=== PATIENT | female | born 1950 | race Caucasian/White ===

== ENCOUNTER → 2018-02-14 07:05 | Outpatient (CLI) | payer MEDICARE, SELFPAY ==
[2018-02-14 10:25] LABS: Absolute Lymphocyte Count 2.58 X10^3/ul (0.83-4.51); Absolute Neutrophil Count 3.9 X10^3/uL (2.0-7.7); Basophil# 0.02 X10^3/uL; Basophil% 0.3 % (0-1); Eosinophil# 0.13 X10^3/uL; Eosinophils% 1.8 % (0-5); Hematocrit 45.1 % (37-47); Hemoglobin 15.4 g/dl (12.0-15.0); Lymphocyte # 2.58 X10^3/ul (4.0); Lymphocyte % 35.7 % (19-41); Mean Corp Hgb Conc 34.1 g/gl (32-36); Mean Corpuscular Hgb 30.9 pg (27.0-32.0); Mean Corpuscular Volume 90.6 fL (81-99); Mean Platelet Vol. 9.5 fl (6.2-12.0); Monocyte# 0.58 X10^3/uL; Neutrophil % 53.9 % (47-70); Platelet Count 217 K/mm3 (150-450); RBC Distribution Width CV 13.2 % (11.6-14.6); RBC Distribution Width SD 43.3 fl (35.1-43.9); Red Blood Count 4.98 M/mm3 (4.2-5.4); White Blood Count 7.2 K/mm3 (4.4-11.0)
[2018-02-14 10:27] LABS: POSITIVE COUNT NO; POSITIVE DIFFERENTIAL NO; POSITIVE MORPHOLOGY NO
[2018-02-14 10:41] LABS: ALB/GLOB Ratio 0.8 RATIO (0.9-2.4); AST(SGOT) 38 U/L (15-37); Alanine Aminotransfer ALT/SGPT 53 U/L (13-56); Albumin, Serum 3.3 g/dL (3.2-5.0); Alkaline Phosphatase 101 U/L (45-117); Anion Gap 10 (5-15); BUN 21 mg/dL (7-18); BUN/Creat Ratio 25.7 RATIO (10-20); Calcium,Total 9.1 mg/dL (8.5-10.1); Chloride 106 mmol/L (98-107); Cholesterol 154 mg/dL (200); Creatinine, Serum 0.82 mg/dL (0.55-1.02); EST Glomerular Filtration Rate 75 mL/min (>60); Est Glom Filt Rate - Afr Amer 90 mL/min (>60); Glucose 81 mg/dL (74-106); High Density Lipoprotein 60 mg/dL; Potassium 3.8 mmol/L (3.5-5.1); Protein, Total 7.3 g/dL (6.4-8.2); Sodium Level 144 mmol/L (136-145); Triglycerides 97 mg/dL; Very Low Density Lipoprotein 19 mg/dL (5-40)
== END ==
PROVIDERS: Family Provider Family Medicine; PCP Family Medicine; Visit Provider Family Medicine
DX: E78.5 Hyperlipidemia, unspecified (principal); I10 Essential (primary) hypertension
CPT/HCPCS: 36415; 80053; 80061; 85025

== ENCOUNTER → 2018-04-05 10:58 | Outpatient (CLI) | payer MEDICARE, OTHER, SELFPAY ==
--- NOTE | 2018-04-05 11:06 | RAD_ITS ---
STUDY: X-RAY CHEST REASON FOR EXAM: Female, 67 years old. Productive cough. TECHNIQUE: PA and lateral chest. COMPARISON: July 04, 2016. FINDINGS: The lungs are clear and expanded. There is no demonstrated pleural abnormality. Normal size heart. Normal mediastinum and umu. Normal visualized pulmonary arteries. Normal visualized aortic arch and descending thoracic aorta. Degenerative changes of the thoracic spine. Normal visualized ribs, clavicles, and shoulders. There is no demonstrated abnormality of the visualized soft tissue structures of the upper abdomen. RAD/Chest PA and Lateral IMPRESSION: No acute cardiopulmonary disease. Electronically Signed: Won Campbell MD at 7:53 EDT , Service support ,
== END ==
PROVIDERS: Family Provider Family Medicine; PCP Family Medicine; Referring Provider Family Medicine; Visit Provider Family Medicine
DX: R05 Cough (principal)
CPT/HCPCS: 71046

== ENCOUNTER → 2018-06-04 09:44 | Outpatient (CLI) | payer MEDICARE, SELFPAY ==
[2017-05-09 21:02] VITALS: BMI 38.2
--- NOTE | 2018-06-04 09:50 | BI_ITS ---
MAMMOGRAPHY - BILATERAL SCREENING REASON FOR EXAM: Female, 67 years old. Routine annual screening examination. PERTINENT HISTORY: Mother with breast cancer. Grandmother with breast cancer. TECHNIQUE: Digital bilateral breast chuyita (3D mammographic acquisition) in the CC and MLO projections. 2-D mediolateral oblique (MLO) and craniocaudad (CC) views of both breasts were obtained. CAD: Full Field Digital Mammography with Computer Added Detection was performed. COMPARISON: Comparison is made with prior study dated June 03, 2017 and May 31, 2016. FINDINGS: Breast Composition: There are scattered areas of fibroglandular density. There are no dominant masses or suspicious calcifications. Stable asymmetry of breast tissue while breast tissues in the upper outer quadrant of the left breast as compared to the right side. This is unchanged. No other significant abnormalities are identified. Stable small benign-appearing bilateral axillary lymph nodes. BI/SCREENING MAMM (CAD), BILAT IMPRESSION: Stable bilateral screening mammogram. Yearly follow-up mammogram recommended. (A) ASSESSMENT CATEGORY: BIRADS Category 2: Benign. A letter regarding these results will be sent to the patient by the facility within 30 days. Approximately 10% of breast cancers are not detected by mammography. A normal mammogram should not delay biopsy of a clinically suspicious abnormality. [id number] Electronically Signed: Shiv Majano MD at 11:06 EST Tel [phone], Service support ,
--- OUTSIDE RECORDS SUMMARY | 2018-07-21 08:22 | XMS RPT_ITS ---
:1950 Author Organization [facility] Care Team Providers Name Role Phone TI VASQUEZ Admitting Unavailable TI VASQUEZ Attending Unavailable TI VASQUEZ Primary Care Unavailable Kraig Christopher Attending Unavailable Malys, Estefani Primary Care Unavailable Malys, Estefani Attending Unavailable Malys, Estefani Referring Unavailable Malys, Estefani Primary Care Unavailable Malys, Estefani Primary Care Unavailable Krzysztof Fisher Attending Unavailable Malys, Estefani Attending Unavailable Malys, Estefani Referring Unavailable Malys, Estefani Primary Care Unavailable PROBLEMS PROBLEMS DATE TYPE CONDITION / CODE ATTENDING STATUS SOURCE 04/05/2018 Unknown R05 - Cough / Malys, Estefani [facility] 03/13/2018 Unknown E78.5 - Estefani Gee Active [facility] Hyperlipidemia, Community unspecified / Hospital E78.5(ICD-10) Repository PROCEDURES PROCEDURES No Procedure Records FoundRESULTS RESULTS DISCHARGE INSTRUCTION Observed: 06/16/2018 Status: F Source: [place] 12:15 AM [facility] REPOSITORY [facility] Medical Records Department [address] [place] [address] Discharge Instruction 06/15/18 1859 MR#: [id number] Acct: [id number] Name: PRINCESS MEZA Rep #: [id number] : 1950 67 From: Krzysztof Fisher MD PCP: Estefani Gee DO Status: DEP ER ED Disposition - Plan for ED Patient: Disposition: Home or Assisted Living Chief Complaint: Ear Problem Instructions: ED Cerumen Impaction Treated Referrals: Estefani Gee DO [Primary Care Provider] - As Needed Additional Instructions: Today. 2-4 drops of Debrox to your right ear daily or the other day to help prevent buildup of earwax. What to do if you have Problems For any increased pain, shortness of breath, bleeding, nausea or vomiting, chest pain, or any unexpected problems, contact your Primary Care Provider. Call [facility] ([phone]) or report to the closest Emergency Room. Call 911 if necessary. 06/16/18 0015 <Electronically signed by Krzysztof Fisher MD> Date Krzysztof Fisher MD Cosigner Signature (If Indicated): Date CC: Estefani Gee DO EMERGENCY DEPARTMENT Observed: 06/16/2018 Status: F Source: [place] SUMMARY 12:15 AM [facility] REPOSITORY [facility] Medical Records Department [address] [place] [address] Emergency Department Summary 06/15/18 1729 MR#: [id number] Acct: [id number] Name: PRINCESS MEZA Rep #: [id number] : 1950 67 From: Krzysztof Fisher MD PCP: Estefani Gee DO Status: DEP ER - ER Visit Summary Date of Service: 06/15/18 Chief Complaint: Right earwax History of Present Illness: The patient is a 67 F plenty of obstruction of her right ear canal with wax and simvastatin 10 years ago. She denies any pain. No trauma. No bleeding. Otherwise no complaints. Physical Examination: Well-appearing older female. Patient would not allow the nurses to take her vital signs. Stated I do not want to be here all night HEENT exam left TM normal. Pupils round reactive light. Normal posterior pharynx. No facial droop. Right ear canal is completely obstructed by wax. No blood. Neck nontender. No lymphadenopathy. Lungs clear to auscultation bilaterally. Heart regular rhythm no murmur. Abdomen is soft and nontender. Patient is moving all 4 extremities. Neurologically she is awake alert with no focal motor deficits. Test Results: None Emergency Department Course and Treatment: Debrox placed in the right ear and nurses. RN then irrigated her right ear and get a large amount of wax out. Patient states she feels a lot better can hear much better out of her right ear. I re-eval the right ear and the vast majority of the wax has been removed. Treatment Plan: Discharge home with Debrox eardrops. Disposition: Discharge Impression: Acute right ear cerumen impaction This note was generated with [employer] dictation software. It may contain incorrect words, spelling, and punctuation that were not noted in review of the chart prior to signing ED Disposition - Plan for ED Patient: Chief Complaint: Ear Problem Referrals: Estefani Gee DO [Primary Care Provider] - What to do if you have Problems For any increased pain, shortness of breath, bleeding, nausea or vomiting, chest pain, or any unexpected problems, contact your Primary Care Provider. Call [facility] ([phone]) or report to the closest Emergency Room. Call 911 if necessary. 06/16/18 0015 <Electronically signed by Krzysztof Fisher MD> Date Krzysztof Hermosilloignkvng Signature (If Indicated): Date CC: Estefani Gee DO SCREENING MAMM (CAD), Observed: 06/04/2018 Status: F Source: [place] BIL[place] 9:50 AM [facility] REPOSITORY [facility] Imaging Services [address] [place] [address] SCREENING MAMM (CAD), BILAT MR#: [id number] Acct: [id number] Name: PRINCESS MEZA Rep #: [id number] : 1950 F 67 From: Shiv Majano MD PCP: Estefani Gee DO Status: REG CLI Study: SCREENING MAMM (CAD), BILAT Date of Exam: 06/04/18 Exam# [id number] Ordering Dr: Kraig Christopher MD MAMMOGRAPHY - BILATERAL SCREENING REASON FOR EXAM: Female, 67 years old. Routine annual screening examination. PERTINENT HISTORY: Mother with breast cancer. Grandmother with breast cancer. TECHNIQUE: Digital bilateral breast chuyita (3D mammographic acquisition) in the CC and MLO projections. 2-D mediolateral oblique (MLO) and craniocaudad (CC) views of both breasts were obtained. CAD: Full Field Digital Mammography with Computer Added Detection was performed. COMPARISON: Comparison is made with prior study dated June 03, 2017 and May 31, 2016. FINDINGS: Breast Composition: There are scattered areas of fibroglandular density. There are no dominant masses or suspicious calcifications. Stable asymmetry of breast tissue while breast tissues in the upper outer quadrant of the left breast as compared to the right side. This is unchanged. No other significant abnormalities are identified. Stable small benign-appearing bilateral axillary lymph nodes. BI/SCREENING MAMM (CAD), BILAT IMPRESSION: Stable bilateral screening mammogram. Yearly follow-up mammogram recommended. (A) ASSESSMENT CATEGORY: BIRADS Category 2: Benign. A letter regarding these results will be sent to the patient by the facility within 30 days. Approximately 10% of breast cancers are not detected by mammography. A normal mammogram should not delay biopsy of a clinically suspicious abnormality. [id number] Electronically Signed: Shiv Majano MD at 11:06 EST Tel [phone], Service support , CC: Kraig Christopher MD; Estefani Gee DO Pedodontist: Signed CHEST PA AND LATERAL Observed: 04/05/2018 Status: F Source: [place] 11:06 AM [facility] REPOSITORY [facility] Imaging Services [address] [place] [address] Chest PA and Lateral MR#: [id number] Acct: [id number] Name: PRINCESS MEZA Rep #: [id number] : 1950 F 67 From: Won Campbell PCP: Estefani Gee DO Status: REG CLI Study: Chest PA and Lateral Date of Exam: 04/05/18 Exam# [id number] Ordering Dr: Estefani Gee DO STUDY: X-RAY CHEST REASON FOR EXAM: Female, 67 years old. Productive cough. TECHNIQUE: PA and lateral chest. COMPARISON: July 04, 2016. FINDINGS: The lungs are clear and expanded. There is no demonstrated pleural abnormality. Normal size heart. Normal mediastinum and umu. Normal visualized pulmonary arteries. Normal visualized aortic arch and descending thoracic aorta. Degenerative changes of the thoracic spine. Normal visualized ribs, clavicles, and shoulders. There is no demonstrated abnormality of the visualized soft tissue structures of the upper abdomen. RAD/Chest PA and Lateral IMPRESSION: No acute cardiopulmonary disease. Electronically Signed: Won Campbell MD at 7:53 EDT , Service support , CC: Estefani Gee DO Pedodontist: Signed CBC W/DIFF, AUTOMATED Collected: 02/14/2018 Status: F Source: [place] 7:11 AM [facility] REPOSITORY TYPE CODE TESTS RESULT OUT OF RANGE REFERENCE UNITS LAB L100.1000 4.4-11.0 K/mm3 Normal WBC 7.2 LAB L100.1200 4.2-5.4 M/mm3 Normal RBC 4.98 LAB L100.1300 12.0-15.0 g/dl High HGB 15.4 LAB L100.1400 37-47 % Normal HCT 45.1 LAB L100.1500 81-99 fL Normal MCV 90.6 LAB L100.1600 27.0-32.0 pg Normal MCH 30.9 LAB L100.1700 32-36 g/gl Normal MCHC 34.1 LAB L100.1810 11.6-14.6 % Normal RDW CV 13.2 LAB L100.1820 35.1-43.9 fl Normal RDW SD 43.3 LAB L100.1900 150-450 K/mm3 Normal PLT 217 LAB L100.2000 6.2-12.0 fl Normal MPV 9.5 LAB L100.2100 47-70 % Normal NEUT% 53.9 LAB L100.2200 19-41 % Normal LY% 35.7 LAB L100.2300 0-10 % Normal MONO% 8.0 LAB L100.2400 0-5 % Normal EO% 1.8 LAB L100.2500 0-1 % Normal BASO% 0.3 LAB L100.2550 0.0-0.9 % Normal IM GRAN % 0.300 Result Comment: IG% - Immature Granulocytes (promyelocytes, myelocytes and metamyelocytes) > 1% indicates that a LEFT SHIFT is Present. LAB L100.2620 2.0-7.7 X10 3/uL Normal Absolute Neut 3.9 LAB L100.2720 0.83-4.51 X10 3/ul Normal Absolute Lymph 2.58 Performed By: #### L100.0100 #### [facility] [address] [place], [place], [address] COMPREHENSIVE METABOLIC Collected: 02/14/2018 Status: F Source: [place] 7:11 AM [facility] REPOSITORY TYPE CODE TESTS RESULT OUT OF RANGE REFERENCE UNITS LAB L501.0100 74-106 mg/dL Normal GLU 81 Result Comment: Please note revised GLUCOSE reference range effective 2017. LAB L501.1000 7-18 mg/dL High BUN 21 LAB L501.1100 0.55-1.02 mg/dL Normal CREAT,SERUM 0.82 Result Comment: The validity of the calculated GFR AND GFRAA in patients over 70 years has not been determined. Clinical correlation is essential. LAB L501.1110 >60 mL/min Normal EST GFR 75 Result Comment: Non- GFR Calc LAB L501.1115 >60 mL/min Normal EST GFR - AA 90 Result Comment: GFR Calc LAB L501.1300 10-20 RATIO High BUN/CRE 25.7 LAB L501.1500 6.4-8.2 g/dL T Normal PROT 7.3 LAB L501.1800 3.2-5.0 g/dL Normal ALB 3.3 LAB L501.1950 2.2-4.2 g/dL Normal GLOB 4.0 LAB L501.2000 0.9-2.4 RATIO Low A/G 0.8 LAB L501.2200 8.5-10.1 mg/dL CA Normal 9.1 LAB L501.4100 15-37 U/L High AST 38 LAB L501.4305 45-117 U/L Normal ALK P 101 LAB L501.4405 13-56 U/L Normal ALT 53 LAB L501.4600 0.20-1.00 mg/dL T Normal BILI 0.70 LAB L501.5300 136-145 mmol/L NA Normal 144 LAB L501.5600 3.5-5.1 mmol/L K Normal 3.8 LAB L501.5900 98-107 mmol/L CL Normal 106 LAB L501.6100 21.0-32.0 mmol/L Normal CO2 28.0 LAB L501.6200 5-15 Normal GAP 10 Performed By: #### L500.4050, L500.4100 #### [facility] [address] [place], [address] LIPID PROFILE Collected: 02/14/2018 Status: F Source: [place] 7:11 AM [facility] REPOSITORY TYPE CODE TESTS RESULT OUT OF RANGE REFERENCE UNITS LAB L501.4900 200 mg/dL Normal CHOL 154 Result Comment: <200 mg/dL Desirable 200-240 mg/dL Borderline >240 mg/dL High Risk LAB L501.5000 mg/dL Normal TRIG 97 Result Comment: The drugs N-Acetylcysteine and Metamizole may falsely depress this assay. Serum Triglycerides Reference Interval Normal <150 mg/dL Borderline high 150 - 199 mg/dL High 200 - 499 mg/dL Very High > or = 500 mg/dL LAB L501.6400 mg/dL Normal HDL 60 Result Comment: The drugs N-Acetylcysteine and Metamizole may falsely depress this assay. Reference Range HDL <40 mg/dL Low HDL Cholesterol HDL >or= 60 mg/dL High HDL Cholesterol LAB L501.6500 0-130 mg/dL Normal LDL 75 LAB L501.6600 5-40 mg/dL Normal VLDL 19 Performed By: #### L500.4050, L500.4100 #### [facility] [address] [place], [address] ALLERGIES ALLERGIES DATE TYPE / CODE NAME / CODE REACTION SEVERITY SOURCE 06/15/2018 Drug Penicillins/ Rash Unknown [facility] Allergy/4160 [id number]([facility] [address](SNOMED XNORM) Repository CT) 06/15/2018 Drug tetracycline Nausea/Vom/Diarr Unknown [facility] Allergy/4160 /[id number]( [facility] [address](SNOMED RXNORM) Repository CT) ENCOUNTERS ENCOUNTERS ADMIT/DISCHARGE ACCOUNT ADMITTING ENCOUNTER LOCATION SOURCE NUMBER CLASS 06/15/2018/ [id number] Emergency [address] ing:ED Repository 06/04/2018 [id number] Ambulatory [address] ing:OPBI Repository 04/05/2018 [id number] Ambulatory [address] ing:RAD.FUTUR Repository E 03/04/2018 [id number] TI VASQUEZ Ambulatory [facility] Repository 02/14/2018 [id number] Ambulatory [place] [facility] ing:MTLAB Repository PAYERS PAYERS ENCOUNTER GUARANTOR PAYER SUBSCRIBER SOURCE 06/15/2018 PRINCESS Wylie Primary PRINCESS Toth [id number] Insurance:MEDICARE ULRICHDOB: Community [place] PART A BPolicy [place]: [id number] [id number] Repository [address]Edj: (330) Date:2018-06-15 [phone] () 06/15/2018 Secondary MAHAMED [place] Insurance:COLONIAL ULRICHDOB: Community NAIF LIFE INS COPolicy [id number] Hospital Number: Repository [id number] Date:9151-03-89[address] [place] [address]KC: 06/15/2018 Tertiary NOT GIVENUNK Chris Insurance:SELF PAY [facility] Number: Effective Repository Date:2018-06-15 06/04/2018 MAHAMED Primary PRINCESS Wylie [place] [id number] Insurance:MEDICARE ULRICHDOB: Community [place] PART A BPolicy Number: [id number] [id number] Repository [address]Ldy: (330) Date:2017-12-02 [phone] (HP) 06/04/2018 Secondary NOT GIVENUNK Chris Insurance:SELF PAY [facility] Number: Effective Repository Date:2017-12-02 04/05/2018 MAHAMED Primary MAHAMED [place] [id number] Insurance:MEDICARE ULRICHDOB: Community [place] PART A BPolicy Number: [id number] [id number] Repository [address]Uge: (330) Date:2018-04-04 [phone] (HP) 04/05/2018 Secondary MAHAMED [place] Insurance:COLONIAL ULRICHDOB: Community NAIF LIFE INS COPolicy [id number] Hospital Number: Repository [id number] Date:[id number] [address] [place] [address], [place] [address]HR: 04/05/2018 Tertiary NOT GIVENUNK [place] Insurance:SELF PAY [facility] Number: Effective Repository Date:2018-04-04 03/04/2018 PRINCESS Wylie Primary PRINCESS Black KEYADOB: Insurance:MEDICARE ULRICKDOB: [facility] [id number] [facility] [id number] Hospital [place] Number: [place] Repository [place] [id number], [place] [address]Unm: (330) Date:Plan Name: [id number] [phone] () 02/14/2018 PRINCESS Wylie Primary PRINCESS Toth [id number] Insurance:[facility] Critical access hospitalARD PART A BPolicy Number: [id number] [id number] Repository [address]Jtm: (330) Date:2018-02-14 [phone] () 02/14/2018 Secondary NOT GIVENUNK Chris Insurance:SELF PAY [facility] Number: Effective Repository Date:2018-02-14
== END ==
PROVIDERS: Family Provider Family Medicine; PCP Family Medicine; Visit Provider Obstetrics & Gynecology
DX: Z12.31 Encounter for screening mammogram for malignant neoplasm of breast (principal)
CPT/HCPCS: 77063; 77067

== ENCOUNTER 2018-06-15 16:34 | Emergency (ER) | payer MEDICARE, OTHER, SELFPAY ==
[2018-06-15 16:35] VITALS: TEMP 37.1; BMI 40.3
--- NOTE | 2018-06-15 17:30 | ED.DCSUM_ITS ---
- ER Visit Summary Date of Service: 06/15/18 Chief Complaint: Right earwax History of Present Illness: The patient is a 67 F plenty of obstruction of her right ear canal with wax and simvastatin 10 years ago. She denies any pain. No trauma. No bleeding. Otherwise no complaints. Physical Examination: Well-appearing older female. Patient would not allow the nurses to take her vital signs. Stated I do not want to be here all night HEENT exam left TM normal. Pupils round reactive light. Normal posterior pharynx. No facial droop. Right ear canal is completely obstructed by wax. No blood. Neck nontender. No lymphadenopathy. Lungs clear to auscultation bilaterally. Heart regular rhythm no murmur. Abdomen is soft and nontender. Patient is moving all 4 extremities. Neurologically she is awake alert with no focal motor deficits. Test Results: None Emergency Department Course and Treatment: Debrox placed in the right ear and nurses. RN then irrigated her right ear and get a large amount of wax out. Patient states she feels a lot better can hear much better out of her right ear. I re-eval the right ear and the vast majority of the wax has been removed. Treatment Plan: Discharge home with Debrox eardrops. Disposition: Discharge Impression: Acute right ear cerumen impaction This note was generated with [employer] dictation software. It may contain incorrect words, spelling, and punctuation that were not noted in review of the chart prior to signing ED Disposition - Plan for ED Patient: Chief Complaint: Ear Problem Referrals: Estefani Gee DO [Primary Care Provider] -
[2018-06-15] MEDS: Carbamide Peroxide 15 ML Bottle 5 DRP OTIC (17:43)
--- NOTE | 2018-06-15 18:59 | ED.DEP ---
ED Disposition - Plan for ED Patient: Disposition: Home or Assisted Living Chief Complaint: Ear Problem Instructions: ED Cerumen Impaction Treated Referrals: Estefani Gee DO [Primary Care Provider] - As Needed Additional Instructions: Today. 2-4 drops of Debrox to your right ear daily or the other day to help prevent buildup of earwax.
[2018-06-15 19:03] VITALS: PULSE 69; RESP 15; O2SAT 95
== END 2018-06-15 19:04 | disposition home or self-care (01) ==
PROVIDERS: Emergency Provider Emergency Medicine; Family Provider Family Medicine; PCP Family Medicine
DX: H61.21 Impacted cerumen, right ear (principal); I10 Essential (primary) hypertension; E78.00 Pure hypercholesterolemia, unspecified; Z79.82 Long term (current) use of aspirin; Z79.899 Other long term (current) drug therapy
CPT/HCPCS: 99283

== ENCOUNTER → 2019-01-14 | Outpatient (CLI) | payer MEDICARE, OTHER, SELFPAY | END | disposition home or self-care (01) | LOC: SL 23:20 | PROVIDERS: Family Provider Family Medicine; PCP Family Medicine; Referring Provider Family Medicine; Visit Provider Family Medicine | DX: G47.10 Hypersomnia, unspecified (principal) | CPT/HCPCS: 95810 ==

== ENCOUNTER → 2019-02-02 | Outpatient (CLI) | payer MEDICARE, OTHER, SELFPAY | END | disposition home or self-care (01) | PROVIDERS: Family Provider Family Medicine; PCP Family Medicine; Referring Provider Family Medicine; Visit Provider Family Medicine | DX: G47.33 Obstructive sleep apnea (adult) (pediatric) (principal) | CPT/HCPCS: 95811 ==

== ENCOUNTER → 2019-02-24 | Outpatient (CLI) | payer MEDICARE, OTHER, SELFPAY ==
[2019-02-24 10:38] LABS: ALB/GLOB Ratio 0.8 RATIO (0.9-2.4); AST(SGOT) 32 U/L (15-37); Alanine Aminotransfer ALT/SGPT 45 U/L (13-56); Albumin, Serum 3.1 g/dL (3.2-5.0); Alkaline Phosphatase 100 U/L (45-117); Anion Gap 6 (5-15); BUN 20 mg/dL (7-18); BUN/Creat Ratio 27.9 RATIO (10-20); Chloride 106 mmol/L (98-107); Cholesterol 169 mg/dL (200); Creatinine, Serum 0.72 mg/dL (0.55-1.02); EST Glomerular Filtration Rate 86 mL/min (>60); Est Glom Filt Rate - Afr Amer 105 mL/min (>60); Glucose 92 mg/dL (74-106); High Density Lipoprotein 59 mg/dL; Potassium 3.6 mmol/L (3.5-5.1); Protein, Total 7.1 g/dL (6.4-8.2); Sodium Level 142 mmol/L (136-145); Triglycerides 135 mg/dL; Very Low Density Lipoprotein 27 mg/dL (5-40)
[2019-02-24 12:35] LABS: Absolute Lymphocyte Count 2.39 X10^3/uL (0.83-4.51); Absolute Neutrophil Count 4.1 X10^3/uL (2.0-7.7); Basophil# 0.03 X10^3/uL; Basophil% 0.4 % (0-1); Eosinophil# 0.09 X10^3/uL; Eosinophils% 1.3 % (0-5); Hematocrit 44.9 % (37-47); Hemoglobin 14.6 g/dL (12.0-15.0); Lymphocyte # 2.39 X10^3/ul (4.0); Lymphocyte % 33.4 % (19-41); Mean Corp Hgb Conc 32.5 g/dL (32-36); Mean Corpuscular Hgb 29.9 pg (27.0-32.0); Mean Platelet Vol. 9.7 fl (6.2-12.0); Monocyte# 0.52 X10^3/uL; Monocyte% 7.3 % (0-10); NRBC Flagged by Analyzer 0 % (0-5); Neutrophil # 4.09 X10^3/uL (2.7-7.7); Neutrophil % 57.2 % (47-70); Platelet Count 215 K/mm3 (150-450); RBC Distribution Width CV 12.8 % (11.6-14.6); RBC Distribution Width SD 43.3 fl (35.1-43.9); Red Blood Count 4.88 M/mm3 (4.2-5.4); White Blood Count 7.2 K/mm3 (4.4-11.0)
== END | disposition home or self-care (01) ==
LOC: MTLAB 07:58
PROVIDERS: Family Provider Family Medicine; PCP Family Medicine; Referring Provider Family Medicine; Visit Provider Family Medicine
DX: E78.5 Hyperlipidemia, unspecified (principal); I10 Essential (primary) hypertension; K44.9 Diaphragmatic hernia without obstruction or gangrene
CPT/HCPCS: 36415; 80053; 80061; 85025

== ENCOUNTER 2019-04-15 16:19 | Emergency (ER) | payer MEDICARE, OTHER, SELFPAY ==
[2019-04-15 16:20] VITALS: PULSE 98; RESP 16; TEMP 37.4; O2SAT 99
[2019-04-15 16:58] VITALS: BP 130/72
--- NOTE | 2019-04-15 17:10 | RAD_ITS ---
STUDY: X-RAY CHEST REASON FOR EXAM: Female, 68 years old. Cough TECHNIQUE: PA and lateral views of the chest COMPARISON: X-ray chest April 05, 2018 FINDINGS: The lungs are clear. There are no pleural effusions. There is no pneumothorax. The heart is normal in size. The visualized osseous structures are within normal limits. RAD/Chest PA and Lateral IMPRESSION: No acute thoracic pathology. Electronically Signed: Krzysztof Garza, at 18:16 EDT Tel , Service support ,
--- NOTE | 2019-04-15 17:11 | ED.DCSUM_ITS ---
History of Present Illness Chief Complaint: Back Detail of Chief Complaint: Back spasms, cough, sore throat, fever Informant: Patient Onset: Days Current Severity: Moderate Maximum Severity: Moderate Narrative: Patient presents with multiple complaints. She states she started getting back spasms in the lower thoracic area on Saturday and Saturday. Saturday she woke up with sore throat, cough, body aches, subjective fever. This morning she called her primary care office. Physician there called in a prescription for azithromycin. She picked it up on her way to the emergency room but felt so weak and miserable she wanted to be seen. She does report the back spasms have improved. Past Medical History - Allergies and Home Meds Allergies/Adverse Reactions: Allergies Penicillins Allergy (Verified 06/15/18 16:36) Rash tetracycline Adverse Reaction (Verified 06/15/18 16:36) Nausea/Vom/Diarrhea Primary Care Physician: Alba Eldridge MD [Primary Care Provider] - 1 Week if not improving Prior records reviewed: Yes Past Medical History: - - Reviewed Lives: Spouse/ Significant Other Smoking Status: Former smoker - Family History Maternal Family History: Reports: - - No stroke Paternal Family History: Reports: - - No stroke Review of Systems General: Reports: Chills, Fever, Subjective Eyes: Denies: Visual changes - bilaterally ENT: Reports: Right ear pain, Sore throat Cardiovascular: Denies: Chest pain, Palpitations Respiratory: Reports: Cough, Sputum - Clear to yellow. Denies: Dyspnea Gastrointestinal: Reports: Nausea, Diarrhea. Denies: Abdominal pain Genitourinary: Denies: Dysuria Musculoskeletal: Reports: Back pain. Denies: Extremity Pain Skin: Denies: Rash Neurological: Denies: Headache, Weakness Hematologic: Denies: Easy bruising, Easy bleeding Allergy: Denies: Uticaria Physical Exam Vital Signs/Narrative: Vital Signs Temp Pulse Resp BP Pulse Ox 04/15/19 16:58 130/72 H 04/15/19 16:20 99.3 F H 98 16 99 Inital Vital Signs reviewed: Yes General: Well nourished, Well developed Head: Normocephalic ENT: Moist mucous membranes Neck: Supple Cardiovascular: Regular rate, Regular rhythm Respiratory: No distress, CTA bilaterally Abdomen: Soft, Nontender Back: Nontender Extremities: Nontender, No edema Skin: Normal color Neurological: Alert, Oriented x3 Psychological: Normal affect Diagnostic/Tx/Re-eval Impressions Chest X-Ray 04/15/19 17:10 IMPRESSION: No acute thoracic pathology. Electronically Signed: Krzysztof Garza, at 18:16 EDT Tel , Service support , 04/15/19 17:10 Chest PA and Lateral [RAD] Stat 04/15/19 17:20 Mucosa - Nose Influenza Types A,B Direct FA ([facility]) - Final - Presumptive NEGATIVE Laboratory Results 04/15/19 04/15/19 17:20 17:20 WBC 12.7 H RBC 5.03 Hgb 15.4 H Hct 45.9 MCV 91.3 MCH 30.6 MCHC 33.6 RDW Std Deviation 41.4 RDW Coeff of Faizan 12.4 Plt Count 210 MPV 9.0 Immature Gran % (Auto) 0.500 Neut % (Auto) 79.0 H Lymph % (Auto) 12.9 L [place] % (Auto) 7.1 Eos % (Auto) 0.3 Baso % (Auto) 0.2 Absolute Neuts (auto) 10.0 H Absolute Lymphs (auto) 1.64 Nucleated RBC % 0 Sodium 136 Potassium 3.0 L Chloride 102 Carbon Dioxide 28.0 Anion Gap 6 BUN 14 Creatinine 0.64 Estim Creat Clear Calc 93.39 Est GFR (MDRD) Af Amer 118 Est GFR (MDRD) Non-Af 98 BUN/Creatinine Ratio 21.7 H Glucose 101 Calcium 9.4 - Medical Decision Making Patient was given IV fluids and Zofran here. Upon return of her labs she was given oral potassium. On repeat evaluation patient is sitting upright in wheelchair in hallway bed. She is in no acute distress. Test results are discussed with her. I advised her that I believe her symptoms are viral in nature. She will be given 4 additional days of potassium replacement. ED Disposition - Plan for ED Patient: Disposition: Home or Assisted Living Diagnosis: Viral syndrome, Hypokalemia Instructions: Hypokalemia, VIRAL SYNDROME (Adult) Prescriptions: Potassium Chloride [K-Dur] 20 meq PO BID #8 tab Prescription Printed Referrals: Alba Eldridge MD [Primary Care Provider] - 1 Week if not improving
[2019-04-15] MEDS: Ketorolac 15 MG/ML Vial IV (17:25)
[2019-04-15 17:40] LABS: Absolute Lymphocyte Count 1.64 X10^3/uL (0.83-4.51); Basophil# 0.03 X10^3/uL; Basophil% 0.2 % (0-1); Eosinophil# 0.04 X10^3/uL; Eosinophils% 0.3 % (0-5); Hematocrit 45.9 % (37-47); Hemoglobin 15.4 g/dL (12.0-15.0); Lymphocyte # 1.64 X10^3/ul (4.0); Lymphocyte % 12.9 % (19-41); Mean Corp Hgb Conc 33.6 g/dL (32-36); Mean Corpuscular Hgb 30.6 pg (27.0-32.0); Mean Corpuscular Volume 91.3 fL (81-99); Monocyte% 7.1 % (0-10); NRBC Flagged by Analyzer 0 % (0-5); Neutrophil # 10.01 X10^3/uL (2.7-7.7); Platelet Count 210 K/mm3 (150-450); RBC Distribution Width CV 12.4 % (11.6-14.6); RBC Distribution Width SD 41.4 fl (35.1-43.9); Red Blood Count 5.03 M/mm3 (4.2-5.4); White Blood Count 12.7 K/mm3 (4.4-11.0)
[2019-04-15 17:51] LABS: Anion Gap 6 (5-15); BUN 14 mg/dL (7-18); BUN/Creat Ratio 21.7 RATIO (10-20); Calcium,Total 9.4 mg/dL (8.5-10.1); Chloride 102 mmol/L (98-107); Creatinine, Serum 0.64 mg/dL (0.55-1.02); EST Glomerular Filtration Rate 98 mL/min (>60); Est Glom Filt Rate - Afr Amer 118 mL/min (>60); Estimated Creatinine Clearance 93.39 ml/min; Glucose 101 mg/dL (74-106); Sodium Level 136 mmol/L (136-145)
[2019-04-15] MEDS: Ondansetron 4 MG/2 ML Vial IV (18:18)
[2019-04-15 19:10] VITALS: BP 136/80; PULSE 67; RESP 15; O2SAT 92
== END 2019-04-15 19:32 | disposition home or self-care (01) ==
PROVIDERS: Emergency Provider Emergency Medicine; Family Provider Family Medicine; PCP Family Medicine
DX: B34.9 Viral infection, unspecified (principal); E87.6 Hypokalemia; H92.01 Otalgia, right ear; J02.9 Acute pharyngitis, unspecified; R05 Cough; Z87.891 Personal history of nicotine dependence
CPT/HCPCS: 71046; 80048; 85025; 87804; 96361; 96374; 96375; 99284; J7040; J2405

== ENCOUNTER → 2019-06-05 09:31 | Outpatient (CLI) | payer MEDICARE, OTHER, SELFPAY ==
--- NOTE | 2019-06-05 09:34 | BI_ITS ---
MAMMOGRAPHY - BILATERAL SCREENING REASON FOR EXAM: Female, 68 years old. Routine annual screening examination. PERTINENT HISTORY: Mother with breast cancer. Aunt with breast cancer. TECHNIQUE: Digital bilateral breast fahad (3D mammographic acquisition) in the CC and MLO projections. 2-D mediolateral oblique (MLO) and craniocaudad (CC) views of both breasts were obtained. CAD: Full Field Digital Mammography with Computer Added Detection was performed. COMPARISON: Comparison is made with prior examination dated June 04, 2018 and June 03, 2017. FINDINGS: Breast Composition: There are scattered areas of fibroglandular density. There are no dominant masses or suspicious calcifications. Stable asymmetry of breast tissue where more breast tissue is seen in the upper-outer quadrant in the left breast as compared to the right side. Stable benign-appearing bilateral axillary lymph nodes. No other significant abnormalities are identified. There has been no significant change since the prior study. BI/SCREEN MAMM (CAD) W/FAHAD BILAT IMPRESSION: Stable bilateral screening mammogram. Yearly follow-up mammogram recommended. (A) ASSESSMENT CATEGORY: BIRADS Category 2: Benign. A letter regarding these results will be sent to the patient by the facility within 30 days. Approximately 10% of breast cancers are not detected by mammography. A normal mammogram should not delay biopsy of a clinically suspicious abnormality. [id number] Electronically Signed: Shiv Majano, at 12:37 EST , Service support ,
== END ==
PROVIDERS: Family Provider Family Medicine; PCP Family Medicine; Referring Provider Obstetrics & Gynecology; Visit Provider Obstetrics & Gynecology
DX: Z12.31 Encounter for screening mammogram for malignant neoplasm of breast (principal)
CPT/HCPCS: 77063; 77067

== ENCOUNTER → 2019-07-16 11:16 | Outpatient (CLI) | payer MEDICARE, OTHER, SELFPAY ==
--- NOTE | 2019-07-16 11:19 | RAD_ITS ---
STUDY: X-RAY - LEFT SHOULDER REASON FOR EXAM: Female, 68 years old. ARTHRITIS -- LEFT ARM NUMBNESS TECHNIQUE: 4 view(s) of the shoulder. COMPARISON: 12/10/2012 FINDINGS: Normal glenohumeral articulation. There is degenerative arthrosis of the acromioclavicular joint with inferior osseous spur formation. Inferior acromial osteophyte. Normal humeral head and visualized proximal humerus. The soft tissue structures are unremarkable. Normal visualized pulmonary apex. RAD/Shoulder min 2 Views IMPRESSION: There is degenerative arthrosis of the acromioclavicular joint with inferior osseous spur formation. Inferior acromial osteophyte. Electronically Signed: Memo Yadav MD at 0:42 EST Tel , Service support ,
--- NOTE | 2019-07-16 11:19 | RAD_ITS ---
STUDY: X-RAY - RIGHT SHOULDER REASON FOR EXAM: Female, 68 years old. ARTHRITIS TECHNIQUE: 4 view(s) of the shoulder. COMPARISON: 12/10/2012 FINDINGS: Normal glenohumeral articulation. Normal acromioclavicular joint. Normal acromion. Normal humeral head and visualized proximal humerus. There is periarticular soft tissue calcification consistent with a calcific tendinitis. Normal visualized pulmonary apex. RAD/Shoulder min 2 Views IMPRESSION: Calcific tendinitis. No significant osseous abnormality. Electronically Signed: Memo Yadav MD at 0:46 EST Tel , Service support ,
--- NOTE | 2019-07-16 11:25 | RAD_ITS ---
STUDY: X-RAY - CERVICAL SPINE REASON FOR EXAM: Female, 68 years old. ARTHRITIS -- LEFT ARM NUMBNESS TECHNIQUE: 5 view(s) of the cervical spine were obtained. COMPARISON: CT 07/05/2016 FINDINGS: Degenerative disc disease at the C5-6 and C6-7 levels. Diffuse facet disease. Normal alignment. Moderate osseous foraminal stenosis on the left at the C3-4 level. Prevertebral soft tissues and base of dens are intact. Carotid calcifications. RAD/Cerv Spine 4 or 5 Views IMPRESSION: Multilevel degenerative disease as described. Moderate osseous foraminal stenosis on the left at the C3-4 level. Electronically Signed: Memo Yadav MD at 0:42 EST Tel , Service support ,
== END ==
PROVIDERS: PCP Family Medicine; Referring Provider Family Medicine; Visit Provider Family Medicine
DX: M48.02 Spinal stenosis, cervical region (principal); M19.011 Primary osteoarthritis, right shoulder; M19.012 Primary osteoarthritis, left shoulder
CPT/HCPCS: 72050; 73030

== ENCOUNTER 2019-11-08 01:24 | Emergency (ER) | payer MEDICARE, OTHER, SELFPAY ==
[2019-11-08 01:25] VITALS: PULSE 86; RESP 15; TEMP 37.2; O2SAT 98; BMI 39.1
[2019-11-08 01:32] VITALS: BP 169/98
--- NOTE | 2019-11-08 01:40 | CT_ITS ---
STUDY: CT ABDOMEN AND PELVIS WITHOUT CONTRAST REASON FOR EXAM: Female, 68 years old. PT STATED NAUSEA THIS EVENING RADIATION DOSAGE (If Supplied By Facility): CTDIvol = ( 23.38 ) mGy, DLP = ( 1214.97 ) mGycm TECHNIQUE: Transaxial images were obtained from the dome of the diaphragm to the symphysis pubis without oral contrast, and without intravenous contrast. Sagittal and coronal images were reconstructed. Individualized dose optimization techniques were used for this CT. COMPARISON: None. FINDINGS: The visualized lung bases are unremarkable. The visualized portions of the heart are within normal limits. There is a left liver lobe subcapsular low-attenuation structure measuring 3.5 x 2.4 cm consistent with a cyst by Hounsfield units. There is a low-attenuation structure within the right liver lobe, image 18, series 2 measuring 1.5 x 1.5 cm indeterminate if this represents a soft tissue lesion or cyst. The remainder of the liver is normal. Normal gallbladder and extrahepatic biliary system. Normal spleen. Normal pancreas. Normal bilateral adrenal glands. Small right lower renal pole parapelvic cyst measuring 1.1 cm otherwise normal right kidney. Normal left kidney. Normal visualized stomach. Normal small intestine. There are multiple colonic diverticula consistent with diverticulosis. The appendix is visualized and appears normal. There is diffuse atherosclerotic calcification of the abdominal aorta, without a demonstrated aneurysm. Normal inferior vena cava. Normal retroperitoneum. Normal urinary bladder. There is absence of the uterus consistent with a prior hysterectomy. Normal abdominal wall. There are diffuse degenerative changes of the visualized lumbar spine. CT/Abdomen/Pelvis without Cont IMPRESSION: Diverticulosis with no signs of diverticulitis. Left liver lobe cyst as described. Questionable second low-attenuation structure within the liver, incompletely characterized indeterminate solid versus cyst. Follow-up recommended with liver ultrasound for further characterization. Electronically Signed: Isabelle Cuenca MD at 2:37 EDT , Service support ,
--- NOTE | 2019-11-08 01:41 | EKG12_ITS ---
Test Reason : ABDOMINAL PAIN Blood Pressure : / mmHG Vent. Rate : 073 BPM Atrial Rate : 073 BPM P-R Int : 194 ms QRS Dur : 102 ms QT Int : 424 ms P-R-T Axes : 035 017 036 degrees QTc Int : 467 ms Normal sinus rhythm Normal ECG Confirmed by CASSANDRA COOPER, SUHAS ([id number]), food editor MANUEL SANTOS ([id number]) on 11/10/2019 3:26:07 PM Referred By: NUSRAT Confirmed By:SUHAS TRUJILLO MD
--- NOTE | 2019-11-08 01:43 | ED.VIS.GEN ---
History of Present Illness Chief Complaint: Abd Pain Informant: Patient Onset: Today Current Severity: Mild Maximum Severity: Moderate Narrative: Presents with 1 day history of epigastric pain, nausea but no vomiting. She has no diarrhea or constipation. She denies any chest pain or shortness of breath she has no back pain or tearing sensation other than her chronic lumbar back pain. She has no dysuria or hematuria. Her abdominal pain has subsided and she tells me right now she has no abdominal pain but it comes and goes. No recent fever chills cough or congestion. Past Medical History - Allergies and Home Meds Allergies/Adverse Reactions: Allergies Penicillins Allergy (Verified 11/08/19 01:29) Rash tetracycline Adverse Reaction (Verified 11/08/19 01:29) Nausea/Vom/Diarrhea Primary Care Physician: Alba Eldridge MD [Primary Care Provider] - Past Medical History: - - Past medical history reviewed by me, it is noncontributory to the patient's complaint. Smoking Status: Former smoker - Family History Maternal Family History: Reports: - - No stroke Paternal Family History: Reports: - - No stroke Review of Systems All systems negative except as indicated General: Denies: Fever ENT: Denies: Rhinorrhea, Sore throat Cardiovascular: Denies: Chest pain Respiratory: Denies: Dyspnea, Cough Gastrointestinal: Reports: Abdominal pain, Nausea. Denies: Vomiting, Diarrhea, Constipation Genitourinary: Denies: Dysuria Musculoskeletal: Reports: - - Chronic lumbar back pain no change Skin: Denies: Rash Neurological: Denies: Weakness, Parasthesia Hematologic: Denies: Easy bruising Physical Exam Vital Signs/Narrative: Vital Signs Temp Pulse Resp BP Pulse Ox 11/08/19 01:32 169/98 H 11/08/19 01:25 98.9 F 86 15 98 General: Well nourished, Well developed, No Acute Distress Head: Normocephalic ENT: Moist mucous membranes Neck: Supple Cardiovascular: Regular rate, Regular rhythm Respiratory: No distress, CTA bilaterally Abdomen: Soft, - - There is no tenderness in all quadrants. There is no guarding or rebound. Back: Nontender, Normal Inspection Extremities: Nontender, No edema Skin: Normal color, No rash Neurological: Alert, Oriented x3 Diagnostic/Tx/Re-eval - Rhythm Strip Rhythm Strip: Sinus Rhythm Rate: 73 Ectopy: None - EKG Initial EKG Interpretation: Sinus Rhythm, - - Rate 73. Normal MA and QTc intervals. No ischemic changes. Interpreted by emergency doctor - Medical Decision Making Patient has a normal cardiac work-up as well as CT of the abdomen and pelvis and blood work. She significantly improved. I reevaluated again she has been asymptomatic and she has no current abdominal pain although she did tell me her initial pain was on the epigastrium. She is now asymptomatic and wants to be discharged I believe this is quite reasonable I did tell her if she has any further symptoms concerns or anything gets worse to return. ED Disposition - Plan for ED Patient: Diagnosis: Epigastric pain Instructions: ED Abdominal Pain Unkn Cause Fem Prescriptions: Ondansetron [Zofran Odt] 4 mg PO Q8H PRN PRN #10 tab PRN Reason: Nausea Transmission Status: Pending to [id number] Referrals: Alba Eldridge MD [Primary Care Provider] - 3-5 Days
[2019-11-08 01:52] LABS: Absolute Neutrophil Count 3.8 X10^3/uL (2.0-7.7); Basophil# 0.03 X10^3/uL; Basophil% 0.4 % (0-1); Eosinophil# 0.08 X10^3/uL; Hematocrit 42.8 % (37-47); Hemoglobin 14.4 g/dL (12.0-15.0); Lymphocyte % 42.9 % (19-41); Mean Corp Hgb Conc 33.6 g/dL (32-36); Mean Corpuscular Hgb 31.1 pg (27.0-32.0); Mean Corpuscular Volume 92.4 fL (81-99); Monocyte# 0.56 X10^3/uL; Monocyte% 7.1 % (0-10); NRBC Flagged by Analyzer 0 % (0-5); Neutrophil # 3.83 X10^3/uL (2.7-7.7); Neutrophil % 48.2 % (47-70); Platelet Count 194 K/mm3 (150-450); RBC Distribution Width CV 12.4 % (11.6-14.6); RBC Distribution Width SD 41.5 fl (35.1-43.9); Red Blood Count 4.63 M/mm3 (4.2-5.4); White Blood Count 7.9 K/mm3 (4.4-11.0)
[2019-11-08] MEDS: 0.9% Normal Saline 1,000 ML 1000 ML IV (01:54)
[2019-11-08] MEDS: Ondansetron 4 MG/2 ML Vial IV (01:56)
[2019-11-08 02:13] LABS: ALB/GLOB Ratio 0.9 RATIO (0.9-2.4); AST(SGOT) 30 U/L (15-37); Alanine Aminotransfer ALT/SGPT 36 U/L (13-56); Albumin, Serum 3.4 g/dL (3.2-5.0); Alkaline Phosphatase 94 U/L (45-117); Anion Gap 6 (5-15); BUN 30 mg/dL (7-18); BUN/Creat Ratio 32.7 RATIO (10-20); Calcium,Total 8.9 mg/dL (8.5-10.1); Chloride 106 mmol/L (98-107); Creatinine, Serum 0.92 mg/dL (0.55-1.02); EST Glomerular Filtration Rate 65 mL/min (>60); Est Glom Filt Rate - Afr Amer 79 mL/min (>60); Estimated Creatinine Clearance 55.55 ml/min; Globulin 3.9 g/dL (2.2-4.2); Glucose 115 mg/dL (74-106); Lipase 68 U/L (73-393); Potassium 3.1 mmol/L (3.5-5.1); Protein, Total 7.3 g/dL (6.4-8.2); Sodium Level 139 mmol/L (136-145)
[2019-11-08 03:00] VITALS: BP 142/82; PULSE 74; RESP 16; O2SAT 96
== END 2019-11-08 03:17 | disposition home or self-care (01) ==
PROVIDERS: Emergency Provider Emergency Medicine; PCP Family Medicine
DX: R10.13 Epigastric pain (principal); R11.0 Nausea; M54.5 Low back pain; G89.29 Other chronic pain; Z87.891 Personal history of nicotine dependence
CPT/HCPCS: 74176; 80053; 83690; 84484; 85025; 93005; 96361; 96374; 99283; J7030; A4216; J2405

== ENCOUNTER → 2019-11-18 07:40 | Outpatient (CLI) | payer MEDICARE, OTHER, SELFPAY ==
[2019-11-08 01:25] VITALS: BMI 39.1
--- NOTE | 2019-11-18 07:47 | US_ITS ---
STUDY: ABDOMINAL ULTRASOUND - RIGHT UPPER QUADRANT REASON FOR VISIT: Female, 69 years old F/U ABN CT DONE 11/08/19 TECHNIQUE: Ultrasound evaluation of the right upper quadrant was performed with real-time and static boggs-scale imaging. TECHNICAL QUALITY: Adequate. COMPARISON: None. FINDINGS: Liver: The liver measures 17.2 cm. There is normal echogenicity of the liver. The bile ducts are within normal limits. There is hepatic color flow. The direction of portal flow is hepatopetal. There is a 4.3 cm x 3.5 cm x 2.3 cm septated cyst in the left lobe of the liver. There is also evidence of a 1.8 cm x 1.6 cm x 1.4 cm cyst in the right lobe of the liver. Gallbladder: Normal distended gallbladder. The gallbladder wall measures 2.5 mm. There is a negative sonographic Foster''s sign. There is no pericholecystic fluid. There are no gallstones. Common Bile Duct (C.B.D.): The common bile duct measures 4.4 mm. Pancreas: Normal size of the head, body and tail of the pancreas. There is increased echogenicity of the pancreas. There is no demonstrated pancreatic mass or cyst. Right Kidney: Normal size of the right kidney. The right kidney measures 11.5 cm x 6.5 cm x 5.3 cm. There is a 1.3 cm x 1.4 cm x 1.1 cm cyst in the right kidney. The right cortex measures 1.2 cm. There is no demonstrated renal mass or cyst. There is no right hydronephrosis. US/Liver IMPRESSION: Septated cyst in the left lobe of the liver. Simple cyst in the right lobe of the liver. Right renal cyst. Electronically Signed: Shiv Majano, at 9:46 EDT , Service support ,
== END ==
PROVIDERS: PCP Family Medicine; Referring Provider Family Medicine; Visit Provider Family Medicine
DX: R93.2 Abnormal findings on diagnostic imaging of liver and biliary tract (principal)
CPT/HCPCS: 76705

== ENCOUNTER → 2020-04-15 08:57 | Outpatient (CLI) | payer MEDICARE, OTHER, SELFPAY ==
[2020-04-04 10:42] VITALS: BMI 39.1
[2020-04-15 10:07] LABS: Absolute Lymphocyte Count 2.36 X10^3/uL (0.83-4.51); Basophil# 0.02 X10^3/uL; Basophil% 0.3 % (0-1); Eosinophil# 0.07 X10^3/uL; Eosinophils% 1.2 % (0-5); Hematocrit 42.9 % (37-47); Hemoglobin 13.9 g/dL (12.0-15.0); Lymphocyte # 2.36 X10^3/ul (4.0); Lymphocyte % 40.1 % (19-41); Mean Corp Hgb Conc 32.4 g/dL (32-36); Mean Corpuscular Hgb 30.5 pg (27.0-32.0); Mean Corpuscular Volume 94.1 fL (81-99); Mean Platelet Vol. 9.1 fl (6.2-12.0); Monocyte# 0.45 X10^3/uL; Monocyte% 7.7 % (0-10); NRBC Flagged by Analyzer 0 % (0-5); Neutrophil # 2.97 X10^3/uL (2.7-7.7); Neutrophil % 50.5 % (47-70); Platelet Count 227 K/mm3 (150-450); RBC Distribution Width CV 12.6 % (11.6-14.6); RBC Distribution Width SD 43.2 fl (35.1-43.9); Red Blood Count 4.56 M/mm3 (4.2-5.4); White Blood Count 5.9 K/mm3 (4.4-11.0)
[2020-04-15 10:29] LABS: ALB/GLOB Ratio 0.9 RATIO (0.9-2.4); AST(SGOT) 21 U/L (15-37); Alanine Aminotransfer ALT/SGPT 27 U/L (13-56); Albumin, Serum 3.3 g/dL (3.2-5.0); Alkaline Phosphatase 91 U/L (45-117); Anion Gap 5 (5-15); BUN 16 mg/dL (7-18); BUN/Creat Ratio 23.7 RATIO (10-20); Calcium,Total 8.8 mg/dL (8.5-10.1); Chloride 104 mmol/L (98-107); Cholesterol 209 mg/dL (200); Creatinine, Serum 0.68 mg/dL (0.55-1.02); EST Glomerular Filtration Rate 92 mL/min (>60); Est Glom Filt Rate - Afr Amer 112 mL/min (>60); Globulin 3.7 g/dL (2.2-4.2); Glucose 92 mg/dL (74-106); High Density Lipoprotein 63 mg/dL; Potassium 3.5 mmol/L (3.5-5.1); Sodium Level 139 mmol/L (136-145); Triglycerides 161 mg/dL; Very Low Density Lipoprotein 32 mg/dL (5-40)
== END ==
PROVIDERS: PCP Family Medicine; Referring Provider Family Medicine; Visit Provider Family Medicine
DX: I10 Essential (primary) hypertension (principal); E78.5 Hyperlipidemia, unspecified
CPT/HCPCS: 36415; 80053; 80061; 85025

== ENCOUNTER → 2020-04-21 14:57 | Outpatient (CLI) | payer MEDICARE, OTHER, SELFPAY ==
[2020-04-04 10:42] VITALS: BMI 39.1
--- NOTE | 2020-04-21 14:59 | RAD_ITS ---
STUDY: X-RAY - LUMBAR SPINE REASON FOR EXAM: Female, 69 years old. point tenderness over L1 TECHNIQUE: 5 view(s) of the lumbar spine were obtained. COMPARISON: None FINDINGS: Normal lumbar lordosis. There is no substantial scoliosis. There are moderate diffuse degenerative changes with chronic loss of height of L3 with mild anterior wedging deformity. There is a normal alignment of the vertebrae. There are no osseous destructive lesions. Mineralization is normal. The soft tissue structures are unremarkable. RAD/L/S Spine Min 4 Views IMPRESSION: Moderate degenerative changes in the lumbar spine. Electronically Signed: Emperatriz Burt, at 14:05 EDT Tel , Service support ,
== END ==
PROVIDERS: PCP Family Medicine; Referring Provider Family Medicine; Visit Provider Family Medicine
DX: M54.5 Low back pain (principal)
CPT/HCPCS: 72110

== ENCOUNTER → 2020-05-02 10:00 | Outpatient (CLI) | payer MEDICARE, OTHER, SELFPAY ==
[2020-04-04 10:42] VITALS: BMI 39.1
[2020-04-20 10:39] LABS: Magnesium 1.8 mg/dL (1.6-2.6)
== END ==
PROVIDERS: Anesthesiology; PCP Family Medicine; Visit Provider Orthopaedic Surgery
DX: Z01.812 Encounter for preprocedural laboratory examination (principal)
CPT/HCPCS: 83735

== ENCOUNTER → 2020-07-01 10:44 | Outpatient (CLI) | payer MEDICARE, OTHER, SELFPAY ==
--- NOTE | 2020-07-01 10:48 | VDLE_ITS ---
Reason For Study: Pain Procedure LEFT This is a venous duplex using B-mode, color GSV is normal. flow and spectral Doppler. CFV is compressible, spontaneous, phasic, Exam performed in department. competent, and demonstrates normal Technically difficult study due to immense augmentation. pain, unable to tolerate compression in FV. FV visualized with color only and appears A preliminary report was called and/or faxed patent. Normal venous flow noted within. Pt to Wayt. unable to tolerate compression. POP V is compressible, spontaneous, phasic, competent and demonstrates normal augmentation. T/P Trunk is compressible. PTV is compressible. LT PerV is compressible. Interpretation Summary There is no evidence of left lower extremity deep vein thrombosis. Left great saphenous vein appears patent and compressible segmentally. Please note the technical limitations of the exam due to significant left leg pain and inability to compress the left femoral vein. Ordering Physician: Oliver Hook Referring Physician: Alba Eldridge Performed By: Jessica Leach RVT
== END ==
PROVIDERS: PCP Family Medicine; Referring Provider Physician Assistant; Visit Provider Physician Assistant
DX: M79.662 Pain in left lower leg (principal); R60.9 Edema, unspecified
CPT/HCPCS: 93971

== ENCOUNTER → 2020-07-05 10:20 | Outpatient (CLI) | payer MEDICARE, OTHER, SELFPAY | PROVIDERS: PCP Family Medicine; Referring Provider Orthopaedic Surgery; Visit Provider Orthopaedic Surgery | DX: Z01.812 Encounter for preprocedural laboratory examination (principal) ==

== ENCOUNTER 2020-07-12 05:10 | Day surgery (SDC) | payer MEDICARE, OTHER, SELFPAY ==
[2020-04-04 10:42] VITALS: BMI 39.1
[2020-07-05 15:49] LABS: Absolute Lymphocyte Count 1.99 X10^3/uL (0.83-4.51); Absolute Neutrophil Count 3.7 X10^3/uL (2.0-7.7); Basophil# 0.02 X10^3/uL; Basophil% 0.3 % (0-1); Eosinophil# 0.04 X10^3/uL; Eosinophils% 0.6 % (0-5); Hematocrit 45.9 % (37-47); Hemoglobin 15.1 g/dL (12.0-15.0); Lymphocyte # 1.99 X10^3/ul (4.0); Lymphocyte % 32.1 % (19-41); Mean Corp Hgb Conc 32.9 g/dL (32-36); Mean Corpuscular Hgb 30.4 pg (27.0-32.0); Mean Corpuscular Volume 92.4 fL (81-99); Mean Platelet Vol. 9.2 fl (6.2-12.0); Monocyte# 0.38 X10^3/uL; Monocyte% 6.1 % (0-10); NRBC Flagged by Analyzer 0 % (0-5); Neutrophil # 3.73 X10^3/uL (2.7-7.7); Neutrophil % 60.4 % (47-70); Platelet Count 243 K/mm3 (150-450); RBC Distribution Width CV 12.4 % (11.6-14.6); Red Blood Count 4.97 M/mm3 (4.2-5.4); White Blood Count 6.2 K/mm3 (4.4-11.0)
[2020-07-05 16:01] LABS: Prothrombin Time (Protime)PT. 12.9 SECONDS (11.7-14.9)
[2020-07-05 16:02] LABS: Partial Thromboplast Time 28.2 Seconds (24.1-36.2)
[2020-07-05 16:26] LABS: Anion Gap 5 (5-15); BUN 23 mg/dL (7-18); BUN/Creat Ratio 32.3 RATIO (10-20); Calcium,Total 9.7 mg/dL (8.5-10.1); Chloride 105 mmol/L (98-107); Creatinine, Serum 0.71 mg/dL (0.55-1.02); EST Glomerular Filtration Rate 87 mL/min (>60); Est Glom Filt Rate - Afr Amer 105 mL/min (>60); Glucose 91 mg/dL (74-106); Potassium 3.4 mmol/L (3.5-5.1); Sodium Level 140 mmol/L (136-145)
[2020-07-12] VITALS (13 sets, daily range): BP systolic 111–180; BP diastolic 53–90; PULSE 60–98; RESP 16; TEMP 35.9–36.7; O2SAT 90–100; BMI 35.7
[2020-07-12 06:11] LABS: Bedside Glucose 69 mg/dL (70-110)
[2020-07-12] MEDS: Celecoxib 200 MG Capsule 400 MG PO (06:24)
[2020-07-12] MEDS: Acetaminophen 500 MG Tablet 1000 MG PO ×2 (06:25→13:50)
[2020-07-12] MEDS: Scopolamine 1mg/72hr Patch 1 PATCH TD (06:25)
[2020-07-12] MEDS: Gabapentin 600 MG Tablet PO (06:25)
--- NOTE | 2020-07-12 07:05 | HP.PCM_ITS ---
History and Physical Date of Admission: 07/12/20 Intake Intake Visit Reasons: knee pain Is patient in pain?: Yes Allergies latex Allergy (Verified 06/27/20 14:41) Rash Penicillins Allergy (Verified 06/27/20 14:41) Rash tetracycline Adverse Reaction (Verified 06/27/20 14:41) Nausea/Vom/Diarrhea Medications Aspirin [Aspirin, Baby] 81 mg PO DAILY@0800 04/15/19 [History Confirmed 04/20/20] Atorvastatin Calcium [Lipitor] 80 mg PO QHS 04/15/19 [History Confirmed 04/20/20] Diclofenac [Voltaren] 50 mg PO BIDCM 04/15/19 [History Confirmed 04/20/20] Estradiol 0.5 tab PO QODAY 04/15/19 [History Confirmed 04/20/20] Lisinopril/Hydrochlorothiazide [Lisinopril-Hctz 20-25 mg Tab] 2 tab PO DAILY 04/15/19 [History Confirmed 04/20/20] Multivit-Min/FA/Lycopen/Lutein [Centrum Silver Tablet] 1 ea PO DAILY 04/15/19 [History Confirmed 04/20/20] [place]-3 Fatty Acids/Fish Oil [Fish Oil 1,000 mg Capsule] 1 ea PO DAILY 04/15/19 [History Confirmed 04/20/20] Ascorbic Acid [Vitamin C] 1,000 mg PO DAILY 04/20/20 [History Confirmed 04/20/20] Ascorbic Acid/Elderberry Fruit [Elderberry-Vit C 50-100 mg Chw] 1 ea PO DAILY 04/20/20 [History Confirmed 04/20/20] meloxicam 15 mg tablet 15 mg PO DAILY #30 tab 06/27/20 [Rx Confirmed 06/27/20] PFSH Medical History (Updated 04/04/20 @ 10:41 by Stacia Mcgraw) Hiatal hernia (Acute) HTN (hypertension) (Chronic) Surgical History (Updated 04/04/20 @ 10:41 by Stacia Mcgraw) H/O: hysterectomy (Acute) Hx of foot surgery (Acute) Family History (Updated 04/04/20 @ 10:42 by Stacia Mcgraw) Mother Cancer Hypertension Grandmother Cancer Father Hypertension Sister Rheumatoid arthritis Social History (Updated 06/27/20 @ 15:[address] Walter Singh DO) Smoking Status: Former smoker HPI knee pain: Details: Parts of this documentation were recorded by a scribe, this documentation accurately reflects the service provided and the decisions made by me, Dr. Walter Singh, DO 06/27/20 0758. PRINCESS MEZA is a 69 year old F here today for left knee pain. Patient notes that she continues to have left knee pain. Patient was scheduled for a TKA but had to cancel due to a high number of covid cases in the area. She notes that she has pain over her medial knee. Patient complains of popping and clicking and grinding. Patient complains of tingling which started about a month ago. She had tingling over her moseley. Her PCP recommended she do her HEP. She notes that she has tingling every 3 days, over her moseley and quad. Patient has a known sciatica issue which flares up at times. Patient complains of calf muscle spasms. Patient has had xrays of her lumbar spine by her PCP. She denies any recent injections into her knee. ROS Musc Reports joint pain, Reports tingling Skin/Breast Reports system reviewed and no additional complaints, except as docu Neuro Yes system reviewed and no additional complaints, except as docu, Yes tingling Ortho Exam Left Knee Skin/Wound: Yes CDI, No ecchymosis, No erythema, Yes swelling (into left leg) Supplemental Info 04/04/2020 x-ray left knee: Advanced knee arthrosis with varus deformity Assessment & Plan Problems 1. Primary osteoarthritis of left knee M17.12 2. Lumbar disc disease with radiculopathy M51.16 Plan Personally reviewed the patients lumbar spine xrays with the patient. Explained her radicular symptoms are from the degeneration of her lumbar spine. She might have increased symptoms of her tingling into her leg due to swelling from her total knee replacement. Risks, benefits and alternatives of surgery reviewed including but not limited to bleeding, infection, nerve, artery and/or tissue damage, fracture, VTE, mechanical feel of the knee, continued pain, stiffness and expected post- operative course. Spoke with the patient about the benefits of Iovera. She should not take any anti-inflammatory 7 days prior to surgery or 2 weeks after her surgery. She should elevate her leg following surgery to help prevent the risk of blood cl ots. Her pain medications and prescriptions will be sent to [facility] pharmacy following her surgery. Patient will be able to go home the same day. Explained the surgery procedure and recovery. Patient prefers to have a surgery without the robot. Follow up for Iovera and 2 weeks post op or sooner if pain, swelling, numbness or associated symptoms, or concerns develop. All questions answered. Patient in agreement of plan. Medications New: meloxicam (Mobic) do not take with other NSAIDs including diclofenac. stop 7 days prior to surgery. 15 mg PO DAILY 30 tabs 0RF Coding Level of Care Code Off vis,est,level 3 Diagnoses Primary osteoarthritis of left knee M17.12 ??Osteoarthritis type: primary Lumbar disc disease with radiculopathy M51.16 I have re-examined the patient. There are no clinical changes since date of exam Procedure Criteria Procedure Type: Elective COVID Risk Discussion: The surgeon/proceduralist and patient have discussed in detail the risk of exposure to and/or potential harm posed by the COVID-19 virus with having a surgery/procedure at this time versus the risk of delaying the surgery/procedure. It is not possible to know either the risk of delaying the surgery or procedure or chance of getting an infection with perfect accuracy, but a joint decision was made between the patient and the surgeon/proceduralist to proceed at this time with the scheduled surgery/procedure as indicated on the consent form.
[2020-07-12] MEDS: Cefazolin 2 GM in 0.9% Normal Saline 100 ML IV (07:37)
[2020-07-12] MEDS: dexAMETHasone 10 MG/ML Vial IV (08:05)
[2020-07-12 08:25] LABS: Bedside Glucose 83 mg/dL (70-110)
[2020-07-12] MEDS: Betamethasone/Betamethasone 30 MG/5 ML Vial (08:56)
[2020-07-12] MEDS: 0.9% Normal Saline (Pres. free 10 ML Vial (08:56)
[2020-07-12] MEDS: Epinephrine (1 mg/ml) 1 MG/ML VIAL (08:56)
[2020-07-12] MEDS: Bupivacaine 0.5% PF 10 ML VIAL (08:56)
[2020-07-12] MEDS: Lactated Ringers 1,000 ML 125 ML IV (09:00)
--- NOTE | 2020-07-12 09:29 | RAD_ITS ---
STUDY: X-RAY - LEFT KNEE REASON FOR EXAM: Postop left total knee arthroplasty. TECHNIQUE: 2 view(s) of the knee. COMPARISON: Radiographs 04/04/2020. FINDINGS: There is a left total knee arthroplasty without evidence of complication. There is postoperative gas in the soft tissues and overlying skin gina. RAD/Knee 1 or 2 Views IMPRESSION: Uncomplicated left total knee arthroplasty. Electronically Signed: Jimbo Self MD at 14:06 EST Tel , Service support ,
--- NOTE | 2020-07-12 09:34 | DCINST_ITS ---
Discharge Diet: No Restrictions Weight Bearing Status: Weight bearing as tolerated Call your doctor if you observe: Shortness of breath, Chest pain Additional Instructions: Ice and elevate one week while not ambulating. Ambulation is encouraged. Weightbearing as tolerated. Use assistive devise for stability. Encourage FULL knee extension and flexion 1 time EVERY time you get up and down and MULTIPLE times per day. No showering 72 hours after surgery. Begin showering postop day #3. Remove the dressing prior to shower and gently wash with warm water and antibacterial soap then pat dry and place abdominal pad (or plain gauze) and AURA hose over top. This is to be done daily. Do not submerge for 3 weeks. If not showering daily after the initial 72 hours then you must clean incision and change dressing daily. Do not allow animals near the incision area. Keep clean. Follow anticoagulation recommendations as prescribed. Do not take any NSAIDs while on blood thinner. Do not take any additional narcotic pain medication other than what was prescribed on you surgery day without discussing with physician. Start physical therapy. If you are not currently scheduled for physical therapy or you are unsure of appointment time please call office [facility] to arrange. Call Dr. Singh with any concerns. Allergies/Adverse Reactions: Allergies latex Allergy (Verified 07/12/20 05:38) Rash Penicillins Allergy (Verified 07/12/20 05:38) Rash tetracycline Adverse Reaction (Verified 07/12/20 05:38) Nausea/Vom/Diarrhea Medications to take at Discharge Aspirin [Aspirin, Baby] 81 mg PO DAILY@0800 04/15/19 Atorvastatin Calcium [Lipitor] 80 mg PO QHS 04/15/19 Diclofenac [Voltaren] 50 mg PO BIDCM 04/15/19 Estradiol 0.5 tab PO DAILY 04/15/19 Lisinopril/Hydrochlorothiazide [Lisinopril-Hctz 20-25 mg Tab] 2 tab PO DAILY 04/15/19 Multivit-Min/FA/Lycopen/Lutein [Centrum Silver Tablet] 1 ea PO DAILY 04/15/19 [place]-3 Fatty Acids/Fish Oil [Fish Oil 1,000 mg Capsule] 1 ea PO DAILY 04/15/19 Ascorbic Acid [Vitamin C] 1,000 mg PO DAILY 04/20/20 Ascorbic Acid/Elderberry Fruit [Elderberry-Vit C 50-100 mg Chw] 1 ea PO DAILY 04/20/20 Acetaminophen [Tylenol Extra Strength] 1,000 mg PO Q6H PRN PRN 07/01/20 Acetaminophen [Tylenol Extra Strength] 1,000 mg PO Q6H PRN #100 tab 07/12/20 Apixaban [Eliquis] 2.5 mg PO BID #30 tab 07/12/20 Cephalexin [Keflex] 1,000 mg PO Q8 #4 cap 07/12/20 Ondansetron HCl [Zofran] 4 mg PO Q6H PRN PRN 5 Days #10 tab 07/12/20 Oxycodone [Oxyir] 5 mg PO Q4H PRN PRN #60 tablet 07/12/20 Pantoprazole Sodium [Protonix] 40 mg PO DAILY 07/12/20 The following prescriptions were given: Apixaban [Eliquis] 2.5 mg PO BID #30 tab Transmission Status: Pending to [facility] Cephalexin [Keflex] 1,000 mg PO Q8 #4 cap Transmission Status: Pending to [facility] Oxycodone [Oxyir] 5 mg PO Q4H PRN PRN #60 tablet PRN Reason: Pain Score 6-10 Transmission Status: Sent to [facility] Acetaminophen [Tylenol Extra Strength] 1,000 mg PO Q6H PRN #100 tab Transmission Status: Pending to [facility] Ondansetron HCl [Zofran] 4 mg PO Q6H PRN PRN 5 Days #10 tab PRN Reason: Nausea Transmission Status: Pending to [facility] Orders to be completed after discharge: 12 Lead EKG [[facility]] Time Frame: 07/05/20, Location: None Selected Primary Care Physician: Alba Eldridge MD [Primary Care Provider] - Test Results: Test results from this visit will be discussed in further detail at your follow- up appointment, if applicable. Please Follow Up With: Walter Singh DO - 2 weeks
--- NOTE | 2020-07-12 09:35 | OP.PCM_ITS ---
Report of Operation Date of Procedure: 07/12/20 Description of Surgical Findings:: Preoperative diagnosis: Left knee DJD Postoperative diagnosis: Same Procedure: Left total knee arthroplasty CT guided Robotic Assisted Implant: Serena triathlon press fit femoral component size3, press-fit tibial baseplate size 4, press fit asymmetric patella size 29, polyethylene X3 size 9 CS Anesthesia: General with adductor canal block Tourniquet time: 11 minutes at 300 mmHg Complications: None Condition: Stable to PACU Estimated blood loss: 150 cc Indication for procedure: This is a 9-year-old female with long standing degenerative joint disease of the knee who has failed conservative treatment and wished to proceed with elective total knee arthroplasty. Risk benefits and alternatives were reviewed including; risk of bleeding, infection, nerve artery and tissue damage, continued pain, postoperative stiffness, venous thromboembolism, need for postoperative rehabilitation, mechanical feel to the knee, and expected postoperative course. The operative CT and templating was performed with component sizing Procedure: The patient was met in the preoperative holding area. The operative extremity was identified by both patient and physician and was marked. Patient was met by anesthesia. An adductor canal block was placed by anesthesia postoperatively the patient was brought back to the operating room on a wheeled cart and transferred to the operating table in the supine position. Anesthesia was started. A well-padded tourniquet was placed on the operative extremity. The patient was prepped and draped in the usual sterile fashion. A timeout was called to ensure the proper patient procedure and extremity were being contemplated. An Esmarch was used to exsanguinate the extremity. The tourniquet was inflated. A 10 blade scalpel was used to make a midline incision down through the skin and subcutaneous tissue. Skin retractors placed. Bovie was used to perform meticulous hemostasis. full-thickness flaps were elevated medial and lateral along the joint capsule. A deep blade scalpel was used to perform a medial parapatellar arthrotomy. The knee was brought to full extension. A Bovie was used to release the soft tissues off the most proximal aspect of the medial tibial plateau, a three-quarter inch curved osteotome was also used for this process. The infrapatellar fat pad was excised. The superior fat pad was excised partially anteriorolateraly and portion the anterioromedial pad was elevated from the femur. At this point our intra- articular femoral array was placed of a 45 degree angle proximal and posterior to the medial epicondyle. Our tibial array was placed greater than 1 hands breath below the incision at a 20 degree angle stab incisions were used for this case were attached and checked with the robotic software. Tourniquet was let down. At this point registration berman were taken throughout the knee as well as checkpoints placed in the femur and tibia once the knee was registered then tensioned the medial and lateral ligaments in extension and 90 degrees of flexion. We then used these numbers to adjust our components within parameters to balance the knee in both flexion and extension once this was done on our monitor we then proceeded with using the robotic arm to make our tibial plateau cut and anterior posterior and chamfer cuts and distal on the femur we then trialed and achieved the desired plan with a well-balanced knee. Lug holes were drilled in the femur the tibia preparation was completed with a fin punch and the patella was prepared by first using a caliper to ensure sufficient bone stock and a patellar reamer to remove the desired amount of bone locals were drilled for an asymmetric poly-. We then brought the knee through range of motion with excellent patellar tracking. We thoroughly irrigated the knee with a trial components were removed a posterior capsular injection with her standard cocktail was performed the aqua Mantis was also used to aid in hemostasis. Betadine rinse was allowed to sit and washed out components were press-fit into place. Aricept rinse was then used followed by several more rate liters of irrigation after it was allowed to sit. Joint capsule was closed with #1 Ethibond [id number]'s followed by Vicryl in the subcutaneous tissues staple in the skin arrays and checkpoints were removed prior to closure all counts were correct stab incisions were closed with a stable standard dressing in the form of Mepilex for the main incision Xeroform 4 x 4 and Tegaderm over pin site holes. Thigh-high AURA hose applied over top of dressing. Patient tolerated the procedure well and was directed to PACU in stable condition no intraoperative complications
--- NOTE | 2020-07-12 10:28 | PCM.OPRPT ---
Report of Operation Date of Procedure: 07/12/20 Description of Surgical Findings:: Preoperative diagnosis: Left knee DJD Postoperative diagnosis: Same Procedure: Left total knee arthroplasty Implant: [employer] triathlon cemented femoral component size3, cemented tibial baseplate size 4, cemented asymmetric patella size 29, polyethylene X3 size 9 CS Anesthesia: General with adductor canal block Tourniquet time: 11 minutes at 300 mmHg Complications: None Condition: Stable to PACU Estimated blood loss: 150 cc Indication for procedure: This is a 69-year-old female with long standing degenerative joint disease of the knee who has failed conservative treatment and wished to proceed with elective total knee arthroplasty. Risk benefits and alternatives were reviewed including; risk of bleeding, infection, nerve artery and tissue damage, continued pain, postoperative stiffness, venous thromboembolism, need for postoperative rehabilitation, mechanical feel to the knee, and expected postoperative course. Procedure: The patient was met in the preoperative holding area. The operative extremity was identified by both patient and physician and was marked. Patient was met by anesthesia. An adductor canal block was placed by anesthesia postoperatively the patient was brought back to the operating room on a wheeled cart and transferred to the operating table in the supine position. Anesthesia was started. A well-padded tourniquet was placed on the operative extremity. The patient was prepped and draped in the usual sterile fashion. A timeout was called to ensure the proper patient procedure and extremity were being contemplated. An Esmarch was used to exsanguinate the extremity. The tourniquet was inflated. A 10 blade scalpel was used to make a midline incision down through the skin and subcutaneous tissue. Skin retractors placed. Bovie was used to perform meticulous hemostasis. full-thickness flaps were elevated medial and lateral along the joint capsule. A deep blade scalpel was used to perform a medial parapatellar arthrotomy. The knee was brought to full extension. A Bovie was used to release the soft tissues off the most proximal aspect of the medial tibial plateau a three-quarter inch curved osteotome was also used for this process. The infrapatellar fat pad was excised. The fat pad was excised partially anterior lateral portion the anterior medial was elevated from the femur. the patella was everted. The knee was brought into flexion. An intramedullary drill was used followed by flexible intramedullary guide rj. The distal femoral cutting block was placed and set to remove 8 mm of bone and 5 degrees of valgus. The block was secured with pins and an oscillating saw was used to complete the distal femoral cut. During this, and all bony cuts retractors were used to protect the collateral ligaments. At this point a femoral sizer was used to measure the AP dimension of the femur. The sizer block was pinned parallel to the epicondylar access for external rotation. The sizing block was removed and the appropriately sized 4-in-1 cutting block was placed over the previously made pinholes. It was checked with an oriana wing and the block was secured with pins. An oscillating saw was used to complete the anterior cut followed by the posterior cut followed by the posterior chamfer cut followed by the anterior chamfer cut. The block was removed as well as the fragments. A ronguer was used to remove excess osteophytes. The medial and lateral meniscus were excised as well as the ACL. At this point a PCL retractor was placed and an intramedullary drill was passed down the tibial canal followed by a solid intramedullary guide rj. The tibial cutting block was attached and set to remove 9 mm of bone from the high side. This was checked with an external alignment drop rj for slope and tilt. It was pinned into place. An oscillating saw was used to complete the tibial plateau cut and the block was removed. A large osteotome was used to elevate the fragment and a Amilcar and a Bovie were used to free the fragment from the surrounding soft tissue. A rongeur was once again used to remove osteophytes a lamina supervisor personnel clerks was used to evaluate the posterior capsular structures. A three-quarter inch curved osteotome was used to remove posterior osteophytes. A spacer block was inserted in both extension and flexion to ensure adequate spacing. Trials were inserted full extension and flexion were achieved in varus and valgus stability throughout range of motion were seen, balancing techniques were performed. At this point the attention was turned towards the patella. A caliper was used to ensure sufficient bone stock to remove 10 mm of bone. A reamer was used to perform this task. Lug holes were made for the appropriate-sized patella. The patella trial was inserted and there was good patellar tracking with knee range of motion. The tibial baseplate was allowed to float into rotation and was marked on the tibial plateau with a Bovie. Lug holes were made in the femur and trials were removed. The tibial baseplate was then sized and its preparation was completed with a fin punch. The knee was thoroughly irrigated. A posterior capsular injection was performed with our standard cocktail. The knee was brought into flexion and irrigated again. The tibial baseplate was cemented. Excess cement was removed with curettes. The polyethylene component was inserted. The femoral component was cemented. The knee was brought into full extension and placed on a bump. The patellar component was cemented. At this point a Betadine rinse was placed and thoroughly irrigated after a few minutes. This was followed by an Iricept rinse which was allowed to sit for 1 minute and then thoroughly irrigated.At this point all gloves were changed. The knee was thoroughly irrigated the joint capsule was closed with #1 Ethibond. Tourniquet was let down followed by 0 Vicryl and 2-0 Vicryl in the subcutaneous tissues. followed by gina in the skin. Dressing was applied in the form of Mepilex silver dressing web roll and an Suman wrap from the foot to the groin. The patient tolerated the procedure well, all counts were correct patient was brought back to the PACU in stable condition.
[2020-07-12] MEDS: Cefazolin 1 GM/50 ML BAG IV (13:50)
== END 2020-07-12 17:28 | disposition home or self-care (01) ==
LOC: SDC 05:10 → AC 05:15
PROVIDERS: PCP Family Medicine; Referring Provider Orthopaedic Surgery; Visit Provider Orthopaedic Surgery
PROC: (CPT 27447; principal; 2020-07-12 07:05)
DX: M17.12 Unilateral primary osteoarthritis, left knee (principal); Z20.822 Contact with and (suspected) exposure to COVID-19; I10 Essential (primary) hypertension; M51.16 Intervertebral disc disorders with radiculopathy, lumbar region; G47.30 Sleep apnea, unspecified; K21.9 Gastro-esophageal reflux disease without esophagitis; E78.00 Pure hypercholesterolemia, unspecified; Z78.0 Asymptomatic menopausal state; Z79.82 Long term (current) use of aspirin; Z79.899 Other long term (current) drug therapy; Z87.891 Personal history of nicotine dependence
CPT/HCPCS: 01402; 27447; 36415; 73560; 80048; 82962; 85025; 85610; 85730; 86850; 86900; 86901; 87081; 87426; 97162; C1776; C9803; J7120; J0702; J2405; J3490

== ENCOUNTER 2020-09-09 14:32 | Outpatient (RCR) | payer MEDICARE, OTHER, SELFPAY ==
[2020-09-09] MEDS: COVID-19 VACC, MRNA(PFIZER)/PF 30 MCG/0.3 ML SYRINGE IM (13:07)
[2020-09-30] MEDS: COVID-19 VACC, MRNA(PFIZER)/PF 30 MCG/0.3 ML SYRINGE IM (12:44)
== END 2020-09-09 23:59 ==
LOC: IMMUN 14:32
PROVIDERS: PCP Family Medicine; Visit Provider Family Medicine
DX: Z23 Encounter for immunization (principal)
CPT/HCPCS: 0001A; 0002A; 91300

== ENCOUNTER → 2020-11-02 10:14 | Outpatient (CLI) | payer MEDICARE, OTHER, SELFPAY ==
--- NOTE | 2020-11-02 10:17 | BI_ITS ---
MAMMOGRAPHY - BILATERAL SCREENING REASON FOR EXAM: Female, 69 years old. Routine annual screening examination. PERTINENT HISTORY: Mother with breast cancer. Grandmother with breast cancer. TECHNIQUE: Digital bilateral breast fahad (3D mammographic acquisition) in the CC and MLO projections. 2-D mediolateral oblique (MLO) and craniocaudad (CC) views of both breasts were obtained. CAD: Full Field Digital Mammography with Computer Added Detection was performed. COMPARISON: Comparison is made with prior study dated 06/05/2019 and 06/04/2018. FINDINGS: Breast Composition: The breasts are heterogeneously dense, which may obscure small masses. There are no dominant masses or suspicious calcifications. There is stable asymmetry of breast tissue with more breast tissue is seen in the upper outer quadrant of the left breast as compared to the right side. Stable small benign-appearing bilateral axillary lymph nodes. No other significant abnormalities are identified. There has been no significant change since the prior study. BI/SCRN MAMM (CAD)W/FAHAD BILAT IMPRESSION: Stable bilateral screening mammogram. Yearly follow-up mammogram recommended. (A) ASSESSMENT CATEGORY: BIRADS Category 2: Benign. A letter regarding these results will be sent to the patient by the facility within 30 days. Approximately 10% of breast cancers are not detected by mammography. A normal mammogram should not delay biopsy of a clinically suspicious abnormality. [id number] Electronically Signed: Shiv Majano MD at 12:16 EDT , Service support ,
== END ==
PROVIDERS: PCP Family Medicine; Referring Provider Obstetrics & Gynecology; Visit Provider Obstetrics & Gynecology
DX: Z12.31 Encounter for screening mammogram for malignant neoplasm of breast (principal)
CPT/HCPCS: 77063; 77067

== ENCOUNTER → 2021-03-14 | Outpatient (CLI) | payer MEDICARE, OTHER, SELFPAY | END | disposition home or self-care (01) | LOC: LABSPEC 03-15 08:04 | PROVIDERS: Visit Provider Family Medicine | DX: Z20.828 Contact with and (suspected) exposure to other viral communicable diseases (principal) | CPT/HCPCS: 87635; U0005; U0003 ==

== ENCOUNTER → 2021-05-31 | Outpatient (CLI) | payer MEDICARE, OTHER, SELFPAY | END | disposition home or self-care (01) | LOC: LABSPEC 11:37 | PROVIDERS: Visit Provider Obstetrics & Gynecology | DX: R30.0 Dysuria (principal) | CPT/HCPCS: 87086; 87088 ==

== ENCOUNTER 2021-07-20 13:45 | Outpatient (CLI) | payer MEDICARE, OTHER, SELFPAY ==
--- NOTE | 2021-07-20 13:50 | CT_ITS ---
STUDY: CT ABDOMEN AND PELVIS WITH CONTRAST REASON FOR EXAM: Female, 70 years old. Left lower quadrant and pelvic pain. RADIATION DOSAGE (If Supplied By Facility): CTDIvol = ( 21.77 ) mGy, DLP = ( 1191.80 ) mGycm TECHNIQUE: Transaxial images were obtained from the dome of the diaphragm to the symphysis pubis with oral contrast. Oral and amp; IV Readi-CAT and amp; 100mL Isovue-300 was administered. Sagittal and coronal images were reconstructed. Individualized dose optimization techniques were used for this CT. COMPARISON: Comparison is made with prior examination dated 11/08/2019. FINDINGS: The visualized lung bases are unremarkable. The visualized portions of the heart are within normal limits. Scattered cysts are once again seen in the liver within the right and left lobes. The largest cyst is in the medial aspect of the left lobe of the liver measuring 3.5 cm x 2.7 cm. Mild degree of fatty infiltration of the liver. Normal gallbladder and extrahepatic biliary system. Normal spleen. Normal pancreas. Normal bilateral adrenal glands. Normal right kidney. Normal left kidney. Normal visualized stomach. Normal small intestine. There are multiple colonic diverticula consistent with diverticulosis. The appendix is visualized and appears normal. There is diffuse atherosclerotic calcification of the abdominal aorta, without a demonstrated aneurysm. Normal inferior vena cava. Normal retroperitoneum. Normal urinary bladder. There is absence of the uterus consistent with a prior hysterectomy. Normal abdominal wall. There are diffuse degenerative changes of the visualized lumbar spine. Straightening of the normal lumbar lordosis. CT/Abdomen/Pelvis WITH Contrast IMPRESSION: Stable scattered hepatic cysts. Sigmoid diverticulosis with no radiographic signs of diverticulitis at this time. Electronically Signed: Shiv Majano MD at 14:57 EST ,
[2021-07-20 14:11] LABS: CREATININE FINGERSTICK 0.6 mg/dL (0.55-1.02); EGFR FINGERSTICK > 60.0000 mL/min (>60)
== END 2021-07-20 23:59 | disposition short-term general hospital (02) ==
LOC: CT 13:47
PROVIDERS: PCP Family Medicine; Referring Provider Family Medicine; Visit Provider Family Medicine
DX: R10.32 Left lower quadrant pain (principal)
CPT/HCPCS: 74177; Q9967

== ENCOUNTER → 2021-11-03 | Outpatient (CLI) | payer MEDICARE, OTHER, SELFPAY ==
--- NOTE | 2021-11-03 10:43 | BI_ITS ---
MAMMOGRAPHY - BILATERAL SCREENING REASON FOR EXAM: Female, 70 years old. Routine annual screening examination. PERTINENT HISTORY: Mother with breast cancer. Grandmother with breast cancer. TECHNIQUE: Digital bilateral breast fahad (3D mammographic acquisition) in the CC and MLO projections. 2-D mediolateral oblique (MLO) and craniocaudad (CC) views of both breasts were obtained. CAD: Full Field Digital Mammography with Computer Added Detection was performed. COMPARISON: Comparison is made with prior study 11/02/2020 06/05/2019. FINDINGS: Breast Composition: The breasts are heterogeneously dense, which may obscure small masses. There are no dominant masses or suspicious calcifications. Stable small benign-appearing bilateral axillary lymph nodes. No other significant abnormalities are identified. There has been no significant change since the prior study. BI/SCRN MAMM (CAD)W/FAHAD BILAT IMPRESSION: Stable bilateral screening mammogram. Yearly follow-up mammogram recommended. (A) ASSESSMENT CATEGORY: BIRADS Category 2: Benign. A letter regarding these results will be sent to the patient by the facility within 30 days. Approximately 10% of breast cancers are not detected by mammography. A normal mammogram should not delay biopsy of a clinically suspicious abnormality. [id number] Electronically Signed: Shiv Majano MD at 12:06 EDT ,
== END | disposition home or self-care (01) ==
LOC: OPBI 10:41
PROVIDERS: PCP Family Medicine; Visit Provider Obstetrics & Gynecology
DX: Z12.31 Encounter for screening mammogram for malignant neoplasm of breast (principal)
CPT/HCPCS: 77063; 77067

== ENCOUNTER 2022-03-01 18:51 | Emergency (ER) | payer MEDICARE, OTHER, SELFPAY ==
[2022-03-01 18:52] VITALS: PULSE 57; RESP 18; TEMP 36.4; O2SAT 96; BMI 38.3
[2022-03-01 19:09] VITALS: BP 138/82
--- NOTE | 2022-03-01 19:18 | EKG12_ITS ---
Test Reason : CP Blood Pressure : / mmHG Vent. Rate : 058 BPM Atrial Rate : 058 BPM P-R Int : 196 ms QRS Dur : 092 ms QT Int : 430 ms P-R-T Axes : 033 019 057 degrees QTc Int : 422 ms Sinus bradycardia Otherwise normal ECG Confirmed by YOHANA COOPER, CAROL ([id number]), food editor RACHAEL MERINO ([id number]) on 03/05/2022 10:47:15 AM Referred By: PL Confirmed By:CAROL MULLER MD
--- NOTE | 2022-03-01 19:19 | ED.VIS.CHEST ---
HPI History of Present Illness Chief Complaint: Chest Pain Detail of Chief Complaint: Chest pain that started last evening Informant: patient and spouse/S.O. Onset/Context/Timing Current Severity: 10/31 Narrative Narrative: Patient presents to the emergency department complaint of chest pain that started last evening. Patient took some extra pantoprazole which seemed to help her discomfort. Patient woke up this morning and noted the pain again. Patient states the pain radiates through to her back between her shoulder blades. She denies pain into the arm or neck or jaw. She denies shortness of breath. She denies nausea or vomiting. Patient does have history of a hiatal hernia and thinks that may be the cause of her symptoms as she has been to the ER before for that. Patient states the pain comes and goes and can last up to a half an hour before it resolves. Does not seem to be exertional. She has no heart history. [facility] Medical History (Updated 03/01/22 @ 20:[address] Maki Lentz, ) Hiatal hernia HTN (hypertension) Home Medications atorvastatin 80 mg tablet 80 mg PO QHS cholesterol 04/15/19 [History Last Taken Unknown] lisinopril 20 mg-hydrochlorothiazide 25 mg tablet 2 tab PO DAILY htn 04/15/19 [History Last Taken Unknown] gmjooery-iqh-rlvng acid 0.4 mg-lycopene 300 mcg-lutein 250 mcg tablet 1 ea PO DAILY supplement 04/15/19 [History Last Taken Unknown] omega-3 fatty acids-fish oil 340 mg-1,000 mg capsule 1 ea PO DAILY supplement 04/15/19 [History Last Taken Unknown] acetaminophen 500 mg tablet 1,000 mg PO Q6H PRN #100 tabs 07/12/20 [Rx Last Taken Unknown] metoprolol succinate 50 mg tablet,extended release 24 hr 1 ea PO DAILY 07/12/21 [History Last Taken Unknown] estradiol 0.5 mg tablet 0.25 mg PO .qod hormone 12/04/21 [History Last Taken Unknown] pantoprazole 20 mg tablet,delayed release 20 mg PO DAILY 12/04/21 [History Last Taken Unknown] sucralfate 1 gram tablet (Carafate) 1 g PO BID PRN GERD #10 tabs 03/01/22 [Rx Last Taken Unknown] Allergy/AdvReac Type Severity Reaction Status Date / Time latex Allergy Rash Verified 03/01/22 18:59 Penicillins Allergy Rash Verified 03/01/22 18:59 tetracycline AdvReac Nausea/Vom/ Verified 03/01/22 18:59 Diarrhea Family History Mother Cancer Hypertension Grandmother Cancer Father Hypertension Sister Rheumatoid arthritis Surgical History (Updated 12/04/21 @ 10:23 by Lia Zafar) H/O: hysterectomy History of total knee arthroplasty (~07/12/20) Hx of foot surgery Social History Smoking Status: Former smoker ROS ROS ED Review of Systems ROS Unobtainable: other Constitutional Constitutional ED: Reports lethargy; Denies chills, fever(s), sweats or weight loss Eyes Eyes: Denies blurry vision, change in vision or diplopia ENT ENT ED: Denies rhinorrhea or sore throat Cardiovascular Cardiovascular: Reports chest pain; Denies orthopnea or racing heartbeat Respiratory/Chest Respiratory/Chest: Denies cough, dyspnea, dyspnea on exertion, orthopnea or sputum Gastrointestinal Gastrointestinal: Denies abdominal pain, diarrhea, nausea or vomiting Genitourinary Genitourinary ED: Denies dysuria, hematuria or urinary frequency Musculoskeletal Musculoskeletal: Denies arthralgias, back pain, myalgias or neck pain Integumentary Denies abscess, Abrasions or rash Neurologic Neurologic: Denies headache(s) or weakness Psychiatric Psychiatric: Denies anxiety, depression or suicidal thoughts Endocrine Endocrinology: Denies polydipsia, polyphagia or polyuria Hematologic/Lymphatic Hematologic/Lymphatic: Denies easy bleeding, easy bruising or lymphadenopathy Allergic/Immunologic Allergic/Immunologic ED: Denies mouth swelling, tongue swelling or urticaria EXAM Physical Exam Const Vital Signs: 03/01/22 18:52 03/01/22 19:00 03/01/22 19:09 Temperature 97.5 F L Temperature Source Temporal Pulse Rate 57 L Respiratory Rate 18 Respiratory Effort Normal Non-Labored Blood Pressure 138/82 H Blood Pressure Mean 100 Pulse Ox 96 Oxygen Delivery Method Room Air Positive well nourished and well developed General Appearance ED: well developed and NAD HEENT Reports TM's clear and moist mucous membranes normocephalic and atraumatic; Negative for trauma or tenderness Tympanic Membrane ED: Yes TM's clear Eyes PERRL and EOMs intact bilaterally General Eye ED: Negative for pale conjunctiva or scleral icterus Neck no lymphadenopathy, supple and no JVD General: Negative for tenderness Chest Wall inspection of chest normal Chest Narrative: Patient has tenderness palpation over the retrosternal portion of the chest that seems to reproduce her pain. Chest: Negative for tenderness Resp normal respiratory effort and clear to auscultation bilaterally Effort and Inspection: Negative for respiratory distress or pain with movement Auscultation: Negative for rhonchi, wheezes or diminished lung sounds Cardio regular rate, regular rhythm, S1 normal heart sound, S2 normal heart sound and no murmurs Peripheral Pulses: pulses 2+ throughout GI normal to inspection, nondistended, normoactive bowel sounds, soft to palpation, non-tender, non-distended and no masses Back/Spine no CVA tenderness and no thoracic nor lumbar tenderness Extremity normal to inspection General Extremety ED: Negative for edema General Extremity: Negative for edema Neuro oriented x3, CN's II-XII intact bilaterally, no sensory deficits noted and gait normal Sensorium / Orientation: awake, alert, oriented to person, oriented to place and oriented to time Motor Exam: strength 5/5 throughout and strength abnormal Psych mental status grossly normal Skin no rashes or lesions noted and no wounds Heart Score History: Slightly/Non-Suspicious ECG: Normal Age: >/= 65 years Risk Factors: 1 or 2 Risk Factors Score: 3 MDM MDM MDM Narrative Medical decision making narrative: IV line established on arrival. Patient placed on a front desk monitor. I did give patient a GI cocktail and she tells me that her pain resolved with that. Patient had lab work including CBC that was unremarkable. Her D-dimer was 0.64 and is considered normal when corrected for age. Patient's troponin was normal. Chest x-ray unremarkable. At this point suspicion for cardiac etiology for her discomfort is low. 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 I will give patient prescription for Carafate as needed for continued pain. Patient advised to return if exertional dyspnea, worsening pain, or condition should worsen anyway. Lab Data Attestation: I reviewed the patient's lab results. Labs: Laboratory Results - last 24 hr 03/01/22 03/01/22 03/01/22 19:28 19:28 19:28 WBC 6.8 RBC 4.48 Hgb 14.2 Hct 41.2 MCV 92.0 MCH 31.7 MCHC 34.5 RDW Std Deviation 42.5 RDW Coeff of Faizan 12.7 Plt Count 196 MPV 9.1 Immature Gran % (Auto) 0.300 Neut % (Auto) 56.0 Lymph % (Auto) 35.4 Twiggs % (Auto) 7.0 Eos % (Auto) 1.0 Baso % (Auto) 0.3 Absolute Neuts (auto) 3.8 Absolute Lymphs (auto) 2.39 Nucleated RBC % 0 D-Dimer Quant (PE/DVT) 0.64 H* Sodium 142 Potassium 3.3 L Chloride 105 Carbon Dioxide 29.0 Anion Gap 8 BUN 19 H Creatinine 0.83 Estim Creat Clear Calc 64.53 Est GFR (MDRD) Af Amer 88 Est GFR (MDRD) Non-Af 73 BUN/Creatinine Ratio 23.0 H Glucose 150 H Calcium 9.4 Troponin I High Sens 9 Radiography Chest X-Ray - ED: 1 View Diagnostic Testin view chest x-ray obtained interpreted by myself no acute disease process. Radiology in agreement. EKG Initial EKG: Attestation: I personally reviewed and interpreted this EKG as follows: Comments: Sinus rhythm with a ventricular rate of 58 bpm with no acute ST segment changes Discharge Plan Triage Chief Complaint: Chest Pain ED Provider: Maki Lentz Dx/Rx/DC Orders Clinical Impression: Chest pain, Hernia, hiatal Instructions: What Is a Hiatal Hernia?, ED Chest Pain, Uncertain Cause Prescriptions: New sucralfate [Carafate] 1 gram tablet 1 g PO BID PRN (Reason: GERD) Qty: 10 0RF No Action metoprolol succinate 50 mg tablet extended release 24 hr 1 ea PO DAILY pantoprazole 20 mg tablet,delayed release (DR/EC) 20 mg PO DAILY atorvastatin 80 MG tablet 80 mg PO QHS lisinopril-hydrochlorothiazide 1 EACH tablet 2 tab PO DAILY disfcvup-ccq-JH-lycopen-lutein 1 EACH tablet 1 ea PO DAILY omega-3 fatty acids-fish oil 1 EACH capsule 1 ea PO DAILY estradiol 0.5 mg tablet 0.25 mg PO .qod Label Comments: ask about stopping acetaminophen 500 MG tablet 1,000 mg PO Q6H PRN Qty: 100 0RF Primary Care Provider: Alba Eldridge Referrals: Alba Eldridge MD [Primary Care Provider] - Leo Reina MD [Non-Staff] - 3-5 Days Disposition Disposition: Home, Self Care
--- NOTE | 2022-03-01 19:25 | RAD_ITS ---
STUDY: X-RAY CHEST REASON FOR EXAM: Female, 71 years old. chest pain TECHNIQUE: Single frontal view of the chest. COMPARISON: 04/15/2019 FINDINGS: Surgical clips left upper quadrant abdomen. The lungs are clear and expanded. There is no demonstrated pleural abnormality. Normal size heart. Normal mediastinum and umu. Normal visualized pulmonary arteries. Normal visualized aortic arch and descending thoracic aorta. Normal visualized thoracic spine. Normal visualized ribs, clavicles, and shoulders. Moderate hiatal hernia. RAD/Chest 1 View (Portable) IMPRESSION: Moderate hiatal hernia Electronically Signed: Leonard Corrales MD at 21:05 EDT ,
[2022-03-01] MEDS: Mag Hydrox/Al Hydrox/Simeth 30 ML UDC PO (19:35)
[2022-03-01] MEDS: Aspirin 81 MG TAB.CHEW 324 MG PO (19:35)
[2022-03-01] MEDS: 0.9% Normal Saline 1,000 ML 150 ML IV (19:36)
[2022-03-01 19:41] LABS: Absolute Lymphocyte Count 2.39 X10^3/uL (0.83-4.51); Absolute Neutrophil Count 3.8 X10^3/uL (2.0-7.7); Basophil# 0.02 X10^3/uL; Basophil% 0.3 % (0-1); Eosinophil# 0.07 X10^3/uL; Hematocrit 41.2 % (37-47); Hemoglobin 14.2 g/dL (12.0-15.0); Lymphocyte # 2.39 X10^3/ul (0.83-4.51); Lymphocyte % 35.4 % (19-41); Mean Corp Hgb Conc 34.5 g/dL (32-36); Mean Corpuscular Hgb 31.7 pg (27.0-32.0); Mean Platelet Vol. 9.1 fl (6.2-12.0); Monocyte# 0.47 X10^3/uL; NRBC Flagged by Analyzer 0 % (0-5); Neutrophil # 3.78 X10^3/uL (2.7-7.7); Platelet Count 196 K/mm3 (150-450); RBC Distribution Width CV 12.7 % (11.6-14.6); RBC Distribution Width SD 42.5 fl (35.1-43.9); Red Blood Count 4.48 M/mm3 (4.2-5.4); White Blood Count 6.8 K/mm3 (4.4-11.0)
[2022-03-01 19:57] LABS: Anion Gap 8 (5-15); BUN 19 mg/dL (7-18); Calcium,Total 9.4 mg/dL (8.5-10.1); Chloride 105 mmol/L (98-107); Creatinine, Serum 0.83 mg/dL (0.55-1.02); EST Glomerular Filtration Rate 73 mL/min (>60); Est Glom Filt Rate - Afr Amer 88 mL/min (>60); Estimated Creatinine Clearance 64.53 ml/min; Glucose 150 mg/dL (74-106); Potassium 3.3 mmol/L (3.5-5.1); Sodium Level 142 mmol/L (136-145); Troponin-I HS (w/2H Reflex) 9 pg/mL (3.0-54.0)
[2022-03-01 20:00] VITALS: BP 134/78; PULSE 53; RESP 16; O2SAT 95
[2022-03-01 20:06] LABS: D-Dimer Quantitative (DVT/PE) 0.64 FEU/ug/m (0.27-0.49)
[2022-03-01 20:17] VITALS: RESP 16
[2022-03-01 21:35] LABS: Reflex Troponin-HS? (from REC) Y
== END 2022-03-01 20:28 | disposition home or self-care (01) ==
PROVIDERS: Emergency Provider Emergency Medicine; PCP Family Medicine; Visit Provider Emergency Medicine
DX: K44.9 Diaphragmatic hernia without obstruction or gangrene (principal); R07.9 Chest pain, unspecified; I10 Essential (primary) hypertension; Z87.891 Personal history of nicotine dependence; Z79.899 Other long term (current) drug therapy
CPT/HCPCS: 71045; 80048; 84484; 85025; 85379; 93005; 96360; 99284; J7030; A4216

== ENCOUNTER → 2022-06-22 | Outpatient (CLI) | payer MEDICARE, OTHER, SELFPAY ==
--- NOTE | 2022-06-22 15:51 | RAD_ITS ---
INDICATION: FOOT / ANKLE PAIN EXAMINATION/TECHNIQUE: X-RAY - RIGHT XR Foot Min 3 Views: Weightbearing views COMPARISON: None. FINDINGS: SOFT TISSUES: No significant soft tissue swelling. There are few punctate metallic foreign bodies within plantar soft tissues of forefoot at level of medial metatarsal heads. BONES/JOINTS: No acute fracture or subluxation. Adequate alignment. Preservation of the joint space(s). Small posterior and plantar calcaneal enthesophytes. Mild degenerative spurring dorsum of midfoot. RAD/Foot min 3 Views IMPRESSION: 1. Mild calcaneal spurring and mild midfoot spurring. 2. Punctate metallic foreign bodies within plantar forefoot. Electronically Signed: Alexys Miller MD at 0:09 EST ,
== END | disposition home or self-care (01) ==
LOC: MTRAD 15:50
PROVIDERS: PCP Family Medicine; Referring Provider Podiatrist; Visit Provider Podiatrist
DX: M19.071 Primary osteoarthritis, right ankle and foot (principal); M77.30 Calcaneal spur, unspecified foot
CPT/HCPCS: 73630

== ENCOUNTER → 2022-11-06 | Outpatient (CLI) | payer MEDICARE, OTHER, SELFPAY ==
--- NOTE | 2022-11-06 12:24 | BI_ITS ---
MAMMOGRAPHY - BILATERAL SCREENING REASON FOR EXAM: Female, 71 years old. Routine annual screening examination. PERTINENT HISTORY: Mother with breast cancer. Grandmother with breast cancer. TECHNIQUE: Digital bilateral breast fahad (3D mammographic acquisition) in the CC and MLO projections. 2-D mediolateral oblique (MLO) and craniocaudad (CC) views of both breasts were obtained. CAD: Full Field Digital Mammography with Computer Added Detection was performed. COMPARISON: Comparison is made with prior study dated November 03, 2021 and November 02, 2020. FINDINGS: Breast Composition: The breasts are heterogeneously dense, which may obscure small masses. There are no dominant masses or suspicious calcifications. Stable small benign appearing bilateral axillary lymph nodes nodes. No other significant abnormalities are identified. There has been no significant change since the prior study. BI/SCRN MAMM (CAD)W/FAHAD BILAT IMPRESSION: Stable bilateral screening mammogram. Yearly follow-up mammogram recommended. (A) ASSESSMENT CATEGORY: BIRADS Category 2: Benign. A letter regarding these results will be sent to the patient by the facility within 30 days. Approximately 10% of breast cancers are not detected by mammography. A normal mammogram should not delay biopsy of a clinically suspicious abnormality. [id number] Electronically Signed: Shiv Majano MD at 13:54 EDT ,
== END | disposition home or self-care (01) ==
LOC: OPBI 12:22
PROVIDERS: PCP Family Medicine; Referring Provider Family Medicine; Visit Provider Family Medicine
DX: Z12.31 Encounter for screening mammogram for malignant neoplasm of breast (principal); Z80.3 Family history of malignant neoplasm of breast
CPT/HCPCS: 77063; 77067

== ENCOUNTER → 2023-01-16 | Outpatient (CLI) | payer MEDICARE, OTHER, SELFPAY ==
[2023-01-16 10:43] LABS: Absolute Lymphocyte Count 1.92 X10^3/uL (0.83-4.51); Basophil# 0.02 X10^3/uL; Basophil% 0.4 % (0-1); Eosinophil# 0.05 X10^3/uL; Eosinophils% 0.9 % (0-5); Hemoglobin 14.4 g/dL (12.0-15.0); Lymphocyte # 1.92 X10^3/ul (0.83-4.51); Lymphocyte % 34.7 % (19-41); Mean Corp Hgb Conc 33.5 g/dL (32-36); Mean Corpuscular Hgb 31.4 pg (27.0-32.0); Mean Corpuscular Volume 93.7 fL (81-99); Mean Platelet Vol. 9.3 fl (6.2-12.0); Monocyte# 0.48 X10^3/uL; Monocyte% 8.7 % (0-10); NRBC Flagged by Analyzer 0 % (0-5); Neutrophil # 3.04 X10^3/uL (2.7-7.7); Neutrophil % 54.9 % (47-70); Platelet Count 185 K/mm3 (150-450); RBC Distribution Width CV 12.7 % (11.6-14.6); Red Blood Count 4.59 M/mm3 (4.2-5.4); White Blood Count 5.5 K/mm3 (4.4-11.0)
[2023-01-16 11:39] LABS: ALB/GLOB Ratio 0.9 RATIO (0.9-2.4); AST(SGOT) 27 U/L (15-37); Alanine Aminotransfer ALT/SGPT 33 U/L (13-56); Albumin, Serum 3.4 g/dL (3.2-5.0); Alkaline Phosphatase 99 U/L (45-117); Anion Gap 4 (5-15); BUN 21 mg/dL (7-18); BUN/Creat Ratio 24.5 RATIO (10-20); Calcium,Total 9.5 mg/dL (8.5-10.1); Chloride 107 mmol/L (98-107); Cholesterol 171 mg/dL (200); Creatinine, Serum 0.86 mg/dL (0.55-1.02); EST Glomerular Filtration Rate 70 mL/min (>60); Est Glom Filt Rate - Afr Amer 84 mL/min (>60); Globulin 3.7 g/dL (2.2-4.2); Glucose 110 mg/dL (74-106); High Density Lipoprotein 55 mg/dL; Potassium 3.4 mmol/L (3.5-5.1); Protein, Total 7.1 g/dL (6.4-8.2); Sodium Level 141 mmol/L (136-145); Triglycerides 112 mg/dL; Very Low Density Lipoprotein 22 mg/dL (5-40)
== END | disposition home or self-care (01) ==
PROVIDERS: PCP Family Medicine; Referring Provider Family Medicine; Visit Provider Family Medicine
DX: I10 Essential (primary) hypertension (principal); E78.5 Hyperlipidemia, unspecified
CPT/HCPCS: 36415; 80053; 80061; 85025

== ENCOUNTER 2023-04-22 11:55 | Emergency (ER) | payer MEDICARE, OTHER, SELFPAY ==
[2023-04-22 11:57] VITALS: BP 179/83; PULSE 78; RESP 17; TEMP 36.3; O2SAT 95
--- NOTE | 2023-04-22 12:27 | ED.RN ---
Patient up and ambulatory to bathroom, gait steady.
--- NOTE | 2023-04-22 12:57 | EKG12_ITS ---
Test Reason : Blood Pressure : / mmHG Vent. Rate : 074 BPM Atrial Rate : 074 BPM P-R Int : 164 ms QRS Dur : 090 ms QT Int : 384 ms P-R-T Axes : 028 013 062 degrees QTc Int : 426 ms Normal sinus rhythm Nonspecific ST abnormality Abnormal ECG Confirmed by YOHANA COOPER, CAROL ([id number]), editor index JENA LLOYD ([id number]) on 04/24/2023 6:47:43 AM Referred By: AYANA/RADHIKA Confirmed By:CAROL MULLER MD
[2023-04-22 13:13] VITALS: BP 172/64; PULSE 61; RESP 16; TEMP 36.6; O2SAT 99; BMI 38.3
[2023-04-22 13:19] LABS: Basophil# 0.01 X10^3/uL; Basophil% 0.1 % (0-1); Hematocrit 43.2 % (37-47); Hemoglobin 14.4 g/dL (12.0-15.0); Lymphocyte % 16.1 % (19-41); Mean Corp Hgb Conc 33.3 g/dL (32-36); Mean Corpuscular Hgb 30.2 pg (27.0-32.0); Mean Corpuscular Volume 90.6 fL (81-99); Mean Platelet Vol. 9.3 fl (6.2-12.0); Monocyte# 0.24 X10^3/uL; Monocyte% 3.2 % (0-10); NRBC Flagged by Analyzer 0 % (0-5); Neutrophil # 5.96 X10^3/uL (2.7-7.7); Neutrophil % 80.1 % (47-70); Platelet Count 204 K/mm3 (150-450); RBC Distribution Width CV 12.7 % (11.6-14.6); RBC Distribution Width SD 41.3 fl (35.1-43.9); Red Blood Count 4.77 M/mm3 (4.2-5.4); White Blood Count 7.5 K/mm3 (4.4-11.0)
--- NOTE | 2023-04-22 13:20 | RAD_ITS ---
STUDY: X-RAY CHEST REASON FOR EXAM: Female, 72 years old. Chest pain TECHNIQUE: Single AP portable view of the chest. COMPARISON: Comparison is made with prior study dated April 15, 2019. FINDINGS: EKG electrodes are seen. The lungs are clear and expanded. There is no demonstrated pleural abnormality. There is borderline cardiomegaly. Normal mediastinum and umu. Normal visualized pulmonary arteries. There is atherosclerotic calcification of the aortic arch with tortuosity. There are degenerative changes of the visualized thoracic spine. 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 There is no demonstrated abnormality of the visualized soft tissue structures of the upper abdomen. RAD/Chest 1 View (Portable) IMPRESSION: Borderline cardiomegaly. No acute abnormality is seen. Electronically Signed: Shiv Majano MD at 13:35 EDT ,
[2023-04-22 13:44] LABS: Anion Gap 5 (5-15); BUN 28 mg/dL (7-18); BUN/Creat Ratio 29.8 RATIO (10-20); Calcium,Total 9.3 mg/dL (8.5-10.1); Chloride 107 mmol/L (98-107); Creatinine, Serum 0.94 mg/dL (0.55-1.02); EST Glomerular Filtration Rate 63 mL/min (>60); Est Glom Filt Rate - Afr Amer 76 mL/min (>60); Estimated Creatinine Clearance 54.15 ml/min; Glucose 228 mg/dL (74-106); Potassium 3.1 mmol/L (3.5-5.1); Sodium Level 142 mmol/L (136-145); Troponin-I HS 32 pg/mL (3.0-54.0)
--- NOTE | 2023-04-22 14:07 | EDS_ITS ---
HPI History of Present Illness Chief Complaint: Palpitations Informant: patient Narrative Narrative: Patient presents with palpitations. Patient states that she had an episode of palpitations today and she has been getting them for the last few days. She has had them in the past. But she has no history of heart disease including no dysrhythmias. She states she does not get chest pain short of breath nauseated or lightheaded with them. She just feels as though there is a fluttering in her chest. She has been told that this may be due to her hiatal hernia. However, the patient also was just placed on prednisone a few days ago. She had some sciatica going down the left leg. She states that is already doing better. But since she has been on the prednisone she feels the fluttering. Her sleep has been less. Her appetite is increased. She is urinating more. She just does not feel well on this. [facility] Medical History Hiatal hernia HTN (hypertension) Home Medications atorvastatin 80 mg tablet 80 mg PO QHS cholesterol 04/15/19 [History Last Taken Unknown] lisinopril 20 mg-hydrochlorothiazide 25 mg tablet 2 tab PO DAILY htn 04/15/19 [History Last Taken Unknown] ctetecjr-yvw-ynoni acid 0.4 mg-lycopene 300 mcg-lutein 250 mcg tablet 1 ea PO DAILY supplement 04/15/19 [History Last Taken Unknown] omega-3 fatty acids-fish oil 340 mg-1,000 mg capsule 1 ea PO DAILY supplement 04/15/19 [History Last Taken Unknown] acetaminophen 500 mg tablet 1,000 mg (2 x 500 mg) PO Q6H PRN #100 tabs 07/12/20 [Rx Last Taken Unknown] metoprolol succinate 50 mg tablet,extended release 24 hr 1 ea PO DAILY 07/12/21 [History Last Taken Unknown] pantoprazole 20 mg tablet,delayed release 20 mg PO DAILY 12/04/21 [History Last Taken Unknown] estradiol 0.5 mg tablet 0.25 mg PO .twice a week hormone 02/28/23 [History Last Taken Unknown] Allergy/AdvReac Type Severity Reaction Status Date / Time latex Allergy Rash Verified 02/28/23 09:52 Penicillins Allergy Rash Verified 02/28/23 09:52 tetracycline AdvReac Nausea/Vom/ Verified 02/28/23 09:52 Diarrhea Family History Mother Cancer Hypertension Grandmother Cancer Father Hypertension Sister Rheumatoid arthritis Surgical History H/O: hysterectomy History of total knee arthroplasty (~07/12/20) Hx of foot surgery Social History Smoking Status: Former smoker ROS ROS ED ROS Narrative A complete review of systems was performed and is negative except as documented in the history of present illness. Some specific details below. Constitutional: No recent fevers or chills. No malaise. EYE: No discharge, visual complaints, or pain. No halos or blurring of vision. ENT: No difficulty swallowing. No swelling. No pain. No reflux symptoms. CV: See history of present illness. Respiratory: No dyspnea or coughing. GI: No abdominal pain. No nausea vomiting diarrhea. No blood in stool. : No dysuria or hematuria. However, she has had some frequency Musculoskeletal: No recent trauma. No pains. No swelling. Skin: No rash. Nondiaphoretic. Neuro: No weakness or numbness. Endocrine: Polyuria but no polydipsia. EXAM Physical Exam Narrative Exam Narrative: CONSTITUTIONAL: Patient is nontoxic in appearance. The patient looks comfortable. Work of breathing looks normal. HEENT: No notable trauma. Mucous membranes moist. No sinus tenderness. No indication of pain with swallowing. EYES: No conjunctival injection. No proptosis. NECK:No JVD. No stridor. CARDIOVASCULAR: Regular rate. Regular rhythm. No notable murmur. No JVD. On the monitor she appears to be in a normal sinus rhythm with a rate of about 60-70. Peripheral pulses are also normal. Tones are not muffled. RESPIRATORY: No respiratory distress. Breathing is unlabored. No wheezes. No rhonchi. No rales. No pain with a deep breath. No chest wall tenderness. GASTROINTESTINAL: Not distended. Bowel sounds are normal. No tenderness. No guarding. No rebound. No palpable mass. No bruit is heard. GENITOURINARY: No tenderness over the bladder. No CVA tenderness. MUSCULOSKELETAL: Atraumatic. No peripheral edema. No cord. No tenderness along the deep venous system. No asymmetry. No distended veins. NEUROLOGICAL: Patient is alert and appropriate. No focal deficit noted. SKIN: No noted rashes. No diaphoresis. PSYCHIATRIC: Patient is calm. Mood is appropriate. Const Vital Signs: 04/22/23 11:57 04/22/23 13:13 04/22/23 13:13 Temperature 97.4 F L 97.9 F Temperature Source Temporal Oral Pulse Rate 78 61 Respiratory Rate 17 16 Respiratory Effort Respiratory Depth Respiratory Pattern Blood Pressure 179/83 H 172/64 H Blood Pressure Mean 115 100 Pulse Ox 95 99 Oxygen Delivery Method Room Air Room Air Room Air 04/22/23 13:13 04/22/23 13:17 Temperature Temperature Source Pulse Rate Respiratory Rate Respiratory Effort Normal Respiratory Depth Normal Respiratory Pattern Normal Normal Blood Pressure Blood Pressure Mean Pulse Ox Oxygen Delivery Method Room Air MDM MDM MDM Narrative Medical decision making narrative: My independent interpretation of the patient's single view AP chest x-ray shows no acute process. Final reading does mention borderline cardiomegaly but no acute abnormality. Patient CBC is normal. Patient's electrolytes are normal other than her glucose is increased to 28. She has no history of diabetes. But this is likely due to prednisone. Rather than initiating therapy for this I think this needs to be rechecked off the prednisone and we did discuss this. It is certainly possible she may have some borderline diabetes but I think we have to check her when she is not on the steroids. Troponin is negative at 32. And she has been having palpitations off and on for days. I think her symptoms of increased appetite poor sleep polyuria palpitations and mild GI upset are all due to the steroids. She states the back is better so she is just going to stop the steroids. I think this is a reasonable option. We discussed reasons to return. She should follow-up for repeat check of the glucose. Lab Data Attestation: I reviewed the patient's lab results. Labs: Laboratory Results - last 24 hr 04/22/23 13:10 WBC 7.5 RBC 4.77 Hgb 14.4 Hct 43.2 MCV 90.6 MCH 30.2 MCHC 33.3 RDW Std Deviation 41.3 RDW Coeff of Faizan 12.7 Plt Count 204 MPV 9.3 Immature Gran % (Auto) 0.500 Neut % (Auto) 80.1 H Lymph % (Auto) 16.1 L Crisp % (Auto) 3.2 Eos % (Auto) 0.0 Baso % (Auto) 0.1 Absolute Neuts (auto) 6.0 Absolute Lymphs (auto) 1.20 Nucleated RBC % 0 Sodium 142 Potassium 3.1 L Chloride 107 Carbon Dioxide 30.0 Anion Gap 5 BUN 28 H Creatinine 0.94 Estim Creat Clear Calc 54.15 Est GFR (MDRD) Af Amer 76 Est GFR (MDRD) Non-Af 63 BUN/Creatinine Ratio 29.8 H Glucose 228 H Calcium 9.3 Troponin I High Sens 32 Radiography Diagnostic Testing: Clinical Impression(s) from Imaging Studies Chest X-Ray 04/22/23 13:20 IMPRESSION: Borderline cardiomegaly. No acute abnormality is seen. Electronically Signed: Shiv Majano MD at 13:35 EDT , EKG Initial EKG: Comments: My independent interpretation of the patient's EKG done for palpitation shows normal sinus rhythm with overall rate of 74. No ventricular ectopy. No acute ST elevation or depression but there are some diffuse nonspecific ST and T wave changes. ID interval, QRS duration and QTc are normal Discharge Plan Triage Chief Complaint: Palpitations Other Complaint: Shortness of Breath ED Provider: Dalton Baez Dx/Rx/DC Orders Clinical Impression: Hx of hiatal hernia, Heart palpitations, Hyperglycemia, Medication adverse effect Instructions: ED Palpitations Prescriptions: No Action metoprolol succinate 50 mg tablet extended release 24 hr 1 ea PO DAILY pantoprazole 20 mg tablet,delayed release (DR/EC) 20 mg PO DAILY atorvastatin 80 MG tablet 80 mg PO QHS lisinopril-hydrochlorothiazide 1 EACH tablet 2 tab PO DAILY tvnozmwx-ebe-WB-lycopen-lutein 1 EACH tablet 1 ea PO DAILY omega-3 fatty acids-fish oil 1 EACH capsule 1 ea PO DAILY estradiol 0.5 mg tablet 0.25 mg PO .twice a week Patient Comments: ask about stopping acetaminophen 500 MG tablet 1,000 mg PO Q6H PRN Qty: 100 0RF Primary Care Provider: Alba Eldridge Referrals: Alba Eldridge MD [Primary Care Provider] - 3-5 Days Disposition Disposition: Home, Self Care
[2023-04-22 14:32] VITALS: BP 198/88; PULSE 88; RESP 16
== END 2023-04-22 14:34 | disposition home or self-care (01) ==
PROVIDERS: Emergency Provider Emergency Medicine; PCP Family Medicine; Visit Provider Emergency Medicine
DX: R00.2 Palpitations (principal); R06.02 Shortness of breath; Z87.891 Personal history of nicotine dependence; I10 Essential (primary) hypertension; Z79.899 Other long term (current) drug therapy; Z90.710 Acquired absence of both cervix and uterus
CPT/HCPCS: 71045; 80048; 84484; 85025; 93005; 99285; A4216

== ENCOUNTER → 2023-04-26 | Outpatient (CLI) | payer MEDICARE, OTHER, SELFPAY ==
--- NOTE | 2023-04-26 10:42 | RAD_ITS ---
STUDY: X-RAY - PELVIS AND LEFT HIP REASON FOR EXAM: Female, 72 years old. HIP PAIN TECHNIQUE: 3 views of the pelvis and hip. COMPARISON: None. FINDINGS: There is a non-specific bowel gas pattern. Normal visualized soft tissue structures. Normal bilateral iliac wings, sacroiliac joints and visualized sacrum. Normal bilateral superior and inferior pubic rami. Normal pubic symphysis. Normal bilateral ischial tuberosities. Normal visualized femoral head. Normal acetabulum. Normal hip joint. RAD/HIP, UNI W/ Pelvis 2-3 Views IMPRESSION: Normal x-ray examination of the pelvis and hip. Electronically Signed: Emerson Contreras MD at 17:42 EDT ,
== END | disposition home or self-care (01) ==
LOC: MTRAD 10:42
PROVIDERS: PCP Family Medicine; Referring Provider Family Medicine; Visit Provider Family Medicine
DX: M25.552 Pain in left hip (principal)
CPT/HCPCS: 73502

== ENCOUNTER → 2023-05-03 | Outpatient (CLI) | payer MEDICARE, OTHER, SELFPAY | END | disposition home or self-care (01) | LOC: RAD.FUTURE 07:24 | PROVIDERS: PCP Family Medicine; Visit Provider Family Medicine | DX: M54.50 Low back pain, unspecified (principal) ==

== ENCOUNTER → 2023-05-10 | Outpatient (CLI) | payer MEDICARE, OTHER, SELFPAY ==
--- NOTE | 2023-05-10 10:14 | RAD_ITS ---
STUDY: X-RAY - LUMBAR SPINE REASON FOR EXAM: Female, 72 years old. LUMBAR PAIN, R BUTTOCK PAIN TECHNIQUE: 5 view(s) of the lumbar spine were obtained. COMPARISON: Lumbar spine radiograph April 21, 2020 FINDINGS: Normal lumbar lordosis. Mild dextroconvex scoliosis. Retrolisthesis L3-4, L2-3 and L1-2. Slight anterior wedging T12, L1 and L2. There is multilevel endplate spondylosis of the lumbar vertebrae. There is multi-level degenerative disc disease with multi-level disc space narrowing. The soft tissue structures are unremarkable. RAD/L/S Spine Min 4 Views IMPRESSION: Multiple mild compression fractures unchanged, spondylosis, degenerative disc disease and scoliosis Electronically Signed: Leonard Corrales MD at 16:32 EST ,
== END | disposition home or self-care (01) ==
LOC: MTRAD 10:13
PROVIDERS: PCP Family Medicine; Referring Provider Family Medicine; Visit Provider Family Medicine
DX: M54.9 Dorsalgia, unspecified (principal)
CPT/HCPCS: 72110

== ENCOUNTER 2023-06-04 13:00 | Outpatient (RCR) | payer MEDICARE, OTHER, SELFPAY ==
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
--- NOTE | 2023-06-04 13:23 | HP.PTDCSUM ---
Discharge Summary D/C summary: It has been my pleasure to treat PRINCESS MEZA referred by Dr. Alba Eldridge MD, with the diagnosis of LUMBAGO AND SCIATICA for a total of 7 visit(s). Discharge Date: Please see the following information for a summary of their discharge status. Subjective Subjective: PATIENT REPORTS THE SORE SPOT SHE HAD LAST WEEK WENT AWAY BUT THERE IS SOME SORENESS THAT STILL COMES AND GOES. HASN'T TAKEN ANY PAIN MEDICINE SINCE SATURDAY. Pain L LB/BUTTOCK: Pain Intensity (Out of 10): 0 Overall Improvement % Improvement: 90 Objective Objective/Function: PATIENT WAS SEEN TODAY FOR RE-ASSESSMENT OF PROGRESS TOWARD THE SET PT GOALS AND THE NEED FOR FURTHER PHYSICAL THERAPY VS READINESS FOR DISCHARGE. PATIENT HAS DONE REALLY WELL WITH PT AND IS INDEP WITH A HEP NOW. SHE STILL HAS SOME INTERMITTENT LBP BUT IS APPROPRIATE FOR AND AGREEABLE TO DISCHARGE. UPON EXAM TODAY: Motor deficit: R HIP 4/5, KNEE 5/5, ANKLE 5/5. L HIP 4/5, KNEE 5/5, ANKLE 5/5. PATIENT DENIES INCREASED PAIN WITH TESTING. Dural Signs: NEGATIVE DEBBY LE'S. Lumbar mvmt loss: flex - NIL ext - MOD R SG - MOD L SG - MOD PATIENT DENIES PAIN WITH LUMBAR ROM TESTING ALL PLANES. Palpation: PATIENT IS NOT TENDER WITH PALPATION OF THE LUMBAR, RIB OR HIP REGIONS TODAY. Goals Goal 1:: DECREASE C/O LBP BY 25% WITH STANDING AND WALKING TO EASE ADL'S. Goal Progress: Goal Met Goal 2:: IMPROVE BACK OSWESTY SCORE BY 5 POINTS TO INDICATE PROGRESS TOWARD RETURN TO PLOF. Goal Progress: Goal Met Goal 3:: Patient will have increased BLE and core strength increased by 1/2 grade of all effected musculature. Goal Progress: Goal Met Goal 4:: INDEP HEP Goal Progress: Goal Met Plan Plan: D/C TO INDEP EX. D/C Information d/c sentence: If there are questions or concerns regarding this patient's physical therapy, please feel free to call me at [phone]. Thank you for the referral of this patient. Sincerely, Meenakshi Hrae, PT, Cert MDT Balance/Gait/Functional tests Balance/Special Test Scores Oswestry Low Back Score: 5 Improvement % Improvement: 90
== END 2023-06-04 19:00 | disposition home or self-care (01) ==
LOC: PT 13:00
PROVIDERS: PCP Family Medicine; Referring Provider Family Medicine; Visit Provider Family Medicine
DX: M54.40 Lumbago with sciatica, unspecified side (principal)
CPT/HCPCS: 97112; 97162; 97530

== ENCOUNTER 2023-07-26 04:44 | Emergency (ER) | payer MEDICARE, OTHER, SELFPAY ==
[2023-07-26 04:46] VITALS: PULSE 67; RESP 18; TEMP 36.2; O2SAT 98; BMI 41.8
[2023-07-26 04:49] VITALS: BP 210/107; PULSE 64; RESP 18; TEMP 36.2; O2SAT 98
--- NOTE | 2023-07-26 05:02 | CT_ITS ---
STUDY: CT ABDOMEN AND PELVIS WITH CONTRAST REASON FOR EXAM: Female, 72 years old. Right flank pain RADIATION DOSAGE (If Supplied By Facility): CTDIvol = ( 23.27 ) mGy, DLP = ( 1220.53 ) mGycm TECHNIQUE: IV 100mL Isovue-370 was administered. Transaxial images were obtained from the dome of the diaphragm to the symphysis pubis in the portal venous phase. Multiplanar coronal and sagittal images were reformatted. Individualized Dose Optimization Techniques Were Used For This CT. COMPARISON: 07/20/2021 FINDINGS: LOWER CHEST: Lung bases are clear. No cardiomegaly or pericardial effusion. LIVER: The liver is normal in size, shape, and attenuation. Scattered hepatic cysts are unchanged. No suspicious liver lesions. GALLBLADDER AND BILIARY TREE: The gallbladder is normally distended. No gallstones. No gallbladder wall thickening or edema. No pericholecystic fluid. No intra- or extrahepatic biliary ductal dilation. PANCREAS: No focal cystic or solid mass. SPLEEN: Normal size without focal cystic or solid mass. ADRENAL GLANDS: No nodules. KIDNEYS AND URETERS: Normal renal size and position, with symmetric enhancement bilaterally. No hydronephrosis or nephrolithiasis. Bilateral renal cortical and parapelvic cysts are benign. No follow-up imaging recommended. PERITONEUM: No ascites or free air. No other fluid collection. BOWEL: Stomach and small bowel unremarkable. Pancolonic diverticulosis, most concentrated within the sigmoid colon. There is diffuse homogeneous wall thickening of the sigmoid colon related to underdistention, possibly chronic diverticular disease (intramural fibrosis). No evidence of active diverticulitis. Normal appendix. LYMPH NODES: No enlarged mesenteric or retroperitoneal lymph nodes. VESSELS: Aorta is atherosclerotic but normal caliber. URINARY BLADDER: Unremarkable. REPRODUCTIVE ORGANS: Hysterectomy. No adnexal abnormalities. ABDOMINAL WALL: No discrete abdominal or pelvic wall hernia. BONES: No acute or suspicious osseous abnormalities. CT/Abdomen/Pelvis W IV Cont ONLY IMPRESSION: * No acute findings to explain the patient''s symptomatology. * Pancolonic diverticulosis with chronic diverticular disease of the sigmoid colon. No evidence of acute diverticulitis. Electronically Signed: Ian Santana MD at 6:21 EST ,
--- NOTE | 2023-07-26 05:03 | EX.ED.DYSGE1 ---
HPI History of Present Illness Chief Complaint: Flank Pain Informant: patient, spouse/S.O. and EMS Narrative Narrative: 72-year-old female presenting to the emergency room with right flank pain. Patient states symptoms began a couple days ago and she has been taking Tylenol and using a heating pad. Tonight she woke up and went to use the bathroom but could not get out of bed because the pain was so excruciating. She points to the right flank as the area that hurts. She states is not hip but does not leg but if she tries to move it hurts. She denies any abdominal pain, urinary symptoms, change in bowel habits, fever, chest pain, or dyspnea. Patient denies any rashes. She states she has not had a thing like this before. She states she sees Dr. Eldridge for primary care. She states she does not see any other doctors. [facility] Medical History Hiatal hernia HTN (hypertension) Home Medications atorvastatin 80 mg tablet 80 mg PO QHS cholesterol 04/15/19 [History Last Taken Unknown] lisinopril 20 mg-hydrochlorothiazide 25 mg tablet 2 tab PO DAILY htn 04/15/19 [History Last Taken Unknown] jqdadboz-cws-ovjbe acid 0.4 mg-lycopene 300 mcg-lutein 250 mcg tablet 1 ea PO DAILY supplement 04/15/19 [History Last Taken Unknown] omega-3 fatty acids-fish oil 340 mg-1,000 mg capsule 1 ea PO DAILY supplement 04/15/19 [History Last Taken Unknown] acetaminophen 500 mg tablet 1,000 mg (2 x 500 mg) PO Q6H PRN #100 tabs 07/12/20 [Rx Last Taken Unknown] metoprolol succinate 50 mg tablet,extended release 24 hr 1 ea PO DAILY 07/12/21 [History Last Taken Unknown] pantoprazole 20 mg tablet,delayed release 20 mg PO DAILY 12/04/21 [History Last Taken Unknown] estradiol 0.5 mg tablet 0.25 mg PO .twice a week hormone 02/28/23 [History Last Taken Unknown] oxycodone 10 mg tablet 10 mg PO Q8H PRN pain 3 days #12 tabs 07/26/23 [Rx Last Taken Unknown] Allergy/AdvReac Type Severity Reaction Status Date / Time latex Allergy Rash Verified 07/15/23 09:53 Penicillins Allergy Rash Verified 07/15/23 09:53 tetracycline AdvReac Nausea/Vom/ Verified 07/15/23 09:53 Diarrhea Family History Mother Cancer Hypertension Grandmother Cancer Father Hypertension Sister Rheumatoid arthritis Surgical History H/O: hysterectomy History of total knee arthroplasty (~07/12/20) Hx of foot surgery Social History Smoking Status: Former smoker ROS ROS ED Constitutional Constitutional ED: Denies chills, fever(s) or weight loss Eyes Eyes: Denies change in vision or diplopia ENT ENT ED: Denies ear pain, rhinorrhea or sore throat Cardiovascular Cardiovascular: Denies chest pain, orthopnea, palpitations or racing heartbeat Respiratory/Chest Respiratory/Chest: Denies cough, dyspnea or orthopnea Gastrointestinal Gastrointestinal: Denies abdominal pain, diarrhea, nausea or vomiting Genitourinary Genitourinary ED: Denies dysuria, hematuria or urinary frequency Musculoskeletal Musculoskeletal: Reports other Details: Right flank pain ; Denies arthralgias or myalgias Integumentary Denies abscess or rash Neurologic Neurologic: Denies headache(s) or weakness Psychiatric Psychiatric: Denies anxiety, depression, suicidal ideation or suicidal thoughts Endocrine Endocrinology: Denies polydipsia, polyphagia or polyuria Allergic/Immunologic Allergic/Immunologic ED: Denies mouth swelling, tongue swelling or urticaria EXAM Physical Exam Const Vital Signs: 07/26/23 04:46 07/26/23 04:49 Temperature 97.1 F L 97.1 F L Temperature Source Temporal Temporal Pulse Rate 67 64 Respiratory Rate 18 18 Blood Pressure 210/107 H Blood Pressure Mean 141 Pulse Ox 98 98 Oxygen Delivery Method Room Air Room Air Positive well nourished, well developed and obese General Appearance ED: well developed Nutritional Appearance: obese HEENT Reports normocephalic, head/scalp atraumatic and moist mucous membranes Eyes PERRL and EOMs intact bilaterally Neck no lymphadenopathy, supple and no JVD Resp normal respiratory effort and clear to auscultation bilaterally Cardio regular rate, regular rhythm and no murmurs GI GI Narrative: I go to move the patient's gown and she starts wincing and moaning with pain. I ask if moving the gown hurts and she tells me no. I lightly touch the skin and then into the subcutaneous tissue (adipose) and the patient again winces and moans with pain. I asked if that is what is hurting she states yes. I informed her I am not palpating down to muscle or bone yet. After abdomen palpating patient has several more episodes where she winces and moans. The abdomen itself is benign. Normal bowel sounds Inspection: Negative for abdominal distention Auscultation: normoactive bowel sounds Palpation: soft Back/Spine Back/Spine Narrative: Patient does not seem to be able to move from the recumbent position. If any effort including movement of arms or legs she lets out a loud moan or winces in agony Extremity normal to inspection General Extremety ED: Negative for edema General Extremity: Negative for edema Neuro oriented x3 and CN's II-XII intact bilaterally Sensorium / Orientation: alert Motor Exam: strength 5/5 throughout Psych mental status grossly normal Mood & Affect: Negative for depressed or tearful Skin no rashes or lesions noted and no wounds MDM MDM MDM Narrative Medical decision making narrative: Patient received Toradol and oxycodone. This seemed to help her pain and she was able to get up with assist to the CT table but still very painful for her. CBC CMP essentially negative glucose 123. Normal liver enzymes. Urinalysis shows no overt infection CT of the ab pelvis demonstrates some diverticulosis but no diverticular colitis. I do not see anything in the soft tissue that would explain her pain. Patient was given a dose of morphine and Zofran. Plan will be that if she is able to get up and move will be a send her home with some oxycodone. At this point I really cannot say what is causing her pain. I do not see anything intra-abdominal on the CT and it would make sense clinically with her abdominal exam being benign. Her skin and soft tissue is very sensitive but I do not see any rashes. At this point I can write her some pain medication continued heat follow-up with primary care return if worsening. History & Record Review Discussion w/independent historian: Patient and Significant other Lab Data Attestation: I reviewed the patient's lab results. Labs: Laboratory Results - last 24 hr 07/26/23 07/26/23 05:23 05:55 WBC 6.0 RBC 4.72 Hgb 14.4 Hct 42.2 MCV 89.4 MCH 30.5 MCHC 34.1 RDW Std Deviation 41.1 RDW Coeff of Faizan 12.6 Plt Count 184 MPV 9.2 Immature Gran % (Auto) 0.300 Neut % (Auto) 57.3 Lymph % (Auto) 32.3 [place] % (Auto) 8.3 Eos % (Auto) 1.3 Baso % (Auto) 0.5 Absolute Neuts (auto) 3.5 Absolute Lymphs (auto) 1.95 Nucleated RBC % 0 Sodium 138 Potassium 3.7 Chloride 108 H Carbon Dioxide 27.0 Anion Gap 3 L BUN 21 H Creatinine 0.73 Estim Creat Clear Calc 82.51 Est GFR (MDRD) Af Amer 101 Est GFR (MDRD) Non-Af 83 BUN/Creatinine Ratio 28.7 H Glucose 123 H Calcium 9.7 Total Bilirubin 0.70 Direct Bilirubin 0.18 AST 22 ALT 31 Alkaline Phosphatase 90 Total Protein 7.0 Albumin 3.3 Globulin 3.7 Urine Color Yellow Urine Clarity Clear Urine pH 6.5 Ur Specific Stoddard 1.010 Urine Protein Negative Urine Glucose (UA) Normal Urine Ketones Negative Urine Occult Blood Negative Urine Nitrite Negative Urine Bilirubin Negative Urine Urobilinogen Normal Ur Leukocyte Esterase Negative Urine RBC 0 SEEN Urine WBC 0 SEEN Ur Squamous Epith Cells 0-5 SEEN Urine Bacteria 1+ Urine Mucus 0 SEEN Radiography Diagnostic Testing: Clinical Impression(s) from Imaging Studies Abdomen/Pelvis CT 07/26/23 05:02 IMPRESSION: * No acute findings to explain the patient''s symptomatology. * Pancolonic diverticulosis with chronic diverticular disease of the sigmoid colon. No evidence of acute diverticulitis. Electronically Signed: Ian Santana MD at 6:21 EST Reading Location ID and State: [facility] / [place] Tel , Service support , Discharge Plan Triage Chief Complaint: Flank Pain ED Provider: Tye Montiel Dx/Rx/DC Orders Clinical Impression: Acute flank pain Instructions: ED Flank Pain, Uncertain Cause Prescriptions: New oxycodone 10 mg tablet 10 mg PO Q8H PRN (Reason: pain) 3 Days Qty: 12 0RF No Action metoprolol succinate 50 mg tablet extended release 24 hr 1 ea PO DAILY pantoprazole 20 mg tablet,delayed release (DR/EC) 20 mg PO DAILY atorvastatin 80 MG tablet 80 mg PO QHS lisinopril-hydrochlorothiazide 1 EACH tablet 2 tab PO DAILY vterddmv-tfj-IB-lycopen-lutein 1 EACH tablet 1 ea PO DAILY omega-3 fatty acids-fish oil 1 EACH capsule 1 ea PO DAILY estradiol 0.5 mg tablet 0.25 mg PO .twice a week Patient Comments: ask about stopping acetaminophen 500 MG tablet 1,000 mg PO Q6H PRN Qty: 100 0RF Primary Care Provider: Alba Eldridge Referrals: Alba Eldridge MD [Primary Care Provider] - 3-5 Days if not improving
[2023-07-26 05:29] LABS: Absolute Lymphocyte Count 1.95 X10^3/uL (0.83-4.51); Absolute Neutrophil Count 3.5 X10^3/uL (2.0-7.7); Basophil# 0.03 X10^3/uL; Basophil% 0.5 % (0-1); Eosinophil# 0.08 X10^3/uL; Eosinophils% 1.3 % (0-5); Hematocrit 42.2 % (37-47); Hemoglobin 14.4 g/dL (12.0-15.0); Lymphocyte # 1.95 X10^3/ul (0.83-4.51); Lymphocyte % 32.3 % (19-41); Mean Corp Hgb Conc 34.1 g/dL (32-36); Mean Corpuscular Hgb 30.5 pg (27.0-32.0); Mean Corpuscular Volume 89.4 fL (81-99); Mean Platelet Vol. 9.2 fl (6.2-12.0); Monocyte% 8.3 % (0-10); NRBC Flagged by Analyzer 0 % (0-5); Neutrophil # 3.46 X10^3/uL (2.7-7.7); Neutrophil % 57.3 % (47-70); Platelet Count 184 K/mm3 (150-450); RBC Distribution Width CV 12.6 % (11.6-14.6); RBC Distribution Width SD 41.1 fl (35.1-43.9); Red Blood Count 4.72 M/mm3 (4.2-5.4)
[2023-07-26] MEDS: Ketorolac 15 MG/ML Vial IV (05:35)
[2023-07-26] MEDS: Ondansetron 4 MG/2 ML Vial IV (05:35)
[2023-07-26] MEDS: oxyCODONE 5 MG Tablet 10 MG PO (05:35)
[2023-07-26 05:46] LABS: AST(SGOT) 22 U/L (15-37); Alanine Aminotransfer ALT/SGPT 31 U/L (13-56); Albumin, Serum 3.3 g/dL (3.2-5.0); Alkaline Phosphatase 90 U/L (45-117); Anion Gap 3 (5-15); BUN 21 mg/dL (7-18); BUN/Creat Ratio 28.7 RATIO (10-20); Bilirubin, Direct 0.18 mg/dL (0.00-0.30); Calcium,Total 9.7 mg/dL (8.5-10.1); Chloride 108 mmol/L (98-107); Creatinine, Serum 0.73 mg/dL (0.55-1.02); EST Glomerular Filtration Rate 83 mL/min (>60); Est Glom Filt Rate - Afr Amer 101 mL/min (>60); Estimated Creatinine Clearance 82.51 ml/min; Globulin 3.7 g/dL (2.2-4.2); Glucose 123 mg/dL (74-106); Potassium 3.7 mmol/L (3.5-5.1); Sodium Level 138 mmol/L (136-145)
[2023-07-26 06:02] LABS: Mucous, Urine 0 SEEN /hpf (<or=2+); Red Blood Cells-Urine 0 SEEN /hpf (0-5); White Blood Cells 0 SEEN /hpf (0-5)
[2023-07-26 06:35] LABS: Glucose, Dipstick Normal (Normal); Ketone-Dipstick Negative (Negative); Leukocyte Esterase-Dipstick Negative /ul (Negative); Nitrite-Dipstick Negative (Negative); Occult Blood-Urine Negative /ul (Negative); Protein-Dipstick Negative (Negative); Urine Bilirubin Dipstick Negative (Negative); Urine Urobilinogen Normal (Normal); Urine pH 6.5 (5.0 - 8.0)
[2023-07-26] MEDS: Morphine 4 MG/ML Syringe IV (06:40)
[2023-07-26 06:47] LABS: Color, Urine Yellow (Yellow); Urine Clarity Clear (Clear)
[2023-07-26 06:57] LABS: Bacteria 1+ /hpf (None Seen); Squamous Epithelial Cells - UA 0-5 SEEN /hpf (5-10)
[2023-07-26 08:00] VITALS: BP 213/81; PULSE 64; RESP 18; O2SAT 95
--- NOTE | 2023-07-26 08:06 | ED.RN ---
ATTEMPTED TO AMBULATE PT. PT WITH DIFFICULTY SITTING UP AN DOWN. CAN POINT TO PAINFUL AREA. PT CAN WALK WITH ASSISTANCE. PT MOANING WHEN ATTEMPTING TO MOVE
[2023-07-26 08:35] VITALS: BP 190/68; PULSE 57; RESP 20; O2SAT 96
== END 2023-07-26 08:53 | disposition home or self-care (01) ==
PROVIDERS: Emergency Provider Emergency Medicine; PCP Family Medicine; Visit Provider Emergency Medicine
DX: R10.9 Unspecified abdominal pain (principal); Z87.891 Personal history of nicotine dependence; I10 Essential (primary) hypertension; Z79.899 Other long term (current) drug therapy; Z90.710 Acquired absence of both cervix and uterus; Z96.659 Presence of unspecified artificial knee joint
CPT/HCPCS: 74177; 80048; 80076; 81001; 85025; 96374; 96375; 99284; Q9967; A4216; J2405

== ENCOUNTER → 2023-11-13 | Outpatient (CLI) | payer MEDICARE, OTHER, SELFPAY ==
--- NOTE | 2023-11-13 08:50 | BI_ITS ---
MAMMOGRAPHY - BILATERAL SCREENING 3-D TOMOSYNTHESIS REASON FOR EXAM: Female, 73 years old. SCREENING PERTINENT HISTORY: No significant family history. TECHNIQUE: 2-D mammograms and 3-D Tomosynthesis of the breast (s) were performed. CAD was performed. COMPARISON: 11/06/2022 FINDINGS: The breast composition is heterogeneously dense that can obscure small breast masses. Scattered benign calcifications are seen. No dense spiculated masses or suspicious microcalcifications are identified. No architectural distortion is identified. There is no skin thickening or retraction. There has been no significant change since the prior study. BI/SCRN MAMM (CAD)W/FAHAD BILAT IMPRESSION: No mammographic signs of malignancy. Routine yearly mammograms recommended. ASSESSMENT CATEGORY: BIRADS Category 1: Negative. A letter regarding these results will be sent to the patient by the facility within 30 days. FOLLOW UP RECOMMENDATION: Yearly follow up mammogram recommended. (A) Approximately 10% of breast cancers are not detected by mammography. A normal mammogram should not delay biopsy of a clinically suspicious abnormality. Electronically Signed: Rob Nye MD at 10:46 EDT ,
== END | disposition home or self-care (01) ==
LOC: OPBI 08:49
PROVIDERS: PCP Family Medicine; Referring Provider Family Medicine; Visit Provider Family Medicine
DX: Z12.31 Encounter for screening mammogram for malignant neoplasm of breast (principal)
CPT/HCPCS: 77063; 77067

== ENCOUNTER → 2024-01-31 | Outpatient (CLI) | payer MEDICARE, OTHER, SELFPAY ==
[2024-01-31 10:18] LABS: Cholesterol 172 mg/dL (200); High Density Lipoprotein 55 mg/dL; Triglycerides 121 mg/dL; Very Low Density Lipoprotein 24 mg/dL (5-40)
== END | disposition home or self-care (01) ==
LOC: MTLAB 07:46
PROVIDERS: PCP Family Medicine; Referring Provider Family Medicine; Visit Provider Family Medicine
DX: E78.5 Hyperlipidemia, unspecified (principal)
CPT/HCPCS: 36415; 80061

== ENCOUNTER → 2024-03-23 | Outpatient (CLI) | payer MEDICARE, OTHER, SELFPAY ==
[2024-03-23 17:47] LABS: Color, Urine Yellow (Yellow); Glucose, Dipstick Normal (Normal); Ketone-Dipstick Negative (Negative); Leukocyte Esterase-Dipstick Negative /ul (Negative); Nitrite-Dipstick Negative (Negative); Occult Blood-Urine 10 /ul (Negative); Protein-Dipstick Negative (Negative); Specific Gravity, Urine 1.015 (1.002-1.030); Urine Bilirubin Dipstick Negative (Negative); Urine Clarity Sl. Cloudy (Clear); Urine Urobilinogen Normal (Normal)
== END | disposition home or self-care (01) ==
PROVIDERS: PCP Family Medicine; Referring Provider Obstetrics & Gynecology; Visit Provider Obstetrics & Gynecology
DX: R39.15 Urgency of urination (principal)
CPT/HCPCS: 81002; 87086; 87088

== ENCOUNTER 2024-05-11 14:50 | Emergency (ER) | payer MEDICARE, OTHER, SELFPAY ==
[2024-05-11 14:52] VITALS: BP 240/100; PULSE 79; RESP 18; TEMP 35.8; O2SAT 97; BMI 40.6
--- NOTE | 2024-05-11 15:15 | EKG12_ITS ---
Test Reason : Blood Pressure : */* mmHG Vent. Rate : 74 BPM Atrial Rate : 74 BPM P-R Int : 194 ms QRS Dur : 92 ms QT Int : 388 ms P-R-T Axes : 24 16 56 degrees QTcB Int : 430 ms Sinus rhythm with Premature atrial complexes with Aberrant conduction Otherwise normal ECG Confirmed by YOHANA COOPER, CAROL ([id number]), greeting card editor RACHAEL MERINO ([id number]) on 05/12/2024 1:51:39 PM Referred By: Confirmed By: CAROL MULLER MD
--- NOTE | 2024-05-11 15:20 | EX.ED.DYSGE1 ---
HPI History of Present Illness Chief Complaint: Chest Other Narrative Narrative: Patient is a 73-year-old female with past medical hiatal hernia, hypertension who presented to the emergency department with a chief complaint of chest discomfort. Patient states that she believes that her hiatal hernia is flaring up. States this morning after she ate her breakfast she noted that she had this discomfort states has been pretty persistent but is waxing waning. States that she wanted to come in and make sure her heart was okay. Patient's states that she has been compliant with her blood pressure medication but notes that she can only use a manual blood pressure cuff to have her blood pressure checked as when she uses the machine it is always very high. Patient states that she drank a bunch of milk and this did help her symptoms which normally helps her hiatal hernia. States that nothing makes her pain worse PFSH PFSH Medical History Degenerative disc disease Scoliosis Arthritis Hiatal hernia HTN (hypertension) Home Medications ?Medication ?Instructions ?Recorded ?Last Taken ?Type atorvastatin 80 mg tablet 80 mg PO QHS cholesterol 04/15/19 Unknown History lisinopril 20 2 tab PO DAILY htn 04/15/19 Unknown History mg-hydrochlorothiazide 25 mg tablet exzuhmia-yvt-hvorq acid 0.4 1 ea PO DAILY supplement 04/15/19 Unknown History mg-lycopene 300 mcg-lutein 250 mcg tablet omega-3 fatty acids-fish oil 340 1 ea PO DAILY supplement 04/15/19 Unknown History mg-1,000 mg capsule acetaminophen 500 mg tablet 1,000 mg (2 x 500 mg) PO Q6H PRN 07/12/20 Unknown Rx #100 tabs metoprolol succinate 50 mg 1 ea PO DAILY 07/12/21 Unknown History tablet,extended release 24 hr pantoprazole 20 mg tablet,delayed 20 mg PO DAILY 12/04/21 Unknown History release cholecalciferol (vitamin D3) 25 50 mcg PO QDAY 03/23/24 Unknown History mcg (1,000 unit) capsule Allergy/AdvReac Type Severity Reaction Status Date / Time latex Allergy Rash Verified 05/11/24 14:52 Penicillins Allergy Rash Verified 05/11/24 14:52 tetracycline AdvReac Nausea/Vom/ Verified 05/11/24 14:52 Diarrhea Family History Mother Cancer Hypertension Grandmother Cancer Father Hypertension Sister Rheumatoid arthritis Surgical History History of total knee arthroplasty (~07/12/20) H/O: hysterectomy Hx of foot surgery Social History household members: spouse housing: house number of children: 2 Smoking Status: Former smoker alcohol intake: never seatbelt use: always do you feel safe at home: Yes additional social history: Rob HOLM ROS ED ROS Narrative Constitutional: Denies any fevers, chills, headaches, lightness, dizziness Eyes: Denies any changes double vision blurry vision Cardiovascular: Complains of chest comfort as noted above denies palpitations Respiratory: Denies coughing wheezing shortness of breath Abdomen: Denies abdominal pain nausea vomit diarrhea : Denies any urinary symptoms Neurological: Denies any numbness, weakness, tingling Musculoskeletal: Denies back pain Skin: Denies rashes or lesions EXAM Physical Exam Narrative Exam Narrative: General: Patient lying in bed rest comfortably did not appear to be in acute distress Head: Atraumatic, normocephalic Eyes: PERRL bilateral, EOMI bilateral, no conjunctival injection noted Neck: Soft, supple, trachea midline Cardiovascular: Regular in rhythm no murmurs gallops rubs noted Respiratory: Clear to auscultation bilaterally no rales rhonchi or wheeze noted Abdomen: Soft, nondistended, nontender to palpation, bowel sounds present x 4 Extremities: +5/5 strength noted in the bilateral upper and lower extremities, radial pulses +2/4 in the bilateral per extremities Neurological: Patient is following commands knew that she was at [facility] years 2023 Skin: Warm, dry, intact Const Vital Signs: 05/11/24 14:51 05/11/24 14:52 05/11/24 15:15 Temperature 96.5 F L Temperature Source Temporal Pulse Rate 79 Respiratory Rate 18 Respiratory Effort Normal Non-Labored Blood Pressure 240/100 H Blood Pressure Mean 146 Pulse Ox 97 Oxygen Delivery Method Room Air Room Air 05/11/24 16:51 Temperature Temperature Source Pulse Rate Respiratory Rate Respiratory Effort Blood Pressure 180/83 H Blood Pressure Mean 115 Pulse Ox Oxygen Delivery Method MDM MDM MDM Narrative Medical decision making narrative: Patient is a 73-year-old female who presents to the emergency department with a chief complaint of feeling that her hiatal hernia is acting up and concerned that this may be her heart as well. Patient will have a workup performed here on the differential diagnose includes but not limited to GERD, ACS. Once workup is obtained reviewed she will be reevaluated. Patient's CBC reviewed and showed no evidence leukocytosis white blood count normal at 6.9, hemoglobin 15.3, plate count normal at 202. Patient sodium normal at 142, potassium normal at 3.5, creatinine normal at 0.76. Patient's troponin was noted be 10, proBNP was noted to be 30. Patient's chest x-ray reviewed by myself and by radiology which showed no acute cardiopulmonary processes. Patient's EKG reviewed and independently interpreted by myself which showed sinus rhythm with a rate of 74 bpm. Patient delta troponin pending she states that she wants to leave AGAINST MEDICAL ADVICE and does not want another blood draw. Patient is requesting a GI cocktail for her reflux. She was advised to follow-up with her primary care physician in the outpatient setting and return with worsening symptoms or any concerns. She is agreeable this plan all question concerns answered Lab Data Labs: Laboratory Results - last 24 hr 05/11/24 15:28 WBC 6.9 RBC 4.93 Hgb 15.3 H Hct 44.6 MCV 90.5 MCH 31.0 MCHC 34.3 RDW Std Deviation 41.5 RDW Coeff of Faizan 12.6 Plt Count 202 MPV 9.3 Immature Gran % (Auto) 0.300 Neut % (Auto) 61.0 Lymph % (Auto) 29.4 Thurston % (Auto) 8.0 Eos % (Auto) 1.0 Baso % (Auto) 0.3 Absolute Neuts (auto) 4.2 Absolute Lymphs (auto) 2.03 Nucleated RBC % 0 Sodium 142 Potassium 3.5 Chloride 105 Carbon Dioxide 31.0 Anion Gap 6 BUN 23 H Creatinine 0.76 Estim Creat Clear Calc 82.73 Est GFR (MDRD) Af Amer 96 Est GFR (MDRD) Non-Af 80 BUN/Creatinine Ratio 30.3 H Glucose 111 H Calcium 10.8 H Troponin I High Sens 10 B-Natriuretic Peptide 30.0 Radiography Diagnostic Testing: Clinical Impression(s) from Imaging Studies Chest X-Ray 05/11/24 15:35 IMPRESSION: No radiographic evidence of acute cardiopulmonary disease. Electronically Signed: Honorio ThorpeDO at 16:47 EST Reading Location ID and State: [facility] / [place] Tel [phone], Service support , Discharge Plan Triage Chief Complaint: Chest Other ED Provider: Kulwinder Espinosa Dx/Rx/DC Orders Clinical Impression: Chest pain Prescriptions: No Action metoprolol succinate 50 mg tablet extended release 24 hr 1 ea PO DAILY pantoprazole 20 mg tablet,delayed release (DR/EC) 20 mg PO DAILY cholecalciferol (vitamin D3) 25 mcg (1,000 unit) capsule 50 mcg PO QDAY atorvastatin 80 MG tablet 80 mg PO QHS lisinopril-hydrochlorothiazide 1 EACH tablet 2 tab PO DAILY yjuhvxem-edd-GT-lycopen-lutein 1 EACH tablet 1 ea PO DAILY omega-3 fatty acids-fish oil 1 EACH capsule 1 ea PO DAILY acetaminophen 500 MG tablet 1,000 mg PO Q6H PRN Qty: 100 0RF Primary Care Provider: Alba Eldridge Referrals: Alba Eldridge MD [Primary Care Provider] - Activity Restrictions/Additional Instructions: Follow-up with your primary care physician outpatient setting. Take your blood pressure medication as prescribed. Return with worsening symptoms or any other concerns. Print Language: French Disposition Disposition: Against Medical Advice
--- NOTE | 2024-05-11 15:35 | RAD_ITS ---
INDICATION: chest pain EXAMINATION/TECHNIQUE: X-RAY - XR Chest 2 Views COMPARISON: April 22, 2023 FINDINGS: LINES/DEVICES: None. LUNGS: No consolidation, edema or effusion. No pneumothorax. MEDIASTINUM AND CARDIOVASCULAR STRUCTURES: Cardiac silhouette not enlarged. Central airways and mediastinal contour are unremarkable. BONES AND SOFT TISSUES: Degenerative vertebral changes. RAD/Chest PA and Lateral IMPRESSION: No radiographic evidence of acute cardiopulmonary disease. Electronically Signed: Honorio Thorpe DO at 16:47 EST ,
[2024-05-11 15:36] LABS: Absolute Lymphocyte Count 2.03 X10^3/uL (0.83-4.51); Absolute Neutrophil Count 4.2 X10^3/uL (2.0-7.7); Basophil# 0.02 X10^3/uL; Basophil% 0.3 % (0-1); Eosinophil# 0.07 X10^3/uL; Hematocrit 44.6 % (37-47); Hemoglobin 15.3 g/dL (12.0-15.0); Lymphocyte # 2.03 X10^3/ul (0.83-4.51); Lymphocyte % 29.4 % (19-41); Mean Corp Hgb Conc 34.3 g/dL (32-36); Mean Corpuscular Volume 90.5 fL (81-99); Mean Platelet Vol. 9.3 fl (6.2-12.0); Monocyte# 0.55 X10^3/uL; NRBC Flagged by Analyzer 0 % (0-5); Neutrophil # 4.22 X10^3/uL (2.7-7.7); Platelet Count 202 K/mm3 (150-450); RBC Distribution Width CV 12.6 % (11.6-14.6); RBC Distribution Width SD 41.5 fl (35.1-43.9); Red Blood Count 4.93 M/mm3 (4.2-5.4); White Blood Count 6.9 K/mm3 (4.4-11.0)
[2024-05-11 15:54] LABS: Anion Gap 6 (5-15); BUN 23 mg/dL (7-18); BUN/Creat Ratio 30.3 RATIO (10-20); Calcium,Total 10.8 mg/dL (8.5-10.1); Chloride 105 mmol/L (98-107); Creatinine, Serum 0.76 mg/dL (0.55-1.02); EST Glomerular Filtration Rate 80 mL/min (>60); Est Glom Filt Rate - Afr Amer 96 mL/min (>60); Estimated Creatinine Clearance 82.73 ml/min; Glucose 111 mg/dL (74-106); Potassium 3.5 mmol/L (3.5-5.1); Sodium Level 142 mmol/L (136-145); Troponin-I HS (w/2H Reflex) 10 pg/mL (3.0-54.0)
[2024-05-11] MEDS: cloNIDine HCl 0.2 MG Tablet PO (16:14)
[2024-05-11 16:51] VITALS: BP 180/83
[2024-05-11 17:34] LABS: Reflex Troponin-HS? (from REC) Y
--- NOTE | 2024-05-11 17:41 | ED.RN ---
PT STATES SHE DOES NOT WANT TO STAY FOR HER SECOND TROPONIN. PT STATES YOU SAID THAT YOU WOULD DO IT IN AN HOUR! THIS RN EXPLAINS TO PT THAT WHEN THE INITIAL BLOOD WAS DRAWN, THERE WOULD BE A SECOND ONE DRAWN 2 HOURS AFTER THE INITIAL TO RE-EVAL CARDIAC ENZYMES. PT PROCEEDS TO ARGUE WITH THIS RN UNTIL ALSO STATES HE HEARD 2 HOURS. THIS RN EXPLAINS TO PT THAT WE CANNOT FORCE HER TO STAY AND BE EVALUATED. DR GIRARD NOTIFIED AND TALKED TO PT. PT SIGNS AMA FORM.
[2024-05-11] MEDS: Lidocaine 2% Viscous15 ML UDC 15 ML PO (17:49)
[2024-05-11] MEDS: Mag Hydrox/Al Hydrox/Simeth 30 ML UDC PO (17:49)
[2024-05-11 17:51] VITALS: BP 180/83; PULSE 71; RESP 18; TEMP 36.8; O2SAT 99
== END 2024-05-11 17:51 | disposition left against medical advice (07) ==
PROVIDERS: Emergency Provider Emergency Medicine; PCP Family Medicine; Visit Provider Emergency Medicine
DX: R07.9 Chest pain, unspecified (principal); I10 Essential (primary) hypertension; Z87.891 Personal history of nicotine dependence; Z79.899 Other long term (current) drug therapy; Z90.710 Acquired absence of both cervix and uterus; Z96.659 Presence of unspecified artificial knee joint
CPT/HCPCS: 71046; 80048; 83880; 84484; 85025; 93005; 99284; A4216

== ENCOUNTER → 2024-06-26 | Outpatient (CLI) | payer MEDICARE, OTHER, SELFPAY ==
--- NOTE | 2024-06-26 13:13 | RAD_ITS ---
STUDY: XR Foot Min 3 Views CLINICAL: Female, 73 years old. PAIN TECHNIQUE: XR Foot 3 ViewsLEFT COMPARISON: None. FINDINGS: There is a plantar calcaneal spur. Achilles spur. Paraspinous deformity foot. Normal visualized subtalar, talonavicular, calcaneocuboid, tarsal and tarsometatarsal articulations. Normal metatarsi. Normal metatarsophalangeal joint of the great toe. Normal tibial and fibular sesamoid bones. Normal interphalangeal joint of the great toe. Normal phalanges of the great toe. Normal second through fifth metatarsophalangeal joints. Normal interphalangeal joints and phalanges of the lesser toes. The soft tissue structures are unremarkable. RAD/Foot min 3 Views IMPRESSION: There are no acute findings of the foot. There is a plantar calcaneal spur. Achilles spur. Paraspinous deformity foot. Electronically Signed: Quoc Freitas MD at 14:20 EST Reading Location ID and State: [facility] / [place] , Service support ,
== END | disposition home or self-care (01) ==
LOC: MTRAD 12:50
PROVIDERS: PCP Family Medicine; Referring Provider Podiatrist; Visit Provider Podiatrist
DX: M72.2 Plantar fascial fibromatosis (principal)
CPT/HCPCS: 73630

== ENCOUNTER → 2024-07-03 | Outpatient (CLI) | payer MEDICARE, OTHER, SELFPAY ==
--- NOTE | 2024-07-03 14:25 | RAD_ITS ---
INDICATION: Radiculopathy, lumbar region EXAMINATION/TECHNIQUE: X-RAY - XR Spine Lumbar 2 or 3 Views COMPARISON: 01/09/2008 FINDINGS: VERTEBRAE: Vertebral body height is maintained, there is a dextroscoliotic curvature and multilevel cervical spondylosis with moderate worsening. Marginal osteophyte formation and endplate sclerosis noted. No acute fractures or subluxation. Normal appearance of visualized sacrum, and the cingulate joints. Multilevel facet arthropathy from L3 to S1. DISCS: Significant disc changes with disc space narrowing endplate sclerosis and marginal osteophyte formation throughout the lumbar spine INCLUDED ABDOMEN: Included bowel gas pattern is non-obstructive. RAD/Lumbar Spine 2 or 3 Views IMPRESSION: 1. No fractures or acute destructive process is or subluxation. 2. Progressive worsening diffuse multilevel lumbar spondylosis with marginal osteophyte formation and extensive facet arthropathy. 3. Mild worsening of a dextroscoliotic curvature. Electronically Signed: Rob Leal MD at 23:06 EST ,
== END | disposition home or self-care (01) ==
PROVIDERS: PCP Family Medicine; Referring Provider Anesthesiology Pain Medicine; Visit Provider Anesthesiology Pain Medicine
DX: M54.16 Radiculopathy, lumbar region (principal)
CPT/HCPCS: 72100

== ENCOUNTER 2024-08-06 20:50 | Emergency (ER) | payer MEDICARE, OTHER, SELFPAY ==
[2024-08-06 20:51] VITALS: BP 209/97; PULSE 89; RESP 18; TEMP 37.2; O2SAT 93; BMI 36.0
[2024-08-06 20:55] VITALS: BP 209/97; PULSE 83; RESP 17; TEMP 37.2; O2SAT 93; O2SAT 96
[2024-08-06] MEDS: 0.9% Normal Saline (1000mL) 1,000 ML 1000 ML IV (21:12)
[2024-08-06] MEDS: Ondansetron 4 MG/2 ML Vial IV (21:12)
--- NOTE | 2024-08-06 21:20 | RAD_ITS ---
PROCEDURE: CHEST PA AND LATERAL REASON FOR EXAM: Cough, fever TECHNIQUE: Two views of the chest COMPARISON: 05/11/2024 FINDINGS: Cardiomediastinal silhouette is within normal limits. No focal consolidation, pleural effusion or sizable pneumothorax.
[2024-08-06 21:22] LABS: Absolute Lymphocyte Count 0.56 X10^3/uL (0.83-4.51); Absolute Neutrophil Count 4.7 X10^3/uL (2.0-7.7); Basophil# 0.02 X10^3/uL; Basophil% 0.3 % (0-1); Eosinophil# 0.01 X10^3/uL; Eosinophils% 0.2 % (0-5); Hematocrit 43.3 % (37-47); Hemoglobin 14.9 g/dL (12.0-15.0); Lymphocyte # 0.56 X10^3/ul (0.83-4.51); Lymphocyte % 9.4 % (19-41); Mean Corp Hgb Conc 34.4 g/dL (32-36); Mean Corpuscular Hgb 31.1 pg (27.0-32.0); Mean Corpuscular Volume 90.4 fL (81-99); Monocyte# 0.59 X10^3/uL; Monocyte% 9.9 % (0-10); NRBC Flagged by Analyzer 0 % (0-5); Neutrophil # 4.72 X10^3/uL (2.7-7.7); Neutrophil % 79.7 % (47-70); POSITIVE DIFFERENTIAL YES; Platelet Count 154 K/mm3 (150-450); RBC Distribution Width CV 12.7 % (11.6-14.6); RBC Distribution Width SD 41.6 fl (35.1-43.9); Red Blood Count 4.79 M/mm3 (4.2-5.4); White Blood Count 5.9 K/mm3 (4.4-11.0)
--- NOTE | 2024-08-06 21:27 | EDS_ITS ---
HPI History of Present Illness Chief Complaint: Shortness of Breath Detail of Chief Complaint: Systemic viral like symptoms/flulike Informant: patient Onset/Context/Timing Onset: Days (Onset August 03) Context: Sudden Onset Timing: Continuous Quality: Headache, upper respiratory tract infectious symptoms, myalgias arthralgias Location: Respiratory Current Severity: Mild Maximum Severity: Moderate Worsened by: Nothing Relieved by: Nothing Associated Symptoms Associated Symptoms: Decreased p.o. intake, decreased urine output, thirst and dry mouth Narrative Narrative: Patient is a 73-year-old woman. She has no stomach past medical history. She does have history based on meds of hypertension. She complains of headache. Denies double vision blurred vision loss of vision. Nuys ringing or ears decreased hearing. She does endorse rhinorrhea, congestion, postnasal drainage sore throat. She does endorse hoarse voice. She denies productive cough. She does not have history of asthma or COPD. She has not had a cigarette in 20 years. She did smoke for approximately 30 years. She does endorse nausea without vomiting or diarrhea. She informing that her on Saturday was diagnosed with influenza A and COVID. She states she feels terrible . Prior similar symptoms: No Recent Illness/Hospitalization: No [facility] Medical History Degenerative disc disease Scoliosis Arthritis Hiatal hernia HTN (hypertension) Home Medications ?Medication ?Instructions ?Recorded ?Last Taken ?Type lisinopril 20 2 tab PO DAILY htn 04/15/19 Unknown History mg-hydrochlorothiazide 25 mg tablet leoniqqy-lyu-gzqcq acid 0.4 1 ea PO DAILY supplement 1 Unknown History mg-lycopene 300 mcg-lutein 250 mcg tablet omega-3 fatty acids-fish oil 340 1 ea PO DAILY supplem ent 04/15/19 Unknown History mg-1,000 mg capsule acetaminophen 500 mg tablet 1,000 mg (2 x 500 mg) PO Q 6H PRN 07/12/20 Unknown Rx #100 tabs metoprolol succinate 50 mg 1 ea PO DAILY 07/12/21 Unkn own History tablet,extended release 24 hr pantoprazole 20 mg tablet,delayed 20 mg PO DAILY 12/04 Unknown History release cholecalciferol (vitamin D3) 25 50 mcg PO QDAY 03/23/ 4 Unknown History mcg (1,000 unit) capsule albuterol sulfate 90 mcg/actuation 2 puff inhalation Q 4H PRN PRN 08/06/24 Unknown Rx aerosol inhaler (Ventolin HFA) Wheezing #1 device clonidine HCl 0.1 mg tablet 0.1 mg PO BID #60 tabs Unknown Rx inhalational spacing device #1 ea 08/06/24 Unknown Rx (Aerochamber MV spacer) Allergy/AdvReac Type Severity Reaction Status Date / Time latex Allergy Rash Verified 08/06/24 20:51 Penicillins Allergy Rash Verified 08/06/24 20:51 tetracycline AdvReac Nausea/Vom/ Verified 08/06/24 20:51 Diarrhea Family History Mother Cancer Hypertension Grandmother Cancer Father Hypertension Sister Rheumatoid arthritis Surgical History History of total knee arthroplasty (~07/12/20) H/O: hysterectomy Hx of foot surgery Social History household members: spouse housing: house number of children: 2 Smoking Status: Former smoker alcohol intake: never seatbelt use: always do you feel safe at home: Yes additional social history: Rob HOLM ED Constitutional Constitutional ED: Reports chills, fever(s), subjective and sweats; Denies weight loss Eyes Eyes: Denies blurry vision, change in vision or diplopia ENT ENT ED: Reports rhinorrhea and sore throat; Denies ear pain Cardiovascular Cardiovascular: Denies chest pain, orthopnea, palpitations or paroxysmal nocturnal dyspnea Respiratory/Chest Respiratory/Chest: Reports cough and dyspnea; Denies dyspnea on exertion, orthopnea, paroxysmal nocturnal dyspnea or sputum Gastrointestinal Gastrointestinal: Reports nausea; Denies abdominal pain, constipation, diarrhea, melena or vomiting Genitourinary Genitourinary ED: Denies dysuria, hematuria or urinary frequency Musculoskeletal Musculoskeletal: Reports arthralgias and myalgias Integumentary Denies rash Neurologic Neurologic: Reports headache(s) and weakness; Denies paresthesias Psychiatric Psychiatric: Denies anxiety Endocrine Endocrinology: Denies cold intolerance or heat intolerance Hematologic/Lymphatic Hematologic/Lymphatic: Reports systems reviewed and no addt'l complaints, except as documented EXAM Physical Exam Narrative Exam Narrative: Vital signs are remarkable elevated blood pressure. Patient states she did take her blood pressure medication this morning which is lisinopril hydrochlorothiazide and metoprolol. Const Vital Signs: 08/06/24 20:51 08/06/24 20:55 08/06/24 20:55 Temperature 99 F 99 F Temperature Source Oral Oral Pulse Rate 89 83 Respiratory Rate 18 17 Respiratory Effort Short of Breath Respiratory Depth Shallow Respiratory Pattern Tachypnea Blood Pressure 209/97 H 209/97 H Blood Pressure Mean 134 134 Pulse Ox 93 96 Oxygen Delivery Method Room Air Room Air Room Air 08/06/24 21:45 08/06/24 22:10 08/06/24 23:00 Temperature Temperature Source Pulse Rate 91 93 97 Respiratory Rate 19 H 22 H 22 H Respiratory Effort Respiratory Depth Respiratory Pattern Normal Tachypnea Blood Pressure 201/77 H Blood Pressure Mean 118 Pulse Ox 90 Oxygen Delivery Method Room Air Positive well nourished Constitutional Narrative: BMI is 36.0. Patient appears ill. General Appearance ED: NAD; Negative for cyanotic, diaphoretic or pallor HEENT Reports TM's clear and dry mucous membranes Negative for trauma or tenderness Tympanic Membrane ED: Yes TM's clear Mouth ED: Yes dry mucous membranes Mouth: dry mucous membranes Eyes PERRL and EOMs intact bilaterally General Eye ED: Negative for pale conjunctiva or scleral icterus Neck no lymphadenopathy, supple and no JVD Chest Wall inspection of chest normal and palpation of chest normal Resp normal respiratory effort and No clear to auscultation bilaterally Auscultation: wheezes expiratory wheezes, scattered wheezes and throughout Cardio regular rate, regular rhythm, S1 normal heart sound, S2 normal heart sound and no murmurs GI normal to inspection, nondistended, normoactive bowel sounds, non-tender, non- distended and no masses; Negative for hepatosplenomegaly Back/Spine no CVA tenderness Extremity normal to inspection General Extremety ED: Negative for edema or tenderness General Extremity: Negative for edema Neuro oriented x3 and CN's II-XII intact bilaterally Sensorium / Orientation: alert Psych mental status grossly normal Skin no rashes or lesions noted, no wounds and No skin turgor normal General Skin Exam: Negative for jaundice or pallor MDM MDM MDM Narrative Medical decision making narrative: Clinically patient appears dehydrated. Patient's symptoms are consistent with flulike illness. Because she is wheezing she was treated with albuterol. Because of her age and medical problems CBC was obtained as well as BMP. This was obtained to assess white count differential and H&H and she appears pale. BMP was obtained to assess glucose, CO2 anion gap and renal function. Rapid antigen for flu, COVID and RSV was obtained as well. Lab Data Attestation: I reviewed the patient's lab results. Lab results narrative: CBC is normal. Comprehensive metabolic panel reveals slight elevation of glucose of 128 with a normal CO2 anion gap. Rapid antigen for COVID, influenza and RSV is positive for COVID. Labs: Laboratory Results - last 24 hr 08/06/24 21:12 WBC 5.9 RBC 4.79 Hgb 14.9 Hct 43.3 MCV 90.4 MCH 31.1 MCHC 34.4 RDW Std Deviation 41.6 RDW Coeff of Faizan 12.7 Plt Count 154 MPV 9.0 Immature Gran % (Auto) 0.500 Neut % (Auto) 79.7 H Lymph % (Auto) 9.4 L Brewster % (Auto) 9.9 Eos % (Auto) 0.2 Baso % (Auto) 0.3 Absolute Neuts (auto) 4.7 Absolute Lymphs (auto) 0.56 L Nucleated RBC % 0 Sodium 137 Potassium 3.2 L Chloride 101 Carbon Dioxide 29.0 Anion Gap 7 BUN 10 Creatinine 0.67 Estim Creat Clear Calc 77.49 Est GFR (MDRD) Af Amer 112 Est GFR (MDRD) Non-Af 93 BUN/Creatinine Ratio 15.0 Glucose 128 H Calcium 10.0 Total Bilirubin 0.70 AST 18 ALT 21 Alkaline Phosphatase 83 Total Protein 7.3 Albumin 3.4 Globulin 3.9 Albumin/Globulin Ratio 0.9 Radiography Chest X-Ray - ED: 2 View, Read by ED Physician, Normal, Heart, Mediastinum, Bony Structures and No Acute Disease (The film is slightly underpenetrated and patient's has a BMI of 36 which probably is led to this as well.) Diagnostic Testing: Clinical Impression(s) from Imaging Studies Chest X-Ray 08/06/24 21:20 IMPRESSION: No acute airspace abnormality. Reading Location: [facility] Treatment and Re-Evaluation :: Patient is improved after aerosol treatments and IV fluids. She and her family were informed that she is positive for COVID. Comments:: Since patient systolic is 210 will treat her blood pressure with clonidine even though she is asymptomatic. She states she has had difficulty controlling her blood pressure recently. Patient has used inhaler in the past. Patient was written for an inhaler with spacer she also was prescribed clonidine. Discharge Plan Triage Chief Complaint: Shortness of Breath ED Provider: Gray Wray Dx/Rx/DC Orders Clinical Impression: COVID-19 virus infection, Acute bronchospasm, Acute dehydration, Accelerated essential hypertension Instructions: Coronavirus Disease 2019 (COVID-19): Caring for Yourself or Others, ED Hypertension, Established Prescriptions: New clonidine HCl 0.1 mg tablet 0.1 mg PO BID Qty: 60 0RF (DME) Aerochamber MV Spacer See Rx Instructions .Route Qty: 1 0RF Rx Instructions: As directed albuterol sulfate [Ventolin HFA] 90 mcg/actuation HFA aerosol inhaler 2 puff inhalation Q4H PRN PRN (Reason: Wheezing) Qty: 1 0RF No Action metoprolol succinate 50 mg tablet extended release 24 hr 1 ea PO DAILY pantoprazole 20 mg tablet,delayed release (DR/EC) 20 mg PO DAILY cholecalciferol (vitamin D3) 25 mcg (1,000 unit) capsule 50 mcg PO QDAY lisinopril-hydrochlorothiazide 1 EACH tablet 2 tab PO DAILY nqsmcaer-ken-EX-lycopen-lutein 1 EACH tablet 1 ea PO DAILY omega-3 fatty acids-fish oil 1 EACH capsule 1 ea PO DAILY acetaminophen 500 MG tablet 1,000 mg PO Q6H PRN Qty: 100 0RF Primary Care Provider: Alba Eldridge Referrals: Alba Eldridge MD [Primary Care Provider] - 1-2 Weeks Activity Restrictions/Additional Instructions: You will be sick for another 5 to 7 days. Use spacer with inhaler. 2 puffs every 2-4 hours while awake for the next 3 to 5 days then every 4-6 hours as needed for wheezing Take new blood pressure med as prescribed. You will need to follow-up with your doctor to have this continued because you cannot stop it abruptly. Recommend make an appointment to be seen in 1 to 2 weeks. Print Language: Khmer Disposition Disposition: Home, Self Care
[2024-08-06 21:39] LABS: ALB/GLOB Ratio 0.9 RATIO (0.9-2.4); AST(SGOT) 18 U/L (15-37); Alanine Aminotransfer ALT/SGPT 21 U/L (13-56); Albumin, Serum 3.4 g/dL (3.2-5.0); Alkaline Phosphatase 83 U/L (45-117); Anion Gap 7 (5-15); BUN 10 mg/dL (7-18); Chloride 101 mmol/L (98-107); Creatinine, Serum 0.67 mg/dL (0.55-1.02); EST Glomerular Filtration Rate 93 mL/min (>60); Est Glom Filt Rate - Afr Amer 112 mL/min (>60); Estimated Creatinine Clearance 77.49 ml/min; Globulin 3.9 g/dL (2.2-4.2); Glucose 128 mg/dL (74-106); Potassium 3.2 mmol/L (3.5-5.1); Protein, Total 7.3 g/dL (6.4-8.2); Sodium Level 137 mmol/L (136-145)
[2024-08-06 21:45] VITALS: PULSE 91; RESP 19
[2024-08-06] MEDS: Albuterol 2.5 MG/3 ML VIAL.NEB. INHALATION ×2 (21:45→22:10)
[2024-08-06 22:10] VITALS: PULSE 93; RESP 22
[2024-08-06] MEDS: cloNIDine HCl 0.2 MG Tablet PO (22:58)
[2024-08-06] MEDS: Acetaminophen 500 MG Tablet 1000 MG PO (22:58)
[2024-08-06 23:00] VITALS: BP 201/77; PULSE 97; RESP 22; O2SAT 90
[2024-08-06] MEDS: dexAMETHasone 4 MG Tablet 6 MG PO (23:23)
[2024-08-06 23:34] VITALS: BP 180/85; PULSE 93; RESP 22; TEMP 36.7; O2SAT 92
== END 2024-08-06 23:52 | disposition home or self-care (01) ==
PROVIDERS: Emergency Provider Emergency Medicine; PCP Family Medicine; Referring Provider Emergency Medicine; Visit Provider Emergency Medicine
DX: U07.1 COVID-19 (principal); Z90.710 Acquired absence of both cervix and uterus; J98.01 Acute bronchospasm; E86.0 Dehydration; Z87.891 Personal history of nicotine dependence; I10 Essential (primary) hypertension; R06.02 Shortness of breath; Z79.899 Other long term (current) drug therapy
CPT/HCPCS: 71046; 80053; 85025; 87631; 94640; 96361; 96374; 99285; A4216; J2405

== ENCOUNTER → 2024-11-09 | Outpatient (CLI) | payer MEDICARE, OTHER, SELFPAY ==
--- NOTE | 2024-11-09 12:13 | BI_ITS ---
EXAM: SCRN MAMM (CAD)W/FAHAD BILAT DATE: 11/09/2024 CLINICAL HISTORY: F, Age 74 y/o , SCREENING BREAST CANCER RISK ASSESSMENT: Has not been calculated. TECHNIQUE: Bilateral screening digital breast tomosynthesis with 2D and 3D images. Computer aided detection. COMPARISON: Prior exam(s) dated 11/13/2023 and 11/06/2022. FINDINGS: TISSUE DENSITY: The breast tissue is almost entirely fatty. Bilateral Breast Mammographic Findings: There are no suspicious masses, suspicious cluster of microcalcifications, architectural distortion or secondary signs of malignancy identified in either breast. Benign-appearing round microcalcifications are seen in both breast. BI/SCRN MAMM (CAD)W/FAHAD BILAT IMPRESSION: OVERALL FINAL ASSESSMENT: BIRADS 2 BENIGN FINDING RECOMMENDATION: Routine annual follow-up in 1 Year A letter with findings and recommendations will be mailed to the patient. Reading Location: [id number]
== END | disposition home or self-care (01) ==
LOC: OPBI 12:12
PROVIDERS: PCP Family Medicine; Referring Provider Family Medicine; Visit Provider Family Medicine
DX: Z12.31 Encounter for screening mammogram for malignant neoplasm of breast (principal)
CPT/HCPCS: 77063; 77067

== ENCOUNTER → 2024-11-13 | Outpatient (CLI) | payer MEDICARE, OTHER, SELFPAY ==
--- NOTE | 2024-11-13 09:00 | RAD_ITS ---
EXAM: XR Left Knee, 3 Views CLINICAL INDICATION: PAIN AFTER HISTORY OF TOTAL KNEE TECHNIQUE: Three views of the left knee. COMPARISON: No relevant prior studies available. FINDINGS: BONES/JOINTS: Total knee replacement. Intact hardware. No acute fracture. No dislocation. SOFT TISSUES: Soft tissue emphysema and swelling. RAD/Knee 3 Views IMPRESSION: 1. Status post total knee replacement in anatomic position. 2. Postoperative changes as above. Reading Location: [facility]
== END | disposition home or self-care (01) ==
LOC: MTRAD 08:28
PROVIDERS: PCP Family Medicine; Referring Provider Orthopaedic Surgery; Visit Provider Orthopaedic Surgery
DX: Z96.652 Presence of left artificial knee joint (principal)
CPT/HCPCS: 73562

== ENCOUNTER 2024-12-19 19:31 | Emergency (ER) | payer MEDICARE, OTHER, SELFPAY ==
[2024-12-19 19:32] VITALS: BP 233/82; PULSE 64; RESP 16; TEMP 36.8; O2SAT 98; BMI 40.4
--- NOTE | 2024-12-19 19:52 | RAD_ITS ---
PROCEDURE: LUMBAR SPINE 2 OR 3 VIEWS 12/19/2024 REASON FOR EXAM: INJURY/PAIN TECHNIQUE: LUMBAR SPINE 2 OR 3 VIEWS COMPARISON: L-spine radiographs 07/06/2024. FINDINGS: Vertebrae: No acute fracture. Mild, chronic multilevel vertebral body height loss. Discs: Advanced multilevel disc space narrowing with endplate osteophytes. Facet arthropathy throughout the lumbar spine. Alignment: Unchanged mild dextroscoliotic curvature with multilevel degenerative spondylosis. No traumatic listhesis. Other: Vascular calcifications. RAD/Lumbar Spine 2 or 3 Views IMPRESSION: ADVANCED DEGENERATIVE CHANGES OF THE LUMBAR SPINE. NO ACUTE OSSEOUS FRACTURE. Reading Location: [id number]
--- OUTSIDE RECORDS SUMMARY | 2024-12-19 19:57 | XMS RPT_ITS | CCD ---
Author Organization [facility] Care Team Providers Care Rn Utilization Management Um Name Role Phone TI VASQUEZ Unavailable Unavailable TI VASQUEZ Unavailable Unavailable TI VASQUEZ Unavailable Unavailable Dr. Alba Eldridge Referring Provider [phone] Walter Singh Attending Provider [phone] Dr. Paras Palafox Attending Provider [phone] Walter Singh Referring Provider [phone] Dr. Alba Eldridge Primary Care Provider [phone] Dr. Alba Eldridge Referring Provider GENAN Diamond Attending Provider [phone] Dr. Paras Palafox Attending Provider [phone] Dr. Alba Eldridge Primary Care Provider [phone] Dr. Alba Eldridge Referring Provider Miladys VAIL PA Oliver Attending Provider [phone] Dr. Paras Palafox Attending Provider [phone] Dr. Alba Eldridge Primary Care Provider [phone] Dr. Alba Eldridge Referring Provider [phone] Miladys VAIL PA Oliver Attending Provider [phone] Dr. Paras Palafox Attending Provider [phone] Alba Eldridge Primary Care Provider [phone] Dr. Alba Eldridge Referring Provider [phone] Walter Singh Attending Provider [phone] Dr. Paras Palafox Attending Provider Dr. Alba Eldridge Primary Care Provider [phone] Dr. Alba Eldridge Referring Provider Dr. Walter Singh Attending Provider Dr. Paras Palafox Attending Provider [phone] Jazmyn COOPER, Dr. Willis Primary Care Provider Nils COOPER, Dr. Castellano Attending Provider Nils COOPER, Dr. Castellano Referring Provider Nils COOPER, Dr. Castellano Emergency Provider Jazmyn COOPER, Dr. Willis Referring Provider [phone] Dr. Walter Singh DO Attending Provider Javy COOPER, Dr. Crain Attending Provider Jazmyn COOPER, Dr. Willis Attending Provider [phone] Dr. Walter Singh DO Referring Provider Miedel, Alba Primary Care Unavailable Shireen Calvert Attending Unavailable Miedel, Alba Referring Unavailable Miedel, Alba Primary Care Unavailable Miedel, Alba Attending Unavailable Miedel, Alba Referring Unavailable Shireen Calvert Attending Unavailable Shireen Calvert Referring Unavailable Miedel, Alba Primary Care Unavailable Kulwinder Espinosa Attending Unavailable Miedel, Alba Primary Care Unavailable Miedel, Alba Primary Care Unavailable Beltran Bernabe Attending Unavailable Miedel, Alba Referring Unavailable HornCandida Attending Unavailable Horn, Candida Referring Unavailable Miedel, Alba Primary Care Unavailable Blanca Brown Attending Unavailable Blanca Brown Referring Unavailable Miedel, Alba Primary Care Unavailable Gray Wray Attending Unavailable Gray Wray Referring Unavailable Miedel, Alba Primary Care Unavailable Miedel, Alba Attending Unavailable Miedel, Alba Referring Unavailable Angeedel, Alba Primary Care Unavailable Walter Singh Attending Unavailable Walter Singh Referring Unavailable Miedel, Alba Primary Care Unavailable Walter Singh Attending Unavailable [facility] Referring Unavailable [facility] Primary Care Unavailable Paras Palafox Attending Unavailable [facility] Primary Care Unavailable Walter Singh Attending Unavailable [facility] Referring Unavailable [facility] Primary Care Unavailable [facility] Primary Care Unavailable Neftali Justin Attending Unavailable [facility] Referring Unavailable Allergies Allergy Classification Reported Allergen(s) Allergy Type Date of Onset Reaction(s) Facility (11 sources) Latex Allergy to substance 1 [facility] (12 sources) Penicillins; Translations: [Penicillins] Allergy to substance 1 [facility] (11 sources) Tetracycline Drug Allergy 1 Nausea/Vom/Diar rob [facility] (1 source) Latex Drug allergy (disorder) 5 [facility] (1 source) Tetracycline Drug Allergy 5 [facility] Medications Current Medications Medication Drug Class(es) Dates Sig (Normalized) Sig (Original) acetaminophen 500 mg oral tablet (20 sources) Start: 07-01-2020 End: 10-03-2020 take 2 tablets by mouth every six hours as needed Acetaminophen 500 MG tablet Active 1000 mg PO EVERY 6 HOURS NEEDED July 12, 2020 1:00am Start: 07-01-2020 End: 10-03-2020 take 1000 mg by mouth every six hours as needed Acetaminophen Active 1000 MG PO EVERY 6 HOURS NEEDED July 12, 2020 1:00am [id number] actuat albuterol 0.09 mg/actuat metered dose inhaler (2 sources) beta2-Adrenergic Agonist Start: 08-06-2024 Albuterol Sulfate (Ventolin Hfa) 90 mcg/actuation HFA aerosol inhaler Active 2 NMA INHALATION EVERY 4 HOURS NEEDED as needed for Wheezing August 06, 2024 1:00am cholecalciferol 0.025 mg oral capsule (2 sources) Vitamin D Start: 03-23-2024 take 1 capsule by mouth once daily Cholecalciferol (Vitamin D3) 25 mcg (1,000 unit) capsule Active 50 ug PO daily Eneida 30th, 2024 12:00am cloNIDine hydrochloride 0.1 mg oral tablet (2 sources) Central alpha-2 Adrenergic Agonist Start: 08-06-2024 take 1 tablet by mouth twice daily Clonidine Hcl 0.1 mg tablet Active 0.1 mg PO TWICE A DAY August 06, 2024 1:00am hydroCHLOROthiazide 25 mg / lisinopril 20 mg oral tablet (11 sources) Thiazide Diuretic, Angiotensin Converting Enzyme Inhibitor Start: 04-15-2019 Lisinopril-Hydroch lorothiazide 1 EACH tablet Active 2 {tbl} PO DAILY April 15, 2019 12:00am Start: 04-15-2019 take 2 tablets by mouth once daily Lisinopril-Hydrochlorothiazide Active 2 TABLET PO DAILY April 15, 2019 12:00am Inhalational Spacing Device (Aerochamber Mv) spacer (2 sources) Start: 08-06-2024 Inhalational Spacing Device (Aerochamber Mv) spacer Active 0 .Route 1 August 06, 2024 1:00am As directed methylPREDNISolone 4 mg oral tablet (1 source) Corticosteroid Start: 11-13-2024 take 1 tablet by mouth once Methylprednisolone (Medrol (Branden)) 4 mg tablets,dose pack Active 0 PO per package directions November 13, 2024 12:00am Take as directed 24 hr metoprolol succinate 50 mg extended release oral tablet (11 sources) beta-Adrenergic Jeaneth Start: 07-12-2021 take 1 tablet by mouth once daily Metoprolol Succinate 50 mg tablet extended release 24 hr Active 1 NMA PO DAILY July 12, 2021 1:00am Twiuguiz-Hio-Ny-Lycope n-Lutein (9 sources) Start: 04-15-2019 Gtzvnnhh-Mig-Mv-Lycop en-Lutein Active 1 EACH PO DAILY April 15, 2019 4:50pm Start: 04-15-2019 Slnlrlhp-Ctd-T l-Oqahdet-Fuwayx Active 1 EACH PO DAILY April 14, 2019 11:00pm Start: 04-15-2019 Cjivnqhi-Qgk-R r-Zmtbqrk-Vmgakk Active 1 EACH PO DAILY April 15, 2019 12:00am Fpxbtoqt-Xrb-Ra-Lycopen-Lute in 1 EACH tablet (2 sources) Start: 04-15-2019 Quncqilg-Usq-Na-Lycopen-Lute in 1 EACH tablet Active 1 NMA PO DAILY April 15, 2019 12:00am Hustle-3 Fatty Acids-Fish Oil (9 sources) Start: 04-15-2019 Hustle-3 Fatty Acids-Fish Oil Active 1 EACH PO DAILY April 15, 2019 4:50pm Start: 04-15-2019 Hustle-3 Fatty Acids-Fish Oil Active 1 EACH PO DAILY April 14, 2019 11:00pm Start: 04-15-2019 Hustle-3 Fatty Acids-Fish Oil Active 1 EACH PO DAILY April 15, 2019 12:00am Hustle-3 Fatty Acids-Fish Oil 1 EACH capsule (2 sources) Start: 04-15-2019 Hustle-3 Fatty Acids-Fish Oil 1 EACH capsule Active 1 NMA PO DAILY April 15, 2019 12:00am pantoprazole 20 mg delayed release oral tablet (20 sources) Proton Pump Inhibitor Start: 12-04-2021 take 1 tablet by mouth once daily Pantoprazole 20 mg tablet,delayed release (DR/EC) Active 20 mg PO DAILY December 04, 2021 12:00am Start: 07-12-2020 End: 07-12-2021 take 2 tablets by mouth once daily Pantoprazole 20 MG tablet Discontinued 40 mg PO DAILY July 12, 2020 1:00am July 12, 2021 11:22am Start: 07-12-2020 End: 07-12-2021 take 40 mg by mouth once daily Pantoprazole Discontinu ed 40 MG PO DAILY July 12, 2020 1:00am July 12, 2021 11:22am Start: 04-15-2019 End: 06-27-2020 Pantoprazole 40 MG tablet Discontinued 20 mg PO TWICE A DAY April 15, 2019 12:00am June 27, 2020 3:42pm Start: 04-15-2019 End: 06-27-2020 take 20 mg by mouth twice daily Pantoprazole Discontin ued 20 MG PO TWICE A DAY April 15, 2019 12:00am June 27, 2020 3:42pm Completed/Discontinued Medications Medication Drug Class(es) Dates Sig (Normalized) Sig (Original) apixaban 2.5 mg oral tablet (11 sources) Factor Xa Inhibitor Start: 07-12-2020 End: 10-03-2020 take 1 tablet by mouth twice daily in the morning Apixaban 2.5 MG tablet Discontinued 2.5 mg PO TWICE A DAY July 12, 2020 1:00am October 03, 2020 10:28am begin the morning after surgery ascorbic acid 1000 mg oral tablet (11 sources) Vitamin C Start: 04-20-2020 End: 07-12-2021 take 1 tablet by mouth once daily Ascorbic Acid (Vitamin C) 1,000 MG tablet Discontinued 1000 mg PO DAILY April 20, 2020 12:00am July 12, 2021 11:21am Ascorbic Acid-Elderberry Fruit (9 sources) Start: 04-20-2020 End: 07-12-2021 Ascorbic Acid-Elderberry Fruit Discontinued 1 EACH PO DAILY April 20, 2020 8:48am July 12, 2021 11:21am Start: 04-20-2020 End: 07-12-2021 Ascorbic Acid-Elderberry Fru it Discontinued 1 EACH PO DAILY April 19, 2020 11:00pm July 12, 2021 10:21am Start: 04-20-2020 End: 07-12-2021 Ascorbic Acid-Elderberry Fru it Discontinued 1 EACH PO DAILY April 20, 2020 12:00am July 12, 2021 11:21am Ascorbic Acid-Elderberry Fruit 1 EACH tablet,chewable (2 sources) Start: 04-20-2020 End: 07-12-2021 take 1 tablet by mouth once daily Ascorbic Acid-Elderberry Fruit 1 EACH tablet,chewable Discontinued 1 NMA PO DAILY April 20, 2020 12:00am July 12, 2021 11:21am aspirin 81 mg chewable tablet (11 sources) Platelet Aggregation Inhibitor, Nonsteroidal Anti-inflammatory Drug Start: 04-15-2019 End: 07-12-2021 take 1 tablet by mouth once daily Aspirin 81 MG tablet,chewable Discontinued 81 mg PO DAILY@0800 April 15, 2019 12:00am July 12, 2021 11:21am atorvastatin 80 mg oral tablet (11 sources) HMG-CoA Reductase Inhibitor Start: 04-15-2019 End: 08-06-2024 take 1 tablet by mouth at bedtime Atorvastatin 80 MG tablet Discontinued 80 mg PO AT BEDTIME April 15, 2019 12:00am August 06, 2024 9:57pm cephalexin 500 mg oral capsule (19 sources) Cephalosporin Antibacterial Start: 07-05-2023 End: 07-26-2023 take 4 tablets by mouth every hour Cephalexin Discontinued 2000 MG PO ONCE 4 July 05, 2023 1:00am July 26, 2023 6:41am Take 4 tabs within 1 hour prior to dental procedure Start: 05-29-2023 End: 07-26-2023 take 4 tablets by mouth every hour Cephalexin 500 mg capsule Discontinued 2000 mg PO ONCE 4 July 05, 2023 1:00am July 26, 2023 6:41am Take 4 tabs within 1 hour prior to dental procedure Start: 07-12-2020 End: 07-25-2020 Cephalexin 500 MG capsule Discontinued 1000 mg PO EVERY 8 HOURS 4 July 12, 2020 1:00am July 25, 2020 11:42am take 2 tabs at 9:00 pm and 2 tabs after 5 am when you wake up Start: 07-12-2020 End: 07-25-2020 Cephalexin Discontinued 1000 MG PO EVERY 8 HOURS 4 July 12, 2020 1:00am July 25, 2020 11:42am take 2 tabs at 9:00 pm and 2 tabs after 5 am when you wake up clindamycin 300 mg oral capsule (3 sources) Lincosamide Antibacterial Start: 08-12-2023 End: 01-31-2024 take 2 capsules by mouth every hour Clindamycin Hcl 300 mg capsule Discontinued 600 mg PO ONCE 2 August 12, 2023 1:00am January 31, 2024 8:14am Take 2 capsules within 1 hour prior to dental procedure. Start: 08-12-2023 take 2 capsules by m outh every hour Clindamycin Hcl Active 600 MG PO ONCE 2 August 12, 2023 1:00am Take 2 capsules within 1 hour prior to dental procedure. diclofenac sodium 50 mg delayed release oral tablet (11 sources) Nonsteroidal Anti-inflammatory Drug Start: 04-15-2019 End: 07-12-2021 take 1 tablet by mouth twice daily at mealtime Diclofenac Sodium 50 MG tablet Discontinued 50 mg PO TWICE DAILY WITH MEALS April 15, 2019 12:00am July 12, 2021 11:21am docusate sodium 100 mg oral capsule (11 sources) Start: 07-18-2020 End: 03-06-2021 take 1 capsule by mouth twice daily Docusate Sodium (Colace) 100 mg capsule Discontinued 100 mg PO TWICE A DAY July 18, 2020 1:00am March 06, 2021 10:28am estradiol 0.5 mg oral tablet (20 sources) Estrogen Start: 03-23-2024 End: 03-25-2024 take 0.25 mg by mouth every other day Estradiol 0.5 mg tablet Discontinued 0.25 mg PO .every other day March 23, 2024 3:24pm March 25, 2024 11:04am Start: 02-28-2023 End: 03-23-2024 take 0.25 mg by mouth two times weekly Estradiol 0.5 mg tablet Discontinued 0.25 mg PO .twice a week February 28, 2023 9:53am March 23, 2024 3:26pm Start: 02-28-2023 take 0.25 mg by mout h two times weekly Estradiol Active 0.25 MG PO .twice a week February 28, 2023 9:53am Start: 12-04-2021 End: 02-28-2023 take 0.25 mg by mouth every other day Estradiol 0.5 mg tablet Discontinued 0.25 mg PO .qod December 04, 2021 10:21am February 28, 2023 9:54am Start: 12-04-2021 End: 02-28-2023 take 0.25 mg by mouth every other day Estradiol Discontinued 0.25 MG PO .qod December 04, 2021 10:21am February 28, 2023 9:54am Start: 04-15-2019 End: 12-04-2021 Estradiol 0.5 MG tablet Disc ontinued 0.5 {tbl} PO DAILY April 15, 2019 12:00am December 04, 2021 10:22am Start: 07-04-2016 End: 07-06-2016 Estradiol (Estrace) 1 MG tab let Discontinued 1 mg PO MOWEFR July 04, 2016 1:00am July 06, 2016 11:47am lansoprazole 15 mg delayed release oral capsule (11 sources) Proton Pump Inhibitor Start: 07-01-2020 End: 07-04-2020 Lansoprazole 15 MG capsule,delayed release(DR/EC) Discontinued 15 mg NG THREE TIMES A DAY July 01, 2020 1:00am July 04, 2020 4:13pm lovastatin 20 mg oral tablet (11 sources) HMG-CoA Reductase Inhibitor Start: 07-04-2016 End: 07-06-2016 take 3 tablets by mouth at bedtime Lovastatin 20 MG tablet Discontinued 60 mg PO AT BEDTIME July 04, 2016 1:00am July 06, 2016 11:46am Start: 07-04-2016 End: 07-06-2016 take 60 mg by mouth at bedtime Lovastatin Discontinued 60 MG PO AT BEDTIME July 04, 2016 1:00am July 06, 2016 11:46am nitrofurantoin, macrocrystals 25 mg / nitrofurantoin, monohydrate 75 mg oral capsule (2 sources) Nitrofuran Antibacterial Start: 03-25-2024 End: 04-01-2024 take 1 capsule by mouth every twelve hours at mealtime Nitrofurantoin Monohyd/M-Cryst (Macrobid) 100 mg capsule Discontinued 100 mg PO Q12H 14 7 March 25, 2024 12:00am March 31, 2024 12:00am April 01, 2024 12:08am administer with a meal/food; swallow whole; do not open, crush, dissolve , or chew ondansetron 4 mg oral tablet (11 sources) Serotonin-3 Receptor Antagonist Start: 07-12-2020 End: 07-17-2020 take 1 tablet by mouth every six hours as needed for nausea Ondansetron Hcl 4 MG tablet Discontinued 4 mg PO EVERY 6 HOURS NEEDED as needed for Nausea 10 5 July 12, 2020 1:00am July 16, 2020 1:00am July 17, 2020 1:03am oxyCODONE hydrochloride 10 mg oral tablet (20 sources) Opioid Agonist Start: 07-26-2023 End: 01-31-2024 take 1 tablet by mouth every eight hours as needed for pain Oxycodone 10 mg tablet Discontinued 10 mg PO Q8H as needed for pain 12 3 July 26, 2023 January 31, 2024 8:14am Start: 08-29-2020 End: 10-03-2020 take 5-10 mg by mouth every six hours as needed for pain Oxycodone 5 mg tablet Discontinued 5 - 10 mg PO EVERY 6 HOURS as needed for Pain Score 6-10 56 August 29, 2020 October 03, 2020 10:28am Start: 07-25-2020 End: 08-13-2020 take 5-10 mg by mouth every six hours as needed for pain Oxycodone 5 mg tablet Discontinued 5 - 10 mg PO EVERY 6 HOURS as needed for Pain Score 6-10/10 40 5 August 08, 2020 August 12, 2020 1:00am August 13, 2020 1:03am Start: 07-12-2020 End: 08-29-2020 take 1-2 tablets by mouth every four hours as needed for pain Oxycodone 5 MG tablet Discontinued 5 mg PO EVERY 4 HOURS NEEDED as needed for Pain Score 6-10 60 July 12, 2020 August 29, 2020 4:17pm 1-2 tabs by mouth every 4 hrs as needed for pain polymyxin [id number] unt/ml / trimethoprim 1 mg/ml ophthalmic solution (2 sources) Dihydrofolate Reductase Inhibitor Antibacterial, Polymyxin-class Antibacterial Start: 01-31-2024 End: 02-07-2024 Polymyxin B Sulf-Trimethoprim 10,000 unit- 1 mg/mL drops Discontinued 1 NMA OPHTHALMIC Q3H 10 7 January 31, 2024 12:00am February 06, 2024 12:00am February 07, 2024 12:05am while awake; do not exceed 6 doses in 24 hours sucralfate 1000 mg oral tablet (10 sources) Aluminum Complex Start: 03-01-2022 End: 02-28-2023 take 1 tablet by mouth twice daily as needed for gastroesophageal reflux disease Sucralfate (Carafate) 1 gram tablet Discontinued 1 g PO TWICE A DAY as needed for GERD March 01, 2022 8:20pm February 28, 2023 9:54am Problems Active Problems Problem Classification Problem Date Documented Da te Episodic/Chronic Abdominal hernia (10 sources) Hiatal hernia; Translations: [Diaphragmatic hernia without obstruction or gangrene] 03-09-2022 Episodic Abdominal pain (19 sources) Epigastric pain; Translations: [Epigastric pain] 11-09-2019 Episodic Anxiety disorders (11 sources) Anxiety; Translations: [Anxiety disorder, unspecified] 04-15-2019 Chronic Cardiac and circulatory congenital anomalies (11 sources) Patent foramen ovale; Translations: [Atrial septal defect] 04-15-2019 Chronic Cardiac dysrhythmias (7 sources) Palpitations; Translations: [Palpitations] 04-22-2023 Episodic Diabetes mellitus without complication (7 sources) Hyperglycemia; Translations: [Hyperglycemia, unspecified] 04-22-2023 Episodic Disorders of lipid metabolism (1 source) Hyperlipidemia, unspecified; Translations: [Hyperlipidemia, unspecified] Onset: 02-28-2024 Chronic E Codes: Adverse effects of medical drugs (7 sources) Adverse reaction to drug; Translations: [Adverse effect of unspecified drugs, medicaments and biological substances, initial encounter] 04-22-2023 Episodic Essential hypertension (2 sources) Malignant essential hypertension; Translations: [Essential (primary) hypertension] 08-14-2024 Chronic Fluid and electrolyte disorders (13 sources) Hypokalemia; Translations: [Hypokalemia] 04-16-2019 Episodic Hypertension with complications and secondary hypertension (11 sources) Hypertensive urgency ; Translations: [Hypertensive urgency] 04-15-2019 Chronic Inflammation; infection of eye (except that caused by tuberculosis or sexually transmitteddisease) (2 sources) Conjunctivitis of left eye; Translations: [Unspecified conjunctivitis] 01-31-2024 Episodic Menopausal disorders (2 sources) Menopausal syndrome; Translations: [Menopausal and female climacteric states] 03-23-2024 Chronic Comment on above: recommend stopping H RT. Osteoarthritis (20 sources) Osteoarthritis of left knee joint; Translations: [Unilateral primary osteoarthritis, left knee] Onset: 09-18-2024 07-01-2020 Chronic Other congenital anomalies (2 sources) Herniated urinary bladder 03-23-2024 Chronic Comment on above: may be source of vag inal bleeding. if symptomatic recommend wyneski referral. Other connective tissue disease (16 sources) History of total knee arthroplasty; Translations: [Presence of unspecified artificial knee joint] Onset: 06-24-2020 12-04-2021 Chronic Other connective tissue disease (2 sources) Presence of unspecified artificial knee joint; Translations: [Knee joint replacement] Onset: 06-24-2020 Chronic Other connective tissue disease (1 source) Presence of left artificial knee joint; Translations: [Presence of left artificial knee joint] Onset: 11-17-2024 Chronic Other connective tissue disease (8 sources) Patellar tendonitis; Translations: [Patellar tendinitis, left knee] 12-04-2021 Episodic Other connective tissue disease (1 source) Patellar tendinitis, left knee; Translations: [Patellar tendinitis] Episodic Other connective tissue disease (7 sources) Iliotibial band friction syndrome of right knee; Translations: [Iliotibial band syndrome, right leg] 02-28-2023 Episodic Other connective tissue disease (11 sources) Iliotibial band friction syndrome; Translations: [Iliotibial band syndrome, right leg] 02-28-2023 Episodic Other connective tissue disease (3 sources) Iliotibial band syndrome, right leg; Translations: [Other disorders of muscle, ligament, and fascia] 02-28-2023 Episodic Other connective tissue disease (2 sources) Tendonitis of left patellar tendon; Translations: [Patellar tendinitis, left knee] 12-04-2021 Episodic Other female genital disorders (2 sources) Vaginal bleeding; Translations: [Abnormal uterine and vaginal bleeding, unspecified] 03-23-2024 Chronic Comment on above: post hysterectomy Other gastrointestinal disorders (7 sources) H/O: abdominal hernia; Translations: [Personal history of other diseases of the digestive system] 04-22-2023 Episodic Other lower respiratory disease (1 source) Shortness of breath; Translations: [Shortness of breath] Onset: 08-20-2024 Episodic Other non-traumatic joint disorders (18 sources) Pain in left knee; Translations: [Left knee pain] Episodic Other non-traumatic joint disorders (3 sources) Pain in right knee; Translations: [Pain in joint, lower leg] 02-28-2023 Episodic Other non-traumatic joint disorders (5 sources) Heterotopic ossification of joint; Translations: [Other specified joint disorders, unspecified joint] 09-18-2024 Episodic Other screening for suspected conditions (not mental disorders or infectious disease) (1 source) Encounter for screening mammogram for malignant neoplasm of breast; Translations: [Encounter for screening mammogram for malignant neoplasm of breast] Onset: 11-11-2024 Episodic Other upper respiratory disease (2 sources) Acute bronchospasm; Translations: [Acute bronchospasm] 08-14-2024 Episodic Transient cerebral ischemia (11 sources) Cerebral ischemia; Translations: [Transient cerebral ischemic attack, unspecified] 04-15-2019 Chronic Unclassified (4 sources) Iliotibial band syndrome; Translations: [M76.30 - Iliotibial band syndrome, unspecified leg] Viral infection (13 sources) Viral disease; Translations: [Viral infection, unspecified] 04-16-2019 Episodic Past or Other Problems Problem Classification Problem Date Documented Da te Episodic/Chronic Genitourinary symptoms and ill-defined conditions (3 sources) Urgent desire to urinate; Translations: [Urgency of urination] Onset: 04-15-2024 03-23-2024 Episodic Comment on above: ua and culture, if h ematuria recommend urogyn consult Nonspecific chest pain (13 sources) Chest pain; Translations: [Chest pain, unspecified] Onset: 06-10-2024 03-09-2022 Episodic Other connective tissue disease (1 source) Plantar fascial fibromatosis; Translations: [Plantar fascial fibromatosis] Onset: 07-22-2024 Episodic Spondylosis; intervertebral disc disorders; other back problems (1 source) Radiculopathy, lumbar region; Translations: [Radiculopathy, lumbar region] Onset: 07-27-2024 Episodic Results Test Name Value Interpretation Reference Range Facility Knee 3 Viewson 11-13-2024 Knee 3 Views [facility] [address] [place] [address] Knee 3 Views MR#: [id number] Acct: [id number] Name: PRINCESS MEZA Rep #: [id number] : 1950 F 74 From: Alexys Diaz MD PCP: Dr. Alba Eldridge MD Status: REG CLI Study: Knee 3 Views Date of Exam: 11/13/24 Exam# [id number] Ordering Dr: Walter Singh DO EXAM: XR Left Knee, 3 Views CLINICAL INDICATION: PAIN AFTER HISTORY OF TOTAL KNEE TECHNIQUE: Three views of the left knee. COMPARISON: No relevant prior studies available. FINDINGS: BONES/JOINTS: Total knee replacement. Intact hardware. No acute fracture. No dislocation. SOFT TISSUES: Soft tissue emphysema and swelling. RAD/Knee 3 Views IMPRESSION: 1. Status post total knee replacement in anatomic position. 2. Postoperative changes as above. Reading Location: [facility] CC: Dr. Alba Eldridge MD; Dr. Walter Singh DO Software Development Test Engineer: Signed Normal [facility] Orthopedic Visit Reporton Orthopedic Visit Report [facility] [address] [place] [address] [id number] OFFICE VISIT Date of Service: 11/13/24 MR#: [id number] Acct: [id number] Name: PRINCESS MEZA Rep #: [id number] : 1950 Provider: Dr. Walter francis DO Age/Sex: 74/F Location: [email or web address] Status: Signed Intake Vital Signs 08/06/24 20:51 11/12/24 14:20 Height 5 ft 6 in 5 ft 6 in Intake Visit Reasons: LEFT KNEE Chief Complaint: left knee pain Allergies latex Allergy (Verified 09/18/24 11:01) Rash Penicillins Allergy (Verified 09/18/24 11:01) Rash tetracycline Adverse Reaction (Verified 09/18/24 11:01) Nausea/Vom/Diarrhea Have you fallen in the past year?: No PFSH Medical History Degenerative disc disease Scoliosis Arthritis Hiatal hernia HTN (hypertension) Surgical History History of total knee arthroplasty ( 07/12/20) H/O: hysterectomy Hx of foot surgery Family History Mother Cancer Hypertension Grandmother Cancer Father Hypertension Sister Rheumatoid arthritis Social History household members: spouse housing: house number of children: 2 Smoking Status: Former smoker alcohol intake: never seatbelt use: always do you feel safe at home: Yes additional social history: Cornelia SINGLETARY LEFT KNEE Details: This documentation accurately reflects the service provided and the decisions made by me, Dr. Walter Singh, 11/13/24 0757. Part of today???s visit was documented by Ashley HAILE, acting as scribe. PRINCESS MEZA is a 74 year old F here today for left knee pain after she felt a pop in her knee. After twisting in bed she was having pain the following day is actually doing better today. . genna loomis did have this knee replaced on 07/12/20. She states that Saturday night when she was sleeping she felt a pop/snap in the knee that sent a shooting pain down her leg. Then yesterday the knee was painful and felt the needle sensation that she felt last time. Her pain is below her kneecap. Her knee is tender to touch. She has been using the Voltaren gel on the knee which has been helping with her inflammation. On Saturday she did get an injection in her lumbar spine. 09/18/2024 visit:here today for left knee pain dos: 07/12/20. She has been having an aching pain for about 6 months now that is anterior lateral. Whenever she touches the knee she gets a stinging needle sensation. Before the surgery she was having pain above her knee cap which has returned. The pain is now starting to keep her up at night. She has tried ice, heat and extra strength Tylenol. She is unable to take NSAIDs due to her hiatal hernia. She denies recent injury or fall. denies history of gout. no fevers or recent infection. Plan:Patient is here today for left knee pain after a left total knee arthroplasty dos: 07/12/20. I did obtain and review xrays today with patient and informed her that the hardware is intact and she has some heterotopic ossification that she has in her last xrays as well but developed postoperatively. On exam patient is hypersensitive to touch particularly along her IT band and lateral knee. I would like to get her uric acid . Her other treatment options would be do nothing, physical therapy, and Voltaren gel. I did discuss surgical removal of heterotopic ossification however this may be overkill and I do not think is causing her hypersensitivity over her IT band , she is not interested in this anyway .she can use the Voltaren gel as she is unable to take oral NSAIDs secondary to her hiatal hernia. For the Voltaren gel she can do 4 grams 4 times a day. Patient wishes to proceed with the physical therapy and Voltaren gel. Follow up as needed or sooner if pain, swelling, numbness or associated symptoms, or concerns develop. All questions answered. Patient in agreement of plan. Ortho Exam General General: Yes no acute distress and Yes well groomed Neurologic: Yes alert and Yes oriented x3 Psychologic: Yes reasonable and appropriate Right Knee Patella Translation: 1 Left Knee Skin/Wound: No ecchymosis, No erythema and No swelling Homans Sign: No Knee ROM: Yes ROM-Extension -20 to 0 and Yes ROM-Flexion 0-140 (100) Examination: No med jt line tenderness, Yes TTP Pes Anserine and Yes Illiotibial band tenderness Stability: NML: Anterior Drawer, NML: Posterior Drawer, NML: Valgus 0, NML: Valgus 30, NML: Varus 0 and NML: Varus 30 Patella Translation: 1 Patella Grind: Yes KNEE: no effusion pain with patellar grind patellar tendon tender pes tenderness Supplemental Info 09/18/2024 x-ray left knee: Status post press-fit total knee arthroplasty no sign (more content not included)... Normal [facility] Breast imaging reportOrdered By: Sonal Ann on 11-09-2024 Study report [facility] Imaging Services [address] [place], [place] [address] SCRN MAMM (CAD)W/FAHAD BILAT MR#: [id number] Acct: [id number] Name: PRINCESS MEZA Rep #: [id number] : 1950 F 74 From: Bill Ann DO PCP: Dr. Alba Eldridge MD Status: REG CLI Study:SCRN MAMM (CAD)W/FAHAD BILAT Date of Exa m: 11/09/24 Exam# [id number] Ordering Dr: Lars Eldridge MD EXAM: SCRN MAMM (CAD)W/FAHAD BILAT DATE: 11/09/2024 CLINICAL HISTORY: F, Age 74 y/o , SCREENING BREAST CANCER RISK ASSESSMENT: Has not been calculated. TECHNIQUE: Bilateral screening digital breast tomosynthesis with 2D and 3D images. Computeraided detection. COMPARISON: Prior exam(s) dated 11/13/2023 and 11/06/2022. FINDINGS: TISSUE DENSITY: The breast tissue is almost entirely fatty. Bilateral Breast Mammographic Findings: There are no suspicious masses, suspicious cluster of microcalcifications, architectural distortion or secondary signs of malignancy identified in either breast. Benign-appearing round microcalcifications are seen in both breast. BI/SCRN MAMM (CAD)W/FAHAD BILAT IMPRESSION: OVERALL FINAL ASSESSMENT: BIRADS 2 BENIGN FINDING RECOMMENDATION: Routine annual follow-up in 1 Year A letter with findings and recommendations will be mailed to the patient. Reading Location: [facility] CC: Dr. Alba Eldridge MD ~ Software Development Test Engineer: Signed [facility] SCRN MAMM (CAD)W/FAHAD BILATo n 11-09-2024 SCRN MAMM (CAD)W/FAHAD BILAT [facility] Imaging Services [address] [place], [place] [address] SCRN MAMM (CAD)W/FAHAD BILAT MR#: [id number] Acct: [id number] Name: PRINCESS MEZA Rep #: [id number] : 1950 F 74 From: Sonal Méndez PCP: Dr. Alba Eldridge MD Status: REG CLI Study: SCRN MAMM (CAD)W/FAHAD BILAT Date of Exam: 10/22 03/18 Exam# [id number] Ordering Dr: Alba Eldridge MD EXAM: SCRN MAMM (CAD)W/FAHAD BILAT DATE: 11/09/2024 CLINICAL HISTORY: F, Age 74 y/o , SCREENING BREAST CANCER RISK ASSESSMENT: Has not been calculated. TECHNIQUE: Bilateral screening digital breast tomosynthesis with 2D and 3D images. Computer aided detection. COMPARISON: Prior exam(s) dated 11/13/2023 and 11/06/2022. FINDINGS: TISSUE DENSITY: The breast tissue is almost entirely fatty. Bilateral Breast Mammographic Findings: There are no suspicious masses, suspicious cluster of microcalcifications, architectural distortion or secondary signs of malignancy identified in either breast. Benign-appearing round microcalcifications are seen in both breast. BI/SCRN MAMM (CAD)W/FAHAD BILAT IMPRESSION: OVERALL FINAL ASSESSMENT: BIRADS 2 BENIGN FINDING RECOMMENDATION: Routine annual follow-up in 1 Year A letter with findings and recommendations will be mailed to the patient. Reading Location: [facility] CC: Dr. Alba Eldridge MD Software Development Test Engineer: Signed Normal [facility] Knee 3 Viewson 09-18-2024 Knee 3 Views [facility] Imaging Services [address] [place] [address] Knee 3 Views MR#: [id number] Acct: [id number] Name: PRINCESS MEZA Rep #: [id number] : 1950 F 73 From: Catalino Barrett i, DO PCP: Dr. Alba Eldridge MD Status: DEP AMB Study: Knee 3 Views Date of Exam: 09/18/24 Exam# [id number] Ordering Dr: Walter Singh DO PROCEDURE: Left knee radiographs, three views 09/18/2024 REASON FOR EXAM: PAIN, status post left total knee arthroplasty. Pins and needle sensation. TECHNIQUE: Three views of the left knee were obtained. COMPARISON: 12/04/2021 FINDINGS: Three views of the left knee were obtained. The bones are osteopenic. Grossly intact left total knee arthroplasty. No acute fracture or dislocation of the left knee. Mild left knee effusion. Ossicle at the superior/lateral margin of the left patella on the lateral view is unchanged. RAD/Knee 3 Views IMPRESSION: Osteopenia. No acute bony abnormality of the left knee. Intact left total knee arthroplasty. Small left suprapatellar effusion. Reading Location: [facility] CC: Dr. Alba Eldridge MD; Dr. Walter Singh DO Software Development Test Engineer: Signed Normal [facility] Orthopedic Visit Reporton Orthopedic Visit Report [facility] [address] [place] [id number] OFFICE VISIT Date of Service: 09/18/24 MR#: [id number] Acct: [id number] Name: PRINCESS MEAZ Rep #: [id number] : 1950 Provider: Dr. Walter francis DO Age/Sex: 73/F Location: [facility] Status: Signed Intake Vital Signs 08/06/24 20:51 Height 5 ft 6 in Intake Visit Reasons: LEFT KNEE Chief Complaint: left knee pain Allergies latex Allergy (Verified 09/18/24 11:01) Rash Penicillins Allergy (Verified 09/18/24 11:01) Rash tetracycline Adverse Reaction (Verified 09/18/24 11:01) Nausea/Vom/Diarrhea Medications ???Medication ???Instructions ???Recorded ???Confirmed ???Type lisinopril 20 2 tab PO DAILY htn 04/15/19 History mg-hydrochlorothiazide 25 mg tablet viikajoy-gxz-sgmec acid 0.4 1 ea PO DAILY supplement 04/15/19 09/18/24 History mg-lycopene 300 mcg-lutein 250 mcg tablet omega-3 fatty acids-fish oil 340 1 ea PO DAILY supplement 04/15/19 09/18/24 History mg-1,000 mg capsule acetaminophen 500 mg tablet 1,000 mg (2 x 500 mg) PO Q6H PRN 0 07/12/20 09/18/24 Rx #100 tabs metoprolol succinate 50 mg 1 ea PO DAILY 07/12/21 09/18/24 Hi story tablet,extended release 24 hr pantoprazole 20 mg tablet,delayed 20 mg PO DAILY 12/04/21 09/18/24 History release cholecalciferol (vitamin D3) 25 50 mcg PO QDAY 03/23/24 09/18/24 H istory mcg (1,000 unit) capsule albuterol sulfate 90 mcg/actuation 2 puff inhalation Q4H PRN PRN 09/18/24 Rx aerosol inhaler (Ventolin HFA) Wheezing #1 device clonidine HCl 0.1 mg tablet 0.1 mg PO BID #60 tabs 08/06/24 Rx inhalational spacing device #1 ea 08/06/24 09/18/24 Rx (Aerochamber MV spacer) Have you fallen in the past year?: No PFSH Medical History Degenerative disc disease Scoliosis Arthritis Hiatal hernia HTN (hypertension) Surgical History History of total knee arthroplasty ( 07/12/20) H/O: hysterectomy Hx of foot surgery Family History Mother Cancer Hypertension Grandmother Cancer Father Hypertension Sister Rheumatoid arthritis Social History household members: spouse housing: house number of children: 2 Smoking Status: Former smoker alcohol intake: never seatbelt use: always do you feel safe at home: Yes additional social history: Cornelia SINGLETARY LEFT KNEE Details: This documentation accurately reflects the service provided and the decisions made by me, Dr. Walter Singh, DO 09/18/24 0846. Part of today???s visit was documented by Ashley HAILE, acting as scribe. PRINCESS MEZA is a 73 year old F here today for left knee pain dos: 07/12/20. She has been having an aching pain for about 6 months now that is anterior lateral. Whenever she touches the knee she gets a stinging needle sensation. Before the surgery she was having pain above her knee cap which has returned. The pain is now starting to keep her up at night. She has tried ice, heat and extra strength Tylenol. She is unable to take NSAIDs due to her hiatal hernia. She denies recent injury or fall. denies history of gout. no fevers or recent infection. Ortho Exam General General: Yes no acute distress Neurologic: Yes alert and Yes oriented x3 Psychologic: Yes reasonable and appropriate Left Knee Skin/Wound: No ecchymosis, No erythema and No swelling Homans Sign: No Knee ROM: Yes ROM-Extension -20 to 0 and Yes ROM-Flexion 0-140 Stability: NML: Anterior Drawer, NML: Posterior Drawer, NML: Valgus 0, NML: Valgus 30, NML: Varus 0 and NML: Varus 30 KNEE: Exquisitely tender over IT band no effusion or erythema or increased warmth hypersensitvity to light touch particularly lateral knee and along the IT band no collateral instability or pain Supplemental Info 09/18/2024 x-ray left knee: Status post press-fit total knee arthroplasty no sign of loosening or failure there is heterotopic ossification lateral to patella 07/15/2023 x-ray left shoulder: Nfcz-zm-egzv inferior glenohumeral arthrosis with inferior humeral head spurring 07/12/2021 x-ray left knee: Status post total knee arthroplasty with good interfaces there is some mild heterotopic ossification in the peripatellar region in the superior and lateral to the patella 07/12/2020: left total knee arthroplasty press-fit Coding Level of Care Code Off vis,est,level 3 Diagnoses Iliotibial band syndrome of left side M76.32 Laterality: left Status post total left knee replacement Z96.652 Laterality: left Heterotopic ossification of joint M25.80 Assessment and (more content not included)... Normal [facility] Absolute lymphocyte countOrd ered By: Grayivette Wray on 08-06-2024 Lymphocytes Auto (Unsp spec) [#/Vol] 0.56 10*3/uL Low 0.83-4.51 [facility] Absolute neutrophil countOrd ered By: [facility] 08-06-2024 Neutrophils (Bld) [#/Vol] 4.7 10*3/uL 2.0-7.7 [facility] Albumin to globulin ratioOrd ered By: Gray Wray on 08-06-2024 Albumin/Globulin [Mass ratio] 0.9 {ratio} 0.9-2.4 [facility] Automated lymphocyte count a s percentage of total leukocytesOrdered By: Grayivette Wray on 08-06-2024 Lymphocytes/100 WBC Auto (Unsp spec) 9.4 % Low 19-41 [facility] Basophil percentageOrdered B y: Grayviette Wray on 08-06-2024 Basophils/100 WBC (Bld) 0.3 % 0-1 [facility] Bilirubin, totalOrdered By: Grayivette Wray on 08-06-2024 Bilirubin [Mass/Vol] 0.70 mg/dL 0.20-1.00 [facility] Comment on above: For patients on eltr ombopag therapy, use of Dimension [place] TBIL is not recommended. Blood urea nitrogen (BUN)/cr eatinine ratioOrdered By: [facility] on 08-06-2024 Urea nitrogen/Creatinine [Mass ratio] 15.0 mg/mg 10-20 [facility] CBC W/Diff, Automatedon 07-25 Absolute Lymph 0.56 X10 3/uL Low 0.83-4.51 [facility] Comment on above: Performed By: #### L 100.0100, L500.4050 ####[facility] [address] [place], [address] Absolute Neut 4.7 X10 3/uL Normal 2.0-7.7 [facility] Comment on above: Performed By: #### L 100.0100, L500.4050 ####[facility] [address] [place], [address] Basophils/100 WBC (Bld) 0.3 % Normal 0-1 [facility] Comment on above: Performed By: #### L 100.0100, L500.4050 ####[facility] [address] [place], [address] Eosinophils/100 WBC (Bld) 0.2 % Normal 0-5 [facility] Comment on above: Performed By: #### L 100.0100, L500.4050 ####[facility] [address] [place], [address] Erythrocyte distribution width (RBC) [Ratio] 12.7 % Normal 11.6-14.6 [facility] Comment on above: Performed By: #### L 100.0100, L500.4050 ####[facility] [address] [place], [address] Hematocrit (Bld) [Volume fraction] 43.3 % Normal 37-47 [facility] Comment on above: Performed By: #### L 100.0100, L500.4050 ####[facility] [address] [place], [address] Hemoglobin (Bld) [Mass/Vol] 14.9 g/dL Normal 12.0-15.0 [facility] Comment on above: Performed By: #### L 100.0100, L500.4050 ####[facility] [address] [place], [address] IG% 0.500 Normal 0.0-0.9 [facility] Comment on above: Result Comment: IG% - Immature Granulocytes (promyelocytes, myelocytes and metamyelocytes) > 1% indicates that a LEFT SHIFT is Present. Performed By: #### L 100.0100, L500.4050 ####[facility] [address] [place], [address] Lymphocytes/100 WBC (Bld) 9.4 % Low 19-41 [facility] Comment on above: Performed By: #### L 100.0100, L500.4050 ####[facility] [address] [place], [address] MCH (RBC) [Entitic mass] 31.1 pg Normal 27.0-32.0 [facility] Comment on above: Performed By: #### L 100.0100, L500.4050 ####[facility] [address] [place], [address] MCHC (RBC) [Mass/Vol] 34.4 g/dL Normal 32-36 [facility] Comment on above: Performed By: #### L 100.0100, L500.4050 ####[facility] [address] [place], [address] MCV (RBC) [Entitic vol] 90.4 fL Normal 81-99 [facility] Comment on above: Performed By: #### L 100.0100, L500.4050 ####[facility] [address] [place], [address] Monocytes/100 WBC (Bld) 9.9 % Normal 0-10 [facility] Comment on above: Performed By: #### L 100.0100, L500.4050 ####[facility] [address] [place], [address] Neutrophils/100 WBC (Bld) 79.7 % High 47-70 [facility] Comment on above: Performed By: #### L 100.0100, L500.4050 ####[facility] [address] [place], [address] Nucleated RBC (Bld) [#/Vol] 0 10*3/uL Normal 0-5 [facility] Comment on above: Performed By: #### L 100.0100, L500.4050 ####[facility] [address] [place], [address] Platelet mean volume (Bld) [Entitic vol] 9.0 fL Normal 6.2-12.0 [facility] Comment on above: Performed By: #### L 100.0100, L500.4050 ####[facility] [address] [place], [address] Platelets (Bld) [#/Vol] 154 10*3/uL Normal 150-450 [facility] Comment on above: Performed By: #### L 100.0100, L500.4050 ####[facility] [address] [place], [address] RBC (Bld) [#/Vol] 4.79 10*6/uL Normal 4.2-5.4 [facility] Comment on above: Performed By: #### L 100.0100, L500.4050 ####[facility] [address] [place], [address] RDW SD 41.6 fl Normal 35.1-43.9 [facility] Comment on above: Performed By: #### L 100.0100, L500.4050 ####[facility] [address] [place], [address] WBC (Bld) [#/Vol] 5.9 10*3/uL Normal 4.4-11.0 [facility] Comment on above: Performed By: #### L 100.0100, L500.4050 ####[facility] [address] [place], [place], [address] Carbon dioxide measurementOr dered By: Gray Wray on 08-06-2024 CO2 [Moles/Vol] 29.0 mmol/L 21.0-32.0 [facility] Chest PA and Lateralon 08-06 Chest PA and Lateral [facility] Imaging Services [address] [place], [place] [address] Chest PA and Lateral MR#: [id number] Acct: [id number] Name: PRINCESS MEZA Rep #: [id number] : 1950 F 73 From: Joe Méndez PCP: Dr. Alba Eldridge MD Status: REG ER Study: Chest PA and Lateral Date of Exam: 08/06/24 Exam# [id number] Ordering Dr: Gray Wray MD PROCEDURE: CHEST PA AND LATERAL REASON FOR EXAM: Cough, fever TECHNIQUE: Two views of the chest COMPARISON: 05/11/2024 FINDINGS: Cardiomediastinal silhouette is within normal limits. No focal consolidation, pleural effusion or sizable pneumothorax. RAD/Chest PA and Lateral IMPRESSION: No acute airspace abnormality. Reading Location: [facility] CC: Dr. Alba Eldridge MD; Dr. Gray Wray MD Software Development Test Engineer: Signed Normal [facility] Chloride measurementOrdered By: Gray Wray on 08-06-2024 Chloride [Moles/Vol] 101 mmol/L 98-107 [facility] Comprehensive Metabolic Prof ilon 08-06-2024 Albumin [Mass/Vol] 3.4 g/dL Normal 3.2-5.0 [facility] Comment on above: Performed By: #### L 100.0100, L500.4050 ####[facility] [address] [place], [place], [id number] Albumin/Globulin [Mass ratio] 0.9 {ratio} Normal 0.9-2.4 [facility] Comment on above: Performed By: #### L 100.0100, L500.4050 ####[facility] [address] [place], [address] ALK P 83 U/L Normal 45-117 [facility] Comment on above: Performed By: #### L 100.0100, L500.4050 ####[facility] [address] [place], [address] ALT [Catalytic activity/Vol] 21 U/L Normal 13-56 [facility] Comment on above: Performed By: #### L 100.0100, L500.4050 ####[facility] [address] [place], [address] AST [Catalytic activity/Vol] 18 U/L Normal 15-37 [facility] Comment on above: Performed By: #### L 100.0100, L500.4050 ####[facility] [address] [place], [address] Bilirubin [Mass/Vol] 0.70 mg/dL Normal 0.20-1.00 [facility] Comment on above: Result Comment: For patients on eltrombopag therapy, use of Dimension [place] TBIL is not recommended. Performed By: #### L 100.0100, L500.4050 ####[facility] [address] [place], [address] BUN/CRE 15.0 RATIO Normal 10-20 [facility] Comment on above: Performed By: #### L 100.0100, L500.4050 ####[facility] [address] [place], [address] CA,Total 10.0 mg/dL Normal 8.5-10.1 [facility] Comment on above: Performed By: #### L 100.0100, L500.4050 ####[facility] [address] [place], [address] Chloride [Moles/Vol] 101 mmol/L Normal 98-107 [facility] Comment on above: Performed By: #### L 100.0100, L500.4050 ####[facility] [address] [place], [address] CO2 [Moles/Vol] 29.0 mmol/L Normal 21.0-32.0 [facility] Comment on above: Performed By: #### L 100.0100, L500.4050 ####[facility] [address] [place], [address] Creatinine [Mass/Vol] 0.67 mg/dL Normal 0.55-1.02 [facility] Comment on above: Result Comment: The validity of the calculated GFR GFRAA in patients over 70 years has not been determined. Clinical correlation is essential. Performed By: #### L 100.0100, L500.4050 ####[facility] [facility] [id number] [place], [address] ECRCL 77.49 ml/min Normal [facility] Comment on above: Performed By: #### L 100.0100, L500.4050 ####[facility] [place] [address] [place], [address] EST GFR - AA 112 mL/min Normal >60 [facility] [place] Comment on above: Result Comment: Afri can Tuvaluan GFR Calc Performed By: #### L 100.0100, L500.4050 ####[facility] [place] [address] [place], [address] GAP 7 Normal 5-15 [facility] [place] Comment on above: Performed By: #### L 100.0100, L500.4050 ####[facility] [address] [place], [address] GFR/1.73 sq M.predicted among non-blacks MDRD (S/P/Bld) [Vol rate/Area] 93 mL/min/{1.73_m2} Normal >60 [facility] [place] Comment on above: Result Comment: Non- GFR Calc Performed By: #### L 100.0100, L500.4050 ####[facility] [place] [address] [place], [address] Globulin (S) [Mass/Vol] 3.9 g/dL Normal 2.2-4.2 [facility] Comment on above: Performed By: #### L 100.0100, L500.4050 ####[facility] [address] [place], [address] Glucose [Mass/Vol] 128 mg/dL High 74-106 [facility] Comment on above: Result Comment: Fast ing Glucose result greater than or equal to 126 mg/dL suggests DIABETES MELLITUS per A.D.A. criteria. Performed By: #### L 100.0100, L500.4050 ####[facility] [address] [place], [address] Potassium [Moles/Vol] 3.2 mmol/L Low 3.5-5.1 [facility] Comment on above: Performed By: #### L 100.0100, L500.4050 ####[facility] [address] [place], [address] Sodium [Moles/Vol] 137 mmol/L Normal 136-145 [facility] Comment on above: Performed By: #### L 100.0100, L500.4050 ####[facility] [address] [place], [address] T PROT 7.3 g/dL Normal 6.4-8.2 [facility] Comment on above: Performed By: #### L 100.0100, L500.4050 ####[facility] [address] [place], [address] Urea nitrogen [Mass/Vol] 10 mg/dL Normal 7-18 [facility] Comment on above: Performed By: #### L 100.0100, L500.4050 ####[facility] [address] [place], [address] Emergency Department Summary on 08-06-2024 Emergency Department Summary [facility] Medical Records Department [address] [place] [address] Emergency Department Summary 08/06/24 MR#: [id number] Acct: [id number] Name: PRINCESS MEZA Rep #: [id number] : 1950 73 From: rGay Wray MD PCP: Dr. Alba Eldridge MD Status:REG ER Location: ED HPI History of Present Illness Chief Complaint: Shortness of Breath Detail of Chief Complaint: Systemic viral like symptoms/flulike Informant: patient Onset/Context/Timing Onset: Days (Onset Saturday, August 03) Context: Sudden Onset Timing: Continuous Quality: Headache, upper respiratory tract infectious symptoms, myalgias arthralgias Location: Respiratory Current Severity: Mild Maximum Severity: Moderate Worsened by: Nothing Relieved by: Nothing Associated Symptoms Associated Symptoms: Decreased p.o. intake, decreased urine output, thirst and dry mouth Narrative Narrative: Patient is a 73-year-old woman. She has no stomach past medical history. She does have history based on meds of hypertension. She complains of headache. Denies double vision blurred vision loss of vision. Nuys ringing or ears decreased hearing. She does endorse rhinorrhea, congestion, postnasal drainage sore throat. She does endorse hoarse voice. She denies productive cough. She does not have history of asthma or COPD. She has not had a cigarette in 20 years. She did smoke for approximately 30 years. She does endorse nausea without vomiting or diarrhea. She informing that her on Saturday was diagnosed with influenza A and COVID. She states she feels terrible . Prior similar symptoms: No Recent Illness/Hospitalizatio n: No PFSH PFSH Medical History Degenerative disc disease Scoliosis Arthritis Hiatal hernia HTN (hypertension) Home Medications ???Medication ???Instructions ???Recorded ???Last Taken ???Type lisinopril 20 2 tab PO DAILY htn 04/15/19 Unknow n History mg-hydrochlorothiazide 25 mg tablet gbuafvts-hoa-lehkb acid 0.4 1 ea PO DAILY supplement 04/15/19 Unknown History mg-lycopene 300 mcg-lutein 250 mcg tablet omega-3 fatty acids-fish oil 340 1 ea PO DAILY supplement 04/15/19 Unknown History mg-1,000 mg capsule acetaminophen 500 mg tablet 1,000 mg (2 x 500 mg) PO Q6H PRN 0 07/12/20 Unknown Rx #100 tabs metoprolol succinate 50 mg 1 ea PO DAILY 07/12/21 Unknown His tory tablet,extended release 24 hr pantoprazole 20 mg tablet,delayed 20 mg PO DAILY 12/04/21 Unknown H istory release cholecalciferol (vitamin D3) 25 50 mcg PO QDAY 03/23/24 Unknown Hi story mcg (1,000 unit) capsule albuterol sulfate 90 mcg/actuation 2 puff inhalation Q4H PRN PRN Unknown Rx aerosol inhaler (Ventolin HFA) Wheezing #1 device clonidine HCl 0.1 mg tablet 0.1 mg PO BID #60 tabs 08/06/24 Un known Rx inhalational spacing device #1 ea 08/06/24 Unknown Rx (Aerochamber MV spacer) Allergy/AdvReac Type Severity Reaction Status Date / Time latex Allergy Rash Verified 08/06/24 20:51 Penicillins Allergy Rash Verified 08/06/24 20:51 tetracycline AdvReac Nausea/Vom/ Verified 08/06/24 20:51 Diarrhea Family History Mother Cancer Hypertension Grandmother Cancer Father Hypertension Sister Rheumatoid arthritis Surgical History History of total knee arthroplasty ( 07/12/20) H/O: hysterectomy Hx of foot surgery Social History household members: spouse housing: house number of children: 2 Smoking Status: Former smoker alcohol intake: never seatbelt use: always do you feel safe at home: Yes additional social history: Cornelia HOLM ROS ED Constitutional Constitutional ED: Reports chills, fever(s), subjective and sweats; Denies weight loss Eyes Eyes: Denies blurry vision, change in vision or diplopia ENT ENT ED: Reports rhinorrhea and sore throat; Denies ear pain Cardiovascular Cardiovascular: Denies chest pain, orthopnea, palpitations or paroxysmal nocturnal dyspnea Respiratory/Chest Respiratory/Chest: Reports cough and dyspnea; Denies dyspnea on exertion, orthopnea, paroxysmal nocturnal dyspnea or sputum Gastrointestinal Gastrointestinal: Reports nausea; Denies abdominal pain, constipation, diarrhea, melena or vomiting Genitourinary Genitourinary ED: Denies dysuria, hematuria or urinary frequency Musculoskeletal Musculoskeletal: Reports arthralgias and myalgias Integumentary Denies rash Neurologic Neurologic: Reports headache(s) and weakness; Denies paresthesias Psychiatric Psychiatric: Denies anxiety Endocrine Endocrinology: Denies cold intolerance or heat intolerance Hematologic/Lymphatic Hematologic/ (more content not included)... Normal [facility] Eosinophil percentageOrdered By: Gray Wray on 08-06-2024 Eosinophils/100 WBC (Bld) 0.2 % 0-5 [facility] [place] Erythrocyte distribution wid th ratioOrdered By: Grayivette Wray on 08-06-2024 Erythrocyte distribution width (RBC) [Ratio] 12.7 % 11.6-14.6 [facility] [place] Erythrocyte distribution wid th standard deviationOrdered By: Grayivette Wray on 08-06-2024 Erythrocyte distribution width (RBC) [Ratio] 41.6 fl 35.1-43.9 [facility] [place] Glomerular filtration rate ( GFR) estimationOrdered By: Gray Wray on 08-06-2024 GFR/1.73 sq M.predicted among non-blacks MDRD (S/P/Bld) [Vol rate/Area] 93 mL/min/{1.73_m2} >60 [facility] Comment on above: Non- GFR Calc Glucose measurementOrdered B y: Gray Wray on 08-06-2024 Glucose [Mass/Vol] 128 mg/dL High 74-106 [facility] Comment on above: Fasting Glucose resu lt greater than or equal to 126 mg/dL suggests DIABETES MELLITUS per A.D.A. criteria. Hematocrit Auto (Bld) [Volum e fraction]Ordered By: Gray Wray on 08-06-2024 Hematocrit (Bld) [Volume fraction] 43.3 % 37-47 [facility] [place] Hemoglobin measurementOrdere d By: Gray Wray on 08-06-2024 Hemoglobin (Bld) [Mass/Vol] 14.9 g/dL 12.0-15.0 [facility] [place] Immature granulocytes/100 WB C Auto (Bld)Ordered By: Gray Wray on 08-06-2024 Immature granulocytes/100 WBC (Bld) 0.500 % 0.0-0.9 [facility] Comment on above: IG% - Immature Granu locytes (promyelocytes, myelocytes and metamyelocytes) > 1% indicates that a LEFT SHIFT is Present. Influenza virus A and B and SARS-CoV-2 (COVID-19) and Respiratory syncytial virus RNAOrdered By: Gray Wray on 08-06-2024 SARS-CoV-2 (COVID-19) RNA DEANNA+probe Ql (Unsp spec) SARS-CoV-2 (COVID 19) Abnormal [facility] Laboratory - Chemistry and C hemistry - challengeOrdered By: Gray Wray on 08-06-2024 AST [Catalytic activity/Vol] 18 U/L 15-37 [facility] M100.678on 08-06-2024 M100.678 Copy of report sent to Infection Control Printer [id number] 08/07/241650 ABDOULAYE. Normal Reference Range = Negative FLUABV+SARS-CoV-2+RSV Pnl Resp DEANNA+probe GeneXpert Instrument, PCR method SARS-CoV-2 (COVID 19) A Positive A INFLUENZA A Negative INFLUENZA B Negative RSV PCR Negative SARS-CoV-2 (COVID 19) * This is an amended result. * A prior result that was reported as final has been changed. 08/07/241650 by ABDOULAYE Normal [facility] [place] Comment on above: Performed By: #### M 100.678 ####[facility] [place] [id number] [place], [address] MCV (mean corpuscular volume ) determinationOrdered By: Gray Wray on 08-06-2024 MCV (RBC) [Entitic vol] 90.4 fL 81-99 [facility] Mean corpuscular hemoglobin (MCH) determinationOrdered By: Gray Wray on 08-06-2024 MCH (RBC) [Entitic mass] 31.1 pg 27.0-32.0 [facility] Mean corpuscular hemoglobin concentration (MCHC) determinationOrdered By: Gray Wray on 08-06-2024 MCHC (RBC) [Mass/Vol] 34.4 g/dL 32-36 [facility] Mean platelet volume determi nationOrdered By: Gray Wray on 08-06-2024 Platelet mean volume (Bld) [Entitic vol] 9.0 fL 6.2-12.0 [facility] [place] Monocyte percentageOrdered B y: Gray Wray on 08-06-2024 Monocytes/100 WBC (Bld) 9.9 % 0-10 [facility] Neutrophil percentageOrdered By: Gray Wray on 08-06-2024 Neutrophils/100 WBC (Bld) 79.7 % High 47-70 [facility] [place] Nucleated red blood cell per centageOrdered By: Gray Wray on 08-06-2024 Nucleated RBC/100 WBC (Bld) [Ratio] 0 % 0-5 [facility] Platelet countOrdered By: Ug ivette Wray on 08-06-2024 Platelets (Bld) [#/Vol] 154 10*3/uL 150-450 [facility] [place] Potassium measurementOrdered By: Gray Wray on 08-06-2024 Potassium [Moles/Vol] 3.2 mmol/L Low 3.5-5.1 [facility] RBC Auto (Bld) [#/Vol]Ordere d By: Gray Wray on 08-06-2024 RBC (Bld) [#/Vol] 4.79 10*6/uL 4.2-5.4 [facility] Serum anion gap measurementO rdered By: Gray Wray on 08-06-2024 Anion gap [Moles/Vol] 7 mmol/L 5-15 [facility] Serum globulin measurementOr dered By: Gray Wray on 08-06-2024 Globulin (S) [Mass/Vol] 3.9 g/dL 2.2-4.2 [facility] Serum or plasma alanine camacho otransferase (ALT) measurementOrdered By: [facility] on 08-06-2024 ALT [Catalytic activity/Vol] 21 U/L 13-56 [facility] Serum or plasma albumin shiva urement (mass/volume)Ordered By: [facility] on 08-06-2024 Albumin [Mass/Vol] 3.4 g/dL 3.2-5.0 [facility] Serum or plasma alkaline jayme sphatase measurementOrdered By: [facility] on 08-06-2024 ALP [Catalytic activity/Vol] 83 U/L 45-117 [facility] [place] Serum or plasma calcium shiva urement (mass/volume)Ordered By: [facility] on 08-06-2024 Calcium [Mass/Vol] 10.0 mg/dL 8.5-10.1 [facility] Serum or plasma creatinine m easurement (mass/volume)Ordered By: [facility] on 08-06-2024 Creatinine [Mass/Vol] 0.67 mg/dL 0.55-1.02 [facility] Comment on above: The validity of the calculated GFR & GFRAA in patients over 70 years has not been determined. Clinical correlation is essential. Serum or plasma urea nitroge n measurement (mass/volume)Ordered By: [facility] on 08-06-2024 Urea nitrogen [Mass/Vol] 10 mg/dL 7-18 [facility] Sodium levelOrdered By: [facility] on 08-06-2024 Sodium [Moles/Vol] 137 mmol/L 136-145 [facility] Total proteinOrdered By: [facility] on 08-06-2024 Protein [Mass/Vol] 7.3 g/dL 6.4-8.2 [facility] White blood cell (WBC) count Ordered By: [facility] on 08-06-2024 WBC (Bld) [#/Vol] 5.9 10*3/uL 4.4-11.0 [facility] Lumbar Spine 2 or 3 Viewson 07-03-2024 Lumbar Spine 2 or 3 Views [facility] Imaging Services [facility] [place] [address] Lumbar Spine 2 or 3 Views MR#: [id number] Acct: [id number] Name: PRINCESS MEZA Rep #: [id number] : 1950 F 73 From: Cornelia Gerardo PCP: Dr. Alba Eldridge MD Status: [facility] CLI Study: Lumbar Spine 2 or 3 Views Date of Exam: Exam# [id number] Ordering Dr: Blanca Brown MD [id number] INDICATION: Radiculopathy, lumbar region EXAMINATION/TECHNIQUE: X-RAY - XR Spine Lumbar 2 or 3 Views COMPARISON: 01/09/2008 FINDINGS: VERTEBRAE: Vertebral body height is maintained, there is a dextroscoliotic curvature and multilevel cervical spondylosis with moderate worsening. Marginal osteophyte formation and endplate sclerosis noted. No acute fractures or subluxation. Normal appearance of visualized sacrum, and the cingulate joints. Multilevel facet arthropathy from L3 to S1. DISCS: Significant disc changes with disc space narrowing endplate sclerosis and marginal osteophyte formation throughout the lumbar spine INCLUDED ABDOMEN: Included bowel gas pattern is non-obstructive. RAD/Lumbar Spine 2 or 3 Views IMPRESSION: 1. No fractures or acute destructive process is or subluxation. 2. Progressive worsening diffuse multilevel lumbar spondylosis with marginal osteophyte formation and extensive facet arthropathy. 3. Mild worsening of a dextroscoliotic curvature. Electronically Signed: Cornelia Leal MD at 23:06 EST , CC: Dr. Blanca Brown MD; Dr. Alba Eldridge MD Software Development Test Engineer: Signed Normal [facility] Foot min 3 Viewson 5 Foot min 3 Views [facility] Imaging Services [address] [place] [address] Foot min 3 Views MR#: [id number] Acct: [id number] Name: PRINCESS MEZA Rep #: [id number] : 1950 F 73 From: Quoc Gerardo PCP: Dr. Alba Eldridge MD Status: REG CLI Study: Foot min 3 Views Date of Exam: 06/26/24 Exam# [id number] Ordering Dr: Candida Salmeron DPEvy [id number] STUDY: XR Foot Min 3 Views CLINICAL: Female, 73 years old. PAIN TECHNIQUE: XR Foot 3 ViewsLEFT COMPARISON: None. FINDINGS: There is a plantar calcaneal spur. Achilles spur. Paraspinous deformity foot. Normal visualized subtalar, talonavicular, calcaneocuboid, tarsal and tarsometatarsal articulations. Normal metatarsi. Normal metatarsophalangeal joint of the great toe. Normal tibial and fibular sesamoid bones. Normal interphalangeal joint of the great toe. Normal phalanges of the great toe. Normal second through fifth metatarsophalangeal joints. Normal interphalangeal joints and phalanges of the lesser toes. The soft tissue structures are unremarkable. RAD/Foot min 3 Views IMPRESSION: There are no acute findings of the foot. There is a plantar calcaneal spur. Achilles spur. Paraspinous deformity foot. Electronically Signed: Quoc Freitas MD at 14:20 EST , CC: GRAEME Salmeron; Dr. Alba Eldridge MD Software Development Test Engineer: Signed [facility] 12 Lead EKGon 05-11-2024 12 Lead EKG [facility] Cardiovascular Services [address] [place] [address] 12 Lead EKG 05/11/24 1520 MR#: [id number] Acct: [id number] Name: PRINCESS MEZA Rep #: [id number] : 1950 73 From: Paras Palafox MD Attending Dr: Status: DEP ER Ordering Dr: Kulwinder Espinosa DO Date: 05/11/24 Location: ED Sex: F C Admitted: Test Reason : Blood Pressure : */* mmHG Vent. Rate : 74 BPM Atrial Rate : 74 BPM P-R Int : 194 ms QRS Dur : 92 ms QT Int : 388 ms P-R-T Axes : 24 16 56 degrees QTcB Int : 430 ms Sinus rhythm with Premature atrial complexes with Aberrant conduction Otherwise normal ECG Confirmed by JAVY COOPER, PARAS ([id number]), video tape editor RACHAEL MERINO ([id number]) on 05/12/2024 1:51:39 PM Referred By: Confirmed By: PARAS PALAFOX MD 05/12/24 1351 Date Paras Palafox MD CC: Dr. Alba Eldridge MD; Dr. Kulwinder Espinosa DO Signed Normal [facility] BNP,B-Type NATRIURETIC PEPTI Raza 05-11-2024 Natriuretic peptide B (Bld) [Mass/Vol] 30.0 pg/mL Normal 0-100 [facility] [place] Comment on above: Performed By: #### L 500.2500, L503.6620, L100.0100, L501.5425 #### [facility] Laboratory [address] [place], [address] Basic Metabolic Profile (BMP )on 05-11-2024 BUN/CRE 30.3 RATIO High 10-20 [facility] [place] Comment on above: Order Comment: 1 Y Performed By: #### L 500.2500, L503.6620, L100.0100, L501.5425 #### [facility] Laboratory [address] [place], [address] CA,Total 10.8 mg/dL High 8.5-10.1 [facility] [place] Comment on above: Order Comment: 1 Y Performed By: #### L 500.2500, L503.6620, L100.0100, L501.5425 #### [facility] [place] Laboratory [address] [place], [address] Chloride [Moles/Vol] 105 mmol/L Normal 98-107 [facility] Comment on above: Order Comment: 1 Y Performed By: #### L 500.2500, L503.6620, L100.0100, L501.5425 #### [facility] [place] Laboratory [address] [place], [address] CO2 [Moles/Vol] 31.0 mmol/L Normal 21.0-32.0 [facility] [place] Comment on above: Order Comment: 1 Y Performed By: #### L 500.2500, L503.6620, L100.0100, L501.5425 #### [facility] Laboratory [address] [place], [address] Creatinine [Mass/Vol] 0.76 mg/dL Normal 0.55-1.02 [facility] Comment on above: Order Comment: 1 Y Result Comment: The validity of the calculated GFR GFRAA in patients over 70 years has not been determined. Clinical correlation is essential. Performed By: #### L 500.2500, L503.6620, L100.0100, L501.5425 #### [facility] Laboratory [address] [place], [address] ECRCL 82.73 ml/min Normal [facility] Comment on above: Order Comment: 1 Y Performed By: #### L 500.2500, L503.6620, L100.0100, L501.5425 #### [facility] Laboratory [address] [place], [address] EST GFR - AA 96 mL/min Normal >60 [facility] [place] Comment on above: Order Comment: 1 Y Result Comment: Afri can Tu[place]uan GFR Calc Performed By: #### L 500.2500, L503.6620, L100.0100, L501.5425 #### [facility] Laboratory [address] [place], [address] GAP 6 Normal 5-15 [facility] Comment on above: Order Comment: 1 Y Performed By: #### L 500.2500, L503.6620, L100.0100, L501.5425 #### [facility] Laboratory [address] [place], [address] GFR/1.73 sq M.predicted among non-blacks MDRD (S/P/Bld) [Vol rate/Area] 80 mL/min/{1.73_m2} Normal >60 [facility] Comment on above: Order Comment: 1 Y Result Comment: Non- GFR Calc Performed By: #### L 500.2500, L503.6620, L100.0100, L501.5425 #### [facility] Laboratory [address] [place], [address] Glucose [Mass/Vol] 111 mg/dL High 74-106 [facility] Comment on above: Order Comment: 1 Y Result Comment: Fast ing Glucose result from 100 to 125 mg/dL suggests IMPAIRED HOMEOSTASIS per A.D.A. criteria. Performed By: #### L 500.2500, L503.6620, L100.0100, L501.5425 #### [facility] Laboratory [address] [place], [address] Potassium [Moles/Vol] 3.5 mmol/L Normal 3.5-5.1 [facility] Comment on above: Order Comment: 1 Y Performed By: #### L 500.2500, L503.6620, L100.0100, L501.5425 #### [facility] Laboratory [address] [place], [address] Sodium [Moles/Vol] 142 mmol/L Normal 136-145 [facility] Comment on above: Order Comment: 1 Y Performed By: #### L 500.2500, L503.6620, L100.0100, L501.5425 #### [facility] Laboratory [address] [place], [address] Urea nitrogen [Mass/Vol] 23 mg/dL High 7-18 [facility] Comment on above: Order Comment: 1 Y Performed By: #### L 500.2500, L503.6620, L100.0100, L501.5425 #### [facility] Laboratory [address] [place], [address] CBC W/Diff, Automatedon 04-24 Absolute Lymph 2.03 X10 3/uL Normal 0.83-4.51 [facility] Comment on above: Performed By: #### L 500.2500, L503.6620, L100.0100, L501.5425 #### [facility] Laboratory [address] [place], [address] Absolute Neut 4.2 X10 3/uL Normal 2.0-7.7 [facility] Comment on above: Performed By: #### L 500.2500, L503.6620, L100.0100, L501.5425 #### [facility] Laboratory [address] [place], [address] Basophils/100 WBC (Bld) 0.3 % Normal 0-1 [facility] Comment on above: Performed By: #### L 500.2500, L503.6620, L100.0100, L501.5425 #### [facility] Laboratory [address] [place], [address] Eosinophils/100 WBC (Bld) 1.0 % Normal 0-5 [facility] Comment on above: Performed By: #### L 500.2500, L503.6620, L100.0100, L501.5425 #### [facility] Laboratory [address] [place], [address] Erythrocyte distribution width (RBC) [Ratio] 12.6 % Normal 11.6-14.6 [facility] Comment on above: Performed By: #### L 500.2500, L503.6620, L100.0100, L501.5425 #### [facility] Laboratory [address] [place], [address] Hematocrit (Bld) [Volume fraction] 44.6 % Normal 37-47 [facility] Comment on above: Performed By: #### L 500.2500, L503.6620, L100.0100, L501.5425 #### [facility] Laboratory [address] [place], [address] Hemoglobin (Bld) [Mass/Vol] 15.3 g/dL High 12.0-15.0 [facility] Comment on above: Performed By: #### L 500.2500, L503.6620, L100.0100, L501.5425 #### [facility] Laboratory [address] [place], [address] IG% 0.300 Normal 0.0-0.9 [facility] Comment on above: Result Comment: IG% - Immature Granulocytes (promyelocytes, myelocytes and metamyelocytes) > 1% indicates that a LEFT SHIFT is Present. Performed By: #### L 500.2500, L503.6620, L100.0100, L501.5425 #### [facility] Laboratory [address] [place], [address] Lymphocytes/100 WBC (Bld) 29.4 % Normal 19-41 [facility] Comment on above: Performed By: #### L 500.2500, L503.6620, L100.0100, L501.5425 #### [facility] Laboratory [address] [place], [address] MCH (RBC) [Entitic mass] 31.0 pg Normal 27.0-32.0 [facility] Comment on above: Performed By: #### L 500.2500, L503.6620, L100.0100, L501.5425 #### [facility] Laboratory [address] [place], [address] MCHC (RBC) [Mass/Vol] 34.3 g/dL Normal 32-36 [facility] Comment on above: Performed By: #### L 500.2500, L503.6620, L100.0100, L501.5425 #### [facility] Laboratory [address] [place], [address] MCV (RBC) [Entitic vol] 90.5 fL Normal 81-99 [facility] Comment on above: Performed By: #### L 500.2500, L503.6620, L100.0100, L501.5425 #### [facility] Laboratory [address] [place], [address] Monocytes/100 WBC (Bld) 8.0 % Normal 0-10 [facility] Comment on above: Performed By: #### L 500.2500, L503.6620, L100.0100, L501.5425 #### [facility] Laboratory [address] [place], [address] Neutrophils/100 WBC (Bld) 61.0 % Normal 47-70 [facility] Comment on above: Performed By: #### L 500.2500, L503.6620, L100.0100, L501.5425 #### [facility] Laboratory [address] [place], [address] Nucleated RBC (Bld) [#/Vol] 0 10*3/uL Normal 0-5 [facility] Comment on above: Performed By: #### L 500.2500, L503.6620, L100.0100, L501.5425 #### [facility] Laboratory [address] [place], [address] Platelet mean volume (Bld) [Entitic vol] 9.3 fL Normal 6.2-12.0 [facility] Comment on above: Performed By: #### L 500.2500, L503.6620, L100.0100, L501.5425 #### [facility] Laboratory [address] [place], [address] Platelets (Bld) [#/Vol] 202 10*3/uL Normal 150-450 [facility] Comment on above: Performed By: #### L 500.2500, L503.6620, L100.0100, L501.5425 #### [facility] Laboratory [address] [place], [address] RBC (Bld) [#/Vol] 4.93 10*6/uL Normal 4.2-5.4 [facility] Comment on above: Performed By: #### L 500.2500, L503.6620, L100.0100, L501.5425 #### [facility] Laboratory [address] [place], [address] RDW SD 41.5 fl Normal 35.1-43.9 [facility] Comment on above: Performed By: #### L 500.2500, L503.6620, L100.0100, L501.5425 #### [facility] Laboratory [address] [place], [address] WBC (Bld) [#/Vol] 6.9 10*3/uL Normal 4.4-11.0 [facility] Comment on above: Performed By: #### L 500.2500, L503.6620, L100.0100, L501.5425 #### [facility] Laboratory [address] [place], [address] Chest PA and Lateralon 05-11 Chest PA and Lateral [facility] Imaging Services [address] [place] [address] Chest PA and Lateral MR#: [id number] Acct: [id number] Name: PRINCESS MEZA Rep #: [id number] : 1950 F 73 From: Honorio Thorpe DO PCP: Dr. Alba Eldridge MD Status: REG ER Study: Chest PA and Lateral Date of Exam: 05/11/24 Exam# [id number] Ordering Dr: Kulwinder Espinosa DO [id number] INDICATION: chest pain EXAMINATION/TECHNIQUE: X-RAY - XR Chest 2 Views COMPARISON: April 22, 2023 FINDINGS: LINES/DEVICES: None. LUNGS: No consolidation, edema or effusion. No pneumothorax. MEDIASTINUM AND CARDIOVASCULAR STRUCTURES: Cardiac silhouette not enlarged. Central airways and mediastinal contour are unremarkable. BONES AND SOFT TISSUES: Degenerative vertebral changes. RAD/Chest PA and Lateral IMPRESSION: No radiographic evidence of acute cardiopulmonary disease. Electronically Signed: Honorio Thorpe DO at 16:47 EST , CC: Dr. Alba Eldridge MD; Dr. Kulwinder Espinosa DO Software Development Test Engineer: Signed Normal [facility] Emergency Department Summary on 05-11-2024 Emergency Department Summary [facility] Medical Records Department [address] [place] [address] Emergency Department Summary 05/11/24 MR#: [id number] Acct: [id number] Name: PRINCESS MEZA Rep #: [id number] : 1950 73 From: Kulwinder Espinosa DO PCP: Dr. Alba Eldridge MD Status:REG ER Location: ED HPI History of Present Illness Chief Complaint: Chest Other Narrative Narrative: Patient is a 73-year-old female with past medical hiatal hernia, hypertension who presented to the emergency department with a chief complaint of chest discomfort. Patient states that she believes that her hiatal hernia is flaring up. States this morning after she ate her breakfast she noted that she had this discomfort states has been pretty persistent but is waxing waning. States that she wanted to come in and make sure her heart was okay. Patient's states that she has been compliant with her blood pressure medication but notes that she can only use a manual blood pressure cuff to have her blood pressure checked as when she uses the machine it is always very high. Patient states that she drank a bunch of milk and this did help her symptoms which normally helps her hiatal hernia. States that nothing makes her pain worse PFSH PFSH Medical History Degenerative disc disease Scoliosis Arthritis Hiatal hernia HTN (hypertension) Home Medications ???Medication ???Instructions ???Recorded ???Last Taken ???Type atorvastatin 80 mg tablet 80 mg PO QHS cholesterol 04/15/19 Unknown History lisinopril 20 2 tab PO DAILY htn 04/15/19 Unknown History mg-hydrochlorothiazide 25 mg tablet djvjbdlb-ksk-qotck acid 0.4 1 ea PO DAILY supplement 04/15/19 Unknown History mg-lycopene 300 mcg-lutein 250 mcg tablet omega-3 fatty acids-fish oil 340 1 ea PO DAILY supplement 04/15/19 Unknown History mg-1,000 mg capsule acetaminophen 500 mg tablet 1,000 mg (2 x 500 mg) PO Q6H PRN 07/12/20 Unknown Rx #100 tabs metoprolol succinate 50 mg 1 ea PO DAILY 07/12/21 Unknown History tablet,extended release 24 hr pantoprazole 20 mg tablet,delayed 20 mg PO DAILY 12/04/21 Unknown History release cholecalciferol (vitamin D3) 25 50 mcg PO QDAY 03/23/24 Unknown History mcg (1,000 unit) capsule Allergy/AdvReac Type Severity Reaction Status Date / Time latex Allergy Rash Verified 05/11/24 14:52 Penicillins Allergy Rash Verified 05/11/24 14:52 tetracycline AdvReac Nausea/Vom/ Verified 05/11/24 14:52 Diarrhea Family History Mother Cancer Hypertension Grandmother Cancer Father Hypertension Sister Rheumatoid arthritis Surgical History History of total knee arthroplasty ( 07/12/20) H/O: hysterectomy Hx of foot surgery Social History household members: spouse housing: house number of children: 2 Smoking Status: Former smoker alcohol intake: never seatbelt use: always do you feel safe at home: Yes additional social history: Cornelia HOLM ROS ED ROS Narrative Constitutional: Denies any fevers, chills, headaches, lightness, dizziness Eyes: Denies any changes double vision blurry vision Cardiovascular: Complains of chest comfort as noted above denies palpitations Respiratory: Denies coughing wheezing shortness of breath Abdomen: Denies abdominal pain nausea vomit diarrhea : Denies any urinary symptoms Neurological: Denies any numbness, weakness, tingling Musculoskeletal: Denies back pain Skin: Denies rashes or lesions EXAM Physical Exam Narrative Exam Narrative: General: Patient lying in bed rest comfortably did not appear to be in acute distress Head: Atraumatic, normocephalic Eyes: PERRL bilateral, EOMI bilateral, no conjunctival injection noted Neck: Soft, supple, trachea midline Cardiovascular: Regular in rhythm no murmurs gallops rubs noted Respiratory: Clear to auscultation bilaterally no rales rhonchi or wheeze noted Abdomen: Soft, nondistended, nontender to palpation, bowel sounds present x 4 Extremities: +5/5 strength noted in the bilateral upper and lower extremities, radial pulses +2/4 in the bilateral per extremities Neurological: Patient is following commands knew that she was at [facility] years 2023 Skin: Warm, dry, intact Const Vital Signs: 05/11/24 14:51 05/11/24 14:52 05/11/24 15:15 Temperature 96.5 F L Temperature Source Temporal Pulse Rate 79 Respiratory Rate 18 Respiratory Effort Normal Non-Labored Blood Pressure 240/100 H Blood Pressure Mean 146 Pulse Ox 97 Oxygen Delivery Method Room Air Room Air 05/11/24 16:51 Temperature Temperature Source Pulse Rate Resp (more content not included)... Normal [facility] L501.5425on 05-11-2024 TROPONIN-I HS 10 pg/mL Normal 3.0-54.0 [facility] Comment on above: Order Comment: 1Y Result Comment: Elicia lal Note: New Test Units and Gender Specific Reference Ranges. For more information see Policy Stat Procedure [place] High Sensitivity Troponin (TNIH) and attachments. Performed By: #### L 500.2500, L503.6620, L100.0100, L501.5425 ####[facility] [address] [place], [address] Urine Cultureon 03-25-2024 URC Mixed Gram Positive Organisms [place] Count 80,000-100,000 MIXC Mixed contaminants. Submit a new specimen if indicated. Normal [facility] Comment on above: Performed By: #### M 100.2200, L400.2010 ####[facility] [address] [place], [address] Rotoprinter Office Visit Reporton 03-23-2024 Rotoprinter Office Visit Report [facility] [address], [address] [place] [address] OFFICE VISIT Date of Service: 03/23/24 MR#: [id number] Acct: [id number] Name: PRINCESS MEZA Rep #: [id number] : 1950 Provider: Dr. Shireen bowser MD Age/Sex: 73/F Location: [facility] Status: Signed Intake Vital Signs 01/31/24 08:18 03/10/24 08:52 03/23/24 15:23 03/23/24 15:29 Height 5 ft 5 in 5 ft 5 in 5 ft 5 in 5 ft 5 in Weight: 255 lb 255 lb BMI 42.4 42.4 BP 144/84 H 190/98 H Blood Pressure Location Lt brachial Position Sitting Respiration 18 Pulse 66 Pulse Source Monitor Temp 98.4 F Pulse Oximetry (%) 96 Oxygen Delivery Method room air Intake Visit Reasons: POSTMENOPAUSAL BLEEDING ([facility]) Smocker Required: No Is patient in pain?: Yes (sciatic nerve pain and back pain) Feel stressed/tense/nervous /anxious/difficulty sleeping: not at all Allergies latex Allergy (Verified 03/23/24 15:23) Rash Penicillins Allergy (Verified 03/23/24 15:23) Rash tetracycline Adverse Reaction (Verified 03/23/24 15:23) Nausea/Vom/Diarrhea Medications ???Medication ???Instructions ???Recorded ???Confirmed ???Type atorvastatin 80 mg tablet 80 mg PO QHS cholesterol 04/15/19 03/23/24 History lisinopril 20 2 tab PO DAILY htn 04/15/19 03/23/24 History mg-hydrochlorothiazide 25 mg tablet ajuxedpm-jit-fflrl acid 0.4 1 ea PO DAILY supplement 04/15/19 03/23/24 History mg-lycopene 300 mcg-lutein 250 mcg tablet omega-3 fatty acids-fish oil 340 1 ea PO DAILY supplement 04/15/19 03/23/24 History mg-1,000 mg capsule acetaminophen 500 mg tablet 1,000 mg (2 x 500 mg) PO Q6H PRN 07/12/20 03/23/24 Rx #100 tabs metoprolol succinate 50 mg 1 ea PO DAILY 07/12/21 03/23/24 History tablet,extended release 24 hr pantoprazole 20 mg tablet,delayed 20 mg PO DAILY 12/04/21 03/23/24 History release cholecalciferol (vitamin D3) 25 50 mcg PO QDAY 03/23/24 03/23/24 History mcg (1,000 unit) capsule estradiol 0.5 mg tablet 0.25 mg PO .every other day hormone 03/23/24 03/23/24 History Is last menstrual period known: No Post menopausal: Yes Patient : No : No PFSH Medical History (Updated 03/23/24 @ 17:[address] Shireen Calvert MD) Degenerative disc disease Scoliosis Arthritis Hiatal hernia HTN (hypertension) Surgical History (Updated 03/23/24 @ 15:[address] Shireen Calvert MD) History of total knee arthroplasty ( 07/12/20) H/O: hysterectomy Hx of foot surgery Family History Mother Cancer Hypertension Grandmother Cancer Father Hypertension Sister Rheumatoid arthritis Social History (Updated 03/23/24 @ 15:29 by Monse Brunner) household members: spouse housing: house number of children: 2 Smoking Status: Former smoker alcohol intake: never seatbelt use: always do you feel safe at home: Yes additional social history: Cornelia HPI POSTMENOPAUSAL BLEEDING ([facility]) Details: PRINCESS MEZA is a 73 year old who presents for one episode of bleeding noted it on her pad a couple weeks ago, no pelvic pain or pressure, she had a hysterectomy years ago, she is on estrogen. she denies any itching burning odor or discharge. Female Reproductive History Menopausal Symptoms: No night sweats ROS Const Constitutional: Reports weight gain; Denies fatigue, night sweats or weight loss ENT ENT: Reports system reviewed and no additional complaints, except as documented Cardio Card: Denies chest pain Resp Resp: Denies cough or dyspnea GI GI: Reports as per HPI; Denies abdominal pain, constipation, nausea or vomiting Details: co loose stools the last few weeks : Reports urinary frequency and urinary hesitancy; Denies nipple discharge, urinary incontinence, urinary urgency, vaginal discharge, vaginal dryness, vaginal odor or vaginal pruritus Musc Musc: Reports back pain; Denies arthralgias or muscle weakness Skin Skin/Breast: Denies alopecia, change in hair, dry skin, breast mass, breast pain, breast skin changes or nipple discharge Neuro Neuro: Reports system reviewed and no additional complaints, except as documented Psych Psych: Reports system reviewed and no additional complaints, except as documented Endo Endo: Denies cold intolerance, excessive sweating, heat intolerance or polydipsia Nicanor/Lymph Hematologic/Lymphatic: Denies easy bleeding, Reports easy bruising and Denies lymphadenopathy Exam Const General: cooperative, healthy appearing, comfortable and no acute distress Orientation: alert [facility] Head: normal to inspection and normocephalic Ears: hearing grossly normal bilaterally and external ears normal Nose: external nose normal and nares no (more content not included)... Normal [facility] Urinalysis, Routine (Dipstic k)on 03-23-2024 BILIRUBIN URINE Negative Normal Negative [facility] Comment on above: Order Comment: CLEAN CATCH Performed By: #### M 100.2200, L400.2010 ####[facility] [address] [place], [address] Clarity (U) Sl. Cloudy Normal Clear [facility] Comment on above: Order Comment: CLEAN CATCH Performed By: #### M 100.2200, L400.2011 ####[facility] [address] [place], [address] Color (U) Yellow Normal Yellow [facility] Comment on above: Order Comment: CLEAN CATCH Performed By: #### M , ####[facility] [address] [place], [address] GLUCOSE, UR Normal Normal Normal [facility] Comment on above: Order Comment: CLEAN CATCH Performed By: #### M ####[facility] [address] [place], [address] KETONE UR Negative Normal Negative [facility] Comment on above: Order Comment: CLEAN CATCH Performed By: #### M ####[facility] [address] [place], [address] LEUK ESTERASE Negative Normal Negative [facility] Comment on above: Order Comment: CLEAN CATCH Performed By: #### M ####[facility] [address] [place], [address] Nitrite Ql (U) Negative Normal Negative [facility] Comment on above: Order Comment: CLEAN CATCH Performed By: #### M ####[facility] [address] [place], [address] OCCULT BLOOD-UR 10 /ul Abnormal Negative [facility] Comment on above: Order Comment: CLEAN CATCH Performed By: #### M , L4 ####[facility] [address] [place], [address] pH UR 6.0 Normal 5.0 - 8.0 [facility] Comment on above: Order Comment: CLEAN CATCH Performed By: #### M , L4 ####[facility] [address] [place], [address] PROT DIPSTX Negative Normal Negative [facility] Comment on above: Order Comment: CLEAN CATCH Performed By: #### M 100.0, L400.2010 ####[facility] [address] [place], [address] SP.GR. DIPSTX 1.015 Normal 1.002-1.030 [facility] Comment on above: Order Comment: CLEAN CATCH Performed By: #### M 100.0, L400.2010 ####[facility] [address] [place], [address] UROBILI Normal Normal Normal [facility] Comment on above: Order Comment: CLEAN CATCH Performed By: #### M 100.2199, L4.2010 ####[facility] [address] [place], [address] Lipid Profileon 01-31-2024 Cholesterol [Mass/Vol] 172 mg/dL Normal 200 [facility] Comment on above: Result Comment: <200 mg/dL Desirable 200-240 mg/dL Borderline >240 mg/dL High Risk Performed By: #### L 500.4100 ####[facility] [address] [place], [address] Cholesterol in HDL [Mass/Vol] 55 mg/dL Normal [facility] Comment on above: Result Comment: The drugs N-Acetylcysteine and Metamizole may falsely depress this assay. Reference Range HDL <40 mg/dL Low HDL Cholesterol HDL >or= 60 mg/dL High HDL Cholesterol Performed By: #### L 500.4100 ####[facility] [address] [place], [address] Cholesterol in LDL [Mass/Vol] 93 mg/dL Normal 0-130 [facility] Comment on above: Performed By: #### L 500.4100 ####[facility] [address] [place], [address] Cholesterol in VLDL [Mass/Vol] 24 mg/dL Normal 5-40 [facility] Comment on above: Performed By: #### L 500.4100 ####[facility] [address] [place], [place], [id number] Triglyceride [Mass/Vol] 121 mg/dL Normal [facility] Comment on above: Result Comment: The drugs N-Acetylcysteine and Metamizole may falsely depress this assay. Serum Triglycerides Reference Interval Normal <150 mg/dL Borderline high 150 - 199 mg/dL High 200 - 499 mg/dL Very High > or = 500 mg/dL Performed By: #### L 500.4100 ####[facility] [address] [place], [address] Urgent Care Visit Reporton 0 01-31-2024 Urgent Care Visit Report [facility] [address], [address] [place], [place] [address] OFFICE VISIT Date of Service: 01/31/24 MR#: [id number] Acct: [id number] Name: PRINCESS MEZA Rep #: [id number] : 1950 Provider: GENNA Lawrence Age/Sex: 73/F Location: [facility] Status: Signed Intake Vital Signs 07/26/23 04:46 01/31/24 08:18 Height 5 ft 5 in 5 ft 5 in Weight: 255 lb BMI 42.4 BP 144/84 H Blood Pressure Location Lt brachial Position Sitting Respiration 18 Pulse 66 Pulse Source Monitor Temp 98.4 F Temp Source Temporal Pulse Oximetry (%) 96 Oxygen Delivery Method room air Intake Visit Reasons: CONCERN FOR STYE Chief Complaint: left eye irritation Is patient in pain?: No Allergies latex Allergy (Verified 01/31/24 08:13) Rash Penicillins Allergy (Verified 01/31/24 08:13) Rash tetracycline Adverse Reaction (Verified 01/31/24 08:13) Nausea/Vom/Diarrhea Medications ???Medication ???Instructions ???Recorded ???Confirmed ???Type atorvastatin 80 mg tablet 80 mg PO QHS cholesterol 04/15/19 01/31/24 History lisinopril 20 2 tab PO DAILY htn 04/15/19 01/31/24 History mg-hydrochlorothiazide 25 mg tablet xikgmtza-qud-livky acid 0.4 1 ea PO DAILY supplement 04/15/19 01/31/24 History mg-lycopene 300 mcg-lutein 250 mcg tablet omega-3 fatty acids-fish oil 340 1 ea PO DAILY supplement 04/15/19 01/31/24 History mg-1,000 mg capsule acetaminophen 500 mg tablet 1,000 mg (2 x 500 mg) PO Q6H PRN 07/12/20 01/31/24 Rx #100 tabs metoprolol succinate 50 mg 1 ea PO DAILY 07/12/21 01/31/24 History tablet,extended release 24 hr pantoprazole 20 mg tablet,delayed 20 mg PO DAILY 12/04/21 01/31/24 History release estradiol 0.5 mg tablet 0.25 mg PO .twice a week hormone 02/28/23 01/31/24 History polymyxin B sulfate 10,000 1 drp ophthalmic (eye) Q3H 7 days 01/31/24 01/31/24 Rx unit-trimethoprim 1 mg/mL eye drops #10 mL Post menopausal: Yes Have you fallen in the past year?: No PFSH Medical History Hiatal hernia HTN (hypertension) Surgical History History of total knee arthroplasty ( 07/12/20) H/O: hysterectomy Hx of foot surgery Family History Mother Cancer Hypertension Grandmother Cancer Father Hypertension Sister Rheumatoid arthritis Social History (Updated 01/31/24 @ 08:15 by Page Melton) Smoking Status: Former smoker alcohol intake: never HPI HPI Chief Complaint: left eye irritation Details: PRINCESS MEZA, is a 73 F who presents to the office today for complaint of left eye redness. Patient states that she has eczema on the eyelids which is normal for her however she states that today she awoke with her eye being red. She does state that she has been itching quite a bit at her left eye in particular. She denies any eye pain or vision change. No feeling of foreign body. No other associated symptoms or alleviating/aggravatin g factors. ROS Const Constitutional: No other (6 system ROS completed with pertinent findings in the HPI otherwise normal.) Exam Const General: cooperative and healthy appearing HENVT Head: normocephalic and atraumatic Ears: hearing grossly normal bilaterally Face and sinus: face symmetric Eyes General: appearance normal, both eyes and all related structures Visual Weaver: normal visual weaver by confrontation Alignment and Position: alignment normal Periorbital: periorbital findings normal Eyelids: eyelids normal Conjunctivae: conjunctival abnormality left conjunctival injection diffuse and discharge purulent Pupils: PERRL Skin General: no rashes or lesions noted Psych Appearance: grossly normal Coding Level of Care Code Off vis,new,level 3 Diagnoses Conjunctivitis, left eye H10.9 Assessment and Plan Assessment and Plan (1) Conjunctivitis, left eye: Status: Acute Plan: Polytrim as prescribed today. Encouraged to get plenty of rest, drink lots of clear liquids, and use a warm compress for comfort. Patient also educated on other symptomatic management techniques. To be seen in 5-7 days by an ice skating coach if no improvement; sooner if worsening of symptoms. Patient advised of potential red flags and when appropriate to report to the ED. Patient verbalized understanding and agreement with all the above. Medications: New polymyxin B sulf-trimethoprim 10,000 unit- 1 mg/mL while awake; do not exceed 6 doses in 24 hours 1 drp ophthalmic (eye) Q3H 7 days 10 mL 0RF Clinical Quality Measures Falls Risk Screening/Assistive Devices Have you fallen in the past year?: No 01/31/24 0911 Date Neftali Rivera (more content not included)... Normal [facility] Orthopedic Visit Reporton Orthopedic Visit Report [facility] [address] [place] [address] [id number] OFFICE VISIT Date of Service: 12/05/23 MR#: [id number] Acct: [id number] Name: PRINCESS MEZA Rep #: [id number] : 1950 Provider: Dr. Beltran shaffer MD Age/Sex: 73/F Location: [facility] [place] Status: Signed Intake Vital Signs 07/26/23 04:46 Height 5 ft 5 in Intake Visit Reasons: LEFT SHOULDER Accompanied by: Is patient in pain?: No (Acts up 04/02 ) Allergies latex Allergy (Verified 12/05/23 10:21) Rash Penicillins Allergy (Verified 12/05/23 10:21) Rash tetracycline Adverse Reaction (Verified 12/05/23 10:21) Nausea/Vom/Diarrhea Medications ???Medication ???Instructions ???Recorded ???Confirmed ???Type atorvastatin 80 mg tablet 80 mg PO QHS cholesterol 04/15/19 12/05/23 History lisinopril 20 2 tab PO DAILY htn 04/15/19 12/05/23 History mg-hydrochlorothiazide 25 mg tablet fykbfxzn-dac-diqet acid 0.4 1 ea PO DAILY supplement 04/15/19 12/05/23 History mg-lycopene 300 mcg-lutein 250 mcg tablet omega-3 fatty acids-fish oil 340 1 ea PO DAILY supplement 04/15/19 12/05/23 History mg-1,000 mg capsule acetaminophen 500 mg tablet 1,000 mg (2 x 500 mg) PO Q6H PRN 07/12/20 12/05/23 Rx #100 tabs metoprolol succinate 50 mg 1 ea PO DAILY 07/12/21 12/05/23 History tablet,extended release 24 hr pantoprazole 20 mg tablet,delayed 20 mg PO DAILY 12/04/21 12/05/23 History release estradiol 0.5 mg tablet 0.25 mg PO .twice a week hormone 02/28/23 12/05/23 History oxycodone 10 mg tablet 10 mg PO Q8H PRN pain 3 days #12 07/26/23 12/05/23 Rx tabs clindamycin HCl 300 mg capsule 600 mg (2 x 300 mg) PO ONCE #2 caps 08/12/23 12/05/23 Rx PFSH Medical History Hiatal hernia HTN (hypertension) Surgical History History of total knee arthroplasty ( 07/12/20) H/O: hysterectomy Hx of foot surgery Family History Mother Cancer Hypertension Grandmother Cancer Father Hypertension Sister Rheumatoid arthritis Social History Smoking Status: Former smoker HPI LEFT SHOULDER Details: This documentation accurately reflects the service provided and the decisions made by me, Dr. Beltran Bernabe MD 12/05/23 0906. Part of today???s visit was documented by [ ], acting as scribe. PRINCESS MEZA is a 73 year old F here today for left shoulder osteoarthritis to consider shoulder arthroplasty. Patient has no pain at rest. They mostly have pain with pushing up in the shoulder most the pain seems to be distal to the actual shoulder and anteriorly over the long head of the biceps. There is some clicking and catching no grinding or stiffness or weakness. There is no pop or acute injury. This has been present over the last few months she tried physical therapy as well as had what sounds like to intra-articular cortisone injections with . The first 1 helped more than the second one. per Dr Singh notes 72 year old F here today for left shoulder pain. She has had this pain for years. denies any known injury. She has aching in the joint of her shoulder and in her biceps she feels a snapping/twisting like a rubber band. Denies neck pain. Denies numbness, tingling or other associated symptoms. She states that when she is in bed and rolls the wrong way she feels the twist in her biceps or if she moves her arm wrong she feels the snapping. She denies recent imaging of the shoulder. No previous injections or therapy. She has somewhat of a needle phobia Ortho Exam General General: Yes no acute distress Neurologic: Yes alert and Yes oriented x3 Psychologic: Yes reasonable and appropriate Left Shoulder Skin/Wound: Yes CDI, No ecchymosis, No erythema and No swelling Testing: No Hawkin's, No Neer's, Yes Speed's, Yes TTP Biceps, No TTP AC Joint, No empty can, No Harper, No scapular winging and Yes belly press normal SHOULDER: normal motor and sens to axillary N, MRU and AIN/PIN. Hand warm well perfused normal radial pulse No crepitus. The active forward and passive forward elevation both about 160 degrees external rotation 40 degrees. Strength is good in forward elevation and external rotation both full 5/5. There is no pain to palpation about the shoulder but most the pain seems to be at the long head of the biceps to direct palpation as well as very slightly positive speeds test. Supplemental Info [facility] [address] [place] [address] Shoulder min 2 Views MR#: [id number] Acct: [id number] Name: PRINCESS MEZA Rep #: [id number] (more content not included)... Normal [facility] Absolute lymphocyte countOrd ered By: Tye Montiel on 07-26-2023 Lymphocytes Auto (Unsp spec) [#/Vol] 1.95 10*3/uL 0.83-4.51 [facility] Automated lymphocyte count a s percentage of total leukocytesOrdered By: Tye Montiel on 07-26-2023 Lymphocytes/100 WBC Auto (Unsp spec) 32.3 % 19-41 [facility] Basophil percentageOrdered B y: Tye Montiel on 07-26-2023 Basophil percentage 0 SEEN /hpf 0-5 [facility] Basophils/100 WBC (Bld) 0.5 % 0-1 [facility] Bilirubin [Mass/Vol] 0.70 mg/dL 0.20-1.00 [facility] Comment on above: For patients on eltr ombopag therapy, use of Dimension [place] TBIL is not recommended. Chloride [Moles/Vol] 108 mmol/L 98-107 [facility] Eosinophils/100 WBC (Bld) 1.3 % 0-5 [facility] Glucose [Mass/Vol] 123 mg/dL 74-106 [facility] Comment on above: Fasting Glucose resu lt from 100 to 125 mg/dL suggests IMPAIRED HOMEOSTASIS per A.D.A. criteria. Hemoglobin (Bld) [Mass/Vol] 14.4 g/dL 12.0-15.0 [facility] Monocytes/100 WBC (Bld) 8.3 % 0-10 [facility] Neutrophils (Bld) [#/Vol] 3.5 10*3/uL 2.0-7.7 [facility] Neutrophils/100 WBC (Bld) 57.3 % 47-70 [facility] Potassium [Moles/Vol] 3.7 mmol/L 3.5-5.1 [facility] Protein [Mass/Vol] 7.0 g/dL 6.4-8.2 [facility] Sodium [Moles/Vol] 138 mmol/L 136-145 [facility] WBC (Bld) [#/Vol] 6.0 10*3/uL 4.4-11.0 [facility] Bilirubin Test strip Ql (U)O rdered By: Tye Montiel on 07-26-2023 Bilirubin Ql (U) Negative Negative [facility] Determination of erythrocyte mean corpuscular volume (MCV)Ordered By: Tye Montiel on 07-26-2023 MCV (RBC) [Entitic vol] 89.4 fL 81-99 [facility] Direct bilirubinOrdered By: Tye Montiel on 07-26-2023 Bilirubin.direct [Mass/Vol] 0.18 mg/dL 0.00-0.30 [facility] Erythrocyte distribution wid th ratioOrdered By: Tye Montiel on 07-26-2023 Erythrocyte distribution width (RBC) [Ratio] 12.6 % 11.6-14.6 [facility] Erythrocyte distribution wid th standard deviationOrdered By: Tye Montiel on 07-26-2023 Erythrocyte distribution width (RBC) [Entitic vol] 41.1 fL 35.1-43.9 [facility] Hematocrit Auto (Bld) [Volum e fraction]Ordered By: Tye Montiel on 07-26-2023 Hematocrit (Bld) [Volume fraction] 42.2 % 37-47 [facility] Immature granulocytes/100 WB C Auto (Bld)Ordered By: Tye Montiel on 07-26-2023 Immature granulocytes/100 WBC (Bld) 0.300 % 0.0-0.9 [facility] Comment on above: IG% - Immature Granu locytes (promyelocytes, myelocytes and metamyelocytes) > 1% indicates that a LEFT SHIFT is Present. Ketones Test strip Ql (U)Ord ered By: Tye Montiel on 07-26-2023 Ketones Ql (U) Negative Negative [facility] Laboratory - Chemistry and C hemistry - challengeOrdered By: Tye Montiel on 07-26-2023 ALP [Catalytic activity/Vol] 90 U/L 45-117 [facility] ALT [Catalytic activity/Vol] 31 U/L 13-56 [facility] CO2 [Moles/Vol] 27.0 mmol/L 21.0-32.0 [facility] Globulin (S) [Mass/Vol] 3.7 g/dL 2.2-4.2 [facility] Urea nitrogen/Creatinine [Mass ratio] 28.7 mg/mg 10-20 [facility] Laboratory - Hematology and Cell countsOrdered By: Tye Montiel on 07-26-2023 MCH (RBC) [Entitic mass] 30.5 pg 27.0-32.0 [facility] MCHC (RBC) [Mass/Vol] 34.1 g/dL 32-36 [facility] Nucleated RBC/100 WBC (Bld) [Ratio] 0 % 0-5 [facility] Platelets (Bld) [#/Vol] 184 10*3/uL 150-450 [facility] Mucus LM Ql (Urine sed)Order ed By: Tye Montiel on 07-26-2023 Mucus Ql (Urine sed) 0 SEEN /hpf [facility] Nitrite Test strip Ql (U)Ord ered By: Tye Montiel on 07-26-2023 Nitrite Ql (U) Negative Negative [facility] No Panel InformationOrdered By: Tye Montiel on 07-26-2023 Urine RBC 0 SEEN /hpf 0-5 [facility] Estimated Creatinine Clearance Calc 82.51 ml/min [facility] Estimated GFR (MDRD) Amer 101 mL/min >60 [facility] Comment on above: GFR Calc Estimated GFR (MDRD) Non-Af Amer 83 mL/min >60 [facility] Comment on above: Non- GFR Calc Platelet mean volume Vic-Ec ker (Bld) [Entitic vol]Ordered By: Tye Montiel on 07-26-2023 Platelet mean volume (Bld) [Entitic vol] 9.2 fL 6.2-12.0 [facility] Protein Test strip Ql (U)Ord ered By: Tye Montiel on 07-26-2023 Protein Ql (U) Negative Negative [facility] RBC Auto (Bld) [#/Vol]Ordere d By: Tye Montiel on 07-26-2023 RBC (Bld) [#/Vol] 4.72 10*6/uL 4.2-5.4 [facility] Serum or plasma calcium shiva urement (mass/volume)Ordered By: Tye Montiel on 07-26-2023 Calcium [Mass/Vol] 9.7 mg/dL 8.5-10.1 [facility] Serum or plasma creatinine m easurement (mass/volume)Ordered By: Tye Montiel on 07-26-2023 Creatinine [Mass/Vol] 0.73 mg/dL 0.55-1.02 [facility] Comment on above: The validity of the calculated GFR & GFRAA in patients over 70 years has not been determined. Clinical correlation is essential. Serum or plasma urea nitroge n measurement (mass/volume)Ordered By: Tye Montiel on 07-26-2023 Urea nitrogen [Mass/Vol] 21 mg/dL 7-18 [facility] Squamous epithelial cells de tection in urine sediment by light microscopyOrdered By: Tye Montiel on 07-26-2023 Epithelial cells.squamous LM Ql (Urine sed) 0-5 SEEN /hpf 5-10 [facility] Thin prep Papanicolaou smear with manual screeningOrdered By: Tye Montiel on 07-26-2023 Thin prep Papanicolaou smear with manual screening 3.3 g/dL 3.2-5.0 [facility] Thin prep Papanicolaou smear with manual screening 22 U/L 15-37 [facility] Thin prep Papanicolaou smear with manual screening 3 5-15 [facility] Urine blood detectionOrdered By: Tye Montiel on 07-26-2023 RBC Ql (U) Negative Negative [facility] Urine clarityOrdered By: Ramin Montiel on 07-26-2023 Clarity (U) Clear Clear [facility] Urine color determinationOrd ered By: Tye Montiel on 07-26-2023 Color (U) Yellow Yellow [facility] Urine glucose detectionOrder ed By: Tye Montiel on 07-26-2023 Glucose Ql (U) Normal mg/dl Normal [facility] Urine leukocyte esterase det ection by dipstickOrdered By: Tye Montiel on 07-26-2023 Leukocyte esterase Test strip Ql (U) Negative Negative [facility] Urine pHOrdered By: Tye sim on 07-26-2023 pH (U) 6.5 [pH] 5.0 - 8.0 [facility] Urine sediment bacteria coun t by microscopy (number/high power field)Ordered By: Tye Montiel on 07-26-2023 Bacteria LM.HPF (Urine sed) [#/Area] 1 /[HPF] None Seen [facility] Urine specific gravity measu rementOrdered By: Tye Montiel on 07-26-2023 Specific gravity (U) [Rel density] 1.010 1.002-1.030 [facility] Urine urobilinogen measureme ntOrdered By: Tye Montiel on 07-26-2023 Urobilinogen Ql (U) Normal mg/dl Normal [facility] Absolute lymphocyte countOrd ered By: Dalton Baez on 04-22-2023 Lymphocytes Auto (Unsp spec) [#/Vol] 1.20 10*3/uL 0.83-4.51 [facility] Basophil percentageOrdered B y: Dalton Baez on 04-22-2023 Basophils/100 WBC (Bld) 0.1 % 0-1 [facility] Chloride [Moles/Vol] 107 mmol/L 98-107 [facility] Eosinophils/100 WBC (Bld) 0.0 % 0-5 [facility] Glucose [Mass/Vol] 228 mg/dL 74-106 [facility] Comment on above: Glucose result great er than or equal to 200 mg/dLsuggests DIABETES MELLITUS per A.D.A. criteria. Neutrophils (Bld) [#/Vol] 6.0 10*3/uL 2.0-7.7 [facility] Neutrophils/100 WBC (Bld) 80.1 % 47-70 [facility] Potassium [Moles/Vol] 3.1 mmol/L 3.5-5.1 [facility] Sodium [Moles/Vol] 142 mmol/L 136-145 [facility] WBC (Bld) [#/Vol] 7.5 10*3/uL 4.4-11.0 [facility] Blood erythrocytes count (nu mber/volume)Ordered By: Dalton Baez on 04-22-2023 RBC (Bld) [#/Vol] 4.77 10*6/uL 4.2-5.4 [facility] Blood hemoglobin measurement (mass/volume)Ordered By: Dalton Baez on 04-22-2023 Hemoglobin (Bld) [Mass/Vol] 14.4 g/dL 12.0-15.0 [facility] Blood lymphocytes/100 leukoc ytesOrdered By: Dalton Baez on 04-22-2023 Lymphocytes/100 WBC (Bld) 16.1 % 19-41 [facility] Blood monocytes/100 leukocyt esOrdered By: Dalton Baez on 04-22-2023 Monocytes/100 WBC (Bld) 3.2 % 0-10 [facility] Blood platelet mean volumeOr dered By: Dalton Baez on 04-22-2023 Platelet mean volume (Bld) [Entitic vol] 9.3 fL 6.2-12.0 [facility] Determination of erythrocyte mean corpuscular volume (MCV)Ordered By: Dalton Baez on 04-22-2023 MCV (RBC) [Entitic vol] 90.6 fL 81-99 [facility] Hematocrit Auto (Bld) [Volum e fraction]Ordered By: Dalton Baez on 04-22-2023 Hematocrit (Bld) [Volume fraction] 43.2 % 37-47 [facility] Laboratory - Chemistry and C hemistry - challengeOrdered By: Dalton Baez on 04-22-2023 CO2 [Moles/Vol] 30.0 mmol/L 21.0-32.0 [facility] Urea nitrogen/Creatinine [Mass ratio] 29.8 mg/mg 10-20 [facility] Laboratory - Hematology and Cell countsOrdered By: Dalton Baez on 04-22-2023 Erythrocyte distribution width (RBC) [Entitic vol] 41.3 fL 35.1-43.9 [facility] Erythrocyte distribution width (RBC) [Ratio] 12.7 % 11.6-14.6 [facility] Immature granulocytes/100 WBC (Bld) 0.500 % 0.0-0.9 [facility] Comment on above: IG% - Immature Granu locytes (promyelocytes, myelocytes and metamyelocytes) > 1% indicates that a LEFT SHIFT is Present. MCH (RBC) [Entitic mass] 30.2 pg 27.0-32.0 [facility] Nucleated RBC/100 WBC (Bld) [Ratio] 0 % 0-5 [facility] MCHC Auto (RBC) [Mass/Vol]Or dered By: Dalton Baez on 04-22-2023 MCHC (RBC) [Mass/Vol] 33.3 g/dL 32-36 [facility] No Panel InformationOrdered By: Dalton Baez on 04-22-2023 Estimated Creatinine Clearance Calc 54.15 ml/min [facility] Estimated GFR (MDRD) Amer 76 mL/min >60 [facility] Comment on above: GFR Calc Estimated GFR (MDRD) Non-Af Amer 63 mL/min >60 [facility] Comment on above: Non- GFR Calc Troponin I High Sensitivity 32 pg/mL 3.0-54.0 [facility] Comment on above: Please Note: New Concepcion t Units and Gender Specific Reference Ranges. For more information see Policy Stat Procedure [place] High Sensitivity Troponin (TNIH) and attachments. Platelets bldOrdered By: Carolee Baez on 04-22-2023 Platelets (Bld) [#/Vol] 204 10*3/uL 150-450 [facility] Serum or plasma calcium shiva urement (mass/volume)Ordered By: Dalton Baez on 04-22-2023 Calcium [Mass/Vol] 9.3 mg/dL 8.5-10.1 [facility] Serum or plasma creatinine m easurement (mass/volume)Ordered By: Dalton Baez on 04-22-2023 Creatinine [Mass/Vol] 0.94 mg/dL 0.55-1.02 [facility] Comment on above: The validity of the calculated GFR & GFRAA in patients over 70 years has not been determined. Clinical correlation is essential. Serum or plasma urea nitroge n measurement (mass/volume)Ordered By: Dalton Baez on 04-22-2023 Urea nitrogen [Mass/Vol] 28 mg/dL 7-18 [facility] Thin prep Papanicolaou smear with manual screeningOrdered By: Dalton Baez on 04-22-2023 Thin prep Papanicolaou smear with manual screening 5 5-15 [facility] Absolute lymphocyte countOrd ered By: Alba Eldridge on 01-16-2023 Lymphocytes Auto (Unsp spec) [#/Vol] 1.92 10*3/uL 0.83-4.51 [facility] Basophil percentageOrdered B y: Alba Eldridge on 01-16-2023 Basophils/100 WBC (Bld) 0.4 % 0-1 [facility] Bilirubin [Mass/Vol] 0.70 mg/dL 0.20-1.00 [facility] Comment on above: For patients on eltr ombopag therapy, use of Dimension [place] TBIL is not recommended. Chloride [Moles/Vol] 107 mmol/L 98-107 [facility] Cholesterol [Mass/Vol] 171 mg/dL <200 [facility] Comment on above: <200 mg/dL Desirable 200-240 mg/dL Borderline >240 mg/dL High Risk Eosinophils/100 WBC (Bld) 0.9 % 0-5 [facility] Glucose [Mass/Vol] 110 mg/dL 74-106 [facility] Comment on above: Fasting Glucose resu lt from 100 to 125 mg/dL suggests IMPAIRED HOMEOSTASIS per A.D.A. criteria. Neutrophils (Bld) [#/Vol] 3.0 10*3/uL 2.0-7.7 [facility] Neutrophils/100 WBC (Bld) 54.9 % 47-70 [facility] Potassium [Moles/Vol] 3.4 mmol/L 3.5-5.1 [facility] Protein [Mass/Vol] 7.1 g/dL 6.4-8.2 [facility] Sodium [Moles/Vol] 141 mmol/L 136-145 [facility] Triglyceride [Mass/Vol] 112 mg/dL <199 [facility] Comment on above: The drugs N-Acetylcy steine and Metamizole may falsely depress this assay.Serum Triglycerides Reference Interval Normal <150 mg/dL Borderline high 150 - 199 mg/dL High 200 - 499 mg/dL Very High > or = 500 mg/dL WBC (Bld) [#/Vol] 5.5 10*3/uL 4.4-11.0 [facility] Blood erythrocytes count (nu mber/volume)Ordered By: Alba Eldridge on 01-16-2023 RBC (Bld) [#/Vol] 4.59 10*6/uL 4.2-5.4 [facility] Blood hemoglobin measurement (mass/volume)Ordered By: Alba Eldridge on 01-16-2023 Hemoglobin (Bld) [Mass/Vol] 14.4 g/dL 12.0-15.0 [facility] Blood lymphocytes/100 leukoc ytesOrdered By: Alba Eldridge on 01-16-2023 Lymphocytes/100 WBC (Bld) 34.7 % 19-41 [facility] Blood monocytes/100 leukocyt esOrdered By: Alba Eldridge on 01-16-2023 Monocytes/100 WBC (Bld) 8.7 % 0-10 [facility] Blood platelet mean volumeOr dered By: Alba Eldridge on 01-16-2023 Platelet mean volume (Bld) [Entitic vol] 9.3 fL 6.2-12.0 [facility] Determination of erythrocyte mean corpuscular volume (MCV)Ordered By: Alba Eldridge on 01-16-2023 MCV (RBC) [Entitic vol] 93.7 fL 81-99 [facility] Hematocrit Auto (Bld) [Volum e fraction]Ordered By: lAba Eldridge on 01-16-2023 Hematocrit (Bld) [Volume fraction] 43.0 % 37-47 [facility] Laboratory - Chemistry and C hemistry - challengeOrdered By: Alba Eldridge on 01-16-2023 ALP [Catalytic activity/Vol] 99 U/L 45-117 [facility] ALT [Catalytic activity/Vol] 33 U/L 13-56 [facility] CO2 [Moles/Vol] 30.0 mmol/L 21.0-32.0 [facility] Globulin (S) [Mass/Vol] 3.7 g/dL 2.2-4.2 [facility] Urea nitrogen/Creatinine [Mass ratio] 24.5 mg/mg 10-20 [facility] Laboratory - Hematology and Cell countsOrdered By: Alba Eldridge on 01-16-2023 Erythrocyte distribution width (RBC) [Entitic vol] 43.0 fL 35.1-43.9 [facility] Erythrocyte distribution width (RBC) [Ratio] 12.7 % 11.6-14.6 [facility] Immature granulocytes/100 WBC (Bld) 0.400 % 0.0-0.9 [facility] Comment on above: IG% - Immature Granu locytes (promyelocytes, myelocytes and metamyelocytes) > 1% indicates that a LEFT SHIFT is Present. MCH (RBC) [Entitic mass] 31.4 pg 27.0-32.0 [facility] Nucleated RBC/100 WBC (Bld) [Ratio] 0 % 0-5 [facility] MCHC Auto (RBC) [Mass/Vol]Or dered By: Alba Eldridge on 01-16-2023 MCHC (RBC) [Mass/Vol] 33.5 g/dL 32-36 [facility] No Panel InformationOrdered By: Alba Eldridge on 01-16-2023 Estimated GFR (MDRD) Amer 84 mL/min >60 [facility] Comment on above: GFR Calc Estimated GFR (MDRD) Non-Af Amer 70 mL/min >60 [facility] Comment on above: Non- GFR Calc Platelets bldOrdered By: Lee Eldridge on 01-16-2023 Platelets (Bld) [#/Vol] 185 10*3/uL 150-450 [facility] Serum or plasma albumin shiva urement (mass/volume)Ordered By: Alba Eldridge on 01-16-2023 Albumin [Mass/Vol] 3.4 g/dL 3.2-5.0 [facility] Serum or plasma albumin/glob ulin mass ratioOrdered By: Alba Eldridge on 01-16-2023 Albumin/Globulin [Mass ratio] 0.9 {ratio} 0.9-2.4 [facility] Serum or plasma calcium shiva urement (mass/volume)Ordered By: Alba Eldridge on 01-16-2023 Calcium [Mass/Vol] 9.5 mg/dL 8.5-10.1 [facility] Serum or plasma cholesterol in HDL measurement (mass/volume)Ordered By: Alba Eldridge on 01-16-2023 Cholesterol in HDL [Mass/Vol] 55 mg/dL >40 [facility] Comment on above: The drugs N-Acetylcy steine and Metamizole may falsely depress this assay. Reference Range HDL <40 mg/dL Low HDL Cholesterol HDL >or= 60 mg/dL High HDL Cholesterol Serum or plasma cholesterol in VLDL measurement (mass/volume)Ordered By: Alba Eldridge on 01-16-2023 Cholesterol in VLDL [Mass/Vol] 22 mg/dL 5-40 [facility] Serum or plasma creatinine m easurement (mass/volume)Ordered By: Alba Eldridge on 01-16-2023 Creatinine [Mass/Vol] 0.86 mg/dL 0.55-1.02 [facility] Comment on above: The validity of the calculated GFR & GFRAA in patients over 70 years has not been determined. Clinical correlation is essential. Serum or plasma low density lipoprotein (LDL) cholesterol measurement (mass/volume)Ordered By: Alba Eldridge on 01-16-2023 Cholesterol in LDL [Mass/Vol] 94 mg/dL 0-130 [facility] Serum or plasma urea nitroge n measurement (mass/volume)Ordered By: Alba Eldridge on 01-16-2023 Urea nitrogen [Mass/Vol] 21 mg/dL 7-18 [facility] Thin prep Papanicolaou smear with manual screeningOrdered By: Alba Eldridge on 01-16-2023 Thin prep Papanicolaou smear with manual screening 27 U/L 15-37 [facility] Thin prep Papanicolaou smear with manual screening 4 5-15 [facility] Absolute lymphocyte counton 03-01-2022 Lymphocytes Auto (Unsp spec) [#/Vol] 2.39 10*3/uL 0.83-4.51 [facility] Work Phone: Basophil percentageon 2021 Basophils/100 WBC (Bld) 0.3 % 0-1 [facility] Work Phone: Chloride [Moles/Vol] 105 mmol/L 98-107 [facility] Work Phone: Eosinophils/100 WBC (Bld) 1.0 % 0-5 [facility] Work Phone: Glucose [Mass/Vol] 150 mg/dL 74-106 [facility] Work Phone: Comment on above: Fasting Glucose resu lt greater than or equal to 126 mg/dL suggests DIABETES MELLITUS per A.D.A. criteria. Neutrophils (Bld) [#/Vol] 3.8 10*3/uL 2.0-7.7 [facility] Work Phone: Neutrophils/100 WBC (Bld) 56.0 % 47-70 [facility] Work Phone: Potassium [Moles/Vol] 3.3 mmol/L 3.5-5.1 [facility] Work Phone: Sodium [Moles/Vol] 142 mmol/L 136-145 [facility] Work Phone: WBC (Bld) [#/Vol] 6.8 10*3/uL 4.4-11.0 [facility] Work Phone: Blood erythrocytes count (nu mber/volume)on 03-01-2022 RBC (Bld) [#/Vol] 4.48 10*6/uL 4.2-5.4 [facility] Work Phone: Blood hemoglobin measurement (mass/volume)on 03-01-2022 Hemoglobin (Bld) [Mass/Vol] 14.2 g/dL 12.0-15.0 [facility] Work Phone: Blood lymphocytes/100 leukoc yteson 03-01-2022 Lymphocytes/100 WBC (Bld) 35.4 % 19-41 [facility] Work Phone: Blood monocytes/100 leukocyt eson 03-01-2022 Monocytes/100 WBC (Bld) 7.0 % 0-10 [facility] Work Phone: Blood platelet mean volumeon 03-01-2022 Platelet mean volume (Bld) [Entitic vol] 9.1 fL 6.2-12.0 [facility] Work Phone: [phone] Determination of erythrocyte mean corpuscular volume (MCV)on 03-01-2022 MCV (RBC) [Entitic vol] 92.0 fL 81-99 [facility] Work Phone: [phone] Hematocrit Auto (Bld) [Volum e fraction]on 03-01-2022 Hematocrit (Bld) [Volume fraction] 41.2 % 37-47 [facility] Work Phone: [phone] Laboratory - Chemistry and C hemistry - challengeon 03-01-2022 CO2 [Moles/Vol] 29.0 mmol/L 21.0-32.0 [facility] Work Phone: [phone] Urea nitrogen/Creatinine [Mass ratio] 23.0 mg/mg 10-20 [facility] Work Phone: [phone] Laboratory - Hematology and Cell countson 03-01-2022 Erythrocyte distribution width (RBC) [Entitic vol] 42.5 fL 35.1-43.9 [facility] Work Phone: [phone] Erythrocyte distribution width (RBC) [Ratio] 12.7 % 11.6-14.6 [facility] Work Phone: [phone] Immature granulocytes/100 WBC (Bld) 0.300 % 0.0-0.9 [facility] Work Phone: [phone] Comment on above: IG% - Immature Granu locytes (promyelocytes, myelocytes and metamyelocytes) > 1% indicates that a LEFT SHIFT is Present. MCH (RBC) [Entitic mass] 31.7 pg 27.0-32.0 [facility] Work Phone: [phone] Nucleated RBC/100 WBC (Bld) [Ratio] 0 % 0-5 [facility] Work Phone: [phone] MCHC Auto (RBC) [Mass/Vol]on 03-01-2022 MCHC (RBC) [Mass/Vol] 34.5 g/dL 32-36 [facility] Work Phone: [phone] No Panel Informationon 03-01 D-Dimer Quantitative (PE/DVT) 0.64 FEU/ug/m 0.27-0.49 [facility] Work Phone: Comment on above: CRITICAL VALUE VERIF IED. CALLED TO HOLLIS SOLANO RN ED03/01/222004 Pranav Brown.RESULTS READ BACK BY SAME . D-Dimer ELEVATED (>0.49): Additional studies and clinicalassessments are indicated to conclude diagnosis of:Deep Vein Thrombosis (DVT) or Pulmonary Embolism (PE) Estimated Creatinine Clearance Calc 64.53 ml/min [facility] Work Phone: Estimated GFR (MDRD) Amer 88 mL/min >60 [facility] Work Phone: Comment on above: GFR Calc Estimated GFR (MDRD) Non-Af Amer 73 mL/min >60 [facility] Work Phone: Comment on above: Non- GFR Calc Troponin I High Sensitivity 9 pg/mL 3.0-54.0 [facility] Work Phone: Comment on above: Please Note: New Concepcion t Units and Gender Specific Reference Ranges. For more information see Policy Stat Procedure [place] High Sensitivity Troponin (TNIH) and attachments. Platelets bldon 03-01-2022 Platelets (Bld) [#/Vol] 196 10*3/uL 150-450 [facility] Work Phone: Serum or plasma calcium shiva urement (mass/volume)on 03-01-2022 Calcium [Mass/Vol] 9.4 mg/dL 8.5-10.1 [facility] Work Phone: [phone] Serum or plasma creatinine m easurement (mass/volume)on 03-01-2022 Creatinine [Mass/Vol] 0.83 mg/dL 0.55-1.02 [facility] Work Phone: Comment on above: The validity of the calculated GFR & GFRAA in patients over 70 years has not been determined. Clinical correlation is essential. Serum or plasma urea nitroge n measurement (mass/volume)on 03-01-2022 Urea nitrogen [Mass/Vol] 19 mg/dL 7-18 [facility] Work Phone: Thin prep Papanicolaou smear with manual screeningon 03-01-2022 Thin prep Papanicolaou smear with manual screening 8 5-15 [facility] Work Phone: Basophil percentageon 2021 Creatinine [Mass/Vol] 0.6 mg/dL 0.55-1.02 [facility] Work Phone: No Panel Informationon 07-20 Bedside Estimated GFR (eGFR) > 60.0000 mL/min >60 [facility] Work Phone: Vital Signs Date Time Vital Sign Value Performing Clinician Faci lity 11-12-2024 14:20-0400 Body height 167.[address] Alba Eldridge MD Work Phone: [facility] 08-06-2024 23:34-0500 Body temperature 98 [degF] Dr. Alba Eldridge MD Work Phone: [facility] 08-06-2024 23:34-0500 Diastolic blood pressure 85 mm[Hg] Dr. Alba Eldridge MD Work Phone: [facility] 08-06-2024 23:34-0500 Heart rate 93 /min Dr. Alba Eldridge MD Work Phone: [facility] 08-06-2024 23:34-0500 Respiratory rate 22 /min Dr. Alba Eldridge MD Work Phone: [facility] 08-06-2024 23:34-0500 SaO2% (BldA) [Mass fraction] 92 % Dr. Alba Eldridge MD Work Phone: [facility] 08-06-2024 23:34-0500 Systolic blood pressure 180 mm[Hg] Dr. Alba Eldridge MD Work Phone: [facility] 08-06-2024 20:51-0500 Body height 167.[address] Alba Eldridge MD Work Phone: [facility] 08-06-2024 20:51-0500 Body mass index (BMI) [Ratio] 36 kg/m2 Dr. Alba Eldridge MD Work Phone: [facility] 08-06-2024 20:51-0500 Body weight 101.[address] Alba Eldridge MD Work Phone: [facility] 07-26-2023 08:35-0500 Diastolic blood pressure 68 mm[Hg] Dr. Alba Eldridge Work Phone: [facility] 07-26-2023 08:35-0500 Heart rate 57 /min Dr. Alba Eldridge Work Phone: [facility] 07-26-2023 08:35-0500 Respiratory rate 20 /min Dr. Alba Eldridge Work Phone: [facility] 07-26-2023 08:35-0500 SaO2% (BldA) [Mass fraction] 96 % Dr. Alba Eldridge Work Phone: [facility] 07-26-2023 08:35-0500 Systolic blood pressure 190 mm[Hg] Dr. Alba Eldirdge Work Phone: [facility] 07-26-2023 04:49-0500 Body temperature 97.1 [degF] Dr. Alba Eldridge Work Phone: [facility] 07-26-2023 04:46-0500 Body height 165.[address] Alba Eldridge Work Phone: [facility] 07-26-2023 04:46-0500 Body mass index (BMI) [Ratio] 41.8 kg/m2 Dr. Alba Eldridge Work Phone: [facility] 07-26-2023 04:46-0500 Body weight 114.[address] Alba Eldridge Work Phone: [facility] 04-22-2023 14:32-0400 Diastolic blood pressure 88 mm[Hg] Dr. Alba Eldridge Work Phone: [facility] 04-22-2023 14:32-0400 Heart rate 88 /min Dr. Alba Eldridge Work Phone: [facility] 04-22-2023 14:32-0400 Respiratory rate 16 /min Dr. Alba Eldridge Work Phone: [facility] 04-22-2023 14:32-0400 Systolic blood pressure 198 mm[Hg] Dr. Alba Eldridge Work Phone: [facility] 04-22-2023 13:13-0400 Body mass index (BMI) [Ratio] 38.3 kg/m2 Dr. Alba Eldridge Work Phone: [facility] 04-22-2023 13:13-0400 Body temperature 97.9 [degF] Dr. Alba Eldridge Work Phone: [facility] 04-22-2023 13:13-0400 Body weight 111.[address] Alba Eldridge Work Phone: [facility] 04-22-2023 13:13-0400 SaO2% (BldA) [Mass fraction] 99 % Dr. Alba Eldridge Work Phone: [facility] 04-22-2023 11:57-0400 Body height 170.[address] Alba Eldridge Work Phone: [facility] 03-01-2022 20:17-0400 Respiratory rate 16 /min Dr. Alba Eldridge Work Phone: [facility] Work Phone: 03-01-2022 20:00-0400 Diastolic blood pressure 78 mm[Hg] Dr. Alba Eldridge Work Phone: [facility] Work Phone: 03-01-2022 20:00-0400 Heart rate 53 /min Dr. Alba Eldridge Work Phone: [facility] Work Phone: 03-01-2022 20:00-0400 SaO2% (BldA) [Mass fraction] 95 % Dr. Alba Eldridge Work Phone: [facility] Work Phone: 03-01-2022 20:00-0400 Systolic blood pressure 134 mm[Hg] Dr. Alba Eldridge Work Phone: [facility] Work Phone: 03-01-2022 18:52-0400 Body height 172.[address] Alba Eldridge Work Phone: [facility] Work Phone: 03-01-2022 18:52-0400 Body mass index (BMI) [Ratio] 38.3 kg/m2 Dr. Alba Eldridge Work Phone: [facility] Work Phone: 03-01-2022 18:52-0400 Body temperature 97.5 [degF] Dr. Alba Eldridge Work Phone: [facility] Work Phone: 03-01-2022 18:52-0400 Body weight 114.[address] Alba Eldridge Work Phone: [facility] Work Phone: Encounters Encounter Date Encounter Type Care Provider Facility Start: 11-13-2024 End: 11-13-[address] Alba Eldridge MD Work Phone: [facility] Work Phone: Start: 11-13-2024 End: 11-13-[address] Walter Singh DO [facility] Work Phone: Start: 11-13-2024 End: 11-13-2024 ambulatory Walter Singh Facility:[facility] Start: 11-09-2024 End: 11-09-[address] Alba Eldridge MD Work Phone: [facility] Work Phone: Start: 11-09-2024 End: 11-09-[address] Alba Eldridge MD -Outpatient Breast Imaging Work Phone: Start: 11-09-2024 End: 11-09-2024 ambulatory Alba Eldridge Facility:[facility] Start: 09-18-2024 End: 09-18-[address] Walter Singh DO -[facility] Work Phone: Start: 09-18-2024 End: 09-18-2024 ambulatory Walter Singh Facility:[facility] Start: 08-06-2024 End: 08-06-2024 Emergency department patient visit Dr. Gray Wray MD -Emergency Department Work Phone: Start: 07-03-2024 End: 07-03-2024 ambulatory Francisco Javieromar Queeni Facility:[facility] Start: 06-26-2024 End: 06-26-2024 ambulatory Candida Salmeron Facility:[facility] Start: 05-11-2024 End: 05-11-2024 Emergency department patient visit Kulwinder Jesús Facility:[facility] Start: 03-23-2024 End: 03-23-2024 ambulatory Alba Mimarisol Facility:[facility] Start: 03-23-2024 End: 03-23-2024 ambulatory Shireen Calvert Facility:[facility] Start: 01-31-2024 End: 01-31-2024 ambulatory Alba Eldridge Facility:[facility] Start: 01-31-2024 End: 01-31-2024 ambulatory Alba Jazmyn Facility:[facility] Start: 12-05-2023 End: 12-05-2023 ambulatory Alba Eldridge Facility:[facility] Start: 07-26-2023 End: 07-26-2023 Emergency department patient visit Dr. Alba Eldridge Work Phone: [facility]-Emergency Department Work Phone: Start: 07-15-2023 End: 07-15-[address] Alba Eldridge Work Phone: [facility] Work Phone: Start: 06-04-[address] Shantelle [facility] Start: 05-13-[address] Shantelle Eldridge Work Phone: [facility]-Physical Therapy Work Phone: Start: 05-10-2023 End: 05-10-[address] Alba Eldridge Work Phone: [facility] Work Phone: Start: 05-10-2023 End: 05-10-[address] [facility] Work Phone: Start: 05-03-2023 End: 05-03-[address] Alba Eldridge Work Phone: [facility]-RAD [employer] Work Phone: Start: 04-26-2023 End: 04-26-[address] Alba Eldridge Work Phone: [facility] Work Phone: Start: 04-26-2023 End: 04-26-[address] [facility] Eld[facility] [place] Work Phone: Start: 04-22-2023 End: 04-22-2023 Emergency department patient visit Dr. Alba Eldridge Work Phone: [facility]-Emergency Department Work Phone: Start: 02-28-2023 End: 02-28-[address] Alba Eldridge Work Phone: [facility] Work Phone: Start: 01-16-2023 End: 01-16-2023 ambulatory [facility] Work Phone: Start: 01-16-2023 End: 01-16-2023 Patient encounter procedure [facility]-Laboratory, [place] Work Phone: Start: 11-06-2022 End: 11-06-2022 Patient encounter procedure [facility]-Outpatient Breast Imaging Work Phone: Start: 06-22-2022 End: 06-22-2022 ambulatory [facility] Work Phone: Start: 06-22-2022 End: 06-22-2022 Patient encounter procedure [facility], [place] Start: 03-01-2022 End: 03-01-2022 Emergency department patient visit Dr. Alba Eldridge Work Phone: [facility]-Emergency Department Start: 12-04-2021 End: 12-04-[address] Alba Eldridge Work Phone: [facility] Start: 11-03-2021 End: 11-03-[address] Alba Eldridge Work Phone: [facility]-Outpatient Breast Imaging Start: 07-20-2021 End: 07-20-[address] Alba Eldridge Work Phone: [facility]-Cat [facility] Start: 07-12-2021 End: 07-12-[address] Alba Eldridge Work Phone: [facility] Start: 03-04-2018 Patient encounter [facility] Procedures Date Procedure Procedure Detail Performing Clinician Start: 11-13-2024 XR knee, [address] Chad Eldridge MD Work Phone: Start: 11-09-2024 Screening mammography Evan Eldridge MD Work Phone: Start: 09-18-2024 XR knee, [address] Chad Eldridge MD Work Phone: Start: 08-06-2024 X-ray of chest, PA a nd lateral views Dr. Alba Eldridge MD Work Phone: Start: 08-06-[address] Alba Eldridge MD Work Phone: Start: 08-06-2024 Measurement of renal function Dr. Alba Eldridge MD Work Phone: Comment on above: GFR Calc Start: 08-06-2024 SARS-CoV-2, Influenz a & RSV (PCR) Dr. Alba Eldridge MD Work Phone: Start: 07-26-2023 Computed tomography of abdomen and pelvis with intravenous contrast Dr. Alba Eldridge Work Phone: Start: 07-15-2023 Plain X-ray of shoulder Dr. Alba Eldridge Work Phone: Start: 05-10-2023 X-ray of lumbosacral spine Dr. Alba Eldridge Work Phone: Start: 04-26-2023 Plain x-ray of pelvi s and lower extremity Dr. Alba Eldridge Work Phone: Start: 04-22-2023 Plain chest X-ray Dr. Lars Eldridge Work Phone: Start: 02-28-2023 Radiologic examinati on of knee Dr. Alba Eldridge Work Phone: Start: 11-06-2022 Screening mammography Start: 06-22-2022 X-ray of both feet Start: 12-04-2021 Radiologic examinati on of knee Dr. Alba Eldridge Work Phone: Start: 11-03-2021 Screening mammography Evan Eldridge Work Phone: Start: 07-20-2021 Computed tomography of abdomen and pelvis with contrast Dr. Alba Eldridge Work Phone: Start: 07-12-2021 Radiologic examinati on of knee Dr. Alba Eldridge Work Phone: Plan of Treatment Date Care Activity Detail Author Start: 09-18-2024 Patient referral [facility] Work Phone: Start: 08-06-[address] [facility] Start: 07-26-[address] [facility] Start: 07-15-2023 Patient referral [facility] Work Phone: Start: 04-22-[address] [facility] Start: 04-22-[address] [facility] Start: 03-01-2022 Blood chemistry [facility] Work Phone: Start: 03-01-2022 End: 03-01-2022 [facility] Work Phone: Start: 03-01-2022 Plain chest X-ray Chest 1 View (Portable) [facility] Work Phone: Start: 03-01-2022 XR Chest Single view [facility] Work Phone: Patient Education [facility] Work Phone: [facility] Work Phone: Urate [Mass/volume] in Serum or Plasma [facility] Immunizations Immunization Date Immunization Notes Care Provider Fa cili 09-30-2020 Covid (Pfizer) Dr. Alba damon Work Phone: [facility] 09-09-2020 Covid (Pfizer) Dr. Alba damon Work Phone: [facility] 03-26-[address] Alba Eldridge Work Phone: [facility] Payers Date Payer Category Payer Self-pay [id number] 2023 Unknown [id number] 2012 Medicare [id number] [facility] [id number] Medicare [id number] Unknown [id number] Unknown [id number] 2.16.8 [id number] Unknown [id number] 2.16.8 [id number] Unknown [id number] 2.16.8 [id number] Unknown [id number] 2.16.8 [id number] Unknown [id number] 2.16.8 [id number] Unknown [id number] 2.16.8 [id number] Unknown [id number] 2.16.8 [id number] Unknown [id number] 2.16.8 [id number] Unknown [id number] 2.16.8 [id number] Unknown [id number] 2.16.8 [id number] Unknown [id number] 2.16.8 [id number] Unknown [id number] 2.16.8 [id number] Unknown [id number] 2.16.8 [id number] Unknown [id number] 2.16.8 [id number] Social History Date Type Detail Facility Start: 07-12-2021 End: 07-26-2023 Tobacco smoking status NHIS Unknown if ever smoked [facility] Start: 07-05-[address] [facility] Start: 04-15-2019 Spouse/ Signif icant Other [facility] Start: 07-05-2016 Non-smoker [facility] Start: 1950 Sex Assigned At Female [facility] Start: 08-06-2024 End: 11-12-2024 Tobacco smoking status NHIS Ex-smoker (finding) [facility] Medical Equipment Procedure Code Equipment Code Equipment Origin al Text Equipment Identifier Dates Total knee replacement ASYMMETRIC PATELLA FDA Start: 07-12-2020 Total knee replacement CRUCIATE RETAINING FEMORAL FDA Start: 07-12-2020 Total knee replacement TIBIAL BEARING INSERT CS FDA Start: 07-12-2020 Total knee replacement TIBIAL COMPONENT FDA Start: 07-12-2020 Total knee replacement ASYMMETRIC PATELLA FDA Start: 07-12-2020 Total knee replacement CRUCIATE RETAINING FEMORAL FDA Start: 07-12-2020 Total knee replacement TIBIAL BEARING INSERT CS FDA Start: 07-12-2020 Total knee replacement TIBIAL COMPONENT FDA Start: 07-12-2020 Total knee replacement ASYMMETRIC PATELLA FDA Start: 07-12-2020 Total knee replacement CRUCIATE RETAINING FEMORAL FDA Start: 07-12-2020 Total knee replacement TIBIAL BEARING INSERT CS FDA Start: 07-12-2020 Total knee replacement TIBIAL COMPONENT FDA Start: 07-12-2020 Total knee replacement ASYMMETRIC PATELLA FDA Start: 07-12-2020 Total knee replacement CRUCIATE RETAINING FEMORAL FDA Start: 07-12-2020 Total knee replacement TIBIAL BEARING INSERT CS FDA Start: 07-12-2020 Total knee replacement TIBIAL COMPONENT FDA Start: 07-12-2020 Total knee replacement ASYMMETRIC PATELLA FDA Start: 07-12-2020 Total knee replacement CRUCIATE RETAINING FEMORAL FDA Start: 07-12-2020 Total knee replacement TIBIAL BEARING INSERT CS FDA Start: 07-12-2020 Total knee replacement TIBIAL COMPONENT FDA Start: 07-12-2020 Total knee replacement ASYMMETRIC PATELLA FDA Start: 07-12-2020 Total knee replacement CRUCIATE RETAINING FEMORAL FDA Start: 07-12-2020 Total knee replacement TIBIAL BEARING INSERT CS FDA Start: 07-12-2020 Total knee replacement TIBIAL COMPONENT FDA Start: 07-12-2020 Total knee replacement ASYMMETRIC PATELLA FDA Start: 07-12-2020 Total knee replacement CRUCIATE RETAINING FEMORAL FDA Start: 07-12-2020 Total knee replacement TIBIAL BEARING INSERT CS FDA Start: 07-12-2020 Total knee replacement TIBIAL COMPONENT FDA Start: 07-12-2020 Total knee replacement ASYMMETRIC PATELLA FDA Start: 07-12-2020 Total knee replacement CRUCIATE RETAINING FEMORAL FDA Start: 07-12-2020 Total knee replacement TIBIAL BEARING INSERT CS FDA Start: 07-12-2020 Total knee replacement TIBIAL COMPONENT FDA Start: 07-12-2020 Total knee replacement ASYMMETRIC PATELLA FDA Start: 07-12-2020 Total knee replacement CRUCIATE RETAINING FEMORAL FDA Start: 07-12-2020 Total knee replacement TIBIAL BEARING INSERT CS FDA Start: 07-12-2020 Total knee replacement TIBIAL COMPONENT FDA Start: 07-12-2020 Total knee replacement ASYMMETRIC PATELLA FDA Start: 07-12-2020 Total knee replacement CRUCIATE RETAINING FEMORAL FDA Start: 07-12-2020 Total knee replacement TIBIAL BEARING INSERT CS FDA Start: 07-12-2020 Total knee replacement TIBIAL COMPONENT FDA Start: 07-12-2020 Total knee replacement ASYMMETRIC PATELLA FDA Start: 07-12-2020 Total knee replacement CRUCIATE RETAINING FEMORAL FDA Start: 07-12-2020 Total knee replacement TIBIAL BEARING INSERT CS FDA Start: 07-12-2020 Total knee replacement TIBIAL COMPONENT FDA Start: 07-12-2020 Mental Status Date Assessment Result Facility 04-22-2023 Cognitive function Level Of Cons ciousness Awake;Alert;Appropriate [facility] Work Phone: 03-01-2022 Cognitive function Voice/Name [facility] Work Phone: Clinical Notes 06-24-2020 to 11-13-2024 Note Date & Type Note Facility 11-13-2024 Radiology Diagnostic study note [facility] Imaging Services [address] [place] [address] Knee 3 Views MR#: [id number] Acct: [id number] Name: PRINCESS MEZA Rep #: [id number] : 1950 F 74 From: Manisha Diaz MD PCP: Dr. Alba Eldridge MD Status: REG CLI Study:Knee 3 Views Date of Exam: 5 Exam# [id number] Ordering Dr: Walter Singh DO EXAM: XR Left Knee, 3 Views CLINICAL INDICATION: PAIN AFTER HISTORY OF TOTAL KNEE TECHNIQUE: Three views of the left knee. COMPARISON: No relevant prior studies available. FINDINGS: BONES/JOINTS: Total knee replacement. Intact hardware. No acute fracture. No dislocation. SOFT TISSUES: Soft tissue emphysema and swelling. RAD/Knee 3 Views IMPRESSION: 1. Status post total knee replacement in anatomic position. 2. Postoperative changes as above. Reading Location: [facility] CC: Dr. Alba Eldridge MD; Dr. 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: Signed [facility] 09-18-2024 Evaluation note Diagnosis Onset Date Resolution Heterotopic ossification of joint acute August 10:47am IT band syndrome acute September 182024 10:47am S/P total knee arthroplasty acute September 18, 2024 10:47am [facility] Work Phone: 1(825) 765-251103-28-2025 Evaluation note* Diagnosis Onset Date Resolution Status Admit Date Heterotopic ossification of joint acute September 18, 2024 10:47am IT band syndrome acute September 182024 10:47am S/P total knee arthroplasty acute September 18, 2024 10:47am Heterotopic ossification of joint acute November 13, 2024 9 :19am S/P total knee arthroplasty acute November 13, 2024 9:19am [facility] Work Phone: 1(896) 980-404202-02-2024 Discharge summary Author Rasheed Fisher [facility] July 26, 2023 8:30am Note Date/Time July 26, 2023 5 :07am [facility] Medical Records Department [address] [place] [address] Emergency Department Summary 07/26/23 MR#: [id number] Acct: [id number] Name: PRINCESS MEZA Rep #:[id number] : 1950 72 From: Tye Méndez PCP: Dr. Alba Eldridge MD Status:REG ER Location: ED ADDENDUM by Dr. Rasheed Fisher MD on 07/26/23 at 0830 Patient turned over to me from the overnight physician. Repeat exam patient is flank is nontender as is her abdomen. She has exquisite tenderness over right SI joint. There is no redness or warmth. There is no signs of trauma or bruising. The skin is unremarkable. She has a negative straight leg raise. She has had sciatica before on the left that was similar and again did not radiate to her leg. I reviewed her CAT scan and labs are unremarkable other than history of diverticulosis. There is no signs of urinary tract infection. Patient is comfortable being discharged home. The overnight physician has already written her for narcotic pain medication. She did not need anything additional currently. And is comfortable with the plan as is her . Impression: Right sciatica. 07/26/23 0830<Electronically signed by Rasheed Fisher MD> Cosigner Signature (if applicable): cc: Dr. Alba Eldridge MD ~* Signed HPI History of Present Illness Chief Complaint: Flank Pain Informant: patient, spouse/S.O. and EMS Narrative Narrative: 72-year-old female presenting to the emergency room with right flank pain. Patient states symptoms began a couple days ago and she has been taking Tylenol and using a heating pad. Tonight she woke up and went to use the bathroom but could not get out of bed because the pain was so excruciating. She points to the right flank as the area that hurts. She states is not hip but does not leg but if she tries to move it hurts. She denies any abdominal pain, urinary symptoms, change in bowel habits, fever, chest pain, or dyspnea. Patient deniesany rashes. She states she has not had a thing like this before. She states she sees Dr. Eldridge for primary care. She states she does not see any other doctors. [facility] Medical History Hiatal hernia HTN (hypertension) Home Medications atorvastatin 80 mg tablet 80 mg PO QHS cholesterol 04/15/19 [History Last Taken Unknown] lisinopril 20 mg-hydrochlorothiazide 25 mg tablet 2 tab PO DAILY htn 04/15/19 [History Last Taken Unknown] utagecei-kbc-awegy acid 0.4 mg-lycopene 300 mcg-lutein 250 mcg tablet 1 ea PO DAILY supplement 04/15/19 [History Last Taken Unknown] omega-3 fatty acids-fish oil 340 mg-1,000 mg capsule 1 ea PO DAILY supplement 04/15/19 [History Last Taken Unknown] acetaminophen 500 mg tablet 1,000 mg (2 x 500 mg) PO Q6H PRN #100 tabs 07/12/20 [Rx Last Taken Unknown] metoprolol succinate 50 mg tablet,extended release 24 hr 1 ea PO DAILY 07/12/21 [History Last Taken Unknown] pantoprazole 20 mg tablet,delayed release 20 mg PO DAILY 12/04/21 [History Last Taken Unknown] estradiol 0.5 mg tablet 0.25 mg PO .twice a week hormone 02/28/23 [History Last Taken Unknown] oxycodone 10 mg tablet 10 mg PO Q8H PRN pain 3 days #12 tabs 07/26/23 [Rx Last Taken Unknown] Allergy/AdvReac Type Severity Reaction Status Date / Time latex Allergy Rash Verified 07/15/23 09:53 Penicillins Allergy Rash Verified 07/15/23 09:53 tetracycline AdvReac Nausea/Vom/ Verified 07/15/23 09:53 Diarrhea Family History Mother Cancer Hypertension Grandmother Cancer Father Hypertension Sister Rheumatoid arthritis Surgical History H/O: hysterectomy History of total knee arthroplasty (~07/12/20) Hx of foot surgery Social History Smoking Status: Former smoker ROS ROS ED Constitutional Constitutional ED: Denies chills, fever(s) or weight loss Eyes Eyes: Denies change in vision or diplopia ENT ENT ED: Denies ear pain, rhinorrhea or sore throat Cardiovascular Cardiovascular: Denies chest pain, orthopnea, palpitations or racing heartbeat Respiratory/Chest Respiratory/Chest: Denies cough, dyspnea or orthopnea Gastrointestinal Gastrointestinal: Denies abdominal pain, diarrhea, nausea or vomiting Genitourinary Genitourinary ED: Denies dysuria, hematuria or urinary frequency Musculoskeletal Musculoskeletal: Reports other Details: Right flank pain ; Denies arthralgias or myalgias Integumentary Denies abscess or rash Neurologic Neurologic: Denies headache(s) or weakness Psychiatric Psychiatric: Denies anxiety, depression, suicidal ideation or suicidal thoughts Endocrine Endocrinology: Denies polydipsia, polyphagia or polyuria Allergic/Immunologic Allergic/Immunologic ED: Denies mouth swelling, tongue swelling or urticaria EXAM Physical Exam Const Vital Signs: 07/26/23 04:46 07/26/23 04:49 Temperature 97.1 F L 97.1 F L Temperature Source Temporal Temporal Pulse Rate 67 64 Respiratory Rate 18 18 Blood Pressure 210/107 H Blood Pressure Mean 141 Pulse Ox 98 98 Oxygen Delivery Method Room Air Room Air Positive well nourished, well developed and obese General Appearance ED: well developed Nutritional Appearance: obese HEENT Reports normocephalic, head/scalp atraumatic and moist mucous membranes Eyes PERRL and EOMs intact bilaterally Neck no lymphadenopathy, supple and no JVD Resp normal respiratory effort and clear to auscultation bilaterally Cardio regular rate, regular rhythm and no murmurs GI GI Narrative: I go to move the patient's gown and she starts wincing and moaning with pain. Iask if moving the gown hurts and she tells me no. I lightly touch the skin and then into the subcutaneous tissue (adipose) and the patient again winces and moans with pain. I asked if that is what is hurting she states yes. I informedher I am not palpating down to muscle or bone yet. After abdomen palpating patient has several more episodes where she winces and moans. The abdomen itself is benign. Normal bowel sounds Inspection: Negative for abdominal distention Auscultation: normoactive bowel sounds Palpation: soft Back/Spine Back/Spine Narrative: Patient does not seem to be able to move from the recumbent position. If any effort including movement of arms or legs she lets out a loud moan or winces in agony Extremity normal to inspection General Extremety ED: Negative for edema General Extremity: Negative for edema Neuro oriented x3 and CN's II-XII intact bilaterally Sensorium / Orientation: alert Motor Exam: strength 5/5 throughout Psych mental status grossly normal Mood & Affect: Negative for depressed or tearful Skin no rashes or lesions noted and no wounds MDM MDM MDM Narrative Medical decision making narrative: Patient received Toradol and oxycodone. This seemed to help her pain and she was able to get up with assist to the CT table but still very painful for her. CBC CMP essentially negative glucose 123. Normal liver enzymes. Urinalysis shows no overt infection CT of the ab pelvis demonstrates some diverticulosis but no diverticular colitis. I do not see anything in the soft tissue that would explain her pain. Patient was given a dose of morphine and Zofran. Plan will be that if she is able to get up and move will be a send her home with someoxycodone. At this point I really cannot say what is causing her pain. I do not see anything intra-abdominal on the CT and it would make sense clinically with her abdominal exam being benign. Her skin and soft tissue is very sensitive but I do not see any rashes. At this point I can write her some pain medication continued heat follow-up with primary care return if worsening. History & Record Review Discussion w/independent historian: Patient and Significant other Lab Data Attestation: I reviewed the patient's lab results. Labs: Laboratory Results - last 24 hr 07/26/23 07/26/23 05:23 05:55 WBC 6.0 RBC 4.72 Hgb 14.4 Hct 42.2 MCV 89.4 MCH 30.5 MCHC 34.1 RDW Std Deviation 41.1 RDW Coeff of Faizan 12.6 Plt Count 184 MPV 9.2 Immature Gran % (Auto) 0.300 Neut % (Auto) 57.3 Lymph % (Auto) 32.3 Cooke % (Auto) 8.3 Eos % (Auto) 1.3 Baso % (Auto) 0.5 Absolute Neuts (auto) 3.5 Absolute Lymphs (auto) 1.95 Nucleated RBC % 0 Sodium 138 Potassium 3.7 Chloride 108 H Carbon Dioxide 27.0 Anion Gap 3 L BUN 21 H Creatinine 0.73 Estim Creat Clear Calc 82.51 Est GFR (MDRD) Af Amer 101 Est GFR (MDRD) Non-Af 83 BUN/Creatinine Ratio 28.7 H Glucose 123 H Calcium 9.7 Total Bilirubin 0.70 Direct Bilirubin 0.18 AST 22 ALT 31 Alkaline Phosphatase 90 Total Protein 7.0 Albumin 3.3 Globulin 3.7 Urine Color Yellow Urine Clarity Clear Urine pH 6.5 Ur Specific [place] 1.010 Urine Protein Negative Urine Glucose (UA) Normal Urine Ketones Negative Urine Occult Blood Negative Urine Nitrite Negative Urine Bilirubin Negative Urine Urobilinogen Normal Ur Leukocyte Esterase Negative Urine RBC 0 SEEN Urine WBC 0 SEEN Ur Squamous Epith Cells 0-5 SEEN Urine Bacteria 1+ Urine Mucus 0 SEEN Radiography Diagnostic Testing: Clinical Impression(s) from Imaging Studies Abdomen/Pelvis CT 07/26/23 05:02 IMPRESSION: * No acute findings to explain the patient''s symptomatology. * Pancolonic diverticulosis with chronic diverticular disease of the sigmoid colon. No evidence of acute diverticulitis. Electronically Signed: Ian Santana MD at 6:21 EST Reading Location ID and State: [address] [place] [address] Tel , Service support , Discharge Plan Triage Chief Complaint: Flank Pain ED Provider: Tye Montiel Dx/Rx/DC Orders Clinical Impression: Acute flank pain Instructions: ED Flank Pain, Uncertain Cause Prescriptions: New oxycodone 10 mg tablet 10 mg PO Q8H PRN (Reason: pain) 3 Days Qty: 12 0RF No Action metoprolol succinate 50 mg tablet extended release 24 hr 1 ea PO DAILY pantoprazole 20 mg tablet,delayed release (DR/EC) 20 mg PO DAILY atorvastatin 80 MG tablet 80 mg PO QHS lisinopril-hydrochlorothiazide 1 EACH tablet 2 tab PO DAILY bmhlwaff-fix-ZU-lycopen-lutein 1 EACH tablet 1 ea PO DAILY omega-3 fatty acids-fish oil 1 EACH capsule 1 ea PO DAILY estradiol 0.5 mg tablet 0.25 mg PO .twice a week Patient Comments: ask about stopping acetaminophen 500 MG tablet 1,000 mg PO Q6H PRN Qty: 100 0RF Primary Care Provider: Alba Eldridge Referrals: Alba Eldridge MD [Primary Care Provider] - 3-5 Days if not improving What to do if you have Problems For any increased pain, shortness of breath, bleeding, nausea or vomiting, chestpain, or any unexpected problems, contact your Primary Care Provider. Call [facility] ([phone]) or report to the closest Emergency Room. Call 911 if necessary. 07/26/23 0731 <Electronically signed by Tye Montiel DO> Cosigner Signature (if applicable): CC: Dr. Alba Eldridge MD ~ Signed [facility] Work Phone: 1(182) 508-533810-30-2023 Discharge summary Author Dalton Baez [facility] April 22, 2023 2:13pm Note Date/Time April 22, 2023 2 :13pm [facility] Medical Records Department [address] [place] [address] Emergency Department Summary 04/22/23 MR#: [id number] Acct: [id number] Name: PRINCESS MEZA Rep #:[id number] : 1950 72 From: Dalton Baez MD PCP: Dr. Alba Eldridge MD Status:REG ER Location: ED HPI History of Present Illness Chief Complaint: Palpitations Informant: patient Narrative Narrative: Patient presents with palpitations. Patient states that she had an episode of palpitations today and she has been getting them for the last few days. She has had them in the past. But she has no history of heart disease including no dysrhythmias. She states she does not get chest pain short of breath nauseated or lightheaded with them. She just feels as though there is a fluttering in her chest. She has been told that thismay be due to her hiatal hernia. However, the patient also was just placed on prednisone a few days ago. She hadsome sciatica going down the left leg. She states that is already doing better. But since she has been on the prednisone she feels the fluttering. Her sleep has been less. Her appetite is increased. She is urinating more. She just does not feel well on this. [facility] Medical History Hiatal hernia HTN (hypertension) Home Medications atorvastatin 80 mg tablet 80 mg PO QHS cholesterol 04/15/19 [History Last Taken Unknown] lisinopril 20 mg-hydrochlorothiazide 25 mg tablet 2 tab PO DAILY htn 04/15/19 [History Last Taken Unknown] qoqbrtyq-ubx-osabf acid 0.4 mg-lycopene 300 mcg-lutein 250 mcg tablet 1 ea PO DAILY supplement 04/15/19 [History Last Taken Unknown] omega-3 fatty acids-fish oil 340 mg-1,000 mg capsule 1 ea PO DAILY supplement 04/15/19 [History Last Taken Unknown] acetaminophen 500 mg tablet 1,000 mg (2 x 500 mg) PO Q6H PRN #100 tabs 07/12/20 [Rx Last Taken Unknown] metoprolol succinate 50 mg tablet,extended release 24 hr 1 ea PO DAILY 07/12/21 [History Last Taken Unknown] pantoprazole 20 mg tablet,delayed release 20 mg PO DAILY 12/04/21 [History Last Taken Unknown] estradiol 0.5 mg tablet 0.25 mg PO .twice a week hormone 02/28/23 [History Last Taken Unknown] Allergy/AdvReac Type Severity Reaction Status Date / Time latex Allergy Rash Verified 02/28/23 09:52 Penicillins Allergy Rash Verified 02/28/23 09:52 tetracycline AdvReac Nausea/Vom/ Verified 02/28/23 09:52 Diarrhea Family History Mother Cancer Hypertension Grandmother Cancer Father Hypertension Sister Rheumatoid arthritis Surgical History H/O: hysterectomy History of total knee arthroplasty (~07/12/20) Hx of foot surgery Social History Smoking Status: Former smoker ROS ROS ED ROS Narrative A complete review of systems was performed and is negative except as documented in the history of present illness. Some specific details below. Constitutional: No recent fevers or chills. No malaise. EYE: No discharge, visual complaints, or pain. No halos or blurring of vision. ENT: No difficulty swallowing. No swelling. No pain. No reflux symptoms. CV: See history of present illness. Respiratory: No dyspnea or coughing. GI: No abdominal pain. No nausea vomiting diarrhea. No blood in stool. : No dysuria or hematuria. However, she has had some frequency Musculoskeletal: No recent trauma. No pains. No swelling. Skin: No rash. Nondiaphoretic. Neuro: No weakness or numbness. Endocrine: Polyuria but no polydipsia. EXAM Physical Exam Narrative Exam Narrative: CONSTITUTIONAL: Patient is nontoxic in appearance. The patient looks comfortable. Work of breathing looks normal. HEENT: No notable trauma. Mucous membranes moist. No sinus tenderness. No indication of pain with swallowing. EYES: No conjunctival injection. No proptosis. NECK:No JVD. No stridor. CARDIOVASCULAR: Regular rate. Regular rhythm. No notable murmur. No JVD. On themonitor she appears to be in a normal sinus rhythm with a rate of about 60- 70. Peripheral pulses are also normal. Tones are not muffled. RESPIRATORY: No respiratory distress. Breathing is unlabored. No wheezes. No rhonchi. No rales. No pain with a deep breath. No chest wall tenderness. GASTROINTESTINAL: Not distended. Bowel sounds are normal. No tenderness. No guarding. No rebound. No palpable mass. No bruit is heard. GENITOURINARY: No tenderness over the bladder. No CVA tenderness. MUSCULOSKELETAL: Atraumatic. No peripheral edema. No cord. No tenderness along the deep venous system. No asymmetry. No distended veins. NEUROLOGICAL: Patient is alert and appropriate. No focal deficit noted. SKIN: No noted rashes. No diaphoresis. PSYCHIATRIC: Patient is calm. Mood is appropriate. Const Vital Signs: 04/22/23 11:57 04/22/23 13:13 04/22/23 13:13 Temperature 97.4 F L 97.9 F Temperature Source Temporal Oral Pulse Rate 78 61 Respiratory Rate 17 16 Respiratory Effort Respiratory Depth Respiratory Pattern Blood Pressure 179/83 H 172/64 H Blood Pressure Mean 115 100 Pulse Ox 95 99 Oxygen Delivery Method Room Air Room Air Room Air 04/22/23 13:13 04/22/23 13:17 Temperature Temperature Source Pulse Rate Respiratory Rate Respiratory Effort Normal Respiratory Depth Normal Respiratory Pattern Normal Normal Blood Pressure Blood Pressure Mean Pulse Ox Oxygen Delivery Method Room Air MDM [facility] MDM Narrative Medical decision making narrative: My independent interpretation of the patient's single view AP chest x-ray shows no acute process. Final reading does mention borderline cardiomegaly but no acute abnormality. Patient CBC is normal. Patient's electrolytes are normal other than her glucose is increased to 28. She has no history of diabetes. But this is likely due to prednisone. Rather than initiating therapy for this I think this needs to be rechecked off the prednisone and we did discuss this. It is certainly possible she may have some borderline diabetes but I think we have to check her when she is not on the steroids. Troponin is negative at 32. And she has been having palpitations off and on fordays. I think her symptoms of increased appetite poor sleep polyuria palpitations and mild GI upset are all due to the steroids. She states the back is better so sheis just going to stop the steroids. I think this is a reasonable option. We discussed reasons to return. She should follow-up for repeat check of the glucose. Lab Data Attestation: I reviewed the patient's lab results. Labs: Laboratory Results - last 24 hr 04/22/23 13:10 WBC 7.5 RBC 4.77 Hgb 14.4 Hct 43.2 MCV 90.6 MCH 30.2 MCHC 33.3 RDW Std Deviation 41.3 RDW Coeff of Faizan 12.7 Plt Count 204 MPV 9.3 Immature Gran % (Auto) 0.500 Neut % (Auto) 80.1 H Lymph % (Auto) 16.1 L Cooke % (Auto) 3.2 Eos % (Auto) 0.0 Baso % (Auto) 0.1 Absolute Neuts (auto) 6.0 Absolute Lymphs (auto) 1.20 Nucleated RBC % 0 Sodium 142 Potassium 3.1 L Chloride 107 Carbon Dioxide 30.0 Anion Gap 5 BUN 28 H Creatinine 0.94 Estim Creat Clear Calc 54.15 Est GFR (MDRD) Af Amer 76 Est GFR (MDRD) Non-Af 63 BUN/Creatinine Ratio 29.8 H Glucose 228 H Calcium 9.3 Troponin I High Sens 32 Radiography Diagnostic Testing: Clinical Impression(s) from Imaging Studies Chest X-Ray 04/22/23 13:20 IMPRESSION: Borderline cardiomegaly. No acute abnormality is seen. Electronically Signed: Shiv Majano MD at 13:35 EDT , EKG Initial EKG: Comments: My independent interpretation of the patient's EKG done for palpitation shows normal sinus rhythm with overall rate of 74. No ventricular ectopy. No acute ST elevation or depression but there are some diffuse nonspecific ST and T wave changes. OR interval, QRS duration and QTc are normal Discharge Plan Triage Chief Complaint: Palpitations Other Complaint: Shortness of Breath ED Provider: Dalton Baez Dx/Rx/DC Orders Clinical Impression: Hx of hiatal hernia, Heart palpitations, Hyperglycemia, Medication adverse effect Instructions: ED Palpitations Prescriptions: No Action metoprolol succinate 50 mg tablet extended release 24 hr 1 ea PO DAILY pantoprazole 20 mg tablet,delayed release (DR/EC) 20 mg PO DAILY atorvastatin 80 MG tablet 80 mg PO QHS lisinopril-hydrochlorothiazide 1 EACH tablet 2 tab PO DAILY ojxrstta-prd-JL-lycopen-lutein 1 EACH tablet 1 ea PO DAILY omega-3 fatty acids-fish oil 1 EACH capsule 1 ea PO DAILY estradiol 0.5 mg tablet 0.25 mg PO .twice a week Patient Comments: ask about stopping acetaminophen 500 MG tablet 1,000 mg PO Q6H PRN Qty: 100 0RF Primary Care Provider: Alba Eldridge Referrals: Alba Eldridge MD [Primary Care Provider] - 3-5 Days Disposition Disposition: Home, Self Care What to do if you have Problems For any increased pain, shortness of breath, bleeding, nausea or vomiting, chestpain, or any unexpected problems, contact your Primary Care Provider. Call [facility] ([phone]) or report to the closest Emergency Room. Call 911 if necessary. 04/22/23 1413 <Electronically signed by Dalton Baez MD> Cosigner Signature (if applicable): CC: Dr. Alba Eldridge MD ~ Signed [facility] [place] Work Phone: [phone]) 728-798301-01-2021 Evaluation note* Diagnosis Onset Date Resolution Status History of total knee arthroplasty June, acute Left knee pain acute Patellar tendinitis of left knee acute [facility] [place] Work Phone: Evaluation note* Diagnosis Onset Date Resolution Status History of total knee arthroplasty acute [facility] [place] Work Phone: Evaluation noteNo assessment information available [facility] [place] Work Phone: Evaluation note* Diagnosis Onset Date Resolution Status Iliotibial band syndrome, right leg acute Right knee pain acute [facility] [place] Work Phone: Evaluation note* Diagnosis Onset Date Resolution Status DJD of left shoulder acute [facility] [place] Work Phone: Hospital Discharge instructions Additional Instructions I believe your right lower back pain is from Right-sided sciatica. . Ice to the area. Motrin 2 pills twice a day for a week if your stomach can tolerate it if not do not do it. Oxycodone for pain. Follow-up if not improving.[facility] [place] Work Phone: Summary Purpose Family History No Family History Records Found Relationship Condition Age at Onset Recorded Date/T murphy mother Malignant neoplasm Unknown Hypertension Unknown grandmother Malignant neoplasm Unknown father Hypertension Unknown sister Rheumatoid arthritis Unknown Advance Directives No Advanced Directives Records Found Advance Directive Response Recorded Date/ Time Advance Directives Yes July 04, 2016 8:31pm Living Will Yes July 01 4:50pm Power of Senior Software Project Manager Yes July 01 4:50pm Advance Directive Response Recorded Date/ Time Name of Medical Power of Senior Software Project Manager CORNELIA MEZA March 01, 2022 6:57pm Advance Directives Yes July 04, 2016 8:31pm Living Will No March 01 6:57pm Power of Senior Software Project Manager Yes March 01, 2022 6:57pm Advance Directive Response Recorded Date/ Time Advance Directives Yes July 04, 2016 7:31pm Living Will No March 01 5:57pm Power of Senior Software Project Manager Yes March 01, 2022 5:57pm Advance Directive Response Recorded Date/ Time Advance Directives Yes July 04, 2016 8:31pm Living Will No March 01 6:57pm Power of Senior Software Project Manager Yes March 01, 2022 6:57pm Advance Directive Response Recorded Date/ Time Advance Directives Yes July 04, 2016 8:31pm Living Will No April 22 1:13pm Power of Senior Software Project Manager No April 22, 2023 1:13pm Advance Directive Response Recorded Date/ Time Advance Directives Yes July 04, 2016 7:31pm Living Will No April 22 12:13pm Power of Senior Software Project Manager No April 22, 2023 12:13pm Advance Directive Response Recorded Date/ Time Name of Medical Power of Senior Software Project Manager cornelia cook evan July 26, 2023 4:52am Advance Directives Yes July 04, 2016 7:31pm Living Will No July 26 4:52am Power of Senior Software Project Manager Yes July 26, 2023 4:52am Advance Directive Response Recorded Date/ Time Name of Medical Power of Senior Software Project Manager cornelia gannonrick gerardo July 26, 2023 5:52am Advance Directives Yes July 04, 2016 8:31pm Living Will No July 26 5:52am Power of Senior Software Project Manager Yes July 26, 2023 5:52am Advance Directive Response Recorded Date/ Time Living Will No August 06 9:55pm Do you have a Healthcare Power of Senior Software Project Manager? No August 06, 2024 9:55pm Advance Directives Yes February 8:52am Advance Directive Response Recorded Date/ Time Advance Directives Yes November 12 2:20pm Living Will No August 06 9:55pm Do you have a Healthcare Power of Senior Software Project Manager? No August 06, 2024 9:55pm Chief Complaint and Reason for Visit Chief Complaint RIGHT KNEE xray LLQ PAIN SCREENING Reason for Visit History of total kne e arthroplasty Chief Complaint SCREENING knee pain left knee xray chest pain Reason for Visit History of total kne e arthroplasty Left knee pain Patellar tendinitis of left knee Chief Complaint RIGHT FOOT/ANKLE Chief Complaint SCREENING Chief Complaint RIGHT KNEE Room 1 SOB Reason for Visit Iliotibial band synd yandel, right leg Right knee pain Chief Complaint RIGHT KNEE Room 1 SOB LEFT HIP PAIN Reason for Visit Iliotibial band synd yandel, right leg Right knee pain Chief Complaint RIGHT KNEE Room 1 SOB LEFT HIP PAIN LUMBAR PAIN, BUTTOCK PAIN LUMBAGO W/ SCIATICA RX HERE Reason for Visit Iliotibial band synd yandel, right leg Right knee pain Chief Complaint SOB LEFT HIP PAIN LUMBAR PAIN, BUTTOCK PAIN LUMBAGO W/ SCIATICA RX HERE LEFT SHOULDER Rm 2 rle pain Reason for Visit DJD of left shoulder Chief Complaint LEFT SHOULDER Rm 2 rle pain Reason for Visit DJD of left shoulder Chief Complaint Admit Date SOB August 06, 2024 8:50pm LEFT KNEE September 18, 2024 10: 47am RM 1 September 18, 2024 11: 04am SCREENING November 09, 2024 12:06 pm Reason for Visit Admit Date Heterotopic ossification of joint September 18, 2024 10:47am IT band syndrome September 18, 2024 10: 47am S/P total knee arthroplasty September 18, 2024 10:47am Chief Complaint Admit Date SOB August 06, 2024 8:50pm LEFT KNEE September 18, 2024 10: 47am RM 1 September 18, 2024 11: 04am SCREENING November 09, 2024 12:06 pm pain after history of total knee- LEFT M ay 2024 8:27am LEFT KNEE November 13, 2024 9:19a m Reason for Visit Admit Date Heterotopic ossification of joint September 18, 2024 10:47am IT band syndrome September 18, 2024 10: 47am S/P total knee arthroplasty September 18, 2024 10:47am Heterotopic ossification of joint November 132024 9:19am S/P total knee arthroplasty November 13 9:19am Additional Source Comments INFORMATION SOURCE (unrecogn ized section and content) DATE CREATED AUTHOR 03/22/2018 [facility] DATE CREATED AUTHOR AUTHOR'S ORGANIZ ATION 11/18/2024 [facility] Goals (unrecognized section and content) Goals may be documented in a n alternate sectionGoals may be documented in an alternate sectionGoals may be documented in an alternate sectionGoals may be documented in an alternate sectionGoals may be documented in an alternate sectionGoals may be documented in an alternate sectionGoals may be documented in an alternate sectionGoals may be documented in an alternate sectionGoals may be documented in an alternate sectionGoals may be documented in an alternate sectionGoals may be documented in an alternate section Care Teams (unrecognized sec tion and content) Team Status: Active Member Role Status Dates Dr. Alba Eldridge MD Family Provider Active Dr. Alba Eldridge MD Primary Care Provider Active Team Status: Inactive Member Role Status Dates Dr. Alba Eldridge MD Primary Care Prov ider, Attending Provider, Referring Provider Active Team Status: Inactive Member Role Status Dates Dr. Alba Eldridge MD Primary Care Provider, Referrin g Provider Active Oliver Wayt PA, PA Attending Provider Active Team Status: Inactive Member Role Status Dates Dr. Alba Eldridge MD Primary Care Provider Active Dr. Paras Palafox MD Attending Provider Active Team Status: Inactive Member Role Status Dates Dr. Alba Eldridge MD Primary Care Provider Active Dr. Dalton Baez MD Emergency Provider Active Team Status: Inactive Member Role Status Dates Dr. Alba Eldrdige MD Primary Care Provider Active Dr. Dalton Baez MD Attending Provider, Emergency Provider Active Team Status: Active Member Role Status Dates Dr. Alba Eldridge MD Primary Care Prov ider, Attending Provider, Referring Provider Active Team Status: Inactive Member Role Status Dates Dr. Alba Eldridge MD Primary Care Provider, Attendin g Provider Active Team Status: Inactive Member Role Status Dates Dr. Alba Eldridge MD Primary Care Provider, Referrin g Provider Active Dr. Walter Singh DO Attending Provider Active Team Status: Inactive Member Role Status Dates Dr. Alba Eldridge MD Primary Care Provider Active Dr. Tye Montiel DO Emergency Provider Active Team Status: Inactive Member Role Status Dates Dr. Alba Eldridge MD Primary Care Provider Active Dr. Tye Montiel DO Attending Provider, Emergency P otto Active Team Status: Active Member Role Status Dates Dr. Alba Eldridge MD Primary Care Provider Active Team Status: Inactive Member Role Status Dates Dr. Alba Eldridge MD Primary Care Provider Active Start: August 06, 2024 End: August 06, 2024 Dr. Gray Wray MD Attending Provider Active Sta rt: August 06, 2024 End: August 06, 2024 Dr. Gray Wray MD Referring Provider Active Sta rt: August 06, 2024 End: August 06, 2024 Dr. Gray Wray MD Emergency Provider Active Sta rt: August 06, 2024 End: August 06, 2024 Team Status: Inactive Member Role Status Dates Dr. Alba Eldridge MD Primary Care Provider Active Start: September 18, 2024 End: September 18, 2024 Dr. Alba Eldridge MD Referring Provider Active Start: September 18, 2024 End: September 18, 2024 Dr. Walter Singh DO Attending Provider Active Start: September 18, 2024 End: September 18, 2024 Team Status: Inactive Member Role Status Dates Dr. Alba Eldridge MD Primary Care Provider Active Start: September 18, 2024 End: September 18, 2024 Dr. Paras Palafox MD Attending Provider Active S tart: September 18, 2024 End: September 18, 2024 Team Status: Inactive Member Role Status Dates Dr. Alba Eldridge MD Primary Care Provider Active Start: November 09, 2024 End: November 09, 2024 Dr. Alba Eldridge MD Attending Provider Active Start: November 09, 2024 End: November 09, 2024 Dr. Alba Eldridge MD Referring Provider Active Start: November 09, 2024 End: November 09, 2024 Team Status: Inactive Member Role Status Dates Dr. Alba Eldridge MD Primary Care Provider Active Start: November 13, 2024 End: November 13, 2024 Dr. Walter Singh DO Attending Provider Active Start: November 13, 2024 End: November 13, 2024 Dr. Walter Singh DO Referring Provider Active Start: November 13, 2024 End: November 13, 2024 Team Status: Inactive Member Role Status Dates Dr. Alba Eldridge MD Primary Care Provider Active Start: November 13, 2024 End: November 13, 2024 Dr. Alba Eldridge MD Referring Provider Active Start: November 13, 2024 End: November 13, 2024 Dr. Walter Singh DO Attending Provider Active Start: November 13, 2024 End: November 13, 2024 FOR RECORDS PERTAINING TO PATIENTS WHO ARE OR HAVE BEEN ENROLLED IN A CHEMICAL DEPENDENCY/SUBSTANCEABUSE PROGRAM, SOME INFORMATION MAY BE OMITTED. This clinical summary was aggregated from multiple sources. Caution should be exercised in using it in the provision of clinical care. This summary normalizes information from multiple sources, and as a consequence, information in this document may materially change the coding, format and clinical context of patient data. In addition, data may be omitted in some cases. CLINICAL DECISIONS SHOULD BE BASED ON THE PRIMARY CLINICAL RECORDS. [employer] provides no warranty or guarantee of the accuracy or completeness of information in this document.
[2024-12-19] MEDS: Morphine 4 MG/ML Syringe IV ×2 (20:00→21:23)
[2024-12-19] MEDS: Ondansetron 4 MG/2 ML Vial IV (20:00)
--- NOTE | 2024-12-19 20:05 | RAD_ITS ---
PROCEDURE: HIP, UNI W/ PELVIS 2-3 VIEWS 12/19/2024 REASON FOR EXAM: INJURY/PAIN TECHNIQUE: HIP, UNI W/ PELVIS 2-3 VIEWS COMPARISON: Hip and pelvic radiographs 04/26/2023. FINDINGS: Bones: No acute fracture. No aggressive osseous lesions. Joints: Normal alignment. Moderate degenerative changes. Soft tissues: Soft tissues are unremarkable. Other: The visualized bowel loops are normal caliber. RAD/HIP, UNI W/ Pelvis 2-3 Views IMPRESSION: DEGENERATIVE OSTEOARTHROSIS. NO ACUTE FINDINGS. Reading Location: [id number]
--- NOTE | 2024-12-19 20:28 | EX.ED.DYSGE1 ---
HPI History of Present Illness Chief Complaint: Other, Pain/Inj PFSH PFSH Medical History Degenerative disc disease Scoliosis Arthritis Hiatal hernia HTN (hypertension) Home Medications ?Medication ?Instructions ?Recorded ?Last Taken ?Type lisinopril 20 2 tab PO DAILY htn 04/15/19 Unknown History mg-hydrochlorothiazide 25 mg tablet xqkhdsrw-bez-egeer acid 0.4 1 ea PO DAILY supplement 04/15/19 Unknown History mg-lycopene 300 mcg-lutein 250 mcg tablet omega-3 fatty acids-fish oil 340 1 ea PO DAILY supplement 04/15/19 Unknown History mg-1,000 mg capsule acetaminophen 500 mg tablet 1,000 mg (2 x 500 mg) PO Q6H PRN 07/12/20 Unknown Rx #100 tabs metoprolol succinate 50 mg 1 ea PO DAILY 07/12/21 Unknown History tablet,extended release 24 hr pantoprazole 20 mg tablet,delayed 20 mg PO DAILY 12/04/21 Unknown History release cholecalciferol (vitamin D3) 25 50 mcg PO QDAY 03/23/24 Unknown History mcg (1,000 unit) capsule albuterol sulfate 90 mcg/actuation 2 puff inhalation Q4H PRN PRN 08/06/24 Unknown Rx aerosol inhaler (Ventolin HFA) Wheezing #1 device clonidine HCl 0.1 mg tablet 0.1 mg PO BID #60 tabs 08/06/24 Unknown Rx inhalational spacing device #1 ea 08/06/24 Unknown Rx (Aerochamber MV spacer) methylprednisolone 4 mg tablets in See Rx Instructions PO PER PKG DIR 11/13/24 Unknown Rx a dose pack (Medrol (Branden)) #21 tabs hydrocodone-acetaminophen 5-325mg 1 tab PO Q6H PRN PRN Pain 3 days 12/19/24 Unknown Rx 5mg-325mg #10 TABLETS Allergy/AdvReac Type Severity Reaction Status Date / Time latex Allergy Rash Verified 12/19/24 19:33 Penicillins Allergy Rash Verified 12/19/24 19:33 tetracycline AdvReac Nausea/Vom/ Verified 12/19/24 19:33 Diarrhea Family History Mother Cancer Hypertension Grandmother Cancer Father Hypertension Sister Rheumatoid arthritis Surgical History History of total knee arthroplasty (~07/12/20) H/O: hysterectomy Hx of foot surgery Social History household members: spouse housing: house number of children: 2 Smoking Status: Former smoker alcohol intake: never seatbelt use: always do you feel safe at home: Yes additional social history: Rob EXAM Physical Exam Const Vital Signs: 12/19/24 19:32 12/19/24 19:33 12/19/24 21:31 Temperature 98.2 F Temperature Source Oral Pulse Rate 64 70 Respiratory Rate 16 18 Respiratory Effort Normal Non-Labored Respiratory Pattern Normal Blood Pressure 233/82 H 163/89 H Blood Pressure Mean 132 113 Pulse Ox 98 98 Oxygen Delivery Method Room Air MDM MDM Radiography Chest X-Ray - ED: Read by ED Physician (Three-view x-ray of the right hip reveals minimal degenerative changes. There is no fracture, subluxation or dislocation. There is no acute findings.) and - (Three-view x-ray of the LS-spine was also independently reviewed interpreted by me as negative for acute process. Patient has significant osteoarthritic changes multiple levels dorsal and LS-spine. There is no fracture, subluxation dislocation. There is calcification of the aorta as well. The ao) Diagnostic Testing: Clinical Impression(s) from Imaging Studies Lumbar Spine X-Ray 12/19/24 19:52 IMPRESSION: ADVANCED DEGENERATIVE CHANGES OF THE LUMBAR SPINE. NO ACUTE OSSEOUS FRACTURE. Reading Location: [facility] Hip/Pelvis X-Ray 12/19/24 20:05 IMPRESSION: DEGENERATIVE OSTEOARTHROSIS. NO ACUTE FINDINGS. Reading Location: [facility] Treatment and Re-Evaluation :: Patient was reassessed after second dose of morphine. She states she feels markedly better. She was discharged with prescription of [place]. She will contact Dr. Brown to make sure that this will not violate her contract. She was informed of her x-ray results. Discharge Plan Triage Chief Complaint: Other, Pain/Inj ED Provider: Gray Wray Dx/Rx/DC Orders Clinical Impression: Lower back pain, Anxiety, S/P total knee arthroplasty, Acute pain of right hip, Degenerative arthritis of lumbar spine, Osteoarthritis of right hip Instructions: ED Degenerative Disk Disease, ED Osteoarthritis Prescriptions: New hydrocodone-acetaminophen 5-325 mg tablet 1 tab PO Q6H PRN PRN (Reason: Pain) 3 Days Qty: 10 0RF No Action metoprolol succinate 50 mg tablet extended release 24 hr 1 ea PO DAILY pantoprazole 20 mg tablet,delayed release (DR/EC) 20 mg PO DAILY cholecalciferol (vitamin D3) 25 mcg (1,000 unit) capsule 50 mcg PO QDAY methylprednisolone [Medrol (Branden)] 4 mg tablets,dose pack See Rx Instructions PO PER PKG DIR Qty: 21 0RF Rx Instructions: Take as directed lisinopril-hydrochlorothiazide 1 EACH tablet 2 tab PO DAILY ycozdnby-grs-IA-lycopen-lutein 1 EACH tablet 1 ea PO DAILY omega-3 fatty acids-fish oil 1 EACH capsule 1 ea PO DAILY acetaminophen 500 MG tablet 1,000 mg PO Q6H PRN Qty: 100 0RF clonidine HCl 0.1 mg tablet 0.1 mg PO BID Qty: 60 0RF (DME) Aerochamber MV Spacer See Rx Instructions .Route Qty: 1 0RF Rx Instructions: As directed albuterol sulfate [Ventolin HFA] 90 mcg/actuation HFA aerosol inhaler 2 puff inhalation Q4H PRN PRN (Reason: Wheezing) Qty: 1 0RF Primary Care Provider: Alba Eldridge Referrals: Alba Eldridge MD [Primary Care Provider] - Print Language: Citizen Of [place] Disposition Disposition: Home, Self Care
[2024-12-19 21:31] VITALS: BP 163/89; PULSE 70; RESP 18; O2SAT 98
[2024-12-19 22:50] VITALS: BP 163/89; PULSE 70; RESP 18; TEMP 37; O2SAT 98
== END 2024-12-19 22:50 | disposition home or self-care (01) ==
PROVIDERS: Emergency Provider Emergency Medicine; PCP Family Medicine; Referring Provider Emergency Medicine; Visit Provider Emergency Medicine
DX: M54.50 Low back pain, unspecified (principal); M16.11 Unilateral primary osteoarthritis, right hip; F41.9 Anxiety disorder, unspecified; Z90.710 Acquired absence of both cervix and uterus; M47.816 Spondylosis without myelopathy or radiculopathy, lumbar region; Z87.891 Personal history of nicotine dependence; Z96.659 Presence of unspecified artificial knee joint; I10 Essential (primary) hypertension; M25.551 Pain in right hip; Z79.899 Other long term (current) drug therapy
CPT/HCPCS: 72100; 73502; 96374; 96375; 96376; 99284; A4216; J2405

== ENCOUNTER 2024-12-20 23:43 | Emergency (ER) | payer MEDICARE, OTHER, SELFPAY ==
[2024-12-20 23:43] VITALS: BP 208/80; PULSE 71; RESP 20; TEMP 36.2; O2SAT 96; BMI 39.6
[2024-12-20 23:49] VITALS: BP 208/80; PULSE 71; RESP 20; TEMP 36.2; O2SAT 96
--- NOTE | 2024-12-21 00:34 | CT_ITS ---
PROCEDURE: ABDOMEN/PELVIS WITHOUT CONT 12/21/2024 REASON FOR EXAM: RIGHT FLANK PAIN TECHNIQUE: ABDOMEN/PELVIS WITHOUT CONT Noncontrast technique limits evaluation of the abdominal and pelvic viscera. Coronal and Sagittal reconstruction series were provided. One or more dose reduction techniques were used (e.g., Automated exposure control, adjustment of the mA and/or kV according to patient size, use of iterative reconstruction technique). RADIATION DOSE SUMMARY: CTDlvol: 23 mGy DLP: 1196 mGycm COMPARISON: 07/26/2023 FINDINGS: Basilar atelectasis. Normal heart size. Multiple liver cysts. Unremarkable gallbladder, pancreas, spleen, adrenal glands. Multiple simple cysts. 1 mm right renal calcification. No hydronephrosis or ureteral stone. Small bladder diverticulum. Status post hysterectomy. No retroperitoneal or pelvic adenopathy. No free air. Nondistended bowel. Normal appendix. Diverticulosis. No acute large bowel findings. Lumbar spine scoliosis and degeneration. No acute abdominal wall findings. CT/Abdomen/Pelvis without Cont IMPRESSION: No acute findings. Reading Location: [place] [id number]
--- NOTE | 2024-12-21 00:35 | EDS_ITS ---
HPI History of Present Illness Chief Complaint: Flank Pain Detail of Chief Complaint: Right back pain and urinary frequency Informant: patient Narrative Narrative: Patient presents the emergency department with right back pain as her 3 days ago. She states initially she started having urinary frequency and called her primary care physician who called her in an antibiotic. She subsequently developed worsening pain in the right back towards her right hip. She has had some nausea. She was seen in the emergency department last night and had x-rays that showed degenerative arthritic changes. No history of kidney stone. She denies hematuria. She has had no fever. Today she came back because she continues to have severe pain. Pain is worse with movement. She denies any pain radiating down her leg or numbness or tingling or weakness of the extremities. [facility] Medical History Degenerative disc disease Scoliosis Arthritis Hiatal hernia HTN (hypertension) Home Medications ?Medication ?Instructions ?Recorded ?Last Taken ?Type lisinopril 20 2 tab PO DAILY htn 04/15/19 Unknown History mg-hydrochlorothiazide 25 mg tablet dmaijxbl-iwn-fjpet acid 0.4 1 ea PO DAILY supplement 1 Unknown History mg-lycopene 300 mcg-lutein 250 mcg tablet omega-3 fatty acids-fish oil 340 1 ea PO DAILY supplem ent 04/15/19 Unknown History mg-1,000 mg capsule acetaminophen 500 mg tablet 1,000 mg (2 x 500 mg) PO Q 6H PRN 07/12/20 Unknown Rx #100 tabs metoprolol succinate 50 mg 1 ea PO DAILY 07/12/21 Unkn own History tablet,extended release 24 hr pantoprazole 20 mg tablet,delayed 20 mg PO DAILY 12/04 Unknown History release cholecalciferol (vitamin D3) 25 50 mcg PO QDAY 4 Unknown History mcg (1,000 unit) capsule albuterol sulfate 90 mcg/actuation 2 puff inhalation Q 4H PRN PRN 08/06/24 Unknown Rx aerosol inhaler (Ventolin HFA) Wheezing #1 device clonidine HCl 0.1 mg tablet 0.1 mg PO BID #60 tabs Unknown Rx inhalational spacing device #1 ea 08/06/24 Unknown Rx (Aerochamber MV spacer) methylprednisolone 4 mg tablets in See Rx Instructions PO PER PKG DIR 11/13/24 Unknown Rx a dose pack (Medrol (Branden)) #21 tabs hydrocodone-acetaminophen 5-325mg 1 tab PO Q6H PRN PRN Pain 3 days 12/19/24 Unknown Rx 5mg-325mg #10 TABLETS Allergy/AdvReac Type Severity Reaction Status Date / Time latex Allergy Rash Verified 12/20/24 23:43 Penicillins Allergy Rash Verified 12/20/24 23:43 tetracycline AdvReac Nausea/Vom/ Verified 12/20/24 23:43 Diarrhea Family History Mother Cancer Hypertension Grandmother Cancer Father Hypertension Sister Rheumatoid arthritis Surgical History History of total knee arthroplasty (~07/12/20) H/O: hysterectomy Hx of foot surgery Social History household members: spouse housing: house number of children: 2 Smoking Status: Former smoker alcohol intake: never seatbelt use: always do you feel safe at home: Yes additional social history: Rob [facility] ED Review of Systems ROS Unobtainable: other Constitutional Constitutional ED: Reports lethargy; Denies chills, fever(s), sweats or weight loss Eyes Eyes: Denies blurry vision, change in vision or diplopia ENT ENT ED: Denies rhinorrhea or sore throat Cardiovascular Cardiovascular: Denies chest pain, orthopnea or racing heartbeat Respiratory/Chest Respiratory/Chest: Denies cough, dyspnea, dyspnea on exertion, orthopnea or sputum Gastrointestinal Gastrointestinal: Denies abdominal pain, diarrhea, nausea or vomiting Genitourinary Genitourinary ED: Reports urinary frequency; Denies dysuria or hematuria Musculoskeletal Musculoskeletal: Reports back pain; Denies arthralgias, myalgias or neck pain Integumentary Denies abscess, Abrasions or rash Neurologic Neurologic: Denies headache(s) or weakness Psychiatric Psychiatric: Denies anxiety, depression or suicidal thoughts Endocrine Endocrinology: Denies polydipsia, polyphagia or polyuria Hematologic/Lymphatic Hematologic/Lymphatic: Denies easy bleeding, easy bruising or lymphadenopathy Allergic/Immunologic Allergic/Immunologic ED: Denies mouth swelling, tongue swelling or urticaria EXAM Physical Exam Const Vital Signs: 12/20/24 23:43 12/20/24 23:49 12/21/24 01:00 Temperature 97.2 F L 97.2 F L 97.8 F Temperature Source Temporal Oral Oral Pulse Rate 71 71 59 L Respiratory Rate 20 H 20 H 18 Blood Pressure 208/80 H 208/80 H 191/59 H Blood Pressure Mean 122 122 103 Pulse Ox 96 96 96 Oxygen Delivery Method Room Air Room Air Room Air 12/21/24 02:00 Temperature 98.0 F Temperature Source Oral Pulse Rate 56 L Respiratory Rate 18 Blood Pressure 201/74 H Blood Pressure Mean 116 Pulse Ox 94 Oxygen Delivery Method Room Air Positive well nourished and well developed General Appearance ED: well developed and NAD HEENT Reports TM's clear and moist mucous membranes normocephalic and atraumatic; Negative for trauma or tenderness Tympanic Membrane ED: Yes TM's clear Eyes PERRL and EOMs intact bilaterally General Eye ED: Negative for pale conjunctiva or scleral icterus Neck no lymphadenopathy, supple and no JVD General: Negative for tenderness Chest Wall inspection of chest normal and palpation of chest normal Chest: Negative for tenderness Resp normal respiratory effort and clear to auscultation bilaterally Effort and Inspection: Negative for respiratory distress or pain with movement Auscultation: Negative for rhonchi, wheezes or diminished lung sounds Cardio regular rate, regular rhythm, S1 normal heart sound, S2 normal heart sound and no murmurs Peripheral Pulses: pulses 2+ throughout GI normal to inspection, nondistended, normoactive bowel sounds, soft to palpation, non-distended and no masses GI Narrative: Mild tenderness to the right lower quadrant with CVA tenderness on the right. No rebound, rigidity, or peritoneal signs Back/Spine no thoracic nor lumbar tenderness Back/Spine Narrative: Right CVA tenderness. No significant tenderness over the thoracic or lumbar spine. She has negative straight leg raises. Deep tendon reflexes plus 2 out of 4 bilaterally at the patella and Achilles. She has normal 5 extension. She has normal sensation to light touch. Extremity normal to inspection General Extremety ED: Negative for edema General Extremity: Negative for edema Neuro oriented x3, CN's II-XII intact bilaterally, no sensory deficits noted and gait normal Sensorium / Orientation: awake, alert, oriented to person, oriented to place and oriented to time Motor Exam: strength 5/5 throughout and strength abnormal Psych mental status grossly normal Skin no rashes or lesions noted and no wounds MDM MDM MDM Narrative Medical decision making narrative: Patient presents with right-sided back pain seen last night for same and had x- rays that were unremarkable. Clinically looks well. She states she was sent home with hydrocodone but since she is in pain management she did not take anything until she spoke with her pain management doctor. IV line established. Initially she did not want anything for pain. CBC with differential count 6.6 with hemoglobin 13.7 and platelet count of 198. Chemistries unremarkable. Urinalysis was unremarkable. She had a CT scan of the abdomen pelvis without contrast and there was no evidence of urolithiasis or any other acute process. At this point suspect musculoskeletal back pain. Her pain is positional. She has no radiculopathy type symptoms. I will give her 4 mg of morphine IV and 4 mg of Zofran. She is to use her hydrocodone at home. She is to follow-up with pain management. Lab Data Attestation: I reviewed the patient's lab results. Labs: Laboratory Results - last 24 hr 12/21/24 12/21/24 00:03 01:50 WBC 6.6 RBC 4.44 Hgb 13.7 Hct 40.3 MCV 90.8 MCH 30.9 MCHC 34.0 RDW Std Deviation 41.3 RDW Coeff of Faizan 12.5 Plt Count 198 MPV 8.9 Immature Gran % (Auto) 0.500 Neut % (Auto) 57.3 Lymph % (Auto) 32.1 [place] % (Auto) 8.0 Eos % (Auto) 1.8 Baso % (Auto) 0.3 Absolute Neuts (auto) 3.8 Absolute Lymphs (auto) 2.12 Nucleated RBC % 0 Sodium 140 Potassium 3.6 Chloride 100 Carbon Dioxide 28.7 Anion Gap 11 BUN 23 H Creatinine 0.83 Estim Creat Clear Calc 77.59 Est GFR (MDRD) Non-Af 75 BUN/Creatinine Ratio 27.3 H Glucose 139 H Calcium 9.7 Urine Color Yellow Urine Clarity Clear Urine pH 5.0 Ur Specific [place] 1.020 Urine Protein Negative Urine Glucose (UA) Normal Urine Ketones Negative Urine Occult Blood Negative Urine Nitrite Negative Urine Bilirubin Negative Urine Urobilinogen Normal Ur Leukocyte Esterase Negative Urine RBC 0 SEEN Urine WBC 0-5 SEEN Ur Squamous Epith Cells 0-5 SEEN Urine Bacteria 0 SEEN Urine Mucus 0 SEEN Radiography Diagnostic Testing: Clinical Impression(s) from Imaging Studies Abdomen/Pelvis CT 12/21/24 00:34 IMPRESSION: No acute findings. Reading Location: [place] [id number] Discharge Plan Triage Chief Complaint: Flank Pain ED Provider: Maki Lentz Dx/Rx/DC Orders Clinical Impression: Back pain Instructions: ED Back Pain (Acute or Chronic) Prescriptions: No Action metoprolol succinate 50 mg tablet extended release 24 hr 1 ea PO DAILY pantoprazole 20 mg tablet,delayed release (DR/EC) 20 mg PO DAILY cholecalciferol (vitamin D3) 25 mcg (1,000 unit) capsule 50 mcg PO QDAY methylprednisolone [Medrol (Rbanden)] 4 mg tablets,dose pack See Rx Instructions PO PER PKG DIR Qty: 21 0RF Rx Instructions: Take as directed lisinopril-hydrochlorothiazide 1 EACH tablet 2 tab PO DAILY [id number]-cny-PX-lycopen-lutein 1 EACH tablet 1 ea PO DAILY omega-3 fatty acids-fish oil 1 EACH capsule 1 ea PO DAILY acetaminophen 500 MG tablet 1,000 mg PO Q6H PRN Qty: 100 0RF clonidine HCl 0.1 mg tablet 0.1 mg PO BID Qty: 60 0RF (DME) Aerochamber MV Spacer See Rx Instructions .Route Qty: 1 0RF Rx Instructions: As directed albuterol sulfate [Ventolin HFA] 90 mcg/actuation HFA aerosol inhaler 2 puff inhalation Q4H PRN PRN (Reason: Wheezing) Qty: 1 0RF hydrocodone-acetaminophen 5-325 mg tablet 1 tab PO Q6H PRN PRN (Reason: Pain) 3 Days Qty: 10 0RF Primary Care Provider: Alba Eldridge Referrals: Alba Eldridge MD [Primary Care Provider] - 3-5 Days Print Language: Bengali Disposition Disposition: Home, Self Care
[2024-12-21] MEDS: 0.9% Normal Saline (1000mL) 1,000 ML 150 ML IV (00:45)
[2024-12-21 00:46] LABS: Absolute Lymphocyte Count 2.12 X10^3/uL (0.83-4.51); Absolute Neutrophil Count 3.8 X10^3/uL (2.0-7.7); Basophil# 0.02 X10^3/uL; Basophil% 0.3 % (0-1); Eosinophil# 0.12 X10^3/uL; Eosinophils% 1.8 % (0-5); Hematocrit 40.3 % (37-47); Hemoglobin 13.7 g/dL (12.0-15.0); Lymphocyte # 2.12 X10^3/ul (0.83-4.51); Lymphocyte % 32.1 % (19-41); Mean Corpuscular Hgb 30.9 pg (27.0-32.0); Mean Corpuscular Volume 90.8 fL (81-99); Mean Platelet Vol. 8.9 fl (6.2-12.0); Monocyte# 0.53 X10^3/uL; NRBC Flagged by Analyzer 0 % (0-5); Neutrophil # 3.78 X10^3/uL (2.7-7.7); Neutrophil % 57.3 % (47-70); Platelet Count 198 K/mm3 (150-450); RBC Distribution Width CV 12.5 % (11.6-14.6); RBC Distribution Width SD 41.3 fl (35.1-43.9); Red Blood Count 4.44 M/mm3 (4.2-5.4); White Blood Count 6.6 K/mm3 (4.4-11.0)
[2024-12-21] MEDS: Ketorolac 15 MG/ML Vial IV (00:47)
[2024-12-21 01:00] VITALS: BP 191/59; PULSE 59; RESP 18; TEMP 36.6; O2SAT 96
[2024-12-21 01:08] LABS: Anion Gap 11 (5-15); BUN 23 mg/dL (4-19); BUN/Creat Ratio 27.3 RATIO (10-20); Calcium,Total 9.7 mg/dL (7.6-11.0); Carbon Dioxide 28.7 mmol/L (21.0-32.0); Chloride 100 mmol/L (98-108); Creatinine, Serum 0.83 mg/dL (0.70-1.20); EST Glomerular Filtration Rate 75 (>60); Estimated Creatinine Clearance 77.59 ml/min (50-250); Glucose 139 mg/dL (70-99); Potassium 3.6 mmol/L (3.3-5.1); Sodium Level 140 mmol/L (133-145)
--- OUTSIDE RECORDS SUMMARY | 2024-12-21 01:18 | XMS RPT_ITS | CCD ---
Author Organization [facility] Care Team Providers Care Glass Fitter Name Role Phone TI VASQUEZ Unavailable Unavailable TI VASQUEZ Unavailable Unavailable TI VASQUEZ Unavailable Unavailable Dr. Alba Eldridge Referring Provider [phone] Walter Singh Attending Provider [phone] Dr. Paras Palafox Attending Provider [phone] Dr. Walter Singh Referring Provider [phone] Dr. Alba Eldridge Primary Care Provider [phone] Dr. Alba Eldridge Referring Provider GENNA Diamond Attending Provider [phone] Dr. Paras Palafox Attending Provider [phone] Dr. Alba Eldridge Primary Care Provider [phone] Dr. Alba Eldridge Referring Provider Miladys VAIL PA Oliver Attending Provider [phone] Dr. Paras Palafox Attending Provider [phone] Dr. Alba Eldridge Primary Care Provider [phone] Dr. Alba Eldridge Referring Provider [phone] Miladys VAIL PA Oliver Attending Provider [phone] Dr. Paras Palafox Attending Provider [phone] Dr. Alba Eldridge Primary Care Provider [phone] Dr. Alba Eldridge Referring Provider [phone] Walter Singh Attending Provider [phone] Dr. Paras Palafox Attending Provider [phone] Dr. Alba Eldridge Primary Care Provider [phone] Dr. Abla Eldridge Referring Provider Dr. Walter Singh Attending Provider Dr. Paras Palafox Attending Provider [phone] Jazmyn COOPER, Dr. Willis Primary Care Provider Nils COOPER, Dr. Castellano Attending Provider Nils COOPER, Dr. Castellano Referring Provider Nils COOPER, Dr. Castellano Emergency Provider Jazmyn COOPER, Dr. Willis Referring Provider [phone] Dr. Walter Singh DO Attending Provider Javy COOPER, Dr. Crain Attending Provider Jazmyn COOPER, Dr. Willis Attending Provider [phone] Dr. Walter Singh DO Referring Provider Jazmyn COOPER, Dr. Willis Primary Care Provider Nils COOPER, Dr. Castellano Referring Provider Nils COOPER, Dr. Castellano Emergency Provider [facility] [place] Primary Care Unavailable Shireen Calvert Referring Unavailable Shireen Calvert Attending Unavailable [facility] Primary Care Unavailable [facility] [place] Referring [facility]available [facility] [place] Attending Unavailable Kulwinder Espinosa Attending Unavailable [facility] Primary Care Unavailable [facility] [place] Primary Care Unavailable Horn, Candida Referring Unavailable Horn, Candida Attending Unavailable Wray, Gray Referring Unavailable Wray, Gray Attending Unavailable [facility] Unavailable Wray, Gray Referring Unavailable Wray, Gray Attending Unavailable [facility] Unavailable Ungur, Remus Attending Unavailable [facility], [place] Primary Care Unavailable Ange[place], [place] Primary Care Unavailable Walter Singh Referring Unavailable Walter Singh Attending Unavailable [facility] [place] Primary Care Unavailable Miedel, Alba Referring Unavailable Walter Singh Attending Unavailable Miedel, [place] Primary Care Unavailable Miedel, Alba Referring Unavailable Walter Singh Attending Unavailable Nhed, [place] Primary Care Unavailable Paras Palafox Attending Unavailable Nhed, [place] Primary Care Unavailable Nhed, Alba Referring Unavailable Nhed, Alba Attending Unavailable [facility] [place] Primary [facility] Unavailable Stephanie Ayman Referring Unavailable Stephanie Ayman Attending Unavailable Nhed, [place] Primary Care Unavailable Miedel, Alba Referring Unavailable Shireen Calvert Attending Unavailable [facility] [place] Primary [facility] Unavailable Nhedel, Alba Referring Unavailable Neftali Justin Attending Unavailable Allergies Allergy Classification Reported Allergen(s) Allergy Type Date of Onset Reaction(s) Facility (12 sources) Latex Allergy to substance 1 [facility] (13 sources) Penicillins; Translations: [Penicillins] Allergy to substance 1 [facility] (12 sources) Tetracycline Drug Allergy 1 Nausea/Vom/Diar rob [facility] (1 source) Latex Drug allergy (disorder) 5 [facility] (1 source) Tetracycline Drug Allergy 5 [facility] Medications Current Medications Medication Drug Class(es) Dates Sig (Normalized) Sig (Original) acetaminophen 500 mg oral tablet (20 sources) Start: 07-01-2020 End: 10-03-2020 take 2 tablets by mouth every six hours as needed Acetaminophen 500 MG tablet Active 1000 mg PO EVERY 6 HOURS NEEDED 100 0 July 12, 2020 1:00am Start: 07-01-2020 End: 10-03-2020 take 1000 mg by mouth every six hours as needed Acetaminophen Active 1000 MG PO EVERY 6 HOURS NEEDED 100 July 12, 2020 1:00am acetaminophen 325 mg / HYDROcodone bitartrate 5 mg oral tablet (1 source) Opioid Agonist Start: 12-19-2024 take 1 tablet by mouth every six hours as needed for pain Hydrocodone-Acetaminophen 5-325 mg tablet Active 1 {tbl} PO EVERY 6 HOURS NEEDED as needed for Pain 10 3 0 December 19, 2024 Osteoarthritis of lumbar spine Osteoarthritis of right hip Spondylosis without myelopathy or radiculopathy, lumbar region Unilateral primary osteoarthritis, right hip [id number] actuat albuterol 0.09 mg/actuat metered dose inhaler (3 sources) beta2-Adrenerg ic Agonist Start: 08-06-2024 Albuterol Sulfate (Ventolin Hfa) 90 mcg/actuation HFA aerosol inhaler Active 2 NMA INHALATION EVERY 4 HOURS NEEDED as needed for Wheezing 1 0 August 06, 2024 1:00am cholecalciferol 0.025 mg oral capsule (3 sources) Vitamin D Start: 03-23-2024 take 1 capsule by mouth once daily Cholecalciferol (Vitamin D3) 25 mcg (1,000 unit) capsule Active 50 ug PO daily March 23, 2024 12:00am cloNIDine hydrochloride 0.1 mg oral tablet (3 sources) Central alpha-2 Adrenergic Agonist Start: 08-06-2024 take 1 tablet by mouth twice daily Clonidine Hcl 0.1 mg tablet Active 0.1 mg PO TWICE A DAY 60 0 August 06, 2024 1:00am hydroCHLOROthiazide 25 mg / lisinopril 20 mg oral tablet (12 sources) Thiazide Diuretic, Angiotensin Converting Enzyme Inhibitor Start: 04-15-2019 Lisinopril-Hydrochlorothiaz rizwana 1 EACH tablet Active 2 {tbl} PO DAILY April 15, 2019 12:00am htn Start: 04-15-2019 take 2 tablets by mouth once daily Lisinopril-Hydrochlorothiazide Active 2 TABLET PO DAILY April 15, 2019 12:00am Inhalational Spacing Device (Aerochamber Mv) spacer (3 sources) Start: 08-06-2024 Inhalational S pacing Device (Aerochamber Mv) spacer Active 0 .Route 1 August 06, 2024 1:00am As directed Start: 08-06-2024 Inhalational S pacing Device (Aerochamber Mv) spacer Active 0 .Route 1 August 06, 2024 1:00am As directed methylPREDNISolone 4 mg oral tablet (2 sources) Corticosteroid Start: 11-13-2024 take 1 tablet by mouth once Methylprednisolone (Medrol (Branden)) 4 mg tablets,dose pack Active 0 PO per package directions 21 November 13, 2024 12:00am Take as directed 24 hr metoprolol succinate 50 mg extended release oral tablet (12 sources) beta-Adrenergic Jeaneth Start: 07-12-2021 take 1 tablet by mouth once daily Metoprolol Succinate 50 mg tablet extended release 24 hr Active 1 NMA PO DAILY July 12, 2021 1:00am Mmryyfho-Qnw-Pa-Lycope n-Lutein (9 sources) Start: 04-15-2019 Laawrifx-Uka-Rg-Lycop en-Lutein Active 1 EACH PO DAILY April 15, 2019 4:50pm Start: 04-15-2019 Gvbvehhs-Hqi-H l-Kfwoupw-Ijmdvl Active 1 EACH PO DAILY April 14, 2019 11:00pm Start: 04-15-2019 Bcuuspgo-Ekv-B t-Nsdkcxf-Jwsoyw Active 1 EACH PO DAILY April 15, 2019 12:00am Nylltdvz-Gsj-Wk-Lycopen-Lute in 1 EACH tablet (3 sources) Start: 04-15-2019 Dqlutrmi-Cdf-Uq-Lycopen-Lute in 1 EACH tablet Active 1 NMA PO DAILY April 15, 2019 12:00am supplement Start: 04-15-2019 Lhkgblqk-Mmh-J z-Kbkighf-Jrpkun 1 EACH tablet Active 1 NMA PO DAILY April 15, 2019 12:00am Sikes-3 Fatty Acids-Fish Oil (9 sources) Start: 04-15-2019 Sikes-3 Fatty Acids-Fish Oil Active 1 EACH PO DAILY April 15, 2019 4:50pm Start: 04-15-2019 Sikes-3 Fatty Acids-Fish Oil Active 1 EACH PO DAILY April 14, 2019 11:00pm Start: 04-15-2019 Sikes-3 Fatty Acids-Fish Oil Active 1 EACH PO DAILY April 15, 2019 12:00am Sikes-3 Fatty Acids-Fish Oil 1 EACH capsule (3 sources) Start: 04-15-2019 Sikes-3 Fatty Acids-Fish Oil 1 EACH capsule Active 1 NMA PO DAILY April 15, 2019 12:00am supplement Start: 04-15-2019 Sikes-3 Fatty Acids-Fish Oil 1 EACH capsule Active [...] 15, 2019 12:00am June 27, 2020 3:42pm hiatal hernia Start: 04-15-2019 End: 06-27-2020 take 20 mg by mouth twice daily Pantoprazole Discontin ued 20 MG PO TWICE A DAY April 15, 2019 12:00am June 27, 2020 3:42pm Completed/Discontinued Medications Medication Drug Class(es) Dates Sig (Normalized) Sig (Original) apixaban 2.5 mg oral tablet (12 sources) Factor Xa Inhibitor Start: 07-12-2020 End: 10-03-2020 take 1 tablet by mouth twice daily in the morning Apixaban 2.5 MG tablet Discontinued 2.5 mg PO TWICE A DAY 30 0 July 12, 2020 1:00am October 03, 2020 10:28am begin the morning after surgery ascorbic acid 1000 mg oral tablet (12 sources) Vitamin C Start: 04-20-2020 End: 07-12-2021 take 1 tablet by mouth once daily Ascorbic Acid (Vitamin C) 1,000 MG tablet Discontinued 1000 mg PO DAILY April 20, 2020 12:00am July 12, 2021 11:21am supplement Ascorbic Acid-Elderberry Fruit (9 sources) Start: 04-20-2020 [...] 11:21am Ascorbic Acid-Elderberry Fruit 1 EACH tablet,chewable (3 sources) Start: 04-20-2020 End: 07-12-2021 take 1 tablet by mouth once daily Ascorbic Acid-Elderberry Fruit 1 EACH tablet,chewable Discontinued 1 NMA PO DAILY April 20, 2020 12:00am July 12, 2021 11:21am supplement Start: 04-20-2020 End: 07-12-2021 take 1 tablet by mouth once daily Ascorbic Acid-Elderberry Fruit 1 EACH tablet,chewable Discontinued 1 NMA PO DAILY April 20, 2020 12:00am July 12, 2021 11:21am aspirin 81 mg chewable tablet (12 sources) Platelet Aggregation Inhibitor, Nonsteroidal Anti-inflammatory Drug Start: 04-15-2019 End: 07-12-2021 take 1 tablet by mouth once daily Aspirin 81 MG tablet,chewable Discontinued 81 mg PO DAILY@0800 April 15, 2019 12:00am July 12, 2021 11:21am heart [facility] atorvastatin 80 mg oral tablet (12 sources) HMG-CoA Reductase Inhibitor Start: 04-15-2019 End: 08-06-2024 take 1 tablet by mouth at bedtime Atorvastatin 80 MG tablet Discontinued 80 mg PO AT BEDTIME April 15, 2019 12:00am August 06, 2024 9:57pm cholesterol cephalexin 500 mg oral capsule (20 sources) Cephalosporin Antibacterial Start: 07-05-2023 End: 07-26-2023 [...] 1000 mg PO EVERY 8 HOURS 4 0 July 12, 2020 1:00am July 25, 2020 11:42am take 2 tabs at 9:00 pm and 2 tabs after 5 am when you wake up Start: 07-12-2020 End: 07-25-2020 Cephalexin Discontinued 1000 MG PO EVERY 8 HOURS July 12, 2020 1:00am July 25, 2020 11:42am take 2 tabs at 9:00 pm and 2 tabs after 5 am when you wake up clindamycin 300 mg oral capsule (4 sources) Lincosamide Antibacterial Start: 08-12-2023 End: 01-31-2024 take 2 capsules by mouth every hour Clindamycin Hcl 300 mg capsule Discontinued 600 mg PO ONCE 2 2 August 12, 2023 1:00am January 31, 2024 8:14am Take 2 capsules within 1 hour prior to dental procedure. Start: 08-12-2023 take 2 capsules by m outh every hour Clindamycin Hcl Active 600 MG PO ONCE 2 August 12, 2023 1:00am Take 2 capsules within 1 hour prior to dental procedure. diclofenac sodium 50 mg delayed release oral tablet (12 sources) Nonsteroidal Anti-inflammatory Drug Start: 04-15-2019 End: 07-12-2021 take 1 tablet by mouth twice daily at mealtime Diclofenac Sodium 50 MG tablet Discontinued 50 mg PO TWICE DAILY WITH MEALS April 15, 2019 12:00am July 12, 2021 11:21am arthritis docusate sodium 100 mg oral capsule (12 sources) Start: 07-18-2020 End: 03-06-2021 take 1 capsule by mouth twice daily Docusate Sodium (Colace) 100 mg capsule Discontinued 100 mg PO TWICE A DAY 40 July 18, 2020 1:00am March 06, 2021 10:28am estradiol 0.5 mg oral tablet (20 sources) Estrogen Start: 03-23-2024 End: 03-25-2024 take 0.25 mg by mouth every other day Estradiol 0.5 mg tablet Discontinued 0.25 mg PO .every other day March 23, 2024 3:24pm March 25, 2024 11:04am hormone Start: 02-28-2023 End: 03-23-2024 take 0.25 mg by mouth two times weekly Estradiol 0.5 mg tablet Discontinued 0.25 mg PO .twice a week February 28, 2023 9:53am March 23, 2024 3:26pm hormone Start: 02-28-2023 take 0.25 mg by mout h two times weekly Estradiol Active 0.25 MG PO .twice a week February 28, 2023 9:53am Start: 12-04-2021 End: 02-28-2023 take 0.25 mg by mouth every other day Estradiol 0.5 mg tablet Discontinued 0.25 mg PO .qod December 04, 2021 10:21am February 28, 2023 9:54am hormone Start: 12-04-2021 End: 02-28-2023 take 0.25 mg by mouth every other day Estradiol Discontinued 0.25 MG PO .qod December 04, 2021 10:21am February 28, 2023 9:54am Start: 04-15-2019 End: 12-04-2021 Estradiol 0.5 MG tablet Disc ontinued 0.5 {tbl} PO DAILY April 15, 2019 12:00am December 04, 2021 10:22am hormone Start: 07-04-2016 End: 07-06-2016 Estradiol (Estrace) 1 MG tab let Discontinued 1 mg PO MOWEFR July 04, 2016 1:00am July 06, 2016 11:47am lansoprazole 15 mg delayed release oral capsule (12 sources) Proton Pump Inhibitor Start: 07-01-2020 End: 07-04-2020 Lansoprazole 15 MG capsule,delayed release(DR/EC) Discontinued 15 mg NG THREE TIMES A DAY July 01, 2020 1:00am July 04, 2020 4:13pm hiatal hernia lovastatin 20 mg oral tablet (12 sources) HMG-CoA Reductase Inhibitor Start: 07-04-2016 End: [...] / nitrofurantoin, monohydrate 75 mg oral capsule (3 sources) Nitrofuran Antibacterial Start: 03-25-2024 End: 04-01-2024 take 1 capsule by mouth every twelve hours at mealtime Nitrofurantoin Monohyd/M-Cryst (Macrobid) 100 mg capsule Discontinued 100 mg PO Q12H 14 7 0 March 25, 2024 12:00am March 31, 2024 12:00am April 01, 2024 12:08am administer with a meal/food; swallow whole; do not open, crush, dissolve , or chew ondansetron 4 mg oral tablet (12 sources) Serotonin-3 Receptor Antagonist Start: 07-12-2020 End: 07-17-2020 take 1 tablet by mouth every six hours as needed for nausea Ondansetron Hcl 4 MG tablet Discontinued 4 mg PO EVERY 6 HOURS NEEDED as needed for Nausea 10 5 0 July 12, 2020 1:00am July 16, 2020 1:00am July 17, 2020 1:03am oxyCODONE hydrochloride 10 mg oral tablet (20 sources) Opioid Agonist Start: 07-26-2023 End: 01-31-2024 take 1 tablet by mouth every eight hours as needed for pain Oxycodone 10 mg tablet Discontinued 10 mg PO Q8H as needed for pain 12 3 0 July 26, 2023 January 31, 2024 8:14am Flank pain Unspecified abdominal pain Start: 08-29-2020 End: 10-03-2020 take 5-10 mg by mouth every six hours as needed for pain Oxycodone 5 mg tablet Discontinued 5 - 10 mg PO EVERY 6 HOURS as needed for Pain Score 6-10 56 0 August 29, 2020 October 03, 2020 10:28am Other acute postprocedural pain Start: 07-25-2020 End: 08-13-2020 take 5-10 mg by mouth every six hours as needed for pain Oxycodone 5 mg tablet Discontinued 5 - 10 mg PO EVERY 6 HOURS as needed for Pain Score 6-10/10 40 5 0 August 08, 2020 August 12, 2020 1:00am August 13, 2020 1:03am Other acute postprocedural pain Start: 07-12-2020 End: 08-29-2020 take 1-2 tablets by mouth every four hours as needed for pain Oxycodone 5 MG tablet Discontinued 5 mg PO EVERY 4 HOURS NEEDED as needed for Pain Score 6-10 60 0 July 12, 2020 August 29, 2020 4:17pm Other acute postprocedural pain 1-2 tabs by mouth every 4 hrs as needed for pain polymyxin b 30059 unt/ml / trimethoprim 1 mg/ml ophthalmic solution (3 sources) Dihydrofolate Reductase Inhibitor Antibacterial, Polymyxin-class Antibacterial Start: 01-31-2024 End: 02-07-2024 Polymyxin B Sulf-Trimethoprim 10,000 unit- 1 mg/mL drops Discontinued 1 NMA OPHTHALMIC Q3H 10 7 0 January 31, 2024 12:00am February 06, 2024 12:00am February 07, 2024 12:05am while awake; do not exceed 6 doses in 24 hours sucralfate 1000 mg oral tablet (11 sources) Aluminum Complex Start: 03-01-2022 End: 02-28-2023 take 1 tablet by mouth twice daily as needed for gastroesophageal reflux disease Sucralfate (Carafate) 1 gram tablet Discontinued 1 g PO TWICE A DAY as needed for GERD 10 0 March 01, 2022 8:20pm February 28, 2023 9:54am Problems Active Problems Problem Classification Problem Date Documented Da te Episodic/Chronic Abdominal hernia (11 sources) Hiatal hernia; Translations: [Diaphragmatic hernia without obstruction or gangrene] 03-09-2022 Episodic Abdominal pain (20 sources) Epigastric pain; Translations: [Epigastric pain] 11-09-2019 Episodic Anxiety disorders (12 sources) Anxiety; Translations: [Anxiety disorder, unspecified] 04-15-2019 Chronic Cardiac and circulatory congenital anomalies (12 sources) Patent foramen ovale; Translations: [Atrial septal defect] 04-15-2019 Chronic Cardiac dysrhythmias (8 sources) Palpitations; Translations: [Palpitations] 04-22-2023 Episodic Diabetes mellitus without complication (8 sources) Hyperglycemia; Translations: [Hyperglycemia, unspecified] 04-22-2023 Episodic Disorders of lipid metabolism (1 source) Hyperlipidemia, unspecified; Translations: [Hyperlipidemia, unspecified] Onset: 02-28-2024 Chronic E Codes: Adverse effects of medical drugs (8 sources) Adverse reaction to drug; Translations: [Adverse effect of unspecified drugs, medicaments and biological substances, initial encounter] 04-22-2023 Episodic Essential hypertension (3 sources) Malignant essential hypertension; Translations: [Essential (primary) hypertension] 08-14-2024 Chronic Fluid and electrolyte disorders (15 sources) Hypokalemia; Translations: [Hypokalemia] 04-16-2019 Episodic Hypertension with complications and secondary hypertension (12 sources) Hypertensive urgency ; Translations: [Hypertensive urgency] 04-15-2019 Chronic Inflammation; infection of eye (except that caused by tuberculosis or sexually transmitteddisease) (3 sources) Conjunctivitis of left eye; Translations: [Unspecified conjunctivitis] 01-31-2024 Episodic Menopausal disorders (3 sources) Menopausal syndrome; Translations: [Menopausal and female climacteric states] 03-23-2024 Chronic Comment on above: recommend stopping H RT. Osteoarthritis (20 sources) Osteoarthritis of left knee joint; Translations: [Unilateral primary osteoarthritis, left knee] Onset: 09-18-2024 07-01-2020 Chronic Other congenital anomalies (3 sources) Herniated urinary bladder 03-23-2024 Chronic Comment on above: may be source of vag inal bleeding. if symptomatic recommend wyneski referral. Other connective tissue disease (20 sources) History of total knee arthroplasty; Translations: [...] [Patellar tendinitis] Episodic Other connective tissue disease (8 sources) Iliotibial band friction syndrome of right knee; Translations: [Iliotibial band syndrome, right leg] 02-28-2023 Episodic Other connective tissue disease (14 sources) Iliotibial band friction syndrome; Translations: [Iliotibial band syndrome, right leg] 02-28-2023 Episodic Other connective tissue disease (3 sources) Iliotibial band syndrome, right leg; Translations: [Other disorders of muscle, ligament, and fascia] 02-28-2023 Episodic Other connective tissue disease (3 sources) Tendonitis of left patellar tendon; Translations: [Patellar tendinitis, left knee] 12-04-2021 Episodic Other female genital disorders (3 sources) Vaginal bleeding; Translations: [Abnormal uterine and vaginal bleeding, unspecified] 03-23-2024 Chronic Comment on above: post hysterectomy Other gastrointestinal disorders (8 sources) H/O: abdominal hernia; Translations: [Personal history of other diseases of the digestive system] 04-22-2023 Episodic Other non-traumatic joint disorders (20 sources) Pain in left knee; Translations: [Left knee pain] Episodic Other non-traumatic joint disorders (3 sources) Pain in right knee; Translations: [Pain in joint, lower leg] 02-28-2023 Episodic Other non-traumatic joint disorders (8 sources) Heterotopic ossification of joint; Translations: [Other specified joint disorders, unspecified joint] 09-18-2024 Episodic Other non-traumatic joint disorders (1 source) Hip pain; Translations: [Pain in right hip] 12-19-2024 Episodic Other screening for suspected conditions (not mental disorders or infectious disease) (1 source) Encounter for screening mammogram for malignant neoplasm of breast; Translations: [Encounter for screening mammogram for malignant neoplasm of breast] Onset: 11-11-2024 Episodic Other upper respiratory disease (3 sources) Acute bronchospasm; Translations: [Acute bronchospasm] 08-14-2024 Episodic Spondylosis; intervertebral disc disorders; other back problems (2 sources) Spondylosis without myelopathy or radiculopathy, lumbar region; Translations: [Osteoarthritis of lumbar spine] Onset: 12-20-2024 12-19-2024 Chronic Transient cerebral ischemia (12 sources) Cerebral ischemia; Translations: [Transient cerebral ischemic attack, unspecified] 04-15-2019 Chronic Unclassified (7 sources) Iliotibial band syndrome; Translations: [M76.30 - Iliotibial band syndrome, unspecified leg] Viral infection (15 sources) Viral disease; Translations: [Viral infection, unspecified] 04-16-2019 Episodic Past or Other Problems Problem Classification Problem Date Documented Da te Episodic/Chronic Genitourinary symptoms and ill-defined conditions (4 sources) Urgent desire to urinate; Translations: [Urgency of urination] Onset: 04-15-2024 03-23-2024 Episodic Comment on above: ua and culture, if h ematuria recommend urogyn consult Nonspecific chest pain (15 sources) Chest pain; Translations: [Chest pain, unspecified] Onset: 06-10-2024 03-09-2022 Episodic Other connective tissue disease (1 source) Plantar fascial fibromatosis; Translations: [Plantar fascial fibromatosis] Onset: 07-22-2024 Episodic Other lower respiratory disease (1 source) Shortness of breath; Translations: [Shortness of breath] Onset: 08-20-2024 Episodic Spondylosis; intervertebral disc disorders; other back problems (2 sources) Low back pain; Translations: [Low back pain] Onset: 07-27-2024 12-19-2024 Episodic Results Test Name Value Interpretation Reference Range Facility CBC W/Diff, Automatedon 11-24 Absolute Lymph 2.12 X10 3/uL Normal 0.83-4.51 [facility] Comment on above: Performed By: #### L 100.0100 ####[facility] [id number] [place], [address] Absolute Neut 3.8 X10 3/uL Normal 2.0-7.7 [facility] Comment on above: Performed By: #### L 100.0100 ####[facility] [id number] [place], [address] Basophils/100 WBC (Bld) 0.3 % Normal 0-1 [facility] Comment on above: Performed By: #### L 100.0100 ####[facility] [id number] [place], [address] Eosinophils/100 WBC (Bld) 1.8 % Normal 0-5 [facility] Comment on above: Performed By: #### L 100.0100 ####[facility] [id number] [place], [address] Erythrocyte distribution width (RBC) [Ratio] 12.5 % Normal 11.6-14.6 [facility] Comment on above: Performed By: #### L 100.0100 ####[facility] [id number] [place], [address] Hematocrit (Bld) [Volume fraction] 40.3 % Normal 37-47 [facility] Comment on above: Performed By: #### L 100.0100 ####[facility] [id number] [place], [address] Hemoglobin (Bld) [Mass/Vol] 13.7 g/dL Normal 12.0-15.0 [facility] Comment on above: Performed By: #### L 100.0100 ####[facility] [id number] [place], [address] IG% 0.500 Normal 0.0-0.9 [facility] Comment on above: Result Comment: IG% - Immature Granulocytes (promyelocytes, myelocytes and metamyelocytes) > 1% indicates that a LEFT SHIFT is Present. Performed By: #### L 100.0100 ####[facility] [id number] [place], [address] Lymphocytes/100 WBC (Bld) 32.1 % Normal 19-41 [facility] Comment on above: Performed By: #### L 100.0100 ####[facility] [id number] [place], [address] MCH (RBC) [Entitic mass] 30.9 pg Normal 27.0-32.0 [facility] Comment on above: Performed By: #### L 100.0100 ####[facility] [id number] [place], [address] MCHC (RBC) [Mass/Vol] 34.0 g/dL Normal 32-36 [facility] Comment on above: Performed By: #### L 100.0100 ####[facility] [address] [place], [address] MCV (RBC) [Entitic vol] 90.8 fL Normal 81-99 [facility] Comment on above: Performed By: #### L 100.0100 ####[facility] [address] [place], [address] Monocytes/100 WBC (Bld) 8.0 % Normal 0-10 [facility] Comment on above: Performed By: #### L 100.0100 ####[facility] [address] [place], [address] Neutrophils/100 WBC (Bld) 57.3 % Normal 47-70 [facility] Comment on above: Performed By: #### L 100.0100 ####[facility] [address] [place], [address] Nucleated RBC (Bld) [#/Vol] 0 10*3/uL Normal 0-5 [facility] Comment on above: Performed By: #### L 100.0100 ####[facility] [address] [place], [address] Platelet mean volume (Bld) [Entitic vol] 8.9 fL Normal 6.2-12.0 [facility] Comment on above: Performed By: #### L 100.0100 ####[facility] [address] [place], [address] Platelets (Bld) [#/Vol] 198 10*3/uL Normal 150-450 [facility] Comment on above: Performed By: #### L 100.0100 ####[facility] [address] [place], [address] RBC (Bld) [#/Vol] 4.44 10*6/uL Normal 4.2-5.4 [facility] Comment on above: Performed By: #### L 100.0100 ####[facility] [address] [place], [address] RDW SD 41.3 fl Normal 35.1-43.9 [facility] Comment on above: Performed By: #### L 100.0100 ####[facility] [address] [place], [address] WBC (Bld) [#/Vol] 6.6 10*3/uL Normal 4.4-11.0 [facility] Comment on above: Performed By: #### L 100.0100 ####[facility] [address] [place], [address] Emergency Department Summary on 12-19-2024 Emergency Department Summary [facility] Medical Records Department [address] [place] [address] Emergency Department Summary 12/19/24 MR#: [id number] Acct: [id number] Name: PRINCESS MEZA Rep #: [id number] : 1950 74 From: Gray Wray MD PCP: Dr. Alba Eldridge MD Status:REG ER Location: ED ADDENDUM by Dr. Gray Wray MD on 12/19/24 at 2213 Patient presents with atraumatic right-sided back pain and hip pain. She recently saw Dr. Zamarripa and had an injection of her back. She was numb and had to be observed for 4 hours. She denies recent fall. She denies bowel or bladder dysfunction. She denies radicular pain. She denies foot drop. Denies buckling her knees going up or down steps. She has had no recent dental procedure. She denies fever, chills night sweats. There is no cardiac or respiratory symptoms. She denies abdominal pain, nausea, vomiting or diarrhea. She denies dysuria, frequency, urgency or hematuria She denies skin lesions. She denies paresthesia, anesthesia or weakness of her lower extremities. Vital signs are remarkable for an elevated blood pressure. The blood pressure did improve without treatment. Blood pressure improved after pain medicine suspect her blood pressure is elevated due to the fact that she has chronic hypertension and is in pain. Head is atraumatic normocephalic. Ears are normal. Nares patent. BMI is 40.4. Neck is supple. Trachea is midline. Pupils equal round reactive. Extract muscle intact. Sclera is anicteric. Lungs are clear to auscultation with symmetric breath sounds. Heart is regular. Rate is normal. There is no murmur, gallop or rub. Abdomen is soft nontender. Bowel sounds are present normal. There is reproducible back pain. Mainor Hussain 4 test causes her pain over the right greater trochanteric region. Logrolling causes no discomfort. Patella and ankle reflex are 1+ and symmetric. Patient has a scar over her left knee due to total knee arthroplasty. PT pulses palpable bilaterally. EHLs intact. Normal sensation L3-S1 dermatome. 5/5 strength plantar and dorsiflexion of her foot. There are no dermatologic lesions noted. Mood and affect are flat and depressed. 12/19/24 8942 Cosigner Signature (if applicable): cc: Dr. Alba Eldridge MD * Signed HPI History of Present Illness Chief Complaint: Other, Pain/Inj PFSH PFSH Medical History Degenerative disc disease Scoliosis Arthritis Hiatal hernia HTN (hypertension) Home Medications ???Medication ???Instructions ???Recorded ???Last Taken ???Type lisinopril 20 2 tab PO DAILY htn 04/15/19 Unknow n History mg-hydrochlorothiazide 25 mg tablet bgkbwerr-cob-zuybr acid 0.4 1 ea PO DAILY supplement [...] ea 08/06/24 Unknown Rx (Aerochamber MV spacer) methylprednisolone 4 mg tablets in See Rx Instructions PO PER PKG D IR 11/13/24 Unknown Rx a dose pack (Medrol (Branden)) #21 tabs hydrocodone-acetaminop hen 5-325mg 1 tab PO Q6H PRN PRN Pain 3 days 12/19/24 Unknown Rx 5mg-325mg #10 TABLETS Allergy/AdvReac Type Severity Reaction Status Date / Time latex Allergy Rash Verified 12/19/24 19:33 Penicillins Allergy Rash Verified 12/19/24 19:33 tetracycline AdvReac Nausea/Vom/ Verified 12/19/24 19:33 Diarrhea Family History Mother Cancer Hypertension Grandmother Cancer Father Hypertension Sister Rheumatoid arthritis Surgical History History of total knee arthroplasty ( 07/12/20) H/O: hysterectomy Hx of foot surgery Social History household members: spouse housing: house number of children: 2 Smoking Status: Former smoker alcohol intake: never seatbelt use: always do you feel safe at home: Yes additional social history: Cornelia EXAM Physical Exam Const Vital Signs: 12/19/24 19:32 12/19/24 19:33 12/19/24 21 (more content not included)... Normal [facility] HIP, UNI W/ Pelvis 2-3 Views on 12-19-2024 HIP, UNI W/ Pelvis 2-3 Views [facility] Imaging Services [address] [place] [address] HIP, UNI W/ Pelvis 2-3 Views MR#: [id number] Acct: [id number] Name: PRINCESS MEZA Rep #: [id number] : 1950 F 74 From: Divine Jett nd, MD PCP: Dr. Alba Eldridge MD Status: REG ER Study: HIP, UNI W/ Pelvis 2-3 Views Date of Exam: Exam# [id number] Ordering Dr: Gray Wray MD PROCEDURE: HIP, UNI W/ PELVIS 2-3 VIEWS 12/19/2024 REASON FOR EXAM: INJURY/PAIN TECHNIQUE: HIP, UNI W/ PELVIS 2-3 VIEWS COMPARISON: Hip and pelvic radiographs 04/26/2023. FINDINGS: Bones: No acute fracture. No aggressive osseous lesions. Joints: Normal alignment. Moderate degenerative changes. Soft tissues: Soft tissues are unremarkable. Other: The visualized bowel loops are normal caliber. RAD/HIP, UNI W/ Pelvis 2-3 Views IMPRESSION: DEGENERATIVE OSTEOARTHROSIS. NO ACUTE FINDINGS. Reading Location: [facility] CC: Dr. Alba Eldridge MD; Dr. Gray Wray MD Control Board Operator: Signed Normal [facility] Lumbar Spine 2 or 3 Viewson 12-19-2024 Lumbar Spine 2 or 3 Views [facility] Imaging Services [address] [place] [address] [id number] Lumbar Spine 2 or 3 Views MR#: [id number] Acct: [id number] Name: PRINCESS MEZA Rep #: [id number] : 1950 F 74 From: Divine Jett nd, MD PCP: Dr. Alba Eldridge MD Status: REG ER Study: Lumbar Spine 2 or 3 Views Date of Exam: Exam# [id number] Ordering Dr: Gray Wray MD PROCEDURE: LUMBAR SPINE 2 OR 3 VIEWS 12/19/2024 REASON FOR EXAM: INJURY/PAIN TECHNIQUE: LUMBAR SPINE 2 OR 3 VIEWS COMPARISON: L-spine radiographs 07/06/2024. FINDINGS: Vertebrae: No acute fracture. Mild, chronic multilevel vertebral body height loss. Discs: Advanced multilevel disc space narrowing with endplate osteophytes. Facet arthropathy throughout the lumbar spine. Alignment: Unchanged mild dextroscoliotic curvature with multilevel degenerative spondylosis. No traumatic listhesis. Other: Vascular calcifications. RAD/Lumbar Spine 2 or 3 Views IMPRESSION: ADVANCED DEGENERATIVE CHANGES OF THE LUMBAR SPINE. NO ACUTE OSSEOUS FRACTURE. Reading Location: [facility] CC: Dr. Alba Eldridge MD; Dr. Gray Wray MD Control Board Operator: Signed Normal [facility] Knee 3 Viewson 11-13-2024 Knee 3 Views [facility] Imaging Services [address] [place] [address] Knee 3 Views MR#: [id number] Acct: [id number] Name: PRINCSES MEZA Rep #: [id number] : 1950 F 74 From: Alexys Diaz MD PCP: Dr. Alba Eldridge MD Status: REG CLI Study: Knee 3 Views Date of Exam: 11/13/24 Exam# [id number] Ordering Dr: Walter Singh DO EXAM: XR [...] 2. Postoperative changes as above. Reading Location: [facility] CC: Dr. Alba Eldridge MD; Dr. Walter Singh DO Control Board Operator: Signed Normal [facility] Orthopedic Visit Reporton Orthopedic Visit Report [facility] [address] [place] [address] [address] [place] [id number] OFFICE VISIT Date of Service: 11/13/24 MR#: [id number] Acct: [id number] Name: PRINCESS MEZA Rep #: [id number] : 1950 Provider: Dr. Walter francis DO Age/Sex: 74/F Location: [facility] [place] Status: Signed Intake Vital Signs 08/06/24 20:51 [...] made by me, Dr. Walter Singh, DO 11/13/24 0757. Part of today???s visit was [...] no sign (more content not included)... Normal [facility] Breast imaging reportOrdered By: Sonal Ann on 11-09-2024 Study report [facility] Imaging Services [address] [place], [place] [id number] SCRN MAMM (CAD)W/FAHAD BILAT MR#: [id number] Acct: [id number] Name: PRINCESS MEZA Rep #: [id number] : 1950 F 74 From: Bill Ann DO PCP: Dr. Alba Eldridge MD Status: REG CLI Study:SCRN MAMM (CAD)W/FAHAD BILAT Date of Exa m: 11/09/24 Exam# [id number] Ordering Dr: Lars Eldridge MD EXAM: SCRN [...] be mailed to the patient. Reading Location: [facility] [place][NOTE 3] CC: Dr. Alba Eldridge MD ~ Control Board Operator: Signed [facility] SCRN MAMM (CAD)W/FAHAD BILATo n 11-09-2024 SCRN MAMM (CAD)W/FAHAD BILAT [facility] Imaging Services [address] [place], [place] [address] SCRN MAMM (CAD)W/FAHAD BILAT MR#: [id number] Acct: [id number] Name: PRINCESS MEZA Rep #: [id number] : 1950 F 74 From: Sonal Méndez PCP: Dr. Alba Eldridge MD Status: REG CLI Study: SCRN MAMM (CAD)W/FAHAD BILAT Date of Exam: 10/22 03/18 Exam# [id number] Ordering Dr: Alba Eldridge MD EXAM: SCRN [...] be mailed to the patient. Reading Location: [facility] [place][NOTE 3] CC: Dr. Alba Eldridge MD Control Board Operator: Signed Normal [facility] Knee 3 Viewson 09-18-2024 Knee 3 Views [facility] Imaging Services [address] [place], [place] [address] Knee 3 Views MR#: [id number] Acct: [id number] Name: PRINCESS MEZA Rep #: [id number] : 1950 F 73 From: Catalino Barrett i, DO PCP: Dr. Alba Eldridge MD Status: DEP AMB Study: Knee 3 Views Date of Exam: 09/18/24 Exam# [id number] Ordering Dr: Walter Singh DO PROCEDURE: Left [...] arthroplasty. Small left suprapatellar effusion. Reading Location: [facility] CC: Dr. Alba Eldridge MD; Dr. Walter Singh DO Control Board Operator: Signed Normal [facility] Orthopedic Visit Reporton Orthopedic Visit Report [facility] [address] [place] [address] OFFICE VISIT Date of Service: 09/18/24 MR#: [id number] Acct: [id number] Name: PRINCESS MEZA Rep #: [id number] : 1950 Provider: Dr. Walter francis DO Age/Sex: 73/F Location: [facility] [place] Status: Signed Intake Vital Signs 08/06/24 20:51 Height 5 ft 6 in Intake Visit Reasons: LEFT KNEE Chief Complaint: left knee pain Allergies latex Allergy (Verified 09/18/24 11:01) Rash Penicillins Allergy (Verified 09/18/24 11:01) Rash tetracycline Adverse Reaction (Verified 09/18/24 11:01) Nausea/Vom/Diarrhea Medications ???Medication ???Instructions ???Recorded ???Confirmed ???Type lisinopril 20 2 tab PO DAILY htn 04/15/19 History mg-hydrochlorothiazide 25 mg tablet nqjaqcsr-hsd-mcbqg acid 0.4 1 ea PO DAILY supplement [...] lateral to patella 07/15/2023 x-ray left shoulder: Cpia-xv-juij inferior glenohumeral arthrosis with inferior humeral head [...] Assessment and (more content not included)... Normal [facility] Absolute lymphocyte countOrd ered By: Gray Wray on 08-06-2024 Lymphocytes Auto (Unsp spec) [#/Vol] 0.56 10*3/uL Low 0.83-4.51 [facility] Absolute neutrophil countOrd ered By: Grayivette Wray on 08-06-2024 Neutrophils (Bld) [#/Vol] 4.7 10*3/uL 2.0-7.7 [facility] Albumin to globulin ratioOrd ered By: Grayivette Wray on 08-06-2024 Albumin/Globulin [Mass ratio] 0.9 {ratio} 0.9-2.4 [facility] Automated lymphocyte count a s percentage of total leukocytesOrdered By: Grayivette Wray on 08-06-2024 Lymphocytes/100 WBC Auto (Unsp spec) 9.4 % Low 19-41 [facility] Basophil percentageOrdered B y: Grayivette Wray on 08-06-2024 Basophils/100 WBC (Bld) 0.3 % 0-1 [facility] Bilirubin, totalOrdered By: Grayivette Wray on 08-06-2024 Bilirubin [Mass/Vol] 0.70 mg/dL 0.20-1.00 [facility] Comment on above: For patients on eltr ombopag therapy, use of Dimension [place] TBIL is not recommended. Blood urea nitrogen (BUN)/cr eatinine ratioOrdered By: Grayivette Ochoao on 08-06-2024 Urea nitrogen/Creatinine [Mass ratio] 15.0 mg/mg 10-20 [facility] CBC W/Diff, Automatedon 07-25 Absolute Lymph 0.56 X10 3/uL Low 0.83-4.51 [facility] Comment on above: Performed By: #### L 100.0100, L500.4050 ####[facility] [address] [place], [address] Absolute Neut 4.7 X10 3/uL Normal 2.0-7.7 [facility] Comment on above: Performed By: #### L 100.0100, L500.4050 ####[facility] [address] [place], [address] Basophils/100 WBC (Bld) 0.3 % Normal 0-1 [facility] Comment on above: Performed By: #### L 100.0100, L500.4050 ####[facility] [address] [place], [address] Eosinophils/100 WBC (Bld) 0.2 % Normal 0-5 [facility] Comment on above: Performed By: #### L 100.0100, L500.4050 ####[facility] [address] [place], [address] Erythrocyte distribution width (RBC) [Ratio] 12.7 % Normal 11.6-14.6 [facility] Comment on above: Performed By: #### L 100.0100, L500.4050 ####[facility] [address] [place], [address] Hematocrit (Bld) [Volume fraction] 43.3 % Normal 37-47 [facility] Comment on above: Performed By: #### L 100.0100, L500.4050 ####[facility] [address] [place], [address] Hemoglobin (Bld) [Mass/Vol] 14.9 g/dL Normal 12.0-15.0 [facility] Comment on above: Performed By: #### L 100.0100, L500.4050 ####[facility] [address] [place], [address] IG% 0.500 Normal 0.0-0.9 [facility] Comment on above: Result Comment: IG% - Immature Granulocytes (promyelocytes, myelocytes and metamyelocytes) > 1% indicates that a LEFT SHIFT is Present. Performed By: #### L 100.0100, L500.4050 ####[facility] [address] [place], [address] Lymphocytes/100 WBC (Bld) 9.4 % Low 19-41 [facility] Comment on above: Performed By: #### L 100.0100, L500.4050 ####[facility] [address] [place], [address] MCH (RBC) [Entitic mass] 31.1 pg Normal 27.0-32.0 [facility] Comment on above: Performed By: #### L 100.0100, L500.4050 ####[facility] [address] [place], [address] MCHC (RBC) [Mass/Vol] 34.4 g/dL Normal 32-36 [facility] Comment on above: Performed By: #### L 100.0100, L500.4050 ####[facility] [address] [place], [address] MCV (RBC) [Entitic vol] 90.4 fL Normal 81-99 [facility] Comment on above: Performed By: #### L 100.0100, L500.4050 ####[facility] [address] [place], [address] Monocytes/100 WBC (Bld) 9.9 % Normal 0-10 [facility] Comment on above: Performed By: #### L 100.0100, L500.4050 ####[facility] [address] [place], [address] Neutrophils/100 WBC (Bld) 79.7 % High 47-70 [facility] Comment on above: Performed By: #### L 100.0100, L500.4050 ####[facility] [address] [place], [address] Nucleated RBC (Bld) [#/Vol] 0 10*3/uL Normal 0-5 [facility] Comment on above: Performed By: #### L 100.0100, L500.4050 ####[facility] [address] [place], [address] Platelet mean volume (Bld) [Entitic vol] 9.0 fL Normal 6.2-12.0 [facility] Comment on above: Performed By: #### L 100.0100, L500.4050 ####[facility] [address] [place], [address] Platelets (Bld) [#/Vol] 154 10*3/uL Normal 150-450 [facility] Comment on above: Performed By: #### L 100.0100, L500.4050 ####[facility] [address] [place], [address] RBC (Bld) [#/Vol] 4.79 10*6/uL Normal 4.2-5.4 [facility] Comment on above: Performed By: #### L 100.0100, L500.4050 ####[facility] [address] [place], [address] RDW SD 41.6 fl Normal 35.1-43.9 [facility] Comment on above: Performed By: #### L 100.0100, L500.4050 ####[facility] [address] [place], [address] WBC (Bld) [#/Vol] 5.9 10*3/uL Normal 4.4-11.0 [facility] Comment on above: Performed By: #### L 100.0100, L500.4050 ####[facility] [address] [place], [address] Carbon dioxide measurementOr dered By: Gray Wray on 08-06-2024 CO2 [Moles/Vol] 29.0 mmol/L 21.0-32.0 [facility] Chest PA and Lateralon 08-06 Chest PA and Lateral [facility] Imaging Services [address] [place] [address] Chest PA and Lateral MR#: [id number] Acct: [id number] Name: PRINCESS MEZA Rep #: [id number] : 1950 F 73 From: Joe Méndez PCP: Dr. Alba Eldridge MD Status: REG ER Study: Chest PA and Lateral Date of Exam: 08/06/24 Exam# [id number] Ordering Dr: Gray Wray MD PROCEDURE: CHEST PA AND LATERAL REASON FOR EXAM: Cough, fever TECHNIQUE: Two views of the chest COMPARISON: 05/11/2024 FINDINGS: Cardiomediastinal silhouette is within normal limits. No focal consolidation, pleural effusion or sizable pneumothorax. RAD/Chest PA and Lateral IMPRESSION: No acute airspace abnormality. Reading Location: [facility] CC: Dr. Alba Eldridge MD; Dr. Gray Wray MD Control Board Operator: Signed Normal [facility] Chloride measurementOrdered By: Gray Wray on 08-06-2024 Chloride [Moles/Vol] 101 mmol/L 98-107 [facility] Comprehensive Metabolic Prof ilon 08-06-2024 Albumin [Mass/Vol] 3.4 g/dL Normal 3.2-5.0 [facility] Comment on above: Performed By: #### L 100.0100, L500.4050 ####[facility] [address] [place], [address] Albumin/Globulin [Mass ratio] 0.9 {ratio} Normal 0.9-2.4 [facility] Comment on above: Performed By: #### L 100.0100, L500.4050 ####[facility] [address] [place], [address] ALK P 83 U/L Normal 45-117 [facility] Comment on above: Performed By: #### L 100.0100, L500.4050 ####[facility] [address] [place], [address] ALT [Catalytic activity/Vol] 21 U/L Normal 13-56 [facility] Comment on above: Performed By: #### L 100.0100, L500.4050 ####[facility] [address] [place], [address] AST [Catalytic activity/Vol] 18 U/L Normal 15-37 [facility] Comment on above: Performed By: #### L 100.0100, L500.4050 ####[facility] [address] [place], [address] Bilirubin [Mass/Vol] 0.70 mg/dL Normal 0.20-1.00 [facility] Comment on above: Result Comment: For patients on eltrombopag therapy, use of Dimension [place] TBIL is not recommended. Performed By: #### L 100.0100, L500.4050 ####[facility] [address] [place], [address] BUN/CRE 15.0 RATIO Normal 10-20 [facility] Comment on above: Performed By: #### L 100.0100, L500.4050 ####[facility] [address] [place], [address] CA,Total 10.0 mg/dL Normal 8.5-10.1 [facility] Comment on above: Performed By: #### L 100.0100, L500.4050 ####[facility] [address] [place], [address] Chloride [Moles/Vol] 101 mmol/L Normal 98-107 [facility] Comment on above: Performed By: #### L 100.0100, L500.4050 ####[facility] [address] [place], [address] CO2 [Moles/Vol] 29.0 mmol/L Normal 21.0-32.0 [facility] Comment on above: Performed By: #### L 100.0100, L500.4050 ####[facility] [address] [place], [address] Creatinine [Mass/Vol] 0.67 mg/dL Normal 0.55-1.02 [facility] Comment on above: Result Comment: The validity of the calculated GFR GFRAA in patients over 70 years has not been determined. Clinical correlation is essential. Performed By: #### L 100.0100, L500.4050 ####[facility] [address] [place], [address] ECRCL 77.49 ml/min Normal [facility] Comment on above: Performed By: #### L 100.0100, L500.4050 ####[facility] [address] [place], [address] EST GFR - AA 112 mL/min Normal >60 [facility] Comment on above: Result Comment: Afri can Portuguese GFR Calc Performed By: #### L 100.0100, L500.4050 ####[facility] [address] [place], [address] GAP 7 Normal 5-15 [facility] Comment on above: Performed By: #### L 100.0100, L500.4050 ####[facility] [address] [place], [address] GFR/1.73 sq M.predicted among non-blacks MDRD (S/P/Bld) [Vol rate/Area] 93 mL/min/{1.73_m2} Normal >60 [facility] Comment on above: Result Comment: Non- GFR Calc Performed By: #### L 100.0100, L500.4050 ####[facility] [address] [place], [address] Globulin (S) [Mass/Vol] 3.9 g/dL Normal 2.2-4.2 [facility] Comment on above: Performed By: #### L 100.0100, L500.4050 ####[facility] [address] [place], [address] Glucose [Mass/Vol] 128 mg/dL High 74-106 [facility] Comment on above: Result Comment: Fast ing Glucose result greater than or equal to 126 mg/dL suggests DIABETES MELLITUS per A.D.A. criteria. Performed By: #### L 100.0100, L500.4050 ####[facility] [address] [place], [address] Potassium [Moles/Vol] 3.2 mmol/L Low 3.5-5.1 [facility] Comment on above: Performed By: #### L 100.0100, L500.4050 ####[facility] [address] [place], [address] Sodium [Moles/Vol] 137 mmol/L Normal 136-145 [facility] Comment on above: Performed By: #### L 100.0100, L500.4050 ####[facility] [address] [place], [address] T PROT 7.3 g/dL Normal 6.4-8.2 [facility] Comment on above: Performed By: #### L 100.0100, L500.4050 ####[facility] [address] [place], [address] Urea nitrogen [Mass/Vol] 10 mg/dL Normal 7-18 [facility] Comment on above: Performed By: #### L 100.0100, L500.4050 ####[facility] [address] [place], [address] Emergency Department Summary on 08-06-2024 Emergency Department Summary [facility] Medical Records Department [address] [place] [address] Emergency Department Summary 08/06/24 MR#: [id number] Acct: [id number] Name: PRINCESS MEZA Rep #: [id number] : 1950 73 From: Gray Wray MD PCP: Dr. Alba Eldridge MD Status:REG ER Location: ED HPI History of Present Illness Chief Complaint: Shortness of Breath Detail of Chief Complaint: Systemic viral like symptoms/flulike Informant: patient Onset/Context/Timing Onset: Days (Onset August 03) Context: Sudden Onset Timing: Continuous [...] similar symptoms: No Recent Illness/Hospitalizatio n: No [facility] Medical History Degenerative disc disease Scoliosis Arthritis Hiatal hernia HTN (hypertension) Home Medications ???Medication ???Instructions ???Recorded ???Last Taken ???Type lisinopril 20 2 tab PO DAILY htn 04/15/19 Unknow n History mg-hydrochlorothiazide 25 mg tablet gdpjpfte-xib-klglx acid 0.4 1 ea PO DAILY supplement [...] home: Yes additional social history: Cornelia [facility] ED Constitutional Constitutional ED: Reports chills, fever(s), [...] Hematologic/Lymphatic Hematologic/ (more content not included)... Normal [facility] Eosinophil percentageOrdered By: Grayivette Wray on 08-06-2024 Eosinophils/100 WBC (Bld) 0.2 % 0-5 [facility] Erythrocyte distribution wid th ratioOrdered By: Grayivette Wray on 08-06-2024 Erythrocyte distribution width (RBC) [Ratio] 12.7 % 11.6-14.6 [facility] Erythrocyte distribution wid th standard deviationOrdered By: Grayivette Wray on 08-06-2024 Erythrocyte distribution width (RBC) [Ratio] 41.6 fl 35.1-43.9 [facility] Glomerular filtration rate ( GFR) estimationOrdered By: Grayivette Wray on 08-06-2024 GFR/1.73 sq M.predicted among non-blacks MDRD (S/P/Bld) [Vol rate/Area] 93 mL/min/{1.73_m2} >60 [facility] Comment on above: Non- GFR Calc Glucose measurementOrdered B y: Gray Wray on 08-06-2024 Glucose [Mass/Vol] 128 mg/dL High 74-106 [facility] Comment on above: Fasting Glucose resu lt greater than or equal to 126 mg/dL suggests DIABETES MELLITUS per A.D.A. criteria. Hematocrit Auto (Bld) [Volum e fraction]Ordered By: Gray Wray on 08-06-2024 Hematocrit (Bld) [Volume fraction] 43.3 % 37-47 [facility] Hemoglobin measurementOrdere d By: Gray Wray on 08-06-2024 Hemoglobin (Bld) [Mass/Vol] 14.9 g/dL 12.0-15.0 [facility] Immature granulocytes/100 WB C Auto (Bld)Ordered By: Grayivette Wray 08-06-2024 Immature granulocytes/100 WBC (Bld) 0.500 % 0.0-0.9 [facility] Comment on above: IG% - Immature Granu locytes (promyelocytes, myelocytes and metamyelocytes) > 1% indicates that a LEFT SHIFT is Present. Influenza virus A and B and SARS-CoV-2 (COVID-19) and Respiratory syncytial virus RNAOrdered By: Grayivette Wray on 08-06-2024 SARS-CoV-2 (COVID-19) RNA DEANNA+probe Ql (Unsp spec) SARS-CoV-2 (COVID 19) Abnormal [facility] Laboratory - Chemistry and C hemistry - challengeOrdered By: Gray Wray on 08-06-2024 AST [Catalytic activity/Vol] 18 U/L 15-37 [facility] M100.678on 08-06-2024 M100.678 Copy of report sent to Infection Control Printer MS#[id number] 08/07/24 1651 ABDOULAYE. Normal Reference Range = Negative FLUABV+SARS-CoV-2+RSV Pnl Resp DEANNA+probe GeneXpert Instrument, PCR method SARS-CoV-2 (COVID 19) A Positive A INFLUENZA A Negative INFLUENZA B Negative RSV PCR Negative SARS-CoV-2 (COVID 19) * This is an amended result. * A prior result that was reported as final has been changed. 08/07/241650 by ABDOULAYE Normal [facility] Comment on above: Performed By: #### M 100.678 ####[facility] [address] [place], [address] MCV (mean corpuscular volume ) determinationOrdered By: Gray Wray on 08-06-2024 MCV (RBC) [Entitic vol] 90.4 fL 81-99 [facility] Mean corpuscular hemoglobin (MCH) determinationOrdered By: Gray Wray on 08-06-2024 MCH (RBC) [Entitic mass] 31.1 pg 27.0-32.0 [facility] Mean corpuscular hemoglobin concentration (MCHC) determinationOrdered By: Gray Wray on 08-06-2024 MCHC (RBC) [Mass/Vol] 34.4 g/dL 32-36 [facility] Mean platelet volume determi nationOrdered By: Gray Wray on 08-06-2024 Platelet mean volume (Bld) [Entitic vol] 9.0 fL 6.2-12.0 [facility] Monocyte percentageOrdered B y: Gray Wray on 08-06-2024 Monocytes/100 WBC (Bld) 9.9 % 0-10 [facility] Neutrophil percentageOrdered By: Gray Ochoao on 08-06-2024 Neutrophils/100 WBC (Bld) 79.7 % High 47-70 [facility] Nucleated red blood cell per centageOrdered By: Gray Ochoao on 08-06-2024 Nucleated RBC/100 WBC (Bld) [Ratio] 0 % 0-5 [facility] Platelet countOrdered By: Stevenson Nils on 08-06-2024 Platelets (Bld) [#/Vol] 154 10*3/uL 150-450 [facility] Potassium measurementOrdered By: Gray Wray on 08-06-2024 Potassium [Moles/Vol] 3.2 mmol/L Low 3.5-5.1 [facility] RBC Auto (Bld) [#/Vol]Ordere d By: Gray Wray on 08-06-2024 RBC (Bld) [#/Vol] 4.79 10*6/uL 4.2-5.4 [facility] Serum anion gap measurementO rdered By: Gray Wray on 08-06-2024 Anion gap [Moles/Vol] 7 mmol/L 5-15 [facility] Serum globulin measurementOr dered By: Gray Wray on 08-06-2024 Globulin (S) [Mass/Vol] 3.9 g/dL 2.2-4.2 [facility] Serum or plasma alanine camacho otransferase (ALT) measurementOrdered By: Gray Wray on 08-06-2024 ALT [Catalytic activity/Vol] 21 U/L 13-56 [facility] Serum or plasma albumin shiva urement (mass/volume)Ordered By: Gray Wray on 08-06-2024 Albumin [Mass/Vol] 3.4 g/dL 3.2-5.0 [facility] Serum or plasma alkaline jayme sphatase measurementOrdered By: Gray Wray on 08-06-2024 ALP [Catalytic activity/Vol] 83 U/L 45-117 [facility] Serum or plasma calcium shiva urement (mass/volume)Ordered By: [facility] on 08-06-2024 Calcium [Mass/Vol] 10.0 mg/dL 8.5-10.1 [facility] Serum or plasma creatinine m easurement (mass/volume)Ordered By: [facility] on 08-06-2024 Creatinine [Mass/Vol] 0.67 mg/dL 0.55-1.02 [facility] Comment on above: The validity of the calculated GFR & GFRAA in patients over 70 years has not been determined. Clinical correlation is essential. Serum or plasma urea nitroge n measurement (mass/volume)Ordered By: [facility] on 08-06-2024 Urea nitrogen [Mass/Vol] 10 mg/dL 7-18 [facility] Sodium levelOrdered By: [facility] on 08-06-2024 Sodium [Moles/Vol] 137 mmol/L 136-145 [facility] Total proteinOrdered By: [facility] on 08-06-2024 Protein [Mass/Vol] 7.3 g/dL 6.4-8.2 [facility] White blood cell (WBC) count Ordered By: [facility] on 08-06-2024 WBC (Bld) [#/Vol] 5.9 10*3/uL 4.4-11.0 [facility] Lumbar Spine 2 or 3 Viewson 07-03-2024 Lumbar Spine 2 or 3 Views [facility] Imaging Services [address] [place], [place] [address] Lumbar Spine 2 or 3 Views MR#: [id number] Acct: [id number] Name: PRINCESS MEZA Rep #: [id number] : 1950 F 73 From: Cornelia Gerardo PCP: Dr. Alba Eldridge MD Status: REG CLI Study: Lumbar Spine 2 or 3 Views Date of Exam: Exam# [id number] Ordering Dr: Blanca Brown [place] [id number] INDICATION: Radiculopathy, lumbar region EXAMINATION/TECHNIQUE: X-RAY - [...] Blanca Brown MD; Dr. Alba Eldridge MD Control Board Operator: Signed Normal [facility] Foot min 3 Viewson 5 Foot min 3 Views [facility] Imaging Services [address] [place] [address] [id number] Foot min 3 Views MR#: [id number] Acct: [id number] Name: PRINCESS MEZA Rep #: [id number] : 1950 F 73 From: Quoc Gerardo PCP: Dr. Alba Eldridge MD Status: REG CLI Study: Foot min 3 Views Date of Exam: 06/26/24 Exam# [id number] Ordering Dr: Candida Salmeron DPEvy [id number] STUDY: XR Foot Min 3 Views CLINICAL: [...] Freitas MD at 14:20 EST , CC: DPEvy Salmeron; Dr. Alba Eldridge MD Control Board Operator: Signed Normal [facility] 12 Lead EKGon 05-11-2024 12 Lead EKG [facility] Cardiovascular Services [address] [place] [address] 12 Lead EKG 05/11/24 1520 MR#: [id number] Acct: [id number] Name: PRINCESS MEZA Rep #: [id number] : 1950 73 From: Paras Palafox MD [...] ECG Confirmed by JAVY COOPER, PARAS ([id number]), material expeditor RACHAEL MERINO ([id number]) on 05/12/2024 1:51:39 PM Referred By: Confirmed By: PARAS PALAFOX MD 05/12/24 1351 Date Paras Palafox MD CC: Dr. Alba Eldridge MD; Dr. Kulwinder Espinosa, DO Signed Normal [facility] BNP,B-Type NATRIURETIC PEPTI Raza 05-11-2024 Natriuretic peptide B (Bld) [Mass/Vol] 30.0 pg/mL Normal 0-100 [facility] Comment on above: Performed By: #### L 500.2500, L503.6620, L100.0100, L501.5425 #### [facility] [address] [place], [address] Basic Metabolic Profile (BMP )on 05-11-2024 BUN/CRE 30.3 RATIO High 10-20 [facility] Comment on above: Order Comment: 1 Y Performed By: #### L 500.2500, L503.6620, L100.0100, L501.5425 #### [facility] [address] [place], [address] CA,Total 10.8 mg/dL High 8.5-10.1 [facility] Comment on above: Order Comment: 1 Y Performed By: #### L 500.2500, L503.6620, L100.0100, L501.5425 #### [facility] [address] [place], [address] Chloride [Moles/Vol] 105 mmol/L Normal 98-107 [facility] Comment on above: Order Comment: 1 Y Performed By: #### L 500.2500, L503.6620, L100.0100, L501.5425 #### [facility] [address] [place], [address] CO2 [Moles/Vol] 31.0 mmol/L Normal 21.0-32.0 [facility] Comment on above: Order Comment: 1 Y Performed By: #### L 500.2500, L503.6620, L100.0100, L501.5425 #### [facility] [address] [place], [address] Creatinine [Mass/Vol] 0.76 mg/dL Normal 0.55-1.02 [facility] Comment on above: Order Comment: 1 Y Result Comment: The validity of the calculated GFR GFRAA in patients over 70 years has not been determined. Clinical correlation is essential. Performed By: #### L 500.2500, L503.6620, L100.0100, L501.5425 #### [facility] [address] [place], [address] ECRCL 82.73 ml/min Normal [facility] Comment on above: Order Comment: 1 Y Performed By: #### L 500.2500, L503.6620, L100.0100, L501.5425 #### [facility] [address] [place], [address] EST GFR - AA 96 mL/min Normal >60 [facility] Comment on above: Order Comment: 1 Y Result Comment: Afri can Portuguese GFR Calc Performed By: #### L 500.2500, L503.6620, L100.0100, L501.5425 #### [facility] [address] [place], [address] GAP 6 Normal 5-15 [facility] Comment on above: Order Comment: 1 Y Performed By: #### L 500.2500, L503.6620, L100.0100, L501.5425 #### [facility] [address] [place], [address] GFR/1.73 sq M.predicted among non-blacks MDRD (S/P/Bld) [Vol rate/Area] 80 mL/min/{1.73_m2} Normal >60 [facility] Comment on above: Order Comment: 1 Y Result Comment: Non- GFR Calc Performed By: #### L 500.2500, L503.6620, L100.0100, L501.5425 #### [facility] [address] [place], [address] Glucose [Mass/Vol] 111 mg/dL High 74-106 [facility] Comment on above: Order Comment: 1 Y Result Comment: Fast ing Glucose result from 100 to 125 mg/dL suggests IMPAIRED HOMEOSTASIS per A.D.A. criteria. Performed By: #### L 500.2500, L503.6620, L100.0100, L501.5425 #### [facility] [address] [place], [address] Potassium [Moles/Vol] 3.5 mmol/L Normal 3.5-5.1 [facility] Comment on above: Order Comment: 1 Y Performed By: #### L 500.2500, L503.6620, L100.0100, L501.5425 #### [facility] [address] [place], [address] Sodium [Moles/Vol] 142 mmol/L Normal 136-145 [facility] Comment on above: Order Comment: 1 Y Performed By: #### L 500.2500, L503.6620, L100.0100, L501.5425 #### [facility] [address] [place], [address] Urea nitrogen [Mass/Vol] 23 mg/dL High 7-18 [facility] Comment on above: Order Comment: 1 Y Performed By: #### L 500.2500, L503.6620, L100.0100, L501.5425 #### [facility] [address] [place], [address] CBC W/Diff, Automatedon 04-24 Absolute Lymph 2.03 X10 3/uL Normal 0.83-4.51 [facility] Comment on above: Performed By: #### L 500.2500, L503.6620, L100.0100, L501.5425 #### [facility] [address] [place], [address] Absolute Neut 4.2 X10 3/uL Normal 2.0-7.7 [facility] Comment on above: Performed By: #### L 500.2500, L503.6620, L100.0100, L501.5425 #### [facility] [address] [place], [address] Basophils/100 WBC (Bld) 0.3 % Normal 0-1 [facility] Comment on above: Performed By: #### L 500.2500, L503.6620, L100.0100, L501.5425 #### [facility] [address] [place], [address] Eosinophils/100 WBC (Bld) 1.0 % Normal 0-5 [facility] Comment on above: Performed By: #### L 500.2500, L503.6620, L100.0100, L501.5425 #### [facility] [address] [place], [address] Erythrocyte distribution width (RBC) [Ratio] 12.6 % Normal 11.6-14.6 [facility] Comment on above: Performed By: #### L 500.2500, L503.6620, L100.0100, L501.5425 #### [facility] [address] [place], [address] Hematocrit (Bld) [Volume fraction] 44.6 % Normal 37-47 [facility] Comment on above: Performed By: #### L 500.2500, L503.6620, L100.0100, L501.5425 #### [facility] [address] [place], [address] Hemoglobin (Bld) [Mass/Vol] 15.3 g/dL High 12.0-15.0 [facility] Comment on above: Performed By: #### L 500.2500, L503.6620, L100.0100, L501.5425 #### [facility] [address] [place], [address] IG% 0.300 Normal 0.0-0.9 [facility] Comment on above: Result Comment: IG% - Immature Granulocytes (promyelocytes, myelocytes and metamyelocytes) > 1% indicates that a LEFT SHIFT is Present. Performed By: #### L 500.2500, L503.6620, L100.0100, L501.5425 #### [facility] [address] [place], [address] Lymphocytes/100 WBC (Bld) 29.4 % Normal 19-41 [facility] Comment on above: Performed By: #### L 500.2500, L503.6620, L100.0100, L501.5425 #### [facility] [address] [place], [address] MCH (RBC) [Entitic mass] 31.0 pg Normal 27.0-32.0 [facility] Comment on above: Performed By: #### L 500.2500, L503.6620, L100.0100, L501.5425 #### [facility] [address] [place], [address] MCHC (RBC) [Mass/Vol] 34.3 g/dL Normal 32-36 [facility] Comment on above: Performed By: #### L 500.2500, L503.6620, L100.0100, L501.5425 #### [facility] [address] [place], [address] MCV (RBC) [Entitic vol] 90.5 fL Normal 81-99 [facility] Comment on above: Performed By: #### L 500.2500, L503.6620, L100.0100, L501.5425 #### [facility] [address] [place], [address] Monocytes/100 WBC (Bld) 8.0 % Normal 0-10 [facility] Comment on above: Performed By: #### L 500.2500, L503.6620, L100.0100, L501.5425 #### [facility] [address] [place], [address] Neutrophils/100 WBC (Bld) 61.0 % Normal 47-70 [facility] Comment on above: Performed By: #### L 500.2500, L503.6620, L100.0100, L501.5425 #### [facility] [address] [place], [address] Nucleated RBC (Bld) [#/Vol] 0 10*3/uL Normal 0-5 [facility] Comment on above: Performed By: #### L 500.2500, L503.6620, L100.0100, L501.5425 #### [facility] [address] [place], [address] Platelet mean volume (Bld) [Entitic vol] 9.3 fL Normal 6.2-12.0 [facility] Comment on above: Performed By: #### L 500.2500, L503.6620, L100.0100, L501.5425 #### [facility] [address] [place], [address] Platelets (Bld) [#/Vol] 202 10*3/uL Normal 150-450 [facility] Comment on above: Performed By: #### L 500.2500, L503.6620, L100.0100, L501.5425 #### [facility] [address] [place], [address] RBC (Bld) [#/Vol] 4.93 10*6/uL Normal 4.2-5.4 [facility] Comment on above: Performed By: #### L 500.2500, L503.6620, L100.0100, L501.5425 #### [facility] [address] [place], [address] RDW SD 41.5 fl Normal 35.1-43.9 [facility] Comment on above: Performed By: #### L 500.2500, L503.6620, L100.0100, L501.5425 #### [facility] [address] [place], [address] WBC (Bld) [#/Vol] 6.9 10*3/uL Normal 4.4-11.0 [facility] Comment on above: Performed By: #### L 500.2500, L503.6620, L100.0100, L501.5425 #### [facility] [address] [place], [address] Chest PA and Lateralon 05-11 Chest PA and Lateral [facility] Imaging Services [address] [place] [address] Chest PA and Lateral MR#: [id number] Acct: [id number] Name: PRINCESS MEZA Rep #: [id number] : 1950 F 73 From: Honorio Thorpe DO PCP: Dr. Alba Eldridge MD Status: [facility] ER Study: Chest PA and Lateral Date of Exam: 05/11/24 Exam# [id number] Ordering Dr: Kulwinder Espinosa DO [id number] INDICATION: chest pain EXAMINATION/TECHNIQUE: X-RAY - XR [...] Alba Eldridge MD; Dr. Kulwinder Espinosa DO Control Board Operator: Signed Normal [facility] Emergency Department Summary on 05-11-2024 Emergency Department Summary [facility] Medical Records Department [address] [place] [address] Emergency Department Summary 05/11/24 MR#: [id number] Acct: [id number] Name: PRINCESS MEZA Rep #: [id number] : 1950 73 From: Kulwinder Espinosa DO [...] 04/15/19 Unknown History mg-hydrochlorothiazide 25 mg tablet mvpfzpex-qen-qsiag acid 0.4 1 ea PO DAILY supplement [...] following commands knew that she was at [facility] years 2023 Skin: Warm, dry, intact Const Vital Signs: 05/11/24 14:51 05/11/24 14:52 05/11/24 15:15 Temperature 96.5 F L Temperature Source Temporal Pulse Rate 79 Respiratory Rate 18 Respiratory Effort Normal Non-Labored Blood Pressure 240/100 H Blood Pressure Mean 146 Pulse Ox 97 Oxygen Delivery Method Room Air Room Air 05/11/24 16:51 Temperature Temperature Source Pulse Rate Resp (more content not included)... Normal [facility] L501.5425on 05-11-2024 TROPONIN-I HS 10 pg/mL Normal 3.0-54.0 [facility] Comment on above: Order Comment: 1 Y Result Comment: Plea se Note: New Test Units and Gender Specific Reference Ranges. For more information see Policy Stat Procedure [place] High Sensitivity Troponin (TNIH) and attachments. Performed By: #### L 500.2500, L503.6620, L100.0100, L501.5425 #### [facility] [address] [place], [address] Urine Cultureon 03-25-2024 URC Mixed Gram Positive Organisms Mosier Count 80,000-100,000 MIXC Mixed contaminants. Submit a new specimen if indicated. Normal [facility] Comment on above: Performed By: #### M 100.2200, L400.2010 ####[facility] [address] [place], [address] Certified Veterinary Technician Office Visit Reporton 03-23-2024 Certified Veterinary Technician Office Visit Report [facility] [address], [address] [place] [address] OFFICE VISIT Date of Service: 03/23/24 MR#: [id number] Acct: [id number] Name: PRINCESS MEZA Rep #: [id number] : 1950 Provider: Dr. Shireen bowser MD Age/Sex: 73/F Location: [facility] Status: Signed Intake Vital Signs 01/31/24 08:18 [...] room air Intake Visit Reasons: POSTMENOPAUSAL BLEEDING ([facility]) Site Safety Coordinator Required: No Is patient in pain?: Yes [...] 04/15/19 03/23/24 History mg-hydrochlorothiazide 25 mg tablet ippyewyx-rmq-wrhfu acid 0.4 1 ea PO DAILY supplement [...] menopausal: Yes Patient : No : No PFS Medical History (Updated 03/23/24 @ 17:04 by [...] additional social history: Cornelia HPI POSTMENOPAUSAL BLEEDING ([facility]) Details: PRINCESS MEZA is a 73 [...] comfortable and no acute distress Orientation: alert HENNY Head: normal to inspection and normocephalic Ears: hearing grossly normal bilaterally and external ears normal Nose: external nose normal and nares no (more content not included)... Normal [facility] Urinalysis, Routine (Dipstic k)on 03-23-2024 BILIRUBIN URINE Negative Normal Negative [facility] Comment on above: Order Comment: CLEAN CATCH Performed By: #### M ####[facility] [address] [facility] [place], [address] Clarity (U) Sl. Cloudy Normal Clear [facility] Comment on above: Order Comment: CLEAN CATCH Performed By: #### Evy ####[facility] [address] [place], [address] Color (U) Yellow Normal Yellow [facility] Comment on above: Order Comment: CLEAN CATCH Performed By: #### M ####[facility] [address] [place], [address] GLUCOSE, UR Normal Normal Normal [facility] Comment on above: Order Comment: CLEAN CATCH Performed By: #### M ####[facility] [address] [place], [address] KETONE UR Negative Normal Negative [facility] Comment on above: Order Comment: CLEAN CATCH Performed By: #### M 100.2199, ####[facility] [address], [address] LEUK ESTERASE Negative Normal Negative [facility] Comment on above: Order Comment: CLEAN CATCH Performed By: #### M .2199, L4 ####[facility] [address] [place], [address] Nitrite Ql (U) Negative Normal Negative [facility] Comment on above: Order Comment: CLEAN CATCH Performed By: #### M L4 ####[facility] [address] [place], [address] OCCULT BLOOD-UR 10 /ul Abnormal Negative [facility] Comment on above: Order Comment: CLEAN CATCH Performed By: #### M , L4 ####[facility] [address] [place], [address] pH UR 6.0 Normal 5.0 - 8.0 [facility] Comment on above: Order Comment: CLEAN CATCH Performed By: #### M L4 ####[facility] [address] [place], [address] PROT DIPSTX Negative Normal Negative [facility] Comment on above: Order Comment: CLEAN CATCH Performed By: #### M 100, L4 ####[facility] [id number] [place], [address] SP.GR. DIPSTX 1.015 Normal 1.002-1.030 [facility] Comment on above: Order Comment: CLEAN CATCH Performed By: #### M , L4 ####[facility] [id number] [place], [address] UROBILI Normal Normal Normal [facility] Comment on above: Order Comment: CLEAN CATCH Performed By: #### M 100.2200, L400.2010 ####[facility] [id number] [place], [address] Lipid Profileon 01-31-2024 Cholesterol [Mass/Vol] 172 mg/dL Normal 200 [facility] Comment on above: Result Comment: <200 mg/dL Desirable 200-240 mg/dL Borderline >240 mg/dL High Risk Performed By: #### L 500.4100 ####[facility] [id number] [place], [address] Cholesterol in HDL [Mass/Vol] 55 mg/dL Normal [facility] Comment on above: Result Comment: The drugs N-Acetylcysteine and Metamizole may falsely depress this assay. Reference Range HDL <40 mg/dL Low HDL Cholesterol HDL >or= 60 mg/dL High HDL Cholesterol Performed By: #### L 500.4100 ####[facility] [address] [place], [address] Cholesterol in LDL [Mass/Vol] 93 mg/dL Normal 0-130 [facility] Comment on above: Performed By: #### L 500.4100 ####[facility] [address] [place], [address] Cholesterol in VLDL [Mass/Vol] 24 mg/dL Normal 5-40 [facility] Comment on above: Performed By: #### L 500.4100 ####[facility] [id number] [place], [address] Triglyceride [Mass/Vol] 121 mg/dL Normal [facility] Comment on above: Result Comment: The drugs N-Acetylcysteine and Metamizole may falsely depress this assay. Serum Triglycerides Reference Interval Normal <150 mg/dL Borderline high 150 - 199 mg/dL High 200 - 499 mg/dL Very High > or = 500 mg/dL Performed By: #### L 500.4100 ####[facility] [id number] [place], [address] Urgent Care Visit Reporton 0 01-31-2024 Urgent Care Visit Report [facility] [address], [address] [place] [address] OFFICE VISIT Date of Service: 01/31/24 MR#: [id number] Acct: [id number] Name: PRINCESS MEZA Rep #: [id number] : 1950 Provider: GENNA Lawrence Age/Sex: 73/F Location: [facility] [place] Status: Signed Intake Vital Signs 07/26/23 04:46 [...] 04/15/19 01/31/24 History mg-hydrochlorothiazide 25 mg tablet muwipuop-wpc-tmibp acid 0.4 1 ea PO DAILY supplement [...] Exam Const General: cooperative and healthy appearing [facility] Head: normocephalic and atraumatic Ears: hearing grossly [...] be seen in 5-7 days by an principal librarian if no improvement; sooner if worsening of [...] Neftali Rivera (more content not included)... Normal [facility] Absolute lymphocyte countOrd ered By: Tye Montiel on 07-26-2023 Lymphocytes Auto (Unsp spec) [#/Vol] 1.95 10*3/uL 0.83-4.51 [facility] Automated lymphocyte count a s percentage of total leukocytesOrdered By: Tye Montiel on 07-26-2023 Lymphocytes/100 WBC Auto (Unsp spec) 32.3 % 19-41 [facility] Basophil percentageOrdered B y: Tye Montiel on 07-26-2023 Basophil percentage 0 SEEN /hpf 0-5 [facility] Basophils/100 WBC (Bld) 0.5 % 0-1 [facility] Bilirubin [Mass/Vol] 0.70 mg/dL 0.20-1.00 [facility] Comment on above: For patients on eltr ombopag therapy, use of Dimension [place] TBIL is not recommended. Chloride [Moles/Vol] 108 mmol/L 98-107 [facility] Eosinophils/100 WBC (Bld) 1.3 % 0-5 [facility] Glucose [Mass/Vol] 123 mg/dL 74-106 [facility] Comment on above: Fasting Glucose resu lt from 100 to 125 mg/dL suggests IMPAIRED HOMEOSTASIS per A.D.A. criteria. Hemoglobin (Bld) [Mass/Vol] 14.4 g/dL 12.0-15.0 [facility] Monocytes/100 WBC (Bld) 8.3 % 0-10 [facility] Neutrophils (Bld) [#/Vol] 3.5 10*3/uL 2.0-7.7 [facility] Neutrophils/100 WBC (Bld) 57.3 % 47-70 [facility] Potassium [Moles/Vol] 3.7 mmol/L 3.5-5.1 [facility] Protein [Mass/Vol] 7.0 g/dL 6.4-8.2 [facility] Sodium [Moles/Vol] 138 mmol/L 136-145 [facility] WBC (Bld) [#/Vol] 6.0 10*3/uL 4.4-11.0 [facility] Bilirubin Test strip Ql (U)O rdered By: Tye Montiel on 07-26-2023 Bilirubin Ql (U) Negative Negative [facility] Determination of erythrocyte mean corpuscular volume (MCV)Ordered By: Tye Montiel on 07-26-2023 MCV (RBC) [Entitic vol] 89.4 fL 81-99 [facility] Direct bilirubinOrdered By: Tye Montiel on 07-26-2023 Bilirubin.direct [Mass/Vol] 0.18 mg/dL 0.00-0.30 [facility] Erythrocyte distribution wid th ratioOrdered By: Tye Montiel on 07-26-2023 Erythrocyte distribution width (RBC) [Ratio] 12.6 % 11.6-14.6 [facility] Erythrocyte distribution wid th standard deviationOrdered By: Tye Montiel on 07-26-2023 Erythrocyte distribution width (RBC) [Entitic vol] 41.1 fL 35.1-43.9 [facility] Hematocrit Auto (Bld) [Volum e fraction]Ordered By: Tye Montiel on 07-26-2023 Hematocrit (Bld) [Volume fraction] 42.2 % 37-47 [facility] Immature granulocytes/100 WB C Auto (Bld)Ordered By: Tye Montiel on 07-26-2023 Immature granulocytes/100 WBC (Bld) 0.300 % 0.0-0.9 [facility] Comment on above: IG% - Immature Granu locytes (promyelocytes, myelocytes and metamyelocytes) > 1% indicates that a LEFT SHIFT is Present. Ketones Test strip Ql (U)Ord ered By: Tye Montiel on 07-26-2023 Ketones Ql (U) Negative Negative [facility] Laboratory - Chemistry and C hemistry - challengeOrdered By: Tye Montiel on 07-26-2023 ALP [Catalytic activity/Vol] 90 U/L 45-117 [facility] ALT [Catalytic activity/Vol] 31 U/L 13-56 [facility] CO2 [Moles/Vol] 27.0 mmol/L 21.0-32.0 [facility] Globulin (S) [Mass/Vol] 3.7 g/dL 2.2-4.2 [facility] Urea nitrogen/Creatinine [Mass ratio] 28.7 mg/mg 10-20 [facility] Laboratory - Hematology and Cell countsOrdered By: Tye Montiel on 07-26-2023 MCH (RBC) [Entitic mass] 30.5 pg 27.0-32.0 [facility] MCHC (RBC) [Mass/Vol] 34.1 g/dL 32-36 [facility] Nucleated RBC/100 WBC (Bld) [Ratio] 0 % 0-5 [facility] Platelets (Bld) [#/Vol] 184 10*3/uL 150-450 [facility] Mucus LM Ql (Urine sed)Order ed By: Tye Montiel on 07-26-2023 Mucus Ql (Urine sed) 0 SEEN /hpf [facility] Nitrite Test strip Ql (U)Ord ered By: Tye Montiel on 07-26-2023 Nitrite Ql (U) Negative Negative [facility] No Panel InformationOrdered By: Tye Montiel on 07-26-2023 Urine RBC 0 SEEN /hpf 0-5 [facility] Estimated Creatinine Clearance Calc 82.51 ml/min [facility] Estimated GFR (MDRD) Amer 101 mL/min >60 [facility] Comment on above: GFR Calc Estimated GFR (MDRD) Non-Af Amer 83 mL/min >60 [facility] Comment on above: Non- GFR Calc Platelet mean volume Vic-Ec ker (Bld) [Entitic vol]Ordered By: Tye Montiel on 07-26-2023 Platelet mean volume (Bld) [Entitic vol] 9.2 fL 6.2-12.0 [facility] Protein Test strip Ql (U)Ord ered By: Tye Montiel on 07-26-2023 Protein Ql (U) Negative Negative [facility] RBC Auto (Bld) [#/Vol]Ordere d By: Tye Montiel on 07-26-2023 RBC (Bld) [#/Vol] 4.72 10*6/uL 4.2-5.4 [facility] Serum or plasma calcium shiva urement (mass/volume)Ordered By: Tye Montiel on 07-26-2023 Calcium [Mass/Vol] 9.7 mg/dL 8.5-10.1 [facility] Serum or plasma creatinine m easurement (mass/volume)Ordered By: Tye Montiel on 07-26-2023 Creatinine [Mass/Vol] 0.73 mg/dL 0.55-1.02 [facility] Comment on above: The validity of the calculated GFR & GFRAA in patients over 70 years has not been determined. Clinical correlation is essential. Serum or plasma urea nitroge n measurement (mass/volume)Ordered By: Tye Montiel on 07-26-2023 Urea nitrogen [Mass/Vol] 21 mg/dL 7-18 [facility] Squamous epithelial cells de tection in urine sediment by light microscopyOrdered By: Tye Montiel on 07-26-2023 Epithelial cells.squamous LM Ql (Urine sed) 0-5 SEEN /hpf 5-10 [facility] Thin prep Papanicolaou smear with manual screeningOrdered By: Tye Montiel on 07-26-2023 Thin prep Papanicolaou smear with manual screening 3.3 g/dL 3.2-5.0 [facility] Thin prep Papanicolaou smear with manual screening 22 U/L 15-37 [facility] Thin prep Papanicolaou smear with manual screening 3 5-15 [facility] Urine blood detectionOrdered By: Tye Montiel on 07-26-2023 RBC Ql (U) Negative Negative [facility] Urine clarityOrdered By: Ramin Montiel on 07-26-2023 Clarity (U) Clear Clear [facility] Urine color determinationOrd ered By: Tye Montiel on 07-26-2023 Color (U) Yellow Yellow [facility] Urine glucose detectionOrder ed By: Tye Montiel on 07-26-2023 Glucose Ql (U) Normal mg/dl Normal [facility] Urine leukocyte esterase det ection by dipstickOrdered By: Tye Montiel on 07-26-2023 Leukocyte esterase Test strip Ql (U) Negative Negative [facility] Urine pHOrdered By: Tye sim on 07-26-2023 pH (U) 6.5 [pH] 5.0 - 8.0 [facility] Urine sediment bacteria coun t by microscopy (number/high power field)Ordered By: Tye Montiel on 07-26-2023 Bacteria LM.HPF (Urine sed) [#/Area] 1 /[HPF] None Seen [facility] Urine specific gravity measu rementOrdered By: Tye Montiel on 07-26-2023 Specific gravity (U) [Rel density] 1.010 1.002-1.030 [facility] Urine urobilinogen measureme ntOrdered By: Tye Montiel on 07-26-2023 Urobilinogen Ql (U) Normal mg/dl Normal [facility] Absolute lymphocyte countOrd ered By: Dalton Baez on 04-22-2023 Lymphocytes Auto (Unsp spec) [#/Vol] 1.20 10*3/uL 0.83-4.51 [facility] Basophil percentageOrdered B y: Dalton Baez on 04-22-2023 Basophils/100 WBC (Bld) 0.1 % 0-1 [facility] Chloride [Moles/Vol] 107 mmol/L 98-107 [facility] Eosinophils/100 WBC (Bld) 0.0 % 0-5 [facility] Glucose [Mass/Vol] 228 mg/dL 74-106 [facility] Comment on above: Glucose result great er than or equal to 200 mg/dLsuggests DIABETES MELLITUS per A.D.A. criteria. Neutrophils (Bld) [#/Vol] 6.0 10*3/uL 2.0-7.7 [facility] Neutrophils/100 WBC (Bld) 80.1 % 47-70 [facility] Potassium [Moles/Vol] 3.1 mmol/L 3.5-5.1 [facility] Sodium [Moles/Vol] 142 mmol/L 136-145 [facility] WBC (Bld) [#/Vol] 7.5 10*3/uL 4.4-11.0 [facility] Blood erythrocytes count (nu mber/volume)Ordered By: Dalton Baez on 04-22-2023 RBC (Bld) [#/Vol] 4.77 10*6/uL 4.2-5.4 [facility] Blood hemoglobin measurement (mass/volume)Ordered By: Dalton Baez on 04-22-2023 Hemoglobin (Bld) [Mass/Vol] 14.4 g/dL 12.0-15.0 [facility] Blood lymphocytes/100 leukoc ytesOrdered By: Dalton Baez on 04-22-2023 Lymphocytes/100 WBC (Bld) 16.1 % 19-41 [facility] Blood monocytes/100 leukocyt esOrdered By: Dalton Baez on 04-22-2023 Monocytes/100 WBC (Bld) 3.2 % 0-10 [facility] Blood platelet mean volumeOr dered By: Dalton Baez on 04-22-2023 Platelet mean volume (Bld) [Entitic vol] 9.3 fL 6.2-12.0 [facility] Determination of erythrocyte mean corpuscular volume (MCV)Ordered By: Dalton Baez on 04-22-2023 MCV (RBC) [Entitic vol] 90.6 fL 81-99 [facility] Hematocrit Auto (Bld) [Volum e fraction]Ordered By: Dalton Baez on 04-22-2023 Hematocrit (Bld) [Volume fraction] 43.2 % 37-47 [facility] Laboratory - Chemistry and C hemistry - challengeOrdered By: Dalton Baez on 04-22-2023 CO2 [Moles/Vol] 30.0 mmol/L 21.0-32.0 [facility] Urea nitrogen/Creatinine [Mass ratio] 29.8 mg/mg 10-20 [facility] Laboratory - Hematology and Cell countsOrdered By: Dalton Baez on 04-22-2023 Erythrocyte distribution width (RBC) [Entitic vol] 41.3 fL 35.1-43.9 [facility] Erythrocyte distribution width (RBC) [Ratio] 12.7 % 11.6-14.6 [facility] Immature granulocytes/100 WBC (Bld) 0.500 % 0.0-0.9 [facility] Comment on above: IG% - Immature Granu locytes (promyelocytes, myelocytes and metamyelocytes) > 1% indicates that a LEFT SHIFT is Present. MCH (RBC) [Entitic mass] 30.2 pg 27.0-32.0 [facility] Nucleated RBC/100 WBC (Bld) [Ratio] 0 % 0-5 [facility] MCHC Auto (RBC) [Mass/Vol]Or dered By: Dalton Baez on 04-22-2023 MCHC (RBC) [Mass/Vol] 33.3 g/dL 32-36 [facility] No Panel InformationOrdered By: Dalton Baez on 04-22-2023 Estimated Creatinine Clearance Calc 54.15 ml/min [facility] Estimated GFR (MDRD) Amer 76 mL/min >60 [facility] Comment on above: GFR Calc Estimated GFR (MDRD) Non-Af Amer 63 mL/min >60 [facility] Comment on above: Non- GFR Calc Troponin I High Sensitivity 32 pg/mL 3.0-54.0 [facility] Comment on above: Please Note: New Concepcion t Units and Gender Specific Reference Ranges. For more information see Policy Stat Procedure [place] High Sensitivity Troponin (TNIH) and attachments. Platelets bldOrdered By: Carolee Baez on 04-22-2023 Platelets (Bld) [#/Vol] 204 10*3/uL 150-450 [facility] Serum or plasma calcium shiva urement (mass/volume)Ordered By: Dalton Baez on 04-22-2023 Calcium [Mass/Vol] 9.3 mg/dL 8.5-10.1 [facility] Serum or plasma creatinine m easurement (mass/volume)Ordered By: Dalton Baez on 04-22-2023 Creatinine [Mass/Vol] 0.94 mg/dL 0.55-1.02 [facility] Comment on above: The validity of the calculated GFR & GFRAA in patients over 70 years has not been determined. Clinical correlation is essential. Serum or plasma urea nitroge n measurement (mass/volume)Ordered By: Dalton Baez on 04-22-2023 Urea nitrogen [Mass/Vol] 28 mg/dL 7-18 [facility] Thin prep Papanicolaou smear with manual screeningOrdered By: Dalton Baez on 04-22-2023 Thin prep Papanicolaou smear with manual screening 5 5-15 [facility] Absolute lymphocyte countOrd ered By: Alba Eldridge on 01-16-2023 Lymphocytes Auto (Unsp spec) [#/Vol] 1.92 10*3/uL 0.83-4.51 [facility] Basophil percentageOrdered B y: Alba Eldridge on 01-16-2023 Basophils/100 WBC (Bld) 0.4 % 0-1 [facility] Bilirubin [Mass/Vol] 0.70 mg/dL 0.20-1.00 [facility] Comment on above: For patients on eltr ombopag therapy, use of Dimension [place] TBIL is not recommended. Chloride [Moles/Vol] 107 mmol/L 98-107 [facility] Cholesterol [Mass/Vol] 171 mg/dL <200 [facility] Comment on above: <200 mg/dL Desirable 200-240 mg/dL Borderline >240 mg/dL High Risk Eosinophils/100 WBC (Bld) 0.9 % 0-5 [facility] Glucose [Mass/Vol] 110 mg/dL 74-106 [facility] Comment on above: Fasting Glucose resu lt from 100 to 125 mg/dL suggests IMPAIRED HOMEOSTASIS per A.D.A. criteria. Neutrophils (Bld) [#/Vol] 3.0 10*3/uL 2.0-7.7 [facility] Neutrophils/100 WBC (Bld) 54.9 % 47-70 [facility] Potassium [Moles/Vol] 3.4 mmol/L 3.5-5.1 [facility] Protein [Mass/Vol] 7.1 g/dL 6.4-8.2 [facility] Sodium [Moles/Vol] 141 mmol/L 136-145 [facility] Triglyceride [Mass/Vol] 112 mg/dL <199 [facility] Comment on above: The drugs N-Acetylcy steine and Metamizole may falsely depress this assay.Serum Triglycerides Reference Interval Normal <150 mg/dL Borderline high 150 - 199 mg/dL High 200 - 499 mg/dL Very High > or = 500 mg/dL WBC (Bld) [#/Vol] 5.5 10*3/uL 4.4-11.0 [facility] Blood erythrocytes count (nu mber/volume)Ordered By: Alba Eldridge on 01-16-2023 RBC (Bld) [#/Vol] 4.59 10*6/uL 4.2-5.4 [facility] Blood hemoglobin measurement (mass/volume)Ordered By: Alba Eldridge on 01-16-2023 Hemoglobin (Bld) [Mass/Vol] 14.4 g/dL 12.0-15.0 [facility] Blood lymphocytes/100 leukoc ytesOrdered By: Alba Eldridge on 01-16-2023 Lymphocytes/100 WBC (Bld) 34.7 % 19-41 [facility] Blood monocytes/100 leukocyt esOrdered By: Alba Eldridge on 01-16-2023 Monocytes/100 WBC (Bld) 8.7 % 0-10 [facility] Blood platelet mean volumeOr dered By: Alba Eldridge on 01-16-2023 Platelet mean volume (Bld) [Entitic vol] 9.3 fL 6.2-12.0 [facility] Determination of erythrocyte mean corpuscular volume (MCV)Ordered By: Alba Eldridge on 01-16-2023 MCV (RBC) [Entitic vol] 93.7 fL 81-99 [facility] Hematocrit Auto (Bld) [Volum e fraction]Ordered By: Alba Eldridge on 01-16-2023 Hematocrit (Bld) [Volume fraction] 43.0 % 37-47 [facility] Laboratory - Chemistry and C hemistry - challengeOrdered By: Alba Eldridge on 01-16-2023 ALP [Catalytic activity/Vol] 99 U/L 45-117 [facility] ALT [Catalytic activity/Vol] 33 U/L 13-56 [facility] CO2 [Moles/Vol] 30.0 mmol/L 21.0-32.0 [facility] Globulin (S) [Mass/Vol] 3.7 g/dL 2.2-4.2 [facility] Urea nitrogen/Creatinine [Mass ratio] 24.5 mg/mg 10-20 [facility] Laboratory - Hematology and Cell countsOrdered By: Alba Eldridge on 01-16-2023 Erythrocyte distribution width (RBC) [Entitic vol] 43.0 fL 35.1-43.9 [facility] Erythrocyte distribution width (RBC) [Ratio] 12.7 % 11.6-14.6 [facility] Immature granulocytes/100 WBC (Bld) 0.400 % 0.0-0.9 [facility] Comment on above: IG% - Immature Granu locytes (promyelocytes, myelocytes and metamyelocytes) > 1% indicates that a LEFT SHIFT is Present. MCH (RBC) [Entitic mass] 31.4 pg 27.0-32.0 [facility] Nucleated RBC/100 WBC (Bld) [Ratio] 0 % 0-5 [facility] MCHC Auto (RBC) [Mass/Vol]Or dered By: Alba Eldridge on 01-16-2023 MCHC (RBC) [Mass/Vol] 33.5 g/dL 32-36 [facility] No Panel InformationOrdered By: Alba Eldridge on 01-16-2023 Estimated GFR (MDRD) Amer 84 mL/min >60 [facility] Comment on above: GFR Calc Estimated GFR (MDRD) Non-Af Amer 70 mL/min >60 [facility] Comment on above: Non- GFR Calc Platelets bldOrdered By: Lee Eldridge on 01-16-2023 Platelets (Bld) [#/Vol] 185 10*3/uL 150-450 [facility] Serum or plasma albumin shiva urement (mass/volume)Ordered By: Alba Eldridge on 07-26-2023 Albumin [Mass/Vol] 3.4 g/dL 3.2-5.0 [facility] Serum or plasma albumin/glob ulin mass ratioOrdered By: Alba Eldridge on 01-16-2023 Albumin/Globulin [Mass ratio] 0.9 {ratio} 0.9-2.4 [facility] Serum or plasma calcium shiva urement (mass/volume)Ordered By: Alba Eldridge on 01-16-2023 Calcium [Mass/Vol] 9.5 mg/dL 8.5-10.1 [facility] Serum or plasma cholesterol in HDL measurement (mass/volume)Ordered By: Alba Eldridge on 01-16-2023 Cholesterol in HDL [Mass/Vol] 55 mg/dL >40 [facility] Comment on above: The drugs N-Acetylcy steine and Metamizole may falsely depress this assay. Reference Range HDL <40 mg/dL Low HDL Cholesterol HDL >or= 60 mg/dL High HDL Cholesterol Serum or plasma cholesterol in VLDL measurement (mass/volume)Ordered By: Alba Eldridge on 01-16-2023 Cholesterol in VLDL [Mass/Vol] 22 mg/dL 5-40 [facility] Serum or plasma creatinine m easurement (mass/volume)Ordered By: Alba Eldridge on 01-16-2023 Creatinine [Mass/Vol] 0.86 mg/dL 0.55-1.02 [facility] Comment on above: The validity of the calculated GFR & GFRAA in patients over 70 years has not been determined. Clinical correlation is essential. Serum or plasma low density lipoprotein (LDL) cholesterol measurement (mass/volume)Ordered By: Alba Eldridge on 01-16-2023 Cholesterol in LDL [Mass/Vol] 94 mg/dL 0-130 [facility] Serum or plasma urea nitroge n measurement (mass/volume)Ordered By: Alba Eldridge on 01-16-2023 Urea nitrogen [Mass/Vol] 21 mg/dL 7-18 [facility] Thin prep Papanicolaou smear with manual screeningOrdered By: Alba Eldridge on 01-16-2023 Thin prep Papanicolaou smear with manual screening 27 U/L 15-37 [facility] Thin prep Papanicolaou smear with manual screening 4 5-15 [facility] Absolute lymphocyte counton 03-01-2022 Lymphocytes Auto (Unsp spec) [#/Vol] 2.39 10*3/uL 0.83-4.51 [facility] Work Phone: Basophil percentageon 2021 Basophils/100 WBC (Bld) 0.3 % 0-1 [facility] Work Phone: Chloride [Moles/Vol] 105 mmol/L 98-107 [facility] Work Phone: Eosinophils/100 WBC (Bld) 1.0 % 0-5 [facility] Work Phone: Glucose [Mass/Vol] 150 mg/dL 74-106 [facility] Work Phone: Comment on above: Fasting Glucose resu lt greater than or equal to 126 mg/dL suggests DIABETES MELLITUS per A.D.A. criteria. Neutrophils (Bld) [#/Vol] 3.8 10*3/uL 2.0-7.7 [facility] Work Phone: Neutrophils/100 WBC (Bld) 56.0 % 47-70 [facility] Work Phone: Potassium [Moles/Vol] 3.3 mmol/L 3.5-5.1 [facility] Work Phone: Sodium [Moles/Vol] 142 mmol/L 136-145 [facility] Work Phone: WBC (Bld) [#/Vol] 6.8 10*3/uL 4.4-11.0 [facility] Work Phone: Blood erythrocytes count (nu mber/volume)on 03-01-2022 RBC (Bld) [#/Vol] 4.48 10*6/uL 4.2-5.4 [facility] Work Phone: Blood hemoglobin measurement (mass/volume)on 03-01-2022 Hemoglobin (Bld) [Mass/Vol] 14.2 g/dL 12.0-15.0 [facility] Work Phone: Blood lymphocytes/100 leukoc yteson 03-01-2022 Lymphocytes/100 WBC (Bld) 35.4 % 19-41 [facility] Work Phone: [phone] Blood monocytes/100 leukocyt eson 03-01-2022 Monocytes/100 WBC (Bld) 7.0 % 0-10 [facility] Work Phone: [phone] Blood platelet mean volumeon 03-01-2022 Platelet mean volume (Bld) [Entitic vol] 9.1 fL 6.2-12.0 [facility] Work Phone: [phone] Determination of erythrocyte mean corpuscular volume (MCV)on 03-01-2022 MCV (RBC) [Entitic vol] 92.0 fL 81-99 [facility] Work Phone: [phone] Hematocrit Auto (Bld) [Volum e fraction]on 03-01-2022 Hematocrit (Bld) [Volume fraction] 41.2 % 37-47 [facility] Work Phone: Laboratory - Chemistry and C hemistry - challengeon 03-01-2022 CO2 [Moles/Vol] 29.0 mmol/L 21.0-32.0 [facility] Work Phone: Urea nitrogen/Creatinine [Mass ratio] 23.0 mg/mg 10-20 [facility] Work Phone: [phone] Laboratory - Hematology and Cell countson 03-01-2022 Erythrocyte distribution width (RBC) [Entitic vol] 42.5 fL 35.1-43.9 [facility] Work Phone: [phone] Erythrocyte distribution width (RBC) [Ratio] 12.7 % 11.6-14.6 [facility] Work Phone: [phone] Immature granulocytes/100 WBC (Bld) 0.300 % 0.0-0.9 [facility] Work Phone: [phone] Comment on above: IG% - Immature Granu locytes (promyelocytes, myelocytes and metamyelocytes) > 1% indicates that a LEFT SHIFT is Present. MCH (RBC) [Entitic mass] 31.7 pg 27.0-32.0 [facility] Work Phone: Nucleated RBC/100 WBC (Bld) [Ratio] 0 % 0-5 [facility] Work Phone: MCHC Auto (RBC) [Mass/Vol]on 03-01-2022 MCHC (RBC) [Mass/Vol] 34.5 g/dL 32-36 [facility] Work Phone: No Panel Informationon 03-01 D-Dimer Quantitative (PE/DVT) 0.64 FEU/ug/m 0.27-0.49 [facility] Work Phone: Comment on above: CRITICAL VALUE VERIF IED. CALLED TO HOLLIS OSLANO RN ED03/01/222004 Pranav Brown.RESULTS READ BACK BY SAME . D-Dimer ELEVATED (>0.49): Additional studies and clinicalassessments are indicated to conclude diagnosis of:Deep Vein Thrombosis (DVT) or Pulmonary Embolism (PE) Estimated Creatinine Clearance Calc 64.53 ml/min [facility] Work Phone: Estimated GFR (MDRD) Amer 88 mL/min >60 [facility] Work Phone: Comment on above: GFR Calc Estimated GFR (MDRD) Non-Af Amer 73 mL/min >60 [facility] Work Phone: Comment on above: Non- GFR Calc Troponin I High Sensitivity 9 pg/mL 3.0-54.0 [facility] Work Phone: Comment on above: Please Note: New Concepcion t Units and Gender Specific Reference Ranges. For more information see Policy Stat Procedure [place] High Sensitivity Troponin (TNIH) and attachments. Platelets bldon 03-01-2022 Platelets (Bld) [#/Vol] 196 10*3/uL 150-450 [facility] Work Phone: [phone] Serum or plasma calcium shiva urement (mass/volume)on 03-01-2022 Calcium [Mass/Vol] 9.4 mg/dL 8.5-10.1 [facility] Work Phone: [phone] Serum or plasma creatinine m easurement (mass/volume)on 03-01-2022 Creatinine [Mass/Vol] 0.83 mg/dL 0.55-1.02 [facility] Work Phone: Comment on above: The validity of the calculated GFR & GFRAA in patients over 70 years has not been determined. Clinical correlation is essential. Serum or plasma urea nitroge n measurement (mass/volume)on 03-01-2022 Urea nitrogen [Mass/Vol] 19 mg/dL 7-18 [facility] Work Phone: Thin prep Papanicolaou smear with manual screeningon 03-01-2022 Thin prep Papanicolaou smear with manual screening 8 5-15 [facility] Work Phone: Basophil percentageon 2021 Creatinine [Mass/Vol] 0.6 mg/dL 0.55-1.02 [facility] Work Phone: No Panel Informationon 07-20 Bedside Estimated GFR (eGFR) > 60.0000 mL/min >60 [facility] Work Phone: Vital Signs Date Time Vital Sign Value Performing Clinician Faci lity 12-19-2024 22:50-0400 Body temperature 98.6 [degF] Dr. Alba Eldridge MD Work Phone: [facility] 12-19-2024 22:50-0400 Diastolic blood pressure 89 mm[Hg] Dr. Alba Eldridge MD Work Phone: [facility] 12-19-2024 22:50-0400 Heart rate 70 /min Dr. Alba Eldridge MD Work Phone: [facility] 12-19-2024 22:50-0400 Respiratory rate 18 /min Dr. Alba Eldridge MD Work Phone: [facility] 12-19-2024 22:50-0400 SaO2% (BldA) [Mass fraction] 98 % Dr. Alba Eldridge MD Work Phone: [facility] 12-19-2024 22:50-0400 Systolic blood pressure 163 mm[Hg] Dr. Alba Eldridge MD Work Phone: [facility] 12-19-2024 19:32-0400 Body height 167.[address] Alba Eldridge MD Work Phone: [facility] 12-19-2024 19:32-0400 Body mass index (BMI) [Ratio] 40.4 kg/m2 Dr. Alba Eldridge MD Work Phone: [facility] 12-19-2024 19:32-0400 Body weight 113.[address] Alba Eldridge MD Work Phone: [facility] 11-12-2024 14:20-0400 Body height 167.[address] Alba Eldridge MD Work Phone: [facility] 08-06-2024 23:34-0500 Body temperature 98 [degF] Dr. Alba Eldridge MD Work Phone: [facility] 08-06-2024 23:34-0500 Diastolic blood pressure 85 mm[Hg] Dr. Alba Eldridge MD Work Phone: [facility] 08-06-2024 23:34-0500 Heart rate 93 /min Dr. Alba Eldridge MD Work Phone: [facility] 08-06-2024 23:34-0500 Respiratory rate 22 /min Dr. Alba Eldridge MD Work Phone: [facility] 08-06-2024 23:34-0500 SaO2% (BldA) [Mass fraction] 92 % Dr. Alba Eldridge MD Work Phone: [facility] 08-06-2024 23:34-0500 Systolic blood pressure 180 mm[Hg] Dr. Alba Eldridge MD Work Phone: [facility] 08-06-2024 20:51-0500 Body height 167.[address] Alba Eldridge MD Work Phone: [facility] 08-06-2024 20:51-0500 Body mass index (BMI) [Ratio] 36 kg/m2 Dr. Alba Eldridge MD Work Phone: [facility] 08-06-2024 20:51-0500 Body weight 101.[address] Alba Eldridge MD Work Phone: [facility] 07-26-2023 08:35-0500 Diastolic blood pressure 68 mm[Hg] Dr. Alba Eldridge Work Phone: [facility] 07-26-2023 08:35-0500 Heart rate 57 /min Dr. Alba Eldridge Work Phone: [facility] 07-26-2023 08:35-0500 Respiratory rate 20 /min Dr. Alba Eldridge Work Phone: [facility] 07-26-2023 08:35-0500 SaO2% (BldA) [Mass fraction] 96 % Dr. Alba Eldridge Work Phone: [facility] 07-26-2023 08:35-0500 Systolic blood pressure 190 mm[Hg] Dr. Alba Eldridge Work Phone: [facility] 07-26-2023 04:49-0500 Body temperature 97.1 [degF] Dr. Alba Eldridge Work Phone: [facility] 07-26-2023 04:46-0500 Body height 165.[address] Alba Eldridge Work Phone: [facility] 07-26-2023 04:46-0500 Body mass index (BMI) [Ratio] 41.8 kg/m2 Dr. Alba Eldridge Work Phone: [facility] 07-26-2023 04:46-0500 Body weight 114.[address] Alba Eldridge Work Phone: [facility] 04-22-2023 14:32-0400 Diastolic blood pressure 88 mm[Hg] Dr. Alba Eldridge Work Phone: [facility] 04-22-2023 14:32-0400 Heart rate 88 /min Dr. Alba Edlridge Work Phone: [facility] 04-22-2023 14:32-0400 Respiratory rate 16 /min Dr. Alba Eldridge Work Phone: [facility] 04-22-2023 14:32-0400 Systolic blood pressure 198 mm[Hg] Dr. Alba Eldridge Work Phone: [facility] 04-22-2023 13:13-0400 Body mass index (BMI) [Ratio] 38.3 kg/m2 Dr. Alba Eldridge Work Phone: [facility] 04-22-2023 13:13-0400 Body temperature 97.9 [degF] Dr. Alba Eldridge Work Phone: [facility] 04-22-2023 13:13-0400 Body weight 111.[address] Alba Eldridge Work Phone: [facility] 04-22-2023 13:13-0400 SaO2% (BldA) [Mass fraction] 99 % Dr. Alba Eldridge Work Phone: [facility] 04-22-2023 11:57-0400 Body height 170.[address] Alba Eldridge Work Phone: [facility] 03-01-2022 20:17-0400 Respiratory rate 16 /min Dr. Alba Eldridge Work Phone: [facility] Work Phone: 03-01-2022 20:00-0400 Diastolic blood pressure 78 mm[Hg] Dr. Alba Eldridge Work Phone: [facility] Work Phone: 03-01-2022 20:00-0400 Heart rate 53 /min Dr. Alba Eldridge Work Phone: [facility] Work Phone: 03-01-2022 20:00-0400 SaO2% (BldA) [Mass fraction] 95 % Dr. Alba Eldridge Work Phone: [facility] Work Phone: 03-01-2022 20:00-0400 Systolic blood pressure 134 mm[Hg] Dr. Alba Eldridge Work Phone: [facility] Work Phone: 03-01-2022 18:52-0400 Body height 172.[address] Alba Eldridge Work Phone: [facility] Work Phone: 03-01-2022 18:52-0400 Body mass index (BMI) [Ratio] 38.3 kg/m2 Dr. Alba Eldridge Work Phone: [facility] Work Phone: 03-01-2022 18:52-0400 Body temperature 97.5 [degF] Dr. Alba Eldridge Work Phone: [facility] Work Phone: 03-01-2022 18:52-0400 Body weight 114.[address] Alba Eldridge Work Phone: [facility] Work Phone: Encounters Encounter Date Encounter Type Care Provider Facility Start: 12-20-2024 Emergency department patient visit Remus Tor Facility:[facility] Start: 12-19-2024 End: 12-19-2024 Emergency department patient visit Dr. Alba Eldridge MD Work Phone: -Emergency Department Work Phone: Start: 11-13-2024 End: 11-13-[address] Alba Eldridge MD Work Phone: [facility] Work Phone: Start: 11-13-2024 End: 11-13-[address] Walter Singh DO -[facility] Work Phone: Start: 11-13-2024 End: 11-13-2024 ambulatory [facility] Facility:[facility] Start: 11-09-2024 End: 11-09-[address] Alba Eldridge MD Work Phone: [facility] Work Phone: Start: 11-09-2024 End: 11-09-[address] Alba Eldridge MD -Outpatient [facility] Work Phone: Start: 11-09-2024 End: 11-09-2024 ambulatory [facility] Facility:[facility] Start: 09-18-2024 End: 09-18-[address] Walter Singh DO -[facility] Work Phone: Start: 09-18-2024 End: 09-18-2024 ambulatory [facility] Facility:[facility] [place] Start: 08-06-2024 End: 08-06-2024 Emergency department patient visit Dr. Gray Wray MD -Emergency Department Work Phone: Start: 07-03-2024 End: [facility] Start: 06-26-2024 End: 06-26-2024 ambulatory [facility] Facility:[facility] Start: 05-11-2024 End: 05-11-2024 Emergency department patient visit Kulwinder Espinosa Facility:[facility] Start: 03-23-2024 End: 03-23-2024 ambulatory [facility] Facility:[facility] [place] Start: 03-23-2024 End: 03-23-2024 ambulatory [facility] Facility:[facility] Start: 01-31-2024 End: 01-31-2024 ambulatory Alba Eldridge Facility:[facility] Start: 01-31-2024 End: 01-31-2024 ambulatory Alba Eldridge Facility:[facility] Start: 07-26-2023 End: 07-26-2023 Emergency department patient visit Dr. Alba Eldridge Work Phone: [facility]-Emergency Department Work Phone: Start: 07-15-2023 End: 07-15-[address] Alba Eldridge Work Phone: [facility] Work Phone: Start: 06-04-[address] Shantelle Eldridge Work Phone: [facility]-Physical Therapy Work Phone: Start: 05-13-[address] Shantelle Eldridge Work Phone: [facility]-Physical Therapy Work Phone: Start: 05-10-2023 End: 05-10-[address] Alba Eldridge Work Phone: [facility] Work Phone: Start: 05-10-2023 End: 05-10-[address] Alba Eldridge Work Phone: [facility] Work Phone: Start: 05-03-2023 End: 05-03-[address] Alba Eldridge Work Phone: [facility] Work Phone: Start: 04-26-2023 End: 04-26-[address] Alba Eldridge Work Phone: [facility] Work Phone: Start: 04-26-2023 End: 04-26-[address] Alba Eldridge Work Phone: [facility] Work Phone: Start: 04-22-2023 End: 04-22-2023 Emergency department patient visit Dr. Alba Eldridge Work Phone: [facility]-Emergency Department Work Phone: Start: 02-28-2023 End: 02-28-[address] Alba Eldridge Work Phone: [facility] Work Phone: Start: 01-16-2023 End: 01-16-2023 ambulatory [facility] Work Phone: Start: 01-16-2023 End: 01-16-2023 [facility] Start: 11-06-2022 End: 11-06-2022 Patient encounter procedure [facility]-Outpatient Breast Imaging Work Phone: Start: 06-22-2022 End: 06-22-2022 ambulatory [facility] Work Phone: Start: 06-22-2022 End: 06-22-2022 Patient encounter procedure [facility] Start: 03-01-2022 End: 03-01-2022 Emergency department patient visit Dr. Alba Eldridge Work Phone: [facility]-Emergency Department Start: 12-04-2021 End: 12-04-[address] Alba Eldridge Work Phone: [facility] Start: 11-03-2021 End: 11-03-[address] Alba Eldridge Work Phone: [facility]-Outpatient Breast Imaging Start: 07-20-2021 End: 07-20-[address] Alba Eldridge Work Phone: [facility] Start: 07-12-2021 End: 07-12-[address] Alba Eldridge Work Phone: [facility] Start: 03-04-2018 Patient encounter [facility] Procedures Date Procedure Procedure Detail Performing Clinician Start: 12-19-2024 Plain x-ray of pelvi s and lower extremity Dr. Alba Eldridge MD Work Phone: Start: 12-19-2024 X-ray of lumbar spin e, two or three views Dr. Alba Eldridge MD Work Phone: Start: 11-13-2024 XR knee, [address] [...] Treatment Date Care Activity Detail Author Start: 12-19-2024 [facility] Start: 09-18-2024 Patient referral [facility] Work Phone: Start: 08-06-2024 [facility] Start: 07-26-2023 [facility] Start: 07-15-2023 Patient referral [facility] Work Phone: Start: 04-22-2023 [facility] Start: 04-22-2023 [facility] Start: 03-01-2022 Blood chemistry [facility] Work Phone: Start: 03-01-2022 End: 03-01-2022 [facility] Work Phone: Start: 03-01-2022 Plain chest X-ray Chest 1 View (Portable) [facility] Work Phone: Start: 03-01-2022 XR Chest Single view [facility] Work Phone: Patient Education [facility] Work Phone: Patient referral [facility] Work Phone: Urate [Mass/volume] in Serum or Plasma [facility] Immunizations Immunization Date Immunization Notes Care Provider Fa cility 09-30-2020 Covid (Pfizer) Dr. Alba damon Work Phone: [facility] 09-09-2020 Covid (Pfizer) Dr. Alba damon Work Phone: [facility] 03-26-[address] Alba Eldridge Work Phone: [facility] Payers Date Payer Category Payer Self-pay [id number] 2024 Unknown [id number] 2012 Medicare [id number] Medicare [id number] Unknown [id number] Unknown [id number] 2.16.8 [id number] Unknown [id number] 2.16.8 [id number] Unknown [id number] 2.16.8 [id number] Unknown [id number] 2.16.8 [id number] Unknown [id number] 2.16.8 [id number] Unknown [id number] 2.16.8 [id number] Unknown [id number] 2.16.8 [id number] Unknown [id number] 2.16.8 [id number] Unknown [id number] 2.16.8 [id number] Unknown [id number] 2.16.8 [id number] Unknown [id number] 2.16.8 [id number] Unknown [id number] 2.16.8 [id number] Unknown [id number] 2.16.8 [id number] Unknown [id number] 2.16.8 [id number] Unknown [id number] 2.16.8 [id number] Social History Date Type Detail Facility Start: 07-12-2021 End: 07-26-2023 Tobacco smoking status NCIS Unknown if ever smoked [facility] Start: 07-05-2016 None [facility] Start: 04-15-2019 Spouse/ Signif icant Other [facility] Start: 07-05-2016 Non-smoker [facility] Start: 1950 Sex Assigned At Female W [facility] Start: 08-06-2024 End: 12-19-2024 Tobacco smoking status NHIS Ex-smoker (finding) [facility] Medical Equipment Procedure Code Equipment Code Equipment [...] 07-12-2020 Mental Status Date Assessment Result Facility 12-19-2024 Cognitive function Level Of Cons ciousness Awake;Alert;Appropriate;Follow s Commands [facility] Work Phone: 04-22-2023 Cognitive function Level Of Cons ciousness Awake;Alert;Appropriate [facility] Work Phone: 03-01-2022 Cognitive function Voice/Name [facility] Work Phone: Clinical Notes 06-24-2020 to 12-19-2024 Note Date & Type Note Facility 12-19-2024 Discharge summary [facility] 12-19-2024 Radiology Diagnostic study note [facility] Imaging Services [address] [place] [address] Lumbar Spine 2 or 3 Views MR#: [id number] Acct: [id number] Name: PRINCESS MEZA Rep #: [id number] : 1950 F 74 From: Lorin Chapman MD PCP: Dr. Alba Eldridge MD Status: REG ER Study:Lumbar Spine 2 or 3 Views Date of Exam: 12/19/24 Exam# [id number] Ordering Dr: Stevenson Wray MD PROCEDURE: LUMBAR SPINE 2 OR 3 VIEWS 12/19/2024 REASON FOR EXAM: INJURY/PAIN TECHNIQUE: LUMBAR SPINE 2 OR 3 VIEWS COMPARISON: L-spine radiographs 07/06/2024. FINDINGS: Vertebrae: No acute fracture. Mild, chronic multilevel vertebral body height loss. Discs: Advanced multilevel disc space narrowing with endplate osteophytes. Facet arthropathy throughout the lumbar spine. Alignment: Unchanged mild dextroscoliotic curvature with multilevel degenerativespondylosis. No traumatic listhesis. Other: Vascular calcifications. RAD/Lumbar Spine 2 or 3 Views IMPRESSION: ADVANCED DEGENERATIVE CHANGES OF THE LUMBAR SPINE. NO ACUTE OSSEOUS FRACTURE. Reading Location: [facility] CC: Dr. Alba Eldridge MD; Dr. Gray Wray MD ~ Control Board Operator: Signed [facility] 12-19-2024 Radiology Diagnostic study note [facility] Imaging Services [address] [place], [place] [id number] HIP, UNI W/ Pelvis 2-3 Views MR#: [id number] Acct: [id number] Name: PRINCESS MEZA Rep #: [id number] : 1950 F 74 From: Lorin Chapman MD PCP: Dr. Alba Eldridge MD Status: REG ER Study:HIP, UNI W/ Pelvis 2-3 Views Date of Ex am: 12/19/24 Exam# [id number] Ordering Dr: Stevenson Wray MD PROCEDURE: HIP, UNI W/ PELVIS 2-3 VIEWS 12/19/2024 REASON FOR EXAM: INJURY/PAIN TECHNIQUE: HIP, UNI W/ PELVIS 2-3 VIEWS COMPARISON: Hip and pelvic radiographs 04/26/2023. FINDINGS: Bones: No acute fracture. No aggressive osseous lesions. Joints: Normal alignment. Moderate degenerative changes. Soft tissues: Soft tissues are unremarkable. Other: The visualized bowel loops are normal caliber. RAD/HIP, UNI W/ Pelvis 2-3 Views IMPRESSION: DEGENERATIVE OSTEOARTHROSIS. NO ACUTE FINDINGS. Reading Location: [facility] CC: Dr. Alba Eldridge MD; Dr. Gray Wray MD ~ Control Board Operator: Signed [facility] 12-19-2024 Discharge summary Note Date/Time December 19, 2024 10:13pm [facility] Medical Records Department [address] [place] [address] Emergency Department Summary 12/19/24 MR#: [id number] Acct: [id number] Name: PRINCESS MEZA Rep #:[id number] : 1950 74 From: Gray Wray MD PCP: Dr. Alba Eldridge MD Status:REG ER Location: ED ADDENDUM by Dr. Gray Wray MD on 12/19/24 at 2213 Patient presents with atraumatic right-sided back pain and hip pain. She recently saw Dr. Zamarripa and had an injection of her back. She was numb and hadto be observed for 4 hours. She denies recent fall. She denies bowel or bladder dysfunction. She denies radicular pain. She denies foot drop. Denies buckling her knees going up or down steps. She has had no recent dental procedure. She denies fever, chills night sweats. There is no cardiac or respiratory symptoms. She denies abdominal pain, nausea, vomiting or diarrhea. She denies dysuria, frequency, urgency or hematuria She denies skin lesions. She denies paresthesia, anesthesia or weakness of her lower extremities. Vital signs are remarkable for an elevated blood pressure. The blood pressure did improve without treatment. Blood pressure improved after pain medicine suspect her blood pressure is elevated due to the fact that she has chronic hypertension and is in pain. Head is atraumatic normocephalic. Ears are normal. Nares patent. BMI is 40.4. Neck is supple. Trachea is midline. Pupils equal round reactive. Extract muscle intact. Sclera is anicteric. Lungs are clear to auscultation with symmetric breath sounds. Heart is regular. Rate is normal. There is no murmur, gallop or rub. Abdomen is soft nontender. Bowel sounds are present normal. There is reproducible back pain. Mainor Hussain 4 test causes her pain over the right greater trochanteric region. Logrolling causes no discomfort. Patella and ankle reflex are 1+ and symmetric. Patient has a scar over her left knee due to total knee arthroplasty. PT pulses palpable bilaterally. EHLs intact. Normal sensation L3-S1 dermatome. 5/5 strength plantar and dorsiflexion of her foot. There are no dermatologic lesions noted. Mood and affect are flat and depressed. 12/19/24 0188<Electronically signed by Gray Wray MD> Cosigner Signature (if applicable): cc: Dr. Alba Eldridge MD ~* Signed HPI History of Present Illness Chief Complaint: Other, Pain/Inj PFSH PFSH Medical History Degenerative disc disease Scoliosis Arthritis Hiatal hernia HTN (hypertension) Home Medications ?Medication ?Instructions ?Recorded ?Last Taken ?Type lisinopril 20 2 tab PO DAILY htn 04/15/19 Unknown History mg-hydrochlorothiazide 25 mg tablet [id number] acid 0.4 1 ea PO DAILY supplement 1 Unknown History mg-lycopene 300 mcg-lutein 250 mcg tablet omega-3 fatty acids-fish oil 340 1 ea PO DAILY supplem ent 04/15/19 Unknown History mg-1,000 mg capsule acetaminophen 500 mg tablet 1,000 mg (2 x 500 mg) PO Q 6H PRN 07/12/20 Unknown Rx #100 tabs metoprolol succinate 50 mg 1 ea PO DAILY 07/12/21 Unkn own History tablet,extended release 24 hr pantoprazole 20 mg tablet,delayed 20 mg PO DAILY 12/04 Unknown History release cholecalciferol (vitamin D3) 25 50 mcg PO QDAY 4 Unknown History mcg (1,000 unit) capsule albuterol sulfate 90 mcg/actuation 2 puff inhalation Q 4H PRN PRN 08/06/24 Unknown Rx aerosol inhaler (Ventolin HFA) Wheezing #1 device clonidine HCl 0.1 mg tablet 0.1 mg PO BID #60 tabs Unknown Rx inhalational spacing device #1 ea 08/06/24 Unknown Rx (Aerochamber MV spacer) methylprednisolone 4 mg tablets in See Rx Instructions PO PER PKG DIR 11/13/24 Unknown Rx a dose pack (Medrol (Branden)) #21 tabs hydrocodone-acetaminophen 5-325mg 1 tab PO Q6H PRN PRN Pain 3 days 12/19/24 U nknown Rx 5mg-325mg #10 TABLETS Allergy/AdvReac Type Severity Reaction Status Date / Time latex Allergy Rash Verified 12/19/24 19:33 Penicillins Allergy Rash Verified 12/19/24 19:33 tetracycline AdvReac Nausea/Vom/ Verified 12/19/24 19:33 Diarrhea Family History Mother Cancer Hypertension Grandmother Cancer Father Hypertension Sister Rheumatoid arthritis Surgical History History of total knee arthroplasty (~07/12/20) H/O: hysterectomy Hx of foot surgery Social History household members: spouse housing: house number of children: 2 Smoking Status: Former smoker alcohol intake: never seatbelt use: always do you feel safe at home: Yes additional social history: Cornelia EXAM Physical Exam Const Vital Signs: 12/19/24 19:32 12/19/24 19:33 12/19/24 21:31 Temperature 98.2 F Temperature Source Oral Pulse Rate 64 70 Respiratory Rate 16 18 Respiratory Effort Normal Non-Labored Respiratory Pattern Normal Blood Pressure 233/82 H 163/89 H Blood Pressure Mean 132 113 Pulse Ox 98 98 Oxygen Delivery Method Room Air MDM MDM Radiography Chest X-Ray - ED: Read by ED Physician (Three-view x-ray of the right hip reveals minimal degenerative changes. There is no fracture, subluxation or dislocation. There is no acute findings.) and - (Three-view x-ray of the LS-spine was also independently reviewed interpreted by me as negative for acute process. Patient has significant osteoarthritic changes multiple levels dorsal and LS-spine. There is no fracture, subluxation dislocation. There is calcification of the aorta as well. The ao) Diagnostic Testing: Clinical Impression(s) from Imaging Studies Lumbar Spine X-Ray 12/19/24 19:52 IMPRESSION: ADVANCED DEGENERATIVE CHANGES OF THE LUMBAR SPINE. NO ACUTE OSSEOUS FRACTURE. Reading Location: [facility] Hip/Pelvis X-Ray 12/19/24 20:05 IMPRESSION: DEGENERATIVE OSTEOARTHROSIS. NO ACUTE FINDINGS. Reading Location: [facility] Treatment and Re-Evaluation :: Patient was reassessed after second dose of morphine. She states she feels markedly better. She was discharged with prescription of [place]. She will contact Dr. Borwn to make sure that this will not violate her contract. She was informed of her x-ray results. Discharge Plan Triage Chief Complaint: Other, Pain/Inj ED Provider: Gray Wray Dx/Rx/DC Orders Clinical Impression: Lower back pain, Anxiety, S/P total knee arthroplasty, Acute pain of right hip,Degenerative arthritis of lumbar spine, Osteoarthritis of right hip Instructions: ED Degenerative Disk Disease, ED Osteoarthritis Prescriptions: New hydrocodone-acetaminophen 5-325 mg tablet 1 tab PO Q6H PRN PRN (Reason: Pain) 3 Days Qty: 10 0RF No Action metoprolol succinate 50 mg tablet extended release 24 hr 1 ea PO DAILY pantoprazole 20 mg tablet,delayed release (DR/EC) 20 mg PO DAILY cholecalciferol (vitamin D3) 25 mcg (1,000 unit) capsule 50 mcg PO QDAY methylprednisolone [Medrol (Branden)] 4 mg tablets,dose pack See Rx Instructions PO PER PKG DIR Qty: 21 0RF Rx Instructions: Take as directed lisinopril-hydrochlorothiazide 1 EACH tablet 2 tab PO DAILY qbrmohek-ylv-MC-lycopen-lutein 1 EACH tablet 1 ea PO DAILY omega-3 fatty acids-fish oil 1 EACH capsule 1 ea PO DAILY acetaminophen 500 MG tablet 1,000 mg PO Q6H PRN Qty: 100 0RF clonidine HCl 0.1 mg tablet 0.1 mg PO BID Qty: 60 0RF (DME) Aerochamber MV Spacer See Rx Instructions .Route Qty: 1 0RF Rx Instructions: As directed albuterol sulfate [Ventolin HFA] 90 mcg/actuation HFA aerosol inhaler 2 puff inhalation Q4H PRN PRN (Reason: Wheezing) Qty: 1 0RF Primary Care Provider: Alba Eldridge Referrals: Alba Eldridge MD [Primary Care Provider] - Print Language: [place] Disposition Disposition: Home, Self Care What to do if you have Problems For any increased pain, shortness of breath, bleeding, nausea or vomiting, chestpain, or any unexpected problems, contact your Primary Care Provider. Call [facility] ([phone]) or report to the closest Emergency Room. Call 911 if necessary. 12/19/24 7117 <Electronically signed by Gray Wray MD> Cosigner Signature (if applicable): CC: Dr. Alba Eldridge MD ~ Signed [facility] Work Phone: 1(119) 282-784705-23-2025 Radiology Diagnostic study note [facility] Imaging Services [address] [place] [address] Knee 3 Views MR#: [id number] Acct: [id number] Name: PRINCESS MEZA Rep #: [id number] : 1950 F 74 From: Manisha Diaz MD PCP: Dr. Alba Eldridge MD Status: REG CLI Study:Knee 3 Views Date of Exam: 5 Exam# [id number] Ordering Dr: Walter Singh DO EXAM: XR [...] 2. Postoperative changes as above. Reading Location: [facility] CC: Dr. Alba Eldridge MD; Dr. Walter Singh DO ~ Control Board Operator: Signed [facility]03-28-2025 Evaluation note* Diagnosis Onset Date Resolution Status Admit Date Heterotopic ossification of joint acute September 18, 2024 10:47am IT band syndrome acute September 182024 10:47am S/P total knee arthroplasty acute September 18, 2024 10:47am [facility] Work Phone: 1(700) 480-671703-28-2025 Evaluation note* Diagnosis Onset Date Resolution Status Admit Date Heterotopic ossification of joint acute September 18, 2024 10:47am IT band syndrome acute September 182024 10:47am S/P total knee arthroplasty acute September 18, 2024 10:47am Heterotopic ossification of joint acute November 13, 2024 9 :19am S/P total knee arthroplasty acute November 13, 2024 9:19am [facility] Work Phone: 1(439) 528-931502-02-2024 Discharge summary Author Rasheed Fisher [facility] July 26, 2023 8:30am Note Date/Time July 26, 2023 5 :07am [facility] Medical Records Department [address] [place] [address] Emergency Department Summary 07/26/23 MR#: [id number] Acct: [id number] Name: PRINCESS MEZA Rep #:[id number] : 1950 72 From: Tye Méndez PCP: [...] she does not see any other doctors. [facility] Medical History Hiatal hernia HTN (hypertension) Home Medications atorvastatin 80 mg tablet 80 mg PO QHS cholesterol 04/15/19 [History Last Taken Unknown] lisinopril 20 mg-hydrochlorothiazide 25 mg tablet 2 tab PO DAILY htn 04/15/19 [History Last Taken Unknown] asrbmbgi-gmr-htcjm acid 0.4 mg-lycopene 300 mcg-lutein 250 mcg [...] % (Auto) 57.3 Lymph % (Auto) 32.3 Irwin % (Auto) 8.3 Eos % (Auto) 1.3 [...] Clarity Clear Urine pH 6.5 Ur Specific Jefferson 1.010 Urine Protein Negative Urine Glucose (UA) [...] 6:21 EST Reading Location ID and State: [facility] / [place] Tel , Service support , Discharge Plan [...] 1 EACH tablet 2 tab PO DAILY swcqktys-vby-YR-lycopen-lutein 1 EACH tablet 1 ea PO DAILY [...] your Primary Care Provider. Call [facility] ([phone]) or report to the closest Emergency Room. Call 911 if necessary. 07/26/23 07 <Electronically signed by Tye Montiel DO> Cosigner Signature (if applicable): CC: Dr. Alba Eldridge MD ~ Signed [facility] Work Phone: 1(123) 950-370910-30-2023 Discharge summary Author Dalton Baez [facility] April 22, 2023 2:13pm Note Date/Time April 22, 2023 2 :13pm [facility] Medical Records Department [address] [place] [address] Emergency Department Summary 04/22/23 MR#: [id number] Acct: [id number] Name: PRINCESS MEZA Rep #:[id number] : 1950 72 From: Dalton Baez MD PCP: Dr. Alab Eldridge MD Status:REG ER Location: ED HPI [...] just does not feel well on this. [facility] Medical History Hiatal hernia HTN (hypertension) Home Medications atorvastatin 80 mg tablet 80 mg PO QHS cholesterol 04/15/19 [History Last Taken Unknown] lisinopril 20 mg-hydrochlorothiazide 25 mg tablet 2 tab PO DAILY htn 04/15/19 [History Last Taken Unknown] drqoehsm-xjo-agtwp acid 0.4 mg-lycopene 300 mcg-lutein 250 mcg [...] Ox Oxygen Delivery Method Room Air MDM MDM MDM Narrative Medical decision making narrative: My [...] 80.1 H Lymph % (Auto) 16.1 L Irwin % (Auto) 3.2 Eos % (Auto) 0.0 [...] diffuse nonspecific ST and T wave changes. [place] interval, QRS duration and QTc are normal [...] 1 EACH tablet 2 tab PO DAILY wzpwkmij-zxu-MA-lycopen-lutein 1 EACH tablet 1 ea PO DAILY [...] your Primary Care Provider. Call [facility] ([phone]) or report to the closest Emergency Room. Call 911 if necessary. 04/22/23 1413 <Electronically signed by Dalton Baez MD> Cosigner Signature (if applicable): CC: Dr. Alba Eldridge MD ~ Signed [facility] Work Phone: 1(978) 268-873201-01-2021 Evaluation note* Diagnosis Onset Date Resolution Status History of total knee arthroplasty June, acute Left knee pain acute Patellar tendinitis of left knee acute [facility] Work Phone: Evaluation note* Diagnosis Onset Date Resolution Status History of total knee arthroplasty acute [facility] Work Phone: Evaluation noteNo assessment information available [facility] Work Phone: Evaluation note* Diagnosis Onset Date Resolution Status Iliotibial band syndrome, right leg acute Right knee pain acute [facility] Work Phone: Evaluation note* Diagnosis Onset Date Resolution Status DJD of left shoulder acute [facility] Work Phone: Hospital Discharge instructions Additional Instructions I believe your right lower back pain is from Right-sided sciatica. . Ice to the area. Motrin 2 pills twice a day for a week if your stomach can tolerate it if not do not do it. Oxycodone for pain. Follow-up if not improving.[facility] Work Phone: Summary Purpose Family History No [...] Will Yes July 01 4:50pm Power of Road Passenger Firer Yes July 01 4:50pm Advance Directive Response Recorded Date/ Time Name of Medical Power of Road Passenger Firer CORNELIA MEZA March 01, 2022 6:57pm Advance Directives Yes July 04, 2016 8:31pm Living Will No March 01 6:57pm Power of Road Passenger Firer Yes March 01, 2022 6:57pm Advance Directive Response Recorded Date/ Time Advance Directives Yes July 04, 2016 7:31pm Living Will No March 01 5:57pm Power of Road Passenger Firer Yes March 01, 2022 5:57pm Advance Directive Response Recorded Date/ Time Advance Directives Yes July 04, 2016 8:31pm Living Will No March 01 6:57pm Power of Road Passenger Firer Yes March 01, 2022 6:57pm Advance Directive Response Recorded Date/ Time Advance Directives Yes July 04, 2016 8:31pm Living Will No April 22 1:13pm Power of Road Passenger Firer No April 22, 2023 1:13pm Advance Directive Response Recorded Date/ Time Advance Directives Yes July 04, 2016 7:31pm Living Will No April 22 12:13pm Power of Road Passenger Firer No April 22, 2023 12:13pm Advance Directive Response Recorded Date/ Time Name of Medical Power of Road Passenger Firer cornelia gerardo July 26, 2023 4:52am Advance Directives Yes July 04, 2016 7:31pm Living Will No July 26 4:52am Power of Road Passenger Firer Yes July 26, 2023 4:52am Advance Directive Response Recorded Date/ Time Name of Medical Power of Road Passenger Firer cornelia gerardo July 26, 2023 5:52am Advance Directives Yes July 04, 2016 8:31pm Living Will No July 26 5:52am Power of Road Passenger Firer Yes July 26, 2023 5:52am Advance Directive Response Recorded Date/ Time Living Will No August 06 9:55pm Do you have a Healthcare Power of Road Passenger Firer? No August 06, 2024 9:55pm Advance Directives Yes February 8:52am Advance Directive Response Recorded Date/ Time Advance Directives Yes November 12 2:20pm Living Will No August 06 9:55pm Do you have a Healthcare Power of Road Passenger Firer? No August 06, 2024 9:55pm Advance Directive Response Recorded Date/ Time Advance Directives Yes November 12 2:20pm Do you have a Healthcare Power of Road Passenger Firer? No December 19, 2024 7:33pm Chief Complaint and Reason for Visit Chief [...] S/P total knee arthroplasty November 13 9:19am Chief Complaint Admit Date LEFT KNEE September 18, 2024 10: 47am RM 1 September 18, 2024 11: 04am SCREENING November 09, 2024 12:06 pm pain after history of total knee- LEFT M ay 2024 8:27am LEFT KNEE November 13, 2024 9:19a m OTHER PAIN December 19, 2024 7:31 pm Additional Source Comments INFORMATION SOURCE (unrecogn ized section and content) DATE CREATED AUTHOR 03/22/2018 Brigido Black [facility] DATE CREATED AUTHOR AUTHOR'S KEISHA PUENTES 12/21/2024 [facility] Goals (unrecognized section and content) Goals may [...] Care Provider, Referrin g Provider Active Oliver Hook PA, PA Attending Provider Active Team Status: [...] 18, 2024 End: September 18, 2024 Dr. Alab Eldridge MD Referring Provider Active Start: September [...] 2024 End: November 13, 2024 Team Status: Active Member Role/Relationship Status Dates Dr. Alba Eldridge MD Primary Care Provider Active Team Status: Inactive Member Role/Relationship Status Dates Dr. Alba Eldridge MD Primary Care Provider Active Start: September 18, 2024 End: September 18, 2024 Dr. Alba Eldridge MD Referring Provider Active Start: September 18, 2024 End: September 18, 2024 Dr. Walter Singh DO Attending Provider Active Start: September 18, 2024 End: September 18, 2024 Team Status: Inactive Member Role/Relationship Status Dates Dr. Alba Eldridge MD Primary Care Provider Active Start: September 18, 2024 End: September 18, 2024 Dr. Paras Palafox MD Attending Provider Active S tart: September 18, 2024 End: September 18, 2024 Team Status: Inactive Member Role/Relationship Status Dates Dr. Alba Eldridge MD Primary Care Provider Active Start: November 09, 2024 End: November 09, 2024 Dr. Alba Eldridge MD Attending Provider Active Start: November 09, 2024 End: November 09, 2024 Dr. Alba Eldridge MD Referring Provider Active Start: November 09, 2024 End: November 09, 2024 Team Status: Inactive Member Role/Relationship Status Dates Dr. Alba Eldridge MD Primary Care Provider Active Start: November 13, 2024 End: November 13, 2024 Dr. Walter Singh DO Attending Provider Active Start: November 13, 2024 End: November 13, 2024 Dr. Walter Singh DO Referring Provider Active Start: November 13, 2024 End: November 13, 2024 Team Status: Inactive Member Role/Relationship Status Dates Dr. Alba Eldridge MD Primary Care Provider Active Start: November 13, 2024 End: November 13, 2024 Dr. Alba Eldridge MD Referring Provider Active Start: November 13, 2024 End: November 13, 2024 Dr. Walter Singh DO Attending Provider Active Start: November 13, 2024 End: November 13, 2024 Team Status: Inactive Member Role/Relationship Status Dates Dr. Alba Eldridge MD Primary Care Provider Active Start: December 19, 2024 End: December 19, 2024 Dr. Gray Wray MD Referring Provider Active Sta rt: December 19, 2024 End: December 19, 2024 Dr. Gray Wray MD Emergency Provider Active Sta rt: December 19, 2024 End: December 19, 2024 FOR RECORDS PERTAINING TO PATIENTS WHO [...] BE BASED ON THE PRIMARY CLINICAL RECORDS. [facility]. provides no warranty or guarantee of the accuracy or completeness of information in this document.
[2024-12-21 01:54] LABS: Bacteria 0 SEEN /hpf (None Seen); Mucous, Urine 0 SEEN /hpf (<or=2+); Red Blood Cells-Urine 0 SEEN /hpf (0-5)
[2024-12-21 01:56] LABS: Color, Urine Yellow (Yellow); Glucose, Dipstick Normal (Normal); Ketone-Dipstick Negative (Negative); Leukocyte Esterase-Dipstick Negative /ul (Negative); Nitrite-Dipstick Negative (Negative); Occult Blood-Urine Negative /ul (Negative); Protein-Dipstick Negative (Negative); Urine Bilirubin Dipstick Negative (Negative); Urine Clarity Clear (Clear); Urine Urobilinogen Normal (Normal)
[2024-12-21 02:00] VITALS: BP 201/74; PULSE 56; RESP 18; TEMP 36.7; O2SAT 94
[2024-12-21 02:38] LABS: Squamous Epithelial Cells - UA 0-5 SEEN /hpf (5-10); White Blood Cells 0-5 SEEN /hpf (0-5)
[2024-12-21] MEDS: Ondansetron 4 MG/2 ML Vial IV (02:55)
[2024-12-21] MEDS: Morphine 4 MG/ML Syringe IV (02:55)
[2024-12-21 02:56] VITALS: BP 200/72; PULSE 59; RESP 18; TEMP 36.7; O2SAT 95
== END 2024-12-21 02:57 | disposition home or self-care (01) ==
PROVIDERS: Emergency Provider Emergency Medicine; PCP Family Medicine; Visit Provider Emergency Medicine
DX: R10.9 Unspecified abdominal pain (principal); M54.9 Dorsalgia, unspecified; R11.0 Nausea; Z87.891 Personal history of nicotine dependence; I10 Essential (primary) hypertension; Z79.899 Other long term (current) drug therapy; Z96.659 Presence of unspecified artificial knee joint; Z90.710 Acquired absence of both cervix and uterus
CPT/HCPCS: 74176; 80048; 81001; 85025; 96361; 96374; 96375; 99285; A4216; J2405

== ENCOUNTER → 2025-03-15 | Outpatient (CLI) | payer MEDICARE, OTHER, SELFPAY ==
[2025-03-15 18:47] LABS: Uric Acid 6.7 mg/dL (2.6-6.0)
== END | disposition home or self-care (01) ==
LOC: MTLAB 15:34
PROVIDERS: PCP Family Medicine; Referring Provider Orthopaedic Surgery; Visit Provider Orthopaedic Surgery
DX: Z96.659 Presence of unspecified artificial knee joint (principal); M25.562 Pain in left knee; T78.40XA Allergy, unspecified, initial encounter
CPT/HCPCS: 36415; 84550

== ENCOUNTER → 2025-04-14 | Outpatient (CLI) | payer MEDICARE, OTHER, SELFPAY ==
[2025-04-14 15:59] LABS: Uric Acid 6.3 mg/dL (2.6-6.0)
== END | disposition home or self-care (01) ==
LOC: MTLAB 13:56
PROVIDERS: PCP Family Medicine; Referring Provider Family Medicine; Visit Provider Family Medicine
DX: E79.0 Hyperuricemia without signs of inflammatory arthritis and tophaceous disease (principal)
CPT/HCPCS: 36415; 84550